=== PATIENT | male | born 1960 | race Caucasian/White ===

== ENCOUNTER 2018-08-26 07:13 | Emergency (ER) | payer OTHER ==
[~2018-08-26] VITALS: Ht 172.7 cm; Wt 65.9 kg
[~2018-08-26 07:13] MED LIST: HYDR-3965 PO; ONDA8TAB6 PO
[2018-08-26] MEDS ORDERED: LIDOcaine 1% w/epiNEPHrine 1:200,000 30ml vial IM ONE (07:30)
[2018-08-26] MEDS ORDERED: TETanus/Pertussis (Acell)/Diphther VAC/PF (Tdap-Adult) 0.5ml syringe IM ONE (07:30)
[2018-08-26] MEDS ORDERED: normal saline 1000ML IV soln IV ONE (07:35)
[2018-08-26 08:02] LABS: BASOPHILS % (AUTO) 0.4 % (0-1); EOSINOPHILS # (AUTO) 0.1 X10'3 (0-0.9); EOSINOPHILS % (AUTO) 3.2 % (0-6); HEMATOCRIT 33.6 % (42.0-52.0); HEMOGLOBIN 11.6 g/dl (14.0-17.9); LYMPHOCYTES # (AUTO) 0.9 X10'3 (1.1-4.8); LYMPHOCYTES % (AUTO) 22.2 % (21-51); MEAN CORPUSCULAR HGB CONC 34.4 g/dL (33.0-36.5); MEAN CORPUSCULAR VOLUME 101.7 FL (78-98); MEAN PLATELET VOLUME 8.9 FL (7.4-10.4); MONOCYTES # (AUTO) 0.3 X10'3 (0-0.9); MONOCYTES % (AUTO) 7.9 % (2-12); NEUTROPHILS # (AUTO) 2.7 X10'3 (1.8-7.7); NEUTROPHILS % (AUTO) 66.3 % (42-75); PLATELET COUNT 96 X10'3 (140-440); RED CELL DISTRIBUTION WIDTH 14.2 % (11.5-14.5); WHITE BLOOD COUNT 4.1 X10'3 (4.5-11.0)
[2018-08-26 08:12] LABS: ALANINE AMINOTRANSFERASE 63 U/L (12-78); ALBUMIN 3.7 G/DL (3.4-5.0); ALKALINE PHOSPHATASE 80 IU/L (46-116); ANION GAP 14 (8-16); ASPARTATE AMINO TRANSFERASE 75 U/L (10-37); BILIRUBIN,TOTAL 0.6 MG/DL (0.1-1.0); BLOOD UREA NITROGEN 10 MG/DL (7-18); BUN/CREATININE RATIO 6.5 (5.4-32.0); CALCIUM 8.5 MG/DL (8.5-10.1); CHLORIDE 95 MMOL/L (99-107); CREATININE 1.55 MG/DL (0.60-1.10); GLUCOSE 110 MG/DL (70-104); MAGNESIUM 1.2 MG/DL (1.5-2.4); PHOSPHORUS 2.5 MG/DL (2.3-4.5); POTASSIUM 3.2 MMOL/L (3.5-5.1); SODIUM 134 MMOL/L (135-145); TOTAL CARBON DIOXIDE 25.5 MMOL/L (24-32); TOTAL PROTEIN 7.3 G/DL (6.4-8.2); eGFR 47 ML/MIN
[2018-08-26 09:13] LABS: PARTIAL THROMBOPLASTIN TIME 26 SECONDS (22-32)
--- NOTE | 2018-08-26 09:27 | NUR ---
assumed care of pt from Ct RN, pt is resting quietly on gurney, eating ice chips, urbano well, no n/v, pt is GCS 15, alert and oriented, resp even and unlabored, skin p/w/d, dressing to left forearm is dry and intact, pt said he had kale placed
--- NOTE | 2018-08-26 09:29 | NUR ---
emptied urinal of 700ml of clear yellow urine
[2018-08-26] MEDS ORDERED: potassium Cl 20 mEq SR tablet PO ONE (10:05)
--- NOTE | 2018-08-26 10:40 | NUR ---
pt continues to rest quietly on gurunion, waiting for blood transfusion, consent has been signed
--- NOTE | 2018-08-26 11:44 | NUR ---
pt is resting quietly on gurney, resp even and unlabored,
[2018-08-26 11:45] VITALS: BP 139/90
[2018-08-26 12:05] VITALS: BP 141/87
--- NOTE | 2018-08-26 12:07 | NUR ---
pt is receiving 1st unit URBC, no s/s of reaction to blood, pt is resting quietly,
[2018-08-26 12:54] VITALS: BP 151/94
--- NOTE | 2018-08-26 12:58 | NUR ---
pt is resting quietly, PRBC infusing via pump, pt urbano well
[2018-08-26 14:00] VITALS: BP 155/100
--- NOTE | 2018-08-26 14:07 | NUR ---
PRBC FINISHED, PT CONTINUES TO REST QUIETLY ON GURNEY, PLANS TO TAKE TAXI HOME UPON DISCHARGE
== END 2018-08-26 14:30 | disposition home or self-care (01) ==
LOC: ER 07:14
DX: S51.812A Laceration without foreign body of left forearm, initial encounter (principal); D64.9 Anemia, unspecified; F32.9 Major depressive disorder, single episode, unspecified; Z98.890 Other specified postprocedural states; W26.0XXA Contact with knife, initial encounter; Y93.89 Activity, other specified; Y92.098 Other place in other non-institutional residence as the place of occurrence of the external cause; Y99.9 Unspecified external cause status
CPT/HCPCS: 12004; 36415; 36430; 80053; 83735; 84100; 85025; 85610; 85730; 86885; 86900; 86901; 86920; 90471; 90715; 99285; J7030; P9016

== ENCOUNTER 2018-09-24 12:33 | Emergency (ER) | payer OTHER ==
[~2018-09-24] VITALS: Ht 172.7 cm; Wt 68.0 kg
[~2018-09-24 12:33] MED LIST changes: -HYDR-3965 PO
[2018-09-24 13:19] LABS: BASOPHILS # (AUTO) 0.1 X10'3 (0-0.2); BASOPHILS % (AUTO) 0.5 % (0-1); EOSINOPHILS % (AUTO) 0.2 % (0-6); HEMATOCRIT 45.5 % (42.0-52.0); HEMOGLOBIN 15.9 g/dl (14.0-17.9); LYMPHOCYTES # (AUTO) 1.5 X10'3 (1.1-4.8); MEAN CORPUSCULAR HEMOGLOBIN 34.9 PG (27.0-31.0); MEAN CORPUSCULAR VOLUME 99.7 FL (78-98); MEAN PLATELET VOLUME 7.7 FL (7.4-10.4); MONOCYTES # (AUTO) 0.8 X10'3 (0-0.9); MONOCYTES % (AUTO) 7.5 % (2-12); NEUTROPHILS # (AUTO) 8.5 X10'3 (1.8-7.7); NEUTROPHILS % (AUTO) 77.8 % (42-75); PLATELET COUNT 165 X10'3 (140-440); RED BLOOD COUNT 4.56 X10'6 (4.70-6.10); RED CELL DISTRIBUTION WIDTH 14.3 % (11.5-14.5)
[2018-09-24 13:32] LABS: ALANINE AMINOTRANSFERASE 32 U/L (12-78); ALBUMIN 4.2 G/DL (3.4-5.0); ALBUMIN/GLOBULIN RATIO 0.9 (1.1-1.5); ALKALINE PHOSPHATASE 80 IU/L (46-116); ANION GAP 13 (8-16); ASPARTATE AMINO TRANSFERASE 32 U/L (10-37); BILIRUBIN,TOTAL 1.9 MG/DL (0.1-1.0); BLOOD UREA NITROGEN 23 MG/DL (7-18); BUN/CREATININE RATIO 9.7 (5.4-32.0); CALCIUM 10.2 MG/DL (8.5-10.1); CHLORIDE 89 MMOL/L (99-107); CREATININE 2.37 MG/DL (0.60-1.10); GLUCOSE 130 MG/DL (70-104); POTASSIUM 3.3 MMOL/L (3.5-5.1); SODIUM 136 MMOL/L (135-145); TOTAL CARBON DIOXIDE 34.2 MMOL/L (24-32); TOTAL PROTEIN 8.8 G/DL (6.4-8.2); eGFR 29 ML/MIN
--- NOTE | 2018-09-24 14:06 | NUR ---
PT UNABLE TO VOID FOR UA AT THIS TIME.
[2018-09-24 14:13] LABS: ETHANOL < 0.010 GM/DL (0.0-0.010); LIPASE 102 U/L (73-393)
[2018-09-24] MEDS ORDERED: normal saline 1000ML IV soln IVB ONE (14:50)
--- NOTE | 2018-09-24 15:08 | NUR ---
PT STILL UINABLE TO VOID FOR UA, STARTED 2L BOLUS OF NS. AWARE.
[2018-09-24] MEDS ORDERED: morphine 4 MG/ML inj SYRINge IV ONE (15:30)
[2018-09-24] MEDS ORDERED: ondansetron/PF 4mg/2ml inj IV ONE (15:30)
[2018-09-24] MEDS ORDERED: famotidine/PF 10 mg/ml inj IV ONE (15:45)
[2018-09-24] MEDS ORDERED: PANT-47 PO (15:51)
[2018-09-24] MEDS ORDERED: ONDA4TAB12 PO (15:51)
[2018-09-24 16:44] VITALS: BP 156/100
== END 2018-09-24 16:47 | disposition home or self-care (01) ==
LOC: ER 12:33
DX: K29.20 Alcoholic gastritis without bleeding (principal); N17.9 Acute kidney failure, unspecified; E86.0 Dehydration; F32.9 Major depressive disorder, single episode, unspecified; Z79.899 Other long term (current) drug therapy
CPT/HCPCS: 36415; 76700; 80053; 80320; 83690; 85025; 85610; 96361; 96374; 96375; 99284; J2270; J2405; J3490; J7030

== ENCOUNTER 2018-10-09 20:14 | Emergency (ER) | payer OTHER ==
[~2018-10-09] VITALS: Ht 172.7 cm; Wt 65.0 kg
[~2018-10-09 20:14] MED LIST changes: +ONDA4TAB12 PO; +PANT-47 PO
[2018-10-09 21:00] LABS: BASOPHILS # (AUTO) 0.1 X10'3 (0-0.2); BASOPHILS % (AUTO) 1.5 % (0-1); EOSINOPHILS # (AUTO) 0.1 X10'3 (0-0.9); EOSINOPHILS % (AUTO) 1.2 % (0-6); HEMATOCRIT 44.9 % (42.0-52.0); HEMOGLOBIN 15.3 g/dl (14.0-17.9); LYMPHOCYTES # (AUTO) 2.8 X10'3 (1.1-4.8); LYMPHOCYTES % (AUTO) 49.2 % (21-51); MEAN CORPUSCULAR HEMOGLOBIN 34.1 PG (27.0-31.0); MEAN CORPUSCULAR HGB CONC 34.1 g/dL (33.0-36.5); MEAN CORPUSCULAR VOLUME 100.1 FL (78-98); MEAN PLATELET VOLUME 7.3 FL (7.4-10.4); MONOCYTES # (AUTO) 0.5 X10'3 (0-0.9); MONOCYTES % (AUTO) 9.3 % (2-12); NEUTROPHILS # (AUTO) 2.2 X10'3 (1.8-7.7); NEUTROPHILS % (AUTO) 38.8 % (42-75); PLATELET COUNT 292 X10'3 (140-440); RED BLOOD COUNT 4.48 X10'6 (4.70-6.10); RED CELL DISTRIBUTION WIDTH 14.5 % (11.5-14.5); WHITE BLOOD COUNT 5.8 X10'3 (4.5-11.0)
[2018-10-09 21:05] LABS: ALANINE AMINOTRANSFERASE 79 U/L (12-78); ALBUMIN 4.1 G/DL (3.4-5.0); ALKALINE PHOSPHATASE 76 IU/L (46-116); ANION GAP 17 (8-16); ASPARTATE AMINO TRANSFERASE 134 U/L (10-37); BLOOD UREA NITROGEN 12 MG/DL (7-18); CALCIUM 9.3 MG/DL (8.5-10.1); CHLORIDE 98 MMOL/L (99-107); GLUCOSE 95 MG/DL (70-104); LIPASE 89 U/L (73-393); POTASSIUM 3.7 MMOL/L (3.5-5.1); SODIUM 139 MMOL/L (135-145); TOTAL CARBON DIOXIDE 24.1 MMOL/L (24-32); TOTAL PROTEIN 8.4 G/DL (6.4-8.2); eGFR 78 ML/MIN
[2018-10-09] MEDS ORDERED: normal saline 1000ML IV soln IVB ONE (21:10)
[2018-10-09] MEDS ORDERED: ondansetron/PF 4mg/2ml inj IV ONE (21:10)
[2018-10-09] MEDS ORDERED: pantoprazole 40 MG vial IV ONE (21:10)
--- NOTE | 2018-10-09 21:33 | NUR ---
Discussed pt's status including active etoh withdrawl s/s (n/v increased anxiety, coarse hand tremors) with VALERY Monge New orders received for ativan.
[2018-10-09] MEDS ORDERED: LORazepam 2 mg/ml vial IV ONE (21:35)
[2018-10-09] MEDS ORDERED: ONDA4TAB6 PO (23:14)
[2018-10-09] MEDS ORDERED: CHLO25CA10 PO (23:14)
[2018-10-09 23:28] VITALS: BP 140/97
== END 2018-10-09 23:33 | disposition home or self-care (01) ==
LOC: ER 20:15
DX: K29.00 Acute gastritis without bleeding (principal); F10.10 Alcohol abuse, uncomplicated; F32.9 Major depressive disorder, single episode, unspecified; F12.90 Cannabis use, unspecified, uncomplicated; Z98.890 Other specified postprocedural states; Z79.899 Other long term (current) drug therapy
CPT/HCPCS: 36415; 80053; 83690; 85025; 85610; 96361; 96374; 96375; 99283; C9113; J2060; J2405; J7030

== ENCOUNTER 2018-10-11 13:10 | Emergency (ER) | payer OTHER ==
[~2018-10-11] VITALS: Ht 172.7 cm; Wt 65.9 kg
[~2018-10-11 13:10] MED LIST changes: +CHLO25CA10 PO; +ONDA4TAB6 PO
[2018-10-11 13:48] LABS: BASOPHILS % (AUTO) 0.8 % (0-1); EOSINOPHILS # (AUTO) 0.1 X10'3 (0-0.9); EOSINOPHILS % (AUTO) 1.7 % (0-6); HEMATOCRIT 37.9 % (42.0-52.0); LYMPHOCYTES # (AUTO) 1.7 X10'3 (1.1-4.8); LYMPHOCYTES % (AUTO) 36.3 % (21-51); MEAN CORPUSCULAR HEMOGLOBIN 34.3 PG (27.0-31.0); MEAN CORPUSCULAR HGB CONC 34.4 g/dL (33.0-36.5); MEAN CORPUSCULAR VOLUME 99.9 FL (78-98); MEAN PLATELET VOLUME 7.1 FL (7.4-10.4); MONOCYTES # (AUTO) 0.5 X10'3 (0-0.9); MONOCYTES % (AUTO) 9.7 % (2-12); NEUTROPHILS # (AUTO) 2.4 X10'3 (1.8-7.7); NEUTROPHILS % (AUTO) 51.5 % (42-75); PLATELET COUNT 179 X10'3 (140-440); RED BLOOD COUNT 3.79 X10'6 (4.70-6.10); RED CELL DISTRIBUTION WIDTH 14.4 % (11.5-14.5); WHITE BLOOD COUNT 4.7 X10'3 (4.5-11.0)
[2018-10-11 14:04] LABS: ALANINE AMINOTRANSFERASE 84 U/L (12-78); ALBUMIN 3.5 G/DL (3.4-5.0); ALKALINE PHOSPHATASE 65 IU/L (46-116); ANION GAP 16 (8-16); ASPARTATE AMINO TRANSFERASE 113 U/L (10-37); BILIRUBIN,TOTAL 0.7 MG/DL (0.1-1.0); BLOOD UREA NITROGEN 9 MG/DL (7-18); BUN/CREATININE RATIO 7.6 (5.4-32.0); CALCIUM 8.3 MG/DL (8.5-10.1); CHLORIDE 105 MMOL/L (99-107); CREATININE 1.19 MG/DL (0.60-1.10); ETHANOL 0.296 GM/DL (0.0-0.010); GLUCOSE 88 MG/DL (70-104); POTASSIUM 3.2 MMOL/L (3.5-5.1); SODIUM 144 MMOL/L (135-145); TOTAL CARBON DIOXIDE 22.6 MMOL/L (24-32); TOTAL PROTEIN 6.9 G/DL (6.4-8.2); TROPONIN I < 0.04 NG/ML (0.0-0.05); eGFR 63 ML/MIN
[2018-10-11] MEDS ORDERED: ondansetron/PF 4mg/2ml inj IV ONE (14:40)
[2018-10-11 15:00] LABS: LIPASE 183 U/L (73-393)
[2018-10-11] MEDS ORDERED: potassium Cl 20 mEq SR tablet PO STA (15:02)
[2018-10-11] MEDS ORDERED: diphenhydrAMINE 50 mg/ml inj IV ONE (15:05)
[2018-10-11] MEDS ORDERED: normal saline 1000ML IV soln IVB ONE (15:05)
[2018-10-11] MEDS ORDERED: metoclopramide 5 mg/ml inj IV ONE (15:05)
[2018-10-11] MEDS ORDERED: PANT20TA3 PO (15:07)
[2018-10-11 16:16] VITALS: BP 124/74
== END 2018-10-11 16:17 | disposition home or self-care (01) ==
LOC: ER 13:10
DX: F10.129 Alcohol abuse with intoxication, unspecified (principal); R11.2 Nausea with vomiting, unspecified; R10.13 Epigastric pain; F12.90 Cannabis use, unspecified, uncomplicated; Z98.890 Other specified postprocedural states; Z79.899 Other long term (current) drug therapy; Y90.9 Presence of alcohol in blood, level not specified
CPT/HCPCS: 36415; 80053; 80320; 83690; 84484; 85025; 93005; 96374; 96375; 99284; J1200; J2405; J2765; J7030

== ENCOUNTER 2018-10-11 20:36 | Emergency (ER) | payer OTHER ==
[~2018-10-11] VITALS: Ht 172.7 cm; Wt 65.0 kg
[~2018-10-11 20:36] MED LIST changes: +PANT20TA3 PO
[2018-10-11] MEDS ORDERED: normal saline 1000ML IV soln IVB ONE (21:15)
[2018-10-11] MEDS ORDERED: ondansetron/PF 4mg/2ml inj IV ONE (21:15)
[2018-10-11 21:53] VITALS: BP 125/84
[2018-10-11 21:55] LABS: BASOPHILS % (AUTO) 0.8 % (0-1); EOSINOPHILS % (AUTO) 0.1 % (0-6); HEMATOCRIT 34.7 % (42.0-52.0); HEMOGLOBIN 11.8 g/dl (14.0-17.9); LYMPHOCYTES # (AUTO) 0.9 X10'3 (1.1-4.8); LYMPHOCYTES % (AUTO) 26.4 % (21-51); MEAN CORPUSCULAR HEMOGLOBIN 34.2 PG (27.0-31.0); MEAN CORPUSCULAR HGB CONC 33.9 g/dL (33.0-36.5); MEAN CORPUSCULAR VOLUME 100.9 FL (78-98); MEAN PLATELET VOLUME 7.2 FL (7.4-10.4); MONOCYTES # (AUTO) 0.2 X10'3 (0-0.9); MONOCYTES % (AUTO) 7.1 % (2-12); NEUTROPHILS # (AUTO) 2.2 X10'3 (1.8-7.7); NEUTROPHILS % (AUTO) 65.6 % (42-75); PLATELET COUNT 124 X10'3 (140-440); RED BLOOD COUNT 3.44 X10'6 (4.70-6.10); RED CELL DISTRIBUTION WIDTH 14.5 % (11.5-14.5); WHITE BLOOD COUNT 3.3 X10'3 (4.5-11.0)
[2018-10-11 22:11] LABS: ALANINE AMINOTRANSFERASE 75 U/L (12-78); ALBUMIN 3.5 G/DL (3.4-5.0); ALBUMIN/GLOBULIN RATIO 1.1 (1.1-1.5); ALKALINE PHOSPHATASE 62 IU/L (46-116); ANION GAP 15 (8-16); ASPARTATE AMINO TRANSFERASE 84 U/L (10-37); BILIRUBIN,TOTAL 0.6 MG/DL (0.1-1.0); BLOOD UREA NITROGEN 9 MG/DL (7-18); BUN/CREATININE RATIO 7.4 (5.4-32.0); CHLORIDE 104 MMOL/L (99-107); CREATININE 1.22 MG/DL (0.60-1.10); GLUCOSE 120 MG/DL (70-104); LIPASE 155 U/L (73-393); POTASSIUM 3.7 MMOL/L (3.5-5.1); SODIUM 143 MMOL/L (135-145); TOTAL CARBON DIOXIDE 23.7 MMOL/L (24-32); TOTAL PROTEIN 6.8 G/DL (6.4-8.2); TROPONIN I < 0.04 NG/ML (0.0-0.05); eGFR 62 ML/MIN
[2018-10-11 22:12] LABS: CALCIUM 8.3 MG/DL (8.5-10.1)
== END 2018-10-11 22:29 | disposition home or self-care (01) ==
LOC: ER 20:36
DX: K29.20 Alcoholic gastritis without bleeding (principal); F10.10 Alcohol abuse, uncomplicated; R11.2 Nausea with vomiting, unspecified; F32.9 Major depressive disorder, single episode, unspecified; F12.90 Cannabis use, unspecified, uncomplicated; Z98.890 Other specified postprocedural states; Z79.899 Other long term (current) drug therapy
CPT/HCPCS: 36415; 80053; 83690; 84484; 85025; 96361; 96374; 99283; J2405; J7030

== ENCOUNTER 2018-11-10 10:21 | Emergency (ER) | payer OTHER ==
[~2018-11-10] VITALS: Ht 172.7 cm; Wt 66.0 kg
[2018-11-10 11:03] LABS: BASOPHILS # (AUTO) 0.1 X10'3 (0-0.2); BASOPHILS % (AUTO) 0.8 % (0-1); EOSINOPHILS % (AUTO) 0 % (0-6); HEMATOCRIT 46.3 % (42.0-52.0); LYMPHOCYTES # (AUTO) 2.6 X10'3 (1.1-4.8); LYMPHOCYTES % (AUTO) 31.1 % (21-51); MEAN CORPUSCULAR HEMOGLOBIN 33.9 PG (27.0-31.0); MEAN CORPUSCULAR HGB CONC 34.5 g/dL (33.0-36.5); MEAN CORPUSCULAR VOLUME 98.1 FL (78-98); MEAN PLATELET VOLUME 7.4 FL (7.4-10.4); MONOCYTES # (AUTO) 0.9 X10'3 (0-0.9); MONOCYTES % (AUTO) 10.4 % (2-12); NEUTROPHILS # (AUTO) 4.7 X10'3 (1.8-7.7); NEUTROPHILS % (AUTO) 57.7 % (42-75); PLATELET COUNT 328 X10'3 (140-440); RED BLOOD COUNT 4.72 X10'6 (4.70-6.10); RED CELL DISTRIBUTION WIDTH 14.2 % (11.5-14.5); WHITE BLOOD COUNT 8.2 X10'3 (4.5-11.0)
[2018-11-10 11:18] LABS: ALANINE AMINOTRANSFERASE 44 U/L (12-78); ALBUMIN 4.3 G/DL (3.4-5.0); ALKALINE PHOSPHATASE 90 IU/L (46-116); ANION GAP 23 (8-16); ASPARTATE AMINO TRANSFERASE 50 U/L (10-37); BILIRUBIN,TOTAL 0.8 MG/DL (0.1-1.0); BLOOD UREA NITROGEN 25 MG/DL (7-18); BUN/CREATININE RATIO 20.8 (5.4-32.0); CHLORIDE 93 MMOL/L (99-107); GLUCOSE 121 MG/DL (70-104); LIPASE 76 U/L (73-393); POTASSIUM 3.9 MMOL/L (3.5-5.1); SODIUM 138 MMOL/L (135-145); TOTAL CARBON DIOXIDE 22.1 MMOL/L (24-32); TOTAL PROTEIN 8.6 G/DL (6.4-8.2); eGFR 63 ML/MIN
[2018-11-10] MEDS ORDERED: LORazepam 2 mg/ml vial IV ONE (12:40)
[2018-11-10] MEDS ORDERED: normal saline 1000ML IV soln IV ONE (12:40)
[2018-11-10] MEDS ORDERED: ondansetron/PF 4mg/2ml inj IV ONE (12:40)
[2018-11-10] MEDS ORDERED: morphine 4 MG/ML inj SYRINge IV PRN (12:45)
[2018-11-10] MEDS ORDERED: GABA-532 PO (14:55)
[2018-11-10 15:07] VITALS: BP 143/78
[2018-11-10 15:24] LABS: MAGNESIUM 1.9 MG/DL (1.5-2.4)
[2018-11-11] MEDS ORDERED: TRAM50TA2 PO (15:46)
== END 2018-11-10 15:09 | disposition home or self-care (01) ==
LOC: ER 10:22
DX: F10.929 Alcohol use, unspecified with intoxication, unspecified (principal); E86.0 Dehydration; R10.10 Upper abdominal pain, unspecified; F12.90 Cannabis use, unspecified, uncomplicated; Z98.890 Other specified postprocedural states; Z79.899 Other long term (current) drug therapy; Y90.9 Presence of alcohol in blood, level not specified
CPT/HCPCS: 36415; 80053; 83690; 83735; 83880; 85025; 85610; 93005; 96374; 96375; 99284; J2060; J2270; J2405; J7030

== ENCOUNTER 2018-11-11 10:22 | Emergency (ER) | payer OTHER ==
[~2018-11-11] VITALS: Ht 175.3 cm; Wt 77.0 kg
[~2018-11-11 10:22] MED LIST changes: +GABA-532 PO
--- NOTE | 2018-11-11 12:00 | NUR ---
pt c/o pain asked provider for pain meds
[2018-11-11] MEDS ORDERED: fentaNYL/PF 50MCG/1 ML 2ML syringe IV ONE ×2 (12:10→13:40)
[2018-11-11] MEDS ORDERED: normal saline 1000ML IV soln IVB ONE (12:25)
[2018-11-11] MEDS ORDERED: ondansetron/PF 4mg/2ml inj IV ONE ×2 (12:25→13:40)
[2018-11-11] MEDS ORDERED: iohexol 300mg/ml 100ml inj. ONE (12:25)
[2018-11-11 12:33] LABS: BASOPHILS % (AUTO) 0.5 % (0-1); EOSINOPHILS % (AUTO) 0.5 % (0-6); HEMATOCRIT 38.1 % (42.0-52.0); HEMOGLOBIN 12.8 g/dl (14.0-17.9); LYMPHOCYTES % (AUTO) 29.2 % (21-51); MEAN CORPUSCULAR HEMOGLOBIN 33.3 PG (27.0-31.0); MEAN CORPUSCULAR HGB CONC 33.7 g/dL (33.0-36.5); MEAN CORPUSCULAR VOLUME 98.9 FL (78-98); MEAN PLATELET VOLUME 7.2 FL (7.4-10.4); MONOCYTES # (AUTO) 0.5 X10'3 (0-0.9); MONOCYTES % (AUTO) 7.1 % (2-12); NEUTROPHILS # (AUTO) 4.2 X10'3 (1.8-7.7); NEUTROPHILS % (AUTO) 62.7 % (42-75); PLATELET COUNT 162 X10'3 (140-440); RED BLOOD COUNT 3.85 X10'6 (4.70-6.10); RED CELL DISTRIBUTION WIDTH 14.3 % (11.5-14.5); WHITE BLOOD COUNT 6.7 X10'3 (4.5-11.0)
[2018-11-11 12:37] LABS: PARTIAL THROMBOPLASTIN TIME 26 SECONDS (22-32)
--- NOTE | 2018-11-11 12:40 | NUR ---
helped pt up to try to use urinal, unable to urinate yet
[2018-11-11 12:41] LABS: ALANINE AMINOTRANSFERASE 40 U/L (12-78); ALBUMIN 3.5 G/DL (3.4-5.0); ALKALINE PHOSPHATASE 69 IU/L (46-116); ANION GAP 12 (8-16); ASPARTATE AMINO TRANSFERASE 47 U/L (10-37); BILIRUBIN,TOTAL 0.9 MG/DL (0.1-1.0); BLOOD UREA NITROGEN 13 MG/DL (7-18); BUN/CREATININE RATIO 14.1 (5.4-32.0); CALCIUM 8.5 MG/DL (8.5-10.1); CHLORIDE 102 MMOL/L (99-107); CREATININE 0.92 MG/DL (0.60-1.10); ETHANOL 0.248 GM/DL (0.0-0.010); GLUCOSE 92 MG/DL (70-104); LIPASE 83 U/L (73-393); POTASSIUM 3.6 MMOL/L (3.5-5.1); SODIUM 141 MMOL/L (135-145); TOTAL CARBON DIOXIDE 26.8 MMOL/L (24-32); TOTAL PROTEIN 6.9 G/DL (6.4-8.2); eGFR 85 ML/MIN
--- NOTE | 2018-11-11 13:10 | NUR ---
pt back to room, using urinal.
--- NOTE | 2018-11-11 13:40 | NUR ---
PT C/O PAIN 11/25 REQ PAIN MEDS AND ANTI NAUSEA FROM PROVIDER
[2018-11-11 13:47] LABS: CLARITY,URINE CLEAR (Clear); COLOR,URINE STRAW (Yellow); GLUCOSE, URINE NEGATIVE (Neg); KETONES,URINE NEGATIVE (Neg); LEUKOCYTE ESTERASE ,URINE NEGATIVE (Neg); NITRITES, URINE NEGATIVE (Neg); OCCULT BLOOD,URINE NEGATIVE (Neg); PH,URINE 6.5 (4.8-8.0); PROTEIN,URINE NEGATIVE (Neg); UA COLLECTION TYPE URINAL
[2018-11-11 14:13] LABS: URINE AMPHETAMINE SCREEN NEGATIVE (Neg); URINE BARBITUATE SCREEN NEGATIVE (Neg); URINE BENZODIAZEPINES SCREEN NEGATIVE (Neg); URINE CANNABINOID SCREEN POSITIVE (Neg); URINE COCAINE SCREEN NEGATIVE (Neg); URINE METHADONE SCREEN NEGATIVE (Neg); URINE OPIATE SCREEN POSITIVE (Neg); URINE PHENCYCLIDINE SCREEN NEGATIVE (Neg)
[2018-11-11 15:16] VITALS: BP 173/98
[2018-11-11] MEDS ORDERED: TRAM50TA2 PO (15:46)
== END 2018-11-11 15:19 | disposition home or self-care (01) ==
LOC: ER 10:22
DX: S22.32XA Fracture of one rib, left side, initial encounter for closed fracture (principal); F10.229 Alcohol dependence with intoxication, unspecified; F32.9 Major depressive disorder, single episode, unspecified; F12.90 Cannabis use, unspecified, uncomplicated; Z79.899 Other long term (current) drug therapy; W18.39XA Other fall on same level, initial encounter; Y93.89 Activity, other specified; Y92.89 Other specified places as the place of occurrence of the external cause; Y99.8 Other external cause status
CPT/HCPCS: 36415; 70450; 71260; 72125; 74177; 80053; 80305; 80320; 81003; 83690; 85025; 85610; 85730; 96374; 96375; 96376; 99284; J2405; J3010; J7030; Q9967

== ENCOUNTER 2018-12-16 00:44 | Emergency (ER) | payer OTHER ==
[~2018-12-16] VITALS: Ht 172.7 cm; Wt 64.0 kg
[2018-12-16] MEDS ORDERED: normal saline 1000ML IV soln IVB ONE (00:55)
[2018-12-16] MEDS ORDERED: ondansetron/PF 4mg/2ml inj IV ONE (00:55)
[2018-12-16] MEDS: morphine 4 MG/ML inj SYRINge IV PRN ×2 (01:00→01:49)
[2018-12-16 01:14] LABS: BASOPHILS % (AUTO) 0.9 % (0-1); EOSINOPHILS % (AUTO) 0.3 % (0-6); HEMATOCRIT 40.7 % (42.0-52.0); HEMOGLOBIN 14.4 g/dl (14.0-17.9); LYMPHOCYTES # (AUTO) 2.1 X10'3 (1.1-4.8); LYMPHOCYTES % (AUTO) 47.9 % (21-51); MEAN CORPUSCULAR HEMOGLOBIN 34.3 PG (27.0-31.0); MEAN CORPUSCULAR HGB CONC 35.3 g/dL (33.0-36.5); MEAN CORPUSCULAR VOLUME 97.2 FL (78-98); MEAN PLATELET VOLUME 8.1 FL (7.4-10.4); MONOCYTES # (AUTO) 0.8 X10'3 (0-0.9); MONOCYTES % (AUTO) 17.2 % (2-12); NEUTROPHILS # (AUTO) 1.5 X10'3 (1.8-7.7); NEUTROPHILS % (AUTO) 33.7 % (42-75); PLATELET COUNT 109 X10'3 (140-440); RED BLOOD COUNT 4.18 X10'6 (4.70-6.10); RED CELL DISTRIBUTION WIDTH 14.1 % (11.5-14.5); WHITE BLOOD COUNT 4.4 X10'3 (4.5-11.0)
[2018-12-16 01:34] LABS: ALANINE AMINOTRANSFERASE 95 U/L (12-78); ALKALINE PHOSPHATASE 103 IU/L (46-116); ANION GAP 13 (8-16); ASPARTATE AMINO TRANSFERASE 172 U/L (10-37); BILIRUBIN,TOTAL 1.6 MG/DL (0.1-1.0); BLOOD UREA NITROGEN 17 MG/DL (7-18); BUN/CREATININE RATIO 15.2 (5.4-32.0); CALCIUM 8.9 MG/DL (8.5-10.1); CHLORIDE 87 MMOL/L (99-107); CREATININE 1.12 MG/DL (0.60-1.10); GLUCOSE 107 MG/DL (70-104); LIPASE 131 U/L (73-393); SODIUM 133 MMOL/L (135-145); TOTAL CARBON DIOXIDE 32.9 MMOL/L (24-32); TOTAL PROTEIN 8.1 G/DL (6.4-8.2); TROPONIN I < 0.04 NG/ML (0.0-0.05); eGFR 68 ML/MIN
[2018-12-16 01:36] LABS: POTASSIUM 2.8 MMOL/L (3.5-5.1)
[2018-12-16] MEDS ORDERED: potassium Cl 20 mEq SR tablet PO STA (01:37)
[2018-12-16] MEDS ORDERED: POTA20TA19 PO (01:38)
[2018-12-16 02:27] VITALS: BP 125/73
== END 2018-12-16 02:29 | disposition home or self-care (01) ==
LOC: ER 00:44
DX: S20.212A Contusion of left front wall of thorax, initial encounter (principal); R11.2 Nausea with vomiting, unspecified; R10.10 Upper abdominal pain, unspecified; E87.6 Hypokalemia; F10.99 Alcohol use, unspecified with unspecified alcohol-induced disorder; I10 Essential (primary) hypertension; F32.9 Major depressive disorder, single episode, unspecified; F12.90 Cannabis use, unspecified, uncomplicated; Z98.890 Other specified postprocedural states; Z60.2 Problems related to living alone; Z79.899 Other long term (current) drug therapy; W18.39XA Other fall on same level, initial encounter; Y93.89 Activity, other specified; Y92.89 Other specified places as the place of occurrence of the external cause; Y99.8 Other external cause status; Y90.9 Presence of alcohol in blood, level not specified
CPT/HCPCS: 71045; 80053; 83690; 84484; 85025; 96361; 96374; 96375; 96376; 99284; J2270; J2405; J7030

== ENCOUNTER 2018-12-18 20:53 | Emergency (ER) | payer OTHER ==
[~2018-12-18] VITALS: Ht 172.7 cm; Wt 68.2 kg
[~2018-12-18 20:53] MED LIST changes: +POTA20TA19 PO
[2018-12-18] MEDS ORDERED: diphenhydrAMINE 25mg capsule PO ONE (22:55)
[2018-12-18] MEDS ORDERED: famotidine 20mg tablet PO ONE (22:55)
[2018-12-18] MEDS ORDERED: proCHLORperazine 10mg tablet PO ONE (22:55)
[2018-12-18 23:10] LABS: BASOPHILS % (AUTO) 0.8 % (0-1); EOSINOPHILS % (AUTO) 0.8 % (0-6); LYMPHOCYTES # (AUTO) 1.8 X10'3 (1.1-4.8); MEAN CORPUSCULAR HEMOGLOBIN 34.5 PG (27.0-31.0); MEAN CORPUSCULAR HGB CONC 35.2 g/dL (33.0-36.5); MEAN CORPUSCULAR VOLUME 97.9 FL (78-98); MONOCYTES # (AUTO) 0.5 X10'3 (0-0.9); MONOCYTES % (AUTO) 14.3 % (2-12); NEUTROPHILS % (AUTO) 29.1 % (42-75); PLATELET COUNT 98 X10'3 (140-440); RED BLOOD COUNT 3.78 X10'6 (4.70-6.10); RED CELL DISTRIBUTION WIDTH 14.5 % (11.5-14.5); WHITE BLOOD COUNT 3.4 X10'3 (4.5-11.0)
[2018-12-18 23:24] LABS: ALANINE AMINOTRANSFERASE 83 U/L (12-78); ALBUMIN 3.6 G/DL (3.4-5.0); ALKALINE PHOSPHATASE 95 IU/L (46-116); ANION GAP 6 (8-16); ASPARTATE AMINO TRANSFERASE 148 U/L (10-37); BLOOD UREA NITROGEN 13 MG/DL (7-18); BUN/CREATININE RATIO 12.1 (5.4-32.0); CALCIUM 8.5 MG/DL (8.5-10.1); CHLORIDE 93 MMOL/L (99-107); CREATININE 1.07 MG/DL (0.60-1.10); GLUCOSE 94 MG/DL (70-104); LIPASE 126 U/L (73-393); SODIUM 135 MMOL/L (135-145); TOTAL CARBON DIOXIDE 35.8 MMOL/L (24-32); TOTAL PROTEIN 7.1 G/DL (6.4-8.2); eGFR 71 ML/MIN
[2018-12-18 23:26] LABS: POTASSIUM 2.8 MMOL/L (3.5-5.1)
[2018-12-18] MEDS ORDERED: thiamine 100mg/ml 2ml inj. IV ONE (23:40)
[2018-12-18] MEDS ORDERED: thiamine 100mg tablet PO ONE (23:55)
[2018-12-19] MEDS ORDERED: potassium chloride 10mEq CAPSULE.SA PO STA (00:04)
[2018-12-19] MEDS ORDERED: potassium Cl 20 mEq SR tablet PO STA (00:08)
[2018-12-19 01:02] VITALS: BP 136/83
== END 2018-12-19 01:05 | disposition home or self-care (01) ==
LOC: ER 20:53
DX: R10.11 Right upper quadrant pain (principal); R10.12 Left upper quadrant pain; R11.2 Nausea with vomiting, unspecified; E87.6 Hypokalemia; F10.929 Alcohol use, unspecified with intoxication, unspecified; I10 Essential (primary) hypertension; F32.9 Major depressive disorder, single episode, unspecified; F12.90 Cannabis use, unspecified, uncomplicated; Z79.899 Other long term (current) drug therapy; Z98.890 Other specified postprocedural states; Z87.19 Personal history of other diseases of the digestive system; Z60.2 Problems related to living alone; Y90.9 Presence of alcohol in blood, level not specified
CPT/HCPCS: 80053; 83690; 85025; 99284; Q0163; Q0164

== ENCOUNTER 2019-01-10 20:04 | Emergency (ER) | payer OTHER ==
[~2019-01-10] VITALS: Ht 172.7 cm; Wt 68.2 kg
[2019-01-11] MEDS ORDERED: NAPR-56 PO (00:29)
[2019-01-11] MEDS ORDERED: HYDR-4383 PO (00:29)
[2019-01-11] MEDS ORDERED: naproxen 500mg tablet PO ONE (00:30)
[2019-01-11] MEDS ORDERED: HYDROcodone/acetaminophen 10/325mg tab PO ONE (00:30)
[2019-01-11 00:48] VITALS: BP 150/93
== END 2019-01-11 00:50 | disposition home or self-care (01) ==
LOC: ER 20:04
DX: M25.551 Pain in right hip (principal); M25.552 Pain in left hip; M19.90 Unspecified osteoarthritis, unspecified site; I10 Essential (primary) hypertension; F32.9 Major depressive disorder, single episode, unspecified; F12.90 Cannabis use, unspecified, uncomplicated; Z79.899 Other long term (current) drug therapy; Z87.19 Personal history of other diseases of the digestive system; Z98.890 Other specified postprocedural states; Z60.2 Problems related to living alone; W19.XXXA Unspecified fall, initial encounter; Y93.89 Activity, other specified; Y92.89 Other specified places as the place of occurrence of the external cause; Y99.8 Other external cause status
CPT/HCPCS: 72170; 72220; 99284

== ENCOUNTER 2019-01-15 13:25 | Emergency (ER) | payer OTHER ==
[~2019-01-15] VITALS: Ht 172.7 cm; Wt 68.2 kg
[~2019-01-15 13:25] MED LIST changes: +HYDR-4383 PO; +NAPR-56 PO
[2019-01-15] MEDS ORDERED: normal saline 1000ml 1,000 ML IV ONE (13:50)
[2019-01-15] MEDS ORDERED: ondansetron/PF 4mg/2ml inj IV ONE (13:55)
[2019-01-15 14:18] LABS: BASOPHILS % (AUTO) 0.6 % (0-1); EOSINOPHILS % (AUTO) 0.6 % (0-6); HEMATOCRIT 35.9 % (42.0-52.0); HEMOGLOBIN 12.5 g/dl (14.0-17.9); LYMPHOCYTES # (AUTO) 0.7 X10'3 (1.1-4.8); LYMPHOCYTES % (AUTO) 12.6 % (21-51); MEAN CORPUSCULAR HEMOGLOBIN 34.9 PG (27.0-31.0); MEAN CORPUSCULAR HGB CONC 34.9 g/dL (33.0-36.5); MONOCYTES # (AUTO) 0.3 X10'3 (0-0.9); MONOCYTES % (AUTO) 5.1 % (2-12); NEUTROPHILS # (AUTO) 4.6 X10'3 (1.8-7.7); NEUTROPHILS % (AUTO) 81.1 % (42-75); PLATELET COUNT 165 X10'3 (140-440); RED BLOOD COUNT 3.59 X10'6 (4.70-6.10); RED CELL DISTRIBUTION WIDTH 15.3 % (11.5-14.5); WHITE BLOOD COUNT 5.7 X10'3 (4.5-11.0)
--- NOTE | 2019-01-15 14:37 | NUR ---
PATIENT'S SPINE PALPATED ; NO STEP OFF NOTED; PATIENT HAS BRUISING TO LOWER THORACIC BACKAAA; RIGHT LATERAL WITH SWELLING; LOWER THORACIC SNALL BRUISE LEFT LATERAL BRUISING TO RIGHT UPPER BUTTOCK AND SACRUM
[2019-01-15 14:39] LABS: ALANINE AMINOTRANSFERASE 17 U/L (12-78); ALBUMIN 3.3 G/DL (3.4-5.0); ALBUMIN/GLOBULIN RATIO 0.9 (1.1-1.5); ALKALINE PHOSPHATASE 134 IU/L (46-116); ANION GAP 15 (8-16); ASPARTATE AMINO TRANSFERASE 30 U/L (10-37); BILIRUBIN,TOTAL 0.5 MG/DL (0.1-1.0); BLOOD UREA NITROGEN 11 MG/DL (7-18); CALCIUM 8.5 MG/DL (8.5-10.1); CHLORIDE 103 MMOL/L (99-107); CREATININE 0.92 MG/DL (0.60-1.10); ETHANOL 0.141 GM/DL (0.0-0.010); GLUCOSE 102 MG/DL (70-104); POTASSIUM 3.3 MMOL/L (3.5-5.1); SODIUM 141 MMOL/L (135-145); TOTAL CARBON DIOXIDE 23.1 MMOL/L (24-32); TOTAL PROTEIN 7.1 G/DL (6.4-8.2); eGFR 85 ML/MIN
[2019-01-15] MEDS ORDERED: LORazepam 2 mg/ml vial IV ONE (14:50)
[2019-01-15] MEDS ORDERED: ketorolac tromethamine 15mg/ml inj. IV ONE (14:50)
--- NOTE | 2019-01-15 14:55 | NUR ---
SPOKE TO NATALIA RAWLS REGARDING PAIN AND NAUSEA MEDICATIONS, NO ORDERS. BEDSIDE REPORT TO ISHAAN REDD. PATIENT TRANSFERRED TO ROOM 11
[2019-01-15 15:59] VITALS: BP 148/81
[2019-01-15] MEDS ORDERED: ONDA4TAB6 PO (16:06)
[2019-01-15] MEDS ORDERED: CLON-529 PO (16:06)
[2019-01-15 16:20] LABS: CLARITY,URINE CLEAR (Clear); COLOR,URINE STRAW (Yellow); GLUCOSE, URINE NEGATIVE (Neg); KETONES,URINE NEGATIVE (Neg); LEUKOCYTE ESTERASE ,URINE NEGATIVE (Neg); NITRITES, URINE NEGATIVE (Neg); OCCULT BLOOD,URINE NEGATIVE (Neg); PROTEIN,URINE 30 mg/dl (Neg); UROBILINOGEN,URINE 0.2 E.U/dL (0.2-1.0)
[2019-01-15 16:22] LABS: UA COLLECTION TYPE URINAL
[2019-01-15 16:25] LABS: BACTERIA,URINE NONE SEEN /HPF (Neg); MUCUS STRANDS NONE SEEN /LPF (Neg); RBC,URINE 0-2 /HPF (0-2); SQUAMOUS EPITHELIAL CELL,UR NONE SEEN /LPF (FEW); WBC,URINE NONE SEEN /HPF (0-4)
[2019-01-15 16:26] LABS: URINE AMPHETAMINE SCREEN NEGATIVE (Neg); URINE BARBITUATE SCREEN NEGATIVE (Neg); URINE BENZODIAZEPINES SCREEN POSITIVE (Neg); URINE CANNABINOID SCREEN POSITIVE (Neg); URINE COCAINE SCREEN NEGATIVE (Neg); URINE METHADONE SCREEN NEGATIVE (Neg); URINE OPIATE SCREEN POSITIVE (Neg); URINE PHENCYCLIDINE SCREEN NEGATIVE (Neg)
== END 2019-01-15 16:58 | disposition home or self-care (01) ==
LOC: ER 13:26
DX: F10.129 Alcohol abuse with intoxication, unspecified (principal); M54.5 Low back pain; R11.2 Nausea with vomiting, unspecified; R06.02 Shortness of breath; I10 Essential (primary) hypertension; F32.9 Major depressive disorder, single episode, unspecified; F12.90 Cannabis use, unspecified, uncomplicated; Z98.890 Other specified postprocedural states; Z60.2 Problems related to living alone; Z79.899 Other long term (current) drug therapy; Y90.0 Blood alcohol level of less than 20 mg/100 ml
CPT/HCPCS: 36415; 72220; 80053; 80305; 80320; 81001; 85025; 96361; 96374; 96375; 99283; J1885; J2060; J2405; J7030

== ENCOUNTER 2019-01-17 21:59 | Emergency (ER) | payer OTHER ==
[~2019-01-17] VITALS: Ht 172.7 cm; Wt 65.9 kg
[~2019-01-17 21:59] MED LIST changes: +CLON-529 PO; -POTA20TA19 PO
[2019-01-17] MEDS ORDERED: ondansetron/PF 4mg/2ml inj IV ONE (22:10)
[2019-01-17] MEDS ORDERED: normal saline 1000ML IV soln IVB ONE (22:10)
[2019-01-17] MEDS ORDERED: pantoprazole 40 MG vial IV ONE (22:10)
[2019-01-17 22:46] VITALS: BP 158/100
== END 2019-01-17 22:46 | disposition home or self-care (01) ==
LOC: ER 21:59
DX: R10.84 Generalized abdominal pain (principal); R11.0 Nausea; I10 Essential (primary) hypertension; F32.9 Major depressive disorder, single episode, unspecified; F10.99 Alcohol use, unspecified with unspecified alcohol-induced disorder; F12.90 Cannabis use, unspecified, uncomplicated; Z98.890 Other specified postprocedural states; Z60.2 Problems related to living alone; Z79.899 Other long term (current) drug therapy; Y90.9 Presence of alcohol in blood, level not specified
CPT/HCPCS: 96374; 96375; 99284; C9113; J2405; J7030; 96361

== ENCOUNTER 2019-01-20 16:08 | Emergency (ER) | payer OTHER ==
[~2019-01-20] VITALS: Ht 170.2 cm; Wt 68.2 kg
[2019-01-20 16:47] VITALS: BP 173/97
[2019-01-20] MEDS ORDERED: HYDROcodone/acetaminophen 5mg/325mg tablet PO ONE (17:45)
--- NOTE | 2019-01-20 18:17 | NUR ---
pt sitting up in bed asking to be dcd. infomed him as soon as his paper work is up he will be dcd
== END 2019-01-20 18:21 | disposition home or self-care (01) ==
LOC: ER 16:08
DX: G89.29 Other chronic pain (principal); M25.552 Pain in left hip; M25.551 Pain in right hip; I10 Essential (primary) hypertension; F32.9 Major depressive disorder, single episode, unspecified; F10.99 Alcohol use, unspecified with unspecified alcohol-induced disorder; F12.90 Cannabis use, unspecified, uncomplicated; Z60.2 Problems related to living alone; Z79.899 Other long term (current) drug therapy; Y90.9 Presence of alcohol in blood, level not specified
CPT/HCPCS: 99282

== ENCOUNTER 2019-02-25 19:05 | Emergency (ER) | payer OTHER ==
[~2019-02-25] VITALS: Ht 172.7 cm; Wt 68.2 kg
[~2019-02-25 19:05] MED LIST changes: -NAPR-56 PO
[2019-02-25] MEDS ORDERED: ondansetron 4mg rapidly disintigrating tab PO ONE (20:30)
[2019-02-25] MEDS ORDERED: LORazepam 1 MG tablet PO ONE (21:30)
--- NOTE | 2019-02-25 22:00 | NUR ---
Pt reports he still feels nauseous and is asking for additional nausea medication.
[2019-02-25 22:11] VITALS: BP 132/64
== END 2019-02-25 22:07 | disposition home or self-care (01) ==
LOC: ER 19:06
DX: F10.20 Alcohol dependence, uncomplicated (principal); R11.0 Nausea; I10 Essential (primary) hypertension; F32.9 Major depressive disorder, single episode, unspecified; F12.90 Cannabis use, unspecified, uncomplicated; Z98.890 Other specified postprocedural states; Z79.899 Other long term (current) drug therapy; Y90.9 Presence of alcohol in blood, level not specified
CPT/HCPCS: 99284

== ENCOUNTER 2019-03-01 04:42 | Emergency (ER) | payer OTHER ==
[~2019-03-01] VITALS: Ht 172.7 cm; Wt 68.0 kg
--- NOTE | 2019-03-01 04:50 | NUR ---
Patient to shower right after triage as he had large BM in his pants.
[2019-03-01] MEDS ORDERED: ondansetron 4mg rapidly disintigrating tab PO ONE (05:25)
--- NOTE | 2019-03-01 05:30 | NUR ---
PATIENT GIVEN WATER FOR PO CHALLENGE AND SOME CRACKERS WILL RE ASSESS NAUSEA
[2019-03-01] MEDS ORDERED: ONDA4TAB6 PO (05:38)
--- NOTE | 2019-03-01 05:51 | NUR ---
PATIENT ADDRESS FOR TRANSPORT [id number]
[2019-03-01 06:07] VITALS: BP 144/91
[2019-03-02] MEDS ORDERED: PANT40TA4 PO (10:16)
[2019-03-02] MEDS ORDERED: ONDA4TAB6 PO (10:18)
[2019-03-02] MEDS ORDERED: HYDR-3965 PO (10:19)
[2019-03-02] MEDS ORDERED: GABA-532 PO (10:23)
[2019-03-02] MEDS ORDERED: CHLO25CA10 PO (10:24)
[2019-03-02] MEDS ORDERED: CLON-529 PO (10:26)
[2019-03-02] MEDS ORDERED: NAPR-56 PO (10:28)
== END 2019-03-01 06:20 | disposition home or self-care (01) ==
LOC: ER 04:43
DX: F10.229 Alcohol dependence with intoxication, unspecified (principal); R11.0 Nausea; I10 Essential (primary) hypertension; Y90.9 Presence of alcohol in blood, level not specified; F12.90 Cannabis use, unspecified, uncomplicated; Z98.890 Other specified postprocedural states; Z89.512 Acquired absence of left leg below knee; Z79.899 Other long term (current) drug therapy
CPT/HCPCS: 99284

== ENCOUNTER 2019-03-01 15:48 | Inpatient (IN) | payer OTHER ==
[~2019-03-01] VITALS: Ht 172.7 cm; Wt 64.5 kg
[2019-03-01 16:17] LABS: BASOPHILS % (AUTO) 0.6 % (0-1); EOSINOPHILS % (AUTO) 0.4 % (0-6); HEMATOCRIT 39.9 % (42.0-52.0); LYMPHOCYTES # (AUTO) 1.9 X10'3 (1.1-4.8); LYMPHOCYTES % (AUTO) 37.4 % (21-51); MEAN CORPUSCULAR HEMOGLOBIN 35.3 PG (27.0-31.0); MEAN CORPUSCULAR HGB CONC 35.1 g/dL (33.0-36.5); MEAN CORPUSCULAR VOLUME 100.5 FL (78-98); MEAN PLATELET VOLUME 8.2 FL (7.4-10.4); MONOCYTES # (AUTO) 0.6 X10'3 (0-0.9); MONOCYTES % (AUTO) 11.9 % (2-12); NEUTROPHILS # (AUTO) 2.5 X10'3 (1.8-7.7); NEUTROPHILS % (AUTO) 49.7 % (42-75); PLATELET COUNT 109 X10'3 (140-440); RED BLOOD COUNT 3.97 X10'6 (4.70-6.10); RED CELL DISTRIBUTION WIDTH 13.9 % (11.5-14.5); WHITE BLOOD COUNT 5.1 X10'3 (4.5-11.0)
[2019-03-01 16:31] LABS: ALANINE AMINOTRANSFERASE 162 U/L (12-78); ALBUMIN 3.9 G/DL (3.4-5.0); ALBUMIN/GLOBULIN RATIO 1.1 (1.1-1.5); ALKALINE PHOSPHATASE 138 IU/L (46-116); AMYLASE 59 U/L (25-115); ANION GAP 14 (8-16); ASPARTATE AMINO TRANSFERASE 267 U/L (10-37); BILIRUBIN,TOTAL 2.2 MG/DL (0.1-1.0); BLOOD UREA NITROGEN 11 MG/DL (7-18); BUN/CREATININE RATIO 9.2 (5.4-32.0); CALCIUM 8.7 MG/DL (8.5-10.1); CHLORIDE 93 MMOL/L (99-107); CREATININE 1.19 MG/DL (0.60-1.10); GLUCOSE 111 MG/DL (70-104); LIPASE 870 U/L (73-393); SODIUM 138 MMOL/L (135-145); TOTAL CARBON DIOXIDE 30.9 MMOL/L (24-32); TOTAL PROTEIN 7.5 G/DL (6.4-8.2); eGFR 63 ML/MIN
[2019-03-01 16:39] LABS: POTASSIUM 2.8 MMOL/L (3.5-5.1)
[2019-03-01] MEDS ORDERED: potassium Cl 20 mEq SR tablet PO STA (16:40)
[2019-03-01] MEDS ORDERED: ringers solution, lactated 500ml IV solution IV ONE (19:00)
[2019-03-01] MEDS ORDERED: LORazepam 2 mg/ml vial IV ONE (19:00)
[2019-03-01] MEDS ORDERED: thiamine inj. 100 MG in normal saline 100ml IV soln 99 ML IV ONE (19:00)
[2019-03-01] MEDS ORDERED: ondansetron/PF 4mg/2ml inj IV ONE (19:10)
[2019-03-01 19:35] LABS: TRIGLYCERIDES 84 MG/DL (20-135)
[2019-03-01] MEDS: potassium Cl 10 mEq/100mL bag IV SCH ×2 (19:56→21:41)
[2019-03-01] MEDS ORDERED: ringers solution, lacted 1,000 ML IV ONE (20:25)
[2019-03-01 20:46] LABS: ETHANOL 0.148 GM/DL (0.0-0.010)
--- NOTE | 2019-03-01 20:55 | NUR ---
PATIENT UNSURE OF MEDICATIONS, HAS GABAPENTIN W/ HIM. STATES HE TAKES AMPLODIPINE AND QUENTIAPINE BUT UNSURE OF DOSE. MD AWARE.
[2019-03-01 21:00] LABS: GLUCOSE, URINE NEGATIVE (Neg); KETONES,URINE 15 mg/dl (Neg); LEUKOCYTE ESTERASE ,URINE NEGATIVE (Neg); NITRITES, URINE NEGATIVE (Neg); OCCULT BLOOD,URINE TRACE-INTACT (Neg); PH,URINE 6.5 (4.8-8.0); PROTEIN,URINE >=300 mg/dl (Neg); UROBILINOGEN,URINE >=8.0 E.U/dL (0.2-1.0)
[2019-03-01 21:18] LABS: URINE AMPHETAMINE SCREEN NEGATIVE (Neg); URINE BARBITUATE SCREEN NEGATIVE (Neg); URINE BENZODIAZEPINES SCREEN POSITIVE (Neg); URINE CANNABINOID SCREEN POSITIVE (Neg); URINE COCAINE SCREEN NEGATIVE (Neg); URINE METHADONE SCREEN NEGATIVE (Neg); URINE OPIATE SCREEN NEGATIVE (Neg); URINE PHENCYCLIDINE SCREEN NEGATIVE (Neg)
[2019-03-01 21:20] LABS: COLOR,URINE AMBER (Yellow); UA COLLECTION TYPE CLN CATCH MIDSTREAM
[2019-03-01 21:24] LABS: CLARITY,URINE SLIGHTLY CLOUDY (Clear)
[2019-03-01] MEDS ORDERED: LORazepam 2 mg/ml vial IV PRN (21:30)
[2019-03-01] MEDS ORDERED: HYDROcodone/acetaminophen 5mg/325mg tablet PO PRN (21:30)
[2019-03-01] MEDS ORDERED: dextrose 50%-water 50ml dispensing syringe IV PRN (21:30)
[2019-03-01] MEDS ORDERED: haloperidol lactate 5mg/ml inj IM PRN (21:30)
[2019-03-01] MEDS ORDERED: acetaminophen 325mg tablet PO PRN ×2 (21:30)
[2019-03-01] MEDS ORDERED: magnesium hydroxide 30ml (MOM) UD suspension PO PRN (21:30)
[2019-03-01] MEDS ORDERED: morphine 2 MG/ML inj. syringe IV PRN (21:30)
[2019-03-01] MEDS ORDERED: mag hydrox/Alum hydrox/simeth 30ml oral suspension PO PRN (21:30)
[2019-03-01] MEDS ORDERED: dicyclomine 10 MG capsule PO PRN (21:30)
[2019-03-01] MEDS ORDERED: thiamine 100mg/ml 2ml inj. IV ONE (21:30)
[2019-03-01] MEDS ORDERED: cloNIDine 0.1 mg tablet PO PRN (21:30)
[2019-03-01 21:33] LABS: MUCUS STRANDS MODERATE /LPF (Neg); SQUAMOUS EPITHELIAL CELL,UR FEW /LPF (FEW)
[2019-03-01 21:35] LABS: WBC,URINE NONE SEEN /HPF (0-4)
[2019-03-01 21:36] LABS: BACTERIA,URINE NONE SEEN /HPF (Neg)
[2019-03-01 21:46] LABS: RBC,URINE 0-2 /HPF (0-2)
--- NOTE | 2019-03-01 21:48 | NUR ---
SPOKE WITH DR AVILA REGARDING ADMIT ORDERS. PATIENT DEEMED TO BE APPROPRIATE FOR SURGICAL FLOOR, DOES NOT REQUIRE HIGHER LEVEL OF CARE ON PCU AT THIS TIME PER MD
[2019-03-01] MEDS: morphine 2 MG/ML inj. syringe IV PRN (23:48)
[2019-03-02] VITALS: BP 131/92
--- NOTE | 2019-03-02 00:30 | NUR ---
MD notified of lactic acid 2.3 after boluses and potassium level. Received order for protocol replacement of electrolytes and an order to redraw lactic with AM labs.
[2019-03-02] MEDS ORDERED: potassium CL 10mEq/100ml bag 100 ML IV PRN (01:25)
[2019-03-02] MEDS ORDERED: potassium Cl 20 mEq SR tablet PO PRN (01:25)
[2019-03-02] MEDS ORDERED: magnesium 2GM in 50ml NS 50 ML IV PRN (01:25)
[2019-03-02] MEDS: potassium Cl 20 mEq SR tablet PO PRN ×4 (02:41→22:19)
[2019-03-02] MEDS: HYDROcodone/acetaminophen 10/325mg tab PO PRN ×2 (05:23→20:30)
[2019-03-02] MEDS: ondansetron/PF 4mg/2ml inj IV PRN ×2 (05:27→17:24)
[2019-03-02 05:31] LABS: BASOPHILS % (AUTO) 0.9 % (0-1); EOSINOPHILS % (AUTO) 0.7 % (0-6); HEMATOCRIT 33.8 % (42.0-52.0); HEMOGLOBIN 11.9 g/dl (14.0-17.9); LYMPHOCYTES # (AUTO) 1.3 X10'3 (1.1-4.8); LYMPHOCYTES % (AUTO) 47.4 % (21-51); MEAN CORPUSCULAR HEMOGLOBIN 35.8 PG (27.0-31.0); MEAN CORPUSCULAR HGB CONC 35.1 g/dL (33.0-36.5); MEAN PLATELET VOLUME 9.3 FL (7.4-10.4); MONOCYTES # (AUTO) 0.3 X10'3 (0-0.9); MONOCYTES % (AUTO) 11.9 % (2-12); NEUTROPHILS # (AUTO) 1.1 X10'3 (1.8-7.7); NEUTROPHILS % (AUTO) 39.1 % (42-75); PLATELET COUNT 69 X10'3 (140-440); RED BLOOD COUNT 3.31 X10'6 (4.70-6.10); WHITE BLOOD COUNT 2.8 X10'3 (4.5-11.0)
[2019-03-02 05:57] LABS: ALANINE AMINOTRANSFERASE 125 U/L (12-78); ALBUMIN 3.3 G/DL (3.4-5.0); ALKALINE PHOSPHATASE 110 IU/L (46-116); AMYLASE 47 U/L (25-115); ANION GAP 6 (8-16); ASPARTATE AMINO TRANSFERASE 189 U/L (10-37); BILIRUBIN,TOTAL 2.8 MG/DL (0.1-1.0); BLOOD UREA NITROGEN 10 MG/DL (7-18); BUN/CREATININE RATIO 8.4 (5.4-32.0); CALCIUM 8.4 MG/DL (8.5-10.1); CHLORIDE 95 MMOL/L (99-107); CREATININE 1.19 MG/DL (0.60-1.10); GLUCOSE 138 MG/DL (70-104); POTASSIUM 3.3 MMOL/L (3.5-5.1); SODIUM 136 MMOL/L (135-145); TOTAL PROTEIN 6.5 G/DL (6.4-8.2); eGFR 63 ML/MIN
[2019-03-02 05:59] LABS: PHOSPHORUS 1.2 MG/DL (2.3-4.5)
[2019-03-02 06:00] LABS: MAGNESIUM 0.7 MG/DL (1.5-2.4)
[2019-03-02] MEDS: magnesium 4gm in 100ml NS 100 ML IV PRN (06:08)
--- NOTE | 2019-03-02 06:12 | NUR ---
ordered phos replacement and approved current regimen for Mag replacment for critical labs.
[2019-03-02 06:20] LABS: PLATELET ESTIMATE DECREASED; TOTAL CELLS COUNTED 100
--- NOTE | 2019-03-02 06:30 | NUR ---
IV Magnesium discarded and not administered r/t pt. ripped out IV. Will replace mag orally.
--- NOTE | 2019-03-02 06:37 | NUR ---
Problems reprioritized. Patient report given, questions answered & plan of care reviewed with TRAMAINE Galo.
[2019-03-02 07:07] VITALS: BP 161/89
[2019-03-02] MEDS: Neutra Phos packet PO SCH ×3 (09:34→22:20)
[2019-03-02] MEDS: LORazepam 2 mg/ml vial IV PRN ×2 (09:36→17:24)
--- NOTE | 2019-03-02 09:55 | NUR ---
Sclera off white/yellow and red. Addendum: 03/02/19 at 1009 by Clover Andres RN Amended: Links added.
[2019-03-02] MEDS ORDERED: PANT40TA4 PO (10:16)
[2019-03-02] MEDS ORDERED: ONDA4TAB6 PO (10:18)
[2019-03-02] MEDS ORDERED: HYDR-3965 PO (10:19)
[2019-03-02] MEDS ORDERED: GABA-532 PO (10:23)
[2019-03-02] MEDS ORDERED: CHLO25CA10 PO (10:24)
[2019-03-02] MEDS ORDERED: CLON-529 PO (10:26)
[2019-03-02] MEDS ORDERED: NAPR-56 PO (10:28)
--- NOTE | 2019-03-02 11:22 | NUR ---
MD Metcalf aware of critical values and the need for med. req. to be addressed.
[2019-03-02 12:19] VITALS: BP 161/103
[2019-03-02] MEDS: pantoprazole 40mg Tablet.DR PO SCH (12:37)
[2019-03-02] MEDS: Potassium Cl inj 20 MEQ in normal saline 1000ml 990 ML IV SCH (12:38)
[2019-03-02] MEDS: folic acid 1mg tablet PO SCH (13:03)
[2019-03-02] MEDS: multivitamins, therapeutics tablet PO SCH (13:04)
[2019-03-02] MEDS: thiamine 100mg tablet PO SCH ×2 (13:04→20:30)
[2019-03-02] MEDS: morphine 2 MG/ML inj. syringe IV PRN (13:05)
[2019-03-02] MEDS: magnesium Cl slow-release 64mg tablet PO PRN ×2 (13:13→22:19)
--- NOTE | 2019-03-02 16:15 | NUR ---
Malnutrition consult: Pt admit w/ pancreatitis secondary to alcoholism etoh 0.148, low K/Mg/Phos, and positive for benzodiazepines this admit. Pt PO 100% clear liquids so far this admit, no edema/wounds, no significant weakness, and no significant wt loss hx present. Pt does not meet minimum malnutrition criteria at this time. Pt seen by RD for written/verbal pancreatitis diet ed w/ RD contact information provided. LBM 03/01. Will monitor for diet advancement and PO diet tolerance this admit. Rec: 1. advance diet per MD to low-fat 2. monitor for ONS needs pending PO as diet advances 3. bowel care as needed 4. MVI/thiamin/folic per MD given etoh hx 5. wt per rx Addendum: 03/02/19 at [address] Amended: Links added.
[2019-03-02] MEDS ORDERED: iohexol 300mg/ml 100ml inj. ONE (17:36)
--- NOTE | 2019-03-02 19:03 | NUR ---
Seizure precautions in place. Patient awake and alert, just finished dinner. Gave report to Allison REDD.
[2019-03-02 19:30] VITALS: BP 128/83
[2019-03-02] MEDS ORDERED: thiamine 100mg tablet PO SCH ×2 (20:00)
[2019-03-03] VITALS: BP 139/89
[2019-03-03] MEDS: Potassium Cl inj 20 MEQ in normal saline 1000ml 990 ML IV SCH ×3 (00:21→20:49)
[2019-03-03] MEDS: LORazepam 2 mg/ml vial IV PRN (01:31)
[2019-03-03] MEDS: HYDROcodone/acetaminophen 10/325mg tab PO PRN ×3 (03:44→20:44)
[2019-03-03 05:44] LABS: BASOPHILS % (AUTO) 0.9 % (0-1); EOSINOPHILS # (AUTO) 0.2 X10'3 (0-0.9); EOSINOPHILS % (AUTO) 4.6 % (0-6); HEMATOCRIT 37.9 % (42.0-52.0); LYMPHOCYTES # (AUTO) 1.6 X10'3 (1.1-4.8); LYMPHOCYTES % (AUTO) 42.4 % (21-51); MEAN CORPUSCULAR HEMOGLOBIN 35.4 PG (27.0-31.0); MEAN CORPUSCULAR HGB CONC 34.4 g/dL (33.0-36.5); MEAN CORPUSCULAR VOLUME 102.9 FL (78-98); MONOCYTES # (AUTO) 0.4 X10'3 (0-0.9); MONOCYTES % (AUTO) 10.1 % (2-12); NEUTROPHILS # (AUTO) 1.5 X10'3 (1.8-7.7); PLATELET COUNT 73 X10'3 (140-440); RED BLOOD COUNT 3.69 X10'6 (4.70-6.10); RED CELL DISTRIBUTION WIDTH 13.8 % (11.5-14.5); WHITE BLOOD COUNT 3.7 X10'3 (4.5-11.0)
--- NOTE | 2019-03-03 05:45 | NUR ---
loud noise heard in room; pt found sitting at edge of left side of bed; pt disoriented & states he doesn't know why he got up; pt reports he hit his left shoulder & mid to lower back; denies hitting his head; no injury noted to left shoulder; slight redness/ scrape, mid to lower back...
[2019-03-03 05:50] VITALS: BP 158/102
--- NOTE | 2019-03-03 06:00 | NUR ---
Dr Ross notified of pt's fall, pt's confusion & vs's; no c/o's of pain where he fell; only c/o of abd pain at this time; no orders received
[2019-03-03 06:03] LABS: ALANINE AMINOTRANSFERASE 122 U/L (12-78); ALBUMIN 3.4 G/DL (3.4-5.0); ALBUMIN/GLOBULIN RATIO 0.9 (1.1-1.5); ALKALINE PHOSPHATASE 117 IU/L (46-116); AMYLASE 38 U/L (25-115); ANION GAP 7 (8-16); ASPARTATE AMINO TRANSFERASE 157 U/L (10-37); BILIRUBIN,TOTAL 2.7 MG/DL (0.1-1.0); BLOOD UREA NITROGEN 6 MG/DL (7-18); BUN/CREATININE RATIO 5.3 (5.4-32.0); CALCIUM 8.4 MG/DL (8.5-10.1); CHLORIDE 99 MMOL/L (99-107); CREATININE 1.13 MG/DL (0.60-1.10); GLUCOSE 92 MG/DL (70-104); MAGNESIUM 1.1 MG/DL (1.5-2.4); PHOSPHORUS 1.7 MG/DL (2.3-4.5); POTASSIUM 4.2 MMOL/L (3.5-5.1); SODIUM 137 MMOL/L (135-145); TOTAL CARBON DIOXIDE 30.8 MMOL/L (24-32); eGFR 67 ML/MIN
[2019-03-03 07:23] VITALS: BP 155/106
[2019-03-03] MEDS ORDERED: folic acid 1mg tablet PO SCH (08:00)
[2019-03-03] MEDS ORDERED: multivitamins, therapeutics tablet PO SCH (08:00)
[2019-03-03] MEDS: thiamine 100mg tablet PO SCH ×2 (08:36→20:43)
[2019-03-03] MEDS: Neutra Phos packet PO SCH ×3 (08:36→20:42)
[2019-03-03] MEDS: multivitamins, therapeutics tablet PO SCH (08:36)
[2019-03-03] MEDS: folic acid 1mg tablet PO SCH (08:36)
[2019-03-03] MEDS: pantoprazole 40mg Tablet.DR PO SCH (08:36)
[2019-03-03] MEDS: LORazepam 1 MG tablet PO PRN ×3 (10:21→20:43)
[2019-03-03 11:10] VITALS: BP 151/104
--- NOTE | 2019-03-03 12:11 | NUR ---
error in interventions task Addendum: 03/03/19 at 1211 by Xiomara Mosher RN Amended: Links added.
[2019-03-03] MEDS: magnesium Cl slow-release 64mg tablet PO PRN ×2 (13:48→21:20)
--- NOTE | 2019-03-03 18:30 | NUR ---
Patient in room [facility] 358. I have received report from JAXSON REDD and had the opportunity to ask questions and assume patient care.
[2019-03-03 20:00] VITALS: BP 144/94
[2019-03-04] VITALS: BP 159/95
[2019-03-04] MEDS: LORazepam 1 MG tablet PO PRN ×4 (01:55→12:07)
[2019-03-04] MEDS: Potassium Cl inj 20 MEQ in normal saline 1000ml 990 ML IV SCH (05:27)
[2019-03-04 06:18] LABS: BASOPHILS % (AUTO) 0.5 % (0-1); EOSINOPHILS # (AUTO) 0.2 X10'3 (0-0.9); EOSINOPHILS % (AUTO) 4.8 % (0-6); HEMATOCRIT 38.1 % (42.0-52.0); HEMOGLOBIN 13.3 g/dl (14.0-17.9); LYMPHOCYTES # (AUTO) 1.5 X10'3 (1.1-4.8); LYMPHOCYTES % (AUTO) 35.9 % (21-51); MEAN CORPUSCULAR HGB CONC 34.8 g/dL (33.0-36.5); MEAN CORPUSCULAR VOLUME 103.3 FL (78-98); MEAN PLATELET VOLUME 9.8 FL (7.4-10.4); MONOCYTES # (AUTO) 0.5 X10'3 (0-0.9); MONOCYTES % (AUTO) 11.3 % (2-12); NEUTROPHILS % (AUTO) 47.5 % (42-75); PLATELET COUNT 70 X10'3 (140-440); RED BLOOD COUNT 3.68 X10'6 (4.70-6.10); RED CELL DISTRIBUTION WIDTH 13.8 % (11.5-14.5); WHITE BLOOD COUNT 4.1 X10'3 (4.5-11.0)
--- NOTE | 2019-03-04 06:20 | NUR ---
Problems reprioritized. Patient report given, questions answered & plan of care reviewed with JAXSON REDD.
--- NOTE | 2019-03-04 06:23 | NUR ---
Patient in room [facility] 358. I have received report from Doug REDD and had the opportunity to ask questions and assume patient care.
[2019-03-04 06:38] VITALS: BP 137/101
[2019-03-04 06:39] LABS: ALANINE AMINOTRANSFERASE 105 U/L (12-78); ALBUMIN 3.4 G/DL (3.4-5.0); ALKALINE PHOSPHATASE 111 IU/L (46-116); AMYLASE 28 U/L (25-115); ANION GAP 11 (8-16); ASPARTATE AMINO TRANSFERASE 107 U/L (10-37); BILIRUBIN,TOTAL 1.5 MG/DL (0.1-1.0); BLOOD UREA NITROGEN 4 MG/DL (7-18); CALCIUM 8.7 MG/DL (8.5-10.1); CHLORIDE 100 MMOL/L (99-107); GLUCOSE 87 MG/DL (70-104); PHOSPHORUS 3.3 MG/DL (2.3-4.5); POTASSIUM 4.5 MMOL/L (3.5-5.1); SODIUM 135 MMOL/L (135-145); TOTAL CARBON DIOXIDE 23.8 MMOL/L (24-32); TOTAL PROTEIN 6.8 G/DL (6.4-8.2); eGFR 77 ML/MIN
[2019-03-04 06:47] LABS: MAGNESIUM 0.9 MG/DL (1.5-2.4)
[2019-03-04] MEDS: multivitamins, therapeutics tablet PO SCH (07:17)
[2019-03-04] MEDS: magnesium Cl slow-release 64mg tablet PO PRN (07:17)
[2019-03-04] MEDS: thiamine 100mg tablet PO SCH (07:17)
[2019-03-04] MEDS: HYDROcodone/acetaminophen 10/325mg tab PO PRN ×2 (07:17→12:07)
[2019-03-04] MEDS: Neutra Phos packet PO SCH ×2 (07:17→12:09)
[2019-03-04] MEDS: pantoprazole 40mg Tablet.DR PO SCH (07:17)
[2019-03-04] MEDS: folic acid 1mg tablet PO SCH (07:17)
--- NOTE | 2019-03-04 09:11 | NUR ---
PAGER ID: [phone] MESSAGE: [id number] Mis Weber. His Mg this morning was a critical of 0.9. Do you want a scheduled dose? I am replacing him per protocol. Xiomara [id number]
[2019-03-04] MEDS: magnesium 4gm in 100ml NS 100 ML IV PRN (09:39)
[2019-03-04] MEDS ORDERED: HYDR-3965 PO (10:56)
[2019-03-04] MEDS ORDERED: LORA-269 PO (10:56)
[2019-03-04] MEDS ORDERED: ONDA4TAB6 PO (10:56)
[2019-03-04 11:03] VITALS: BP 136/101
--- NOTE | 2019-03-04 11:04 | NUR ---
Patient requesting to go home, states he needs to go home to be [facility].
--- NOTE | 2019-03-04 11:20 | NUR ---
Patient discharged on nursing end. Mg IV is being replaced currently. Patient is agreeing to stay for the infusion at this time but is very anxious about wanting to go home. Encouraging patient to stay for replacement.
[2019-03-04] MEDS ORDERED: MAGN400C PO (11:21)
--- NOTE | 2019-03-04 17:21 | NUR ---
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 Addendum: 03/04/19 at 1723 by Xiomara Mosher RN Amended: Links added.
--- NOTE | 2019-03-04 17:23 | NUR ---
Patient discharged, taken to lobby by [employer]. [employer] picking up patient, patient paid for own taxi ride. All education completed. Patient next home doses for medications educated and written on discharge paper work. Patient MG replaced by IV and PO. MG scrip also provided. Patient provided clothing. Patient states [facility] to get [facility] and sober.
[2019-03-04] MEDS ORDERED: magnesium Cl slow-release 64mg tablet PO SCH (20:00)
== END 2019-03-04 17:53 | disposition home or self-care (01) | DRG 439 ==
LOC: ER 15:49 → ED HOLD 21:29 → SUR 3N 22:15
PROVIDERS: ADMIT Internal Medicine; ATTEND Internal Medicine
PROC: BW211ZZ Computerized Tomography (CT Scan) of Abdomen and Pelvis using Low Osmolar Contrast (ICD-10-PCS; principal; 2019-03-02)
DX: K85.20 Alcohol induced acute pancreatitis without necrosis or infection (principal); F10.239 Alcohol dependence with withdrawal, unspecified; D61.818 Other pancytopenia; R74.0 Nonspecific elevation of levels of transaminase and lactic acid dehydrogenase [LDH]; K86.0 Alcohol-induced chronic pancreatitis; E87.6 Hypokalemia; K70.10 Alcoholic hepatitis without ascites; I12.9 Hypertensive chronic kidney disease with stage 1 through stage 4 chronic kidney disease, or unspecified chronic kidney disease; N18.9 Chronic kidney disease, unspecified; Z60.2 Problems related to living alone; F12.90 Cannabis use, unspecified, uncomplicated; F17.210 Nicotine dependence, cigarettes, uncomplicated; E83.39 Other disorders of phosphorus metabolism; E83.42 Hypomagnesemia; F32.9 Major depressive disorder, single episode, unspecified; Z79.899 Other long term (current) drug therapy; Z71.41 Alcohol abuse counseling and surveillance of alcoholic; D75.89 Other specified diseases of blood and blood-forming organs
CPT/HCPCS: 36415; 74177; 76937; 80053; 80305; 80320; 81001; 82150; 82948; 83605; 83690; 83735; 84100; 84478; 85025; 87081; 97116; 97161; 97530; G0378; J2060; J2270; J2405; J3411; J3475; J3480; J7030; J7120; Q9967

== ENCOUNTER 2019-04-21 13:46 | Emergency (ER) | payer OTHER ==
[~2019-04-21] VITALS: Ht 172.7 cm; Wt 65.5 kg
[~2019-04-21 13:46] MED LIST changes: -CHLO25CA10 PO; +HYDR-3965 PO; -HYDR-4383 PO; +LORA-269 PO; +MAGN400C PO; -ONDA4TAB12 PO; -ONDA8TAB6 PO; -PANT-47 PO; -PANT20TA3 PO; +PANT40TA4 PO
[2019-04-21 14:22] LABS: BASOPHILS % (AUTO) 0.2 % (0-1); EOSINOPHILS % (AUTO) 0.1 % (0-6); HEMATOCRIT 39.1 % (42.0-52.0); HEMOGLOBIN 13.5 g/dl (14.0-17.9); LYMPHOCYTES # (AUTO) 0.9 X10'3 (1.1-4.8); LYMPHOCYTES % (AUTO) 14.6 % (21-51); MEAN CORPUSCULAR HEMOGLOBIN 34.4 PG (27.0-31.0); MEAN CORPUSCULAR HGB CONC 34.6 g/dL (33.0-36.5); MEAN CORPUSCULAR VOLUME 99.2 FL (78-98); MEAN PLATELET VOLUME 8.8 FL (7.4-10.4); MONOCYTES # (AUTO) 0.5 X10'3 (0-0.9); MONOCYTES % (AUTO) 8.6 % (2-12); NEUTROPHILS # (AUTO) 4.7 X10'3 (1.8-7.7); NEUTROPHILS % (AUTO) 76.5 % (42-75); PLATELET COUNT 118 X10'3 (140-440); RED BLOOD COUNT 3.94 X10'6 (4.70-6.10); RED CELL DISTRIBUTION WIDTH 13.4 % (11.5-14.5); WHITE BLOOD COUNT 6.1 X10'3 (4.5-11.0)
[2019-04-21 14:40] LABS: ALANINE AMINOTRANSFERASE 65 U/L (12-78); ALBUMIN 4.4 G/DL (3.4-5.0); ALKALINE PHOSPHATASE 94 IU/L (46-116); AMYLASE 54 U/L (25-115); ANION GAP 13 (8-16); ASPARTATE AMINO TRANSFERASE 69 U/L (10-37); BILIRUBIN,TOTAL 1.3 MG/DL (0.1-1.0); BLOOD UREA NITROGEN 15 MG/DL (7-18); CALCIUM 9.5 MG/DL (8.5-10.1); CHLORIDE 94 MMOL/L (99-107); CREATININE 1.07 MG/DL (0.60-1.10); GLUCOSE 105 MG/DL (70-104); LIPASE 58 U/L (73-393); POTASSIUM 3.2 MMOL/L (3.5-5.1); SODIUM 135 MMOL/L (135-145); TOTAL CARBON DIOXIDE 28.3 MMOL/L (24-32); TOTAL PROTEIN 8.7 G/DL (6.4-8.2); eGFR 71 ML/MIN
[2019-04-21] MEDS ORDERED: normal saline 1000ML IV soln IVB ONE (16:35)
[2019-04-21] MEDS ORDERED: famotidine/PF 10 mg/ml inj IV ONE (16:35)
[2019-04-21] MEDS ORDERED: pantoprazole 40 MG vial IV ONE (16:35)
[2019-04-21] MEDS ORDERED: ondansetron/PF 4mg/2ml inj IV ONE (16:35)
[2019-04-21] MEDS ORDERED: potassium Cl 20 mEq SR tablet PO ONE (17:20)
[2019-04-21 17:26] LABS: ETHANOL 0.031 GM/DL (0.0-0.010)
[2019-04-21] MEDS ORDERED: HYDROcodone/acetaminophen 5mg/325mg tablet PO ONE (18:05)
[2019-04-21] MEDS ORDERED: ONDA8TAB6 PO (18:38)
[2019-04-21 18:42] VITALS: BP 129/88
== END 2019-04-21 18:50 | disposition home or self-care (01) ==
LOC: ER 13:46
DX: F10.129 Alcohol abuse with intoxication, unspecified (principal); I10 Essential (primary) hypertension; R11.2 Nausea with vomiting, unspecified; F32.9 Major depressive disorder, single episode, unspecified; Z72.89 Other problems related to lifestyle; F12.90 Cannabis use, unspecified, uncomplicated; Z60.2 Problems related to living alone; Z79.899 Other long term (current) drug therapy
CPT/HCPCS: 36415; 80053; 80320; 82150; 83690; 85025; 96361; 96374; 96375; 99284; C9113; J2405; J3490; J7030

== ENCOUNTER 2019-06-02 23:04 | Emergency (ER) | payer OTHER ==
[~2019-06-02] VITALS: Ht 172.7 cm; Wt 68.2 kg
[~2019-06-02 23:04] MED LIST changes: +ONDA8TAB6 PO
[2019-06-02] MEDS ORDERED: famotidine/PF 10 mg/ml inj IV ONE (23:15)
[2019-06-02] MEDS ORDERED: pantoprazole 40 MG vial IV ONE (23:15)
[2019-06-02] MEDS ORDERED: thiamine 100mg/ml 2ml inj. IV ONE (23:15)
[2019-06-02] MEDS ORDERED: folic acid 1mg/0.2ml inj IV ONE (23:15)
[2019-06-02] MEDS ORDERED: normal saline 1000ML IV soln IVB ONE (23:15)
[2019-06-02] MEDS ORDERED: ondansetron/PF 4mg/2ml inj IV ONE (23:15)
[2019-06-02 23:42] LABS: BASOPHILS % (AUTO) 0.4 % (0-1); EOSINOPHILS % (AUTO) 0.1 % (0-6); HEMATOCRIT 39.9 % (42.0-52.0); HEMOGLOBIN 13.6 g/dl (14.0-17.9); LYMPHOCYTES # (AUTO) 1.8 X10'3 (1.1-4.8); LYMPHOCYTES % (AUTO) 22.9 % (21-51); MEAN CORPUSCULAR HEMOGLOBIN 35.5 PG (27.0-31.0); MEAN CORPUSCULAR HGB CONC 34.1 g/dL (33.0-36.5); MEAN CORPUSCULAR VOLUME 104.2 FL (78-98); MEAN PLATELET VOLUME 7.3 FL (7.4-10.4); MONOCYTES # (AUTO) 0.6 X10'3 (0-0.9); NEUTROPHILS # (AUTO) 5.4 X10'3 (1.8-7.7); NEUTROPHILS % (AUTO) 68.6 % (42-75); PLATELET COUNT 217 X10'3 (140-440); RED BLOOD COUNT 3.83 X10'6 (4.70-6.10); RED CELL DISTRIBUTION WIDTH 14.2 % (11.5-14.5); WHITE BLOOD COUNT 7.8 X10'3 (4.5-11.0)
--- NOTE | 2019-06-02 23:45 | NUR ---
PT STATES HE'S UNABLE TO PROVIDE URINE SAMPLE, HE STATES HE WILL TRY "IN A LITTLE BIT, I DONT FEEL LIKE I CAN BE AT THIS MOMENT, I HAVE BEEN VOMITING TODAY"
[2019-06-02 23:58] LABS: ALANINE AMINOTRANSFERASE 36 U/L (12-78); ALKALINE PHOSPHATASE 74 IU/L (46-116); ANION GAP 23 (8-16); ASPARTATE AMINO TRANSFERASE 60 U/L (10-37); BILIRUBIN,TOTAL 0.4 MG/DL (0.1-1.0); BLOOD UREA NITROGEN 33 MG/DL (7-18); BUN/CREATININE RATIO 27.5 (5.4-32.0); CALCIUM 9.1 MG/DL (8.5-10.1); CHLORIDE 99 MMOL/L (99-107); GLUCOSE 115 MG/DL (70-104); POTASSIUM 3.8 MMOL/L (3.5-5.1); SODIUM 140 MMOL/L (135-145); TOTAL CARBON DIOXIDE 17.6 MMOL/L (24-32); TOTAL PROTEIN 8.1 G/DL (6.4-8.2); eGFR 63 ML/MIN
[2019-06-03 00:01] LABS: ETHANOL 0.306 GM/DL (0.0-0.010); LIPASE 59 U/L (73-393); TROPONIN I < 0.04 NG/ML (0.0-0.05)
[2019-06-03] MEDS ORDERED: proCHLORperazine 10 MG/2 ml inj IV ONE (00:15)
[2019-06-03 00:43] LABS: CLARITY,URINE CLEAR (Clear); COLOR,URINE YELLOW (Yellow); GLUCOSE, URINE NEGATIVE (Neg); KETONES,URINE 40 mg/dl (Neg); LEUKOCYTE ESTERASE ,URINE NEGATIVE (Neg); NITRITES, URINE NEGATIVE (Neg); OCCULT BLOOD,URINE SMALL (Neg); PROTEIN,URINE 100 mg/dl (Neg); UROBILINOGEN,URINE 0.2 E.U/dL (0.2-1.0)
[2019-06-03 00:48] LABS: UA COLLECTION TYPE URINAL
[2019-06-03 00:50] LABS: BACTERIA,URINE NONE SEEN /HPF (Neg); RBC,URINE NONE SEEN /HPF (0-2); SQUAMOUS EPITHELIAL CELL,UR NONE SEEN /LPF (FEW); WBC,URINE NONE SEEN /HPF (0-4)
[2019-06-03 02:01] VITALS: BP 155/85
== END 2019-06-03 02:02 | disposition home or self-care (01) ==
LOC: ER 23:05
DX: K29.20 Alcoholic gastritis without bleeding (principal); F10.10 Alcohol abuse, uncomplicated; R11.10 Vomiting, unspecified; I10 Essential (primary) hypertension; F32.9 Major depressive disorder, single episode, unspecified; F12.90 Cannabis use, unspecified, uncomplicated; Z98.890 Other specified postprocedural states; Z60.2 Problems related to living alone; Z79.899 Other long term (current) drug therapy; Y90.0 Blood alcohol level of less than 20 mg/100 ml
CPT/HCPCS: 36415; 80053; 80320; 81001; 83690; 84484; 85025; 93005; 96361; 96374; 96375; 99284; C9113; J0780; J2405; J3411; J3490; J7030

== ENCOUNTER 2019-06-28 01:22 | Emergency (ER) | payer OTHER ==
[~2019-06-28] VITALS: Ht 172.7 cm; Wt 68.1 kg
[~2019-06-28 01:22] MED LIST changes: -CLON-529 PO; -HYDR-3965 PO; -LORA-269 PO; -MAGN400C PO; +NOR5T PO; -ONDA4TAB6 PO; -ONDA8TAB6 PO; +PANT-47 PO; -PANT40TA4 PO; +QUET100T33 PO
[2019-06-28] MEDS ORDERED: LORazepam 2 mg/ml vial IV ONE (01:35)
[2019-06-28] MEDS ORDERED: ondansetron/PF 4mg/2ml inj IV ONE (01:35)
[2019-06-28] MEDS ORDERED: normal saline 1000ML IV soln IVB ONE (01:35)
[2019-06-28] MEDS ORDERED: thiamine 100mg/ml 2ml inj. IV ONE (01:35)
[2019-06-28 01:48] LABS: EOSINOPHILS % (AUTO) 0.1 % (0-6); HEMATOCRIT 41.1 % (42.0-52.0); LYMPHOCYTES # (AUTO) 1.8 X10'3 (1.1-4.8); MEAN CORPUSCULAR HEMOGLOBIN 34.9 PG (27.0-31.0); MEAN CORPUSCULAR HGB CONC 34.1 g/dL (33.0-36.5); MEAN CORPUSCULAR VOLUME 102.5 FL (78-98); MEAN PLATELET VOLUME 7.9 FL (7.4-10.4); MONOCYTES # (AUTO) 0.6 X10'3 (0-0.9); MONOCYTES % (AUTO) 11.6 % (2-12); NEUTROPHILS # (AUTO) 2.4 X10'3 (1.8-7.7); NEUTROPHILS % (AUTO) 49.3 % (42-75); PLATELET COUNT 147 X10'3 (140-440); RED BLOOD COUNT 4.01 X10'6 (4.70-6.10); RED CELL DISTRIBUTION WIDTH 13.9 % (11.5-14.5); WHITE BLOOD COUNT 4.9 X10'3 (4.5-11.0)
[2019-06-28 02:00] LABS: PARTIAL THROMBOPLASTIN TIME 26 SECONDS (22-32)
[2019-06-28 02:01] LABS: ALANINE AMINOTRANSFERASE 66 U/L (12-78); ALBUMIN 4.1 G/DL (3.4-5.0); ALKALINE PHOSPHATASE 95 IU/L (46-116); ANION GAP 18 (8-16); ASPARTATE AMINO TRANSFERASE 143 U/L (10-37); BILIRUBIN,TOTAL 1.7 MG/DL (0.1-1.0); BLOOD UREA NITROGEN 18 MG/DL (7-18); BUN/CREATININE RATIO 15.4 (5.4-32.0); CALCIUM 8.7 MG/DL (8.5-10.1); CHLORIDE 89 MMOL/L (99-107); CREATININE 1.17 MG/DL (0.60-1.10); GLUCOSE 136 MG/DL (70-104); POTASSIUM 3.4 MMOL/L (3.5-5.1); SODIUM 135 MMOL/L (135-145); TOTAL PROTEIN 8.2 G/DL (6.4-8.2); eGFR 64 ML/MIN
[2019-06-28 02:02] LABS: ETHANOL 0.348 GM/DL (0.0-0.010); LIPASE 89 U/L (73-393)
[2019-06-28 02:33] VITALS: BP 147/86
--- NOTE | 2019-06-28 02:35 | NUR ---
dr cardenas discontinued the UA
--- NOTE | 2019-06-28 03:05 | NUR ---
Patient was seen ambulating with out difficulty at [facility]. He took a cab home via his own means.
== END 2019-06-28 03:04 | disposition home or self-care (01) ==
LOC: ER 01:23
DX: K29.20 Alcoholic gastritis without bleeding (principal); F10.920 Alcohol use, unspecified with intoxication, uncomplicated; R10.13 Epigastric pain; R11.2 Nausea with vomiting, unspecified; I10 Essential (primary) hypertension; F32.9 Major depressive disorder, single episode, unspecified; F12.90 Cannabis use, unspecified, uncomplicated; Z98.890 Other specified postprocedural states; Z72.89 Other problems related to lifestyle; Z60.2 Problems related to living alone; Z79.899 Other long term (current) drug therapy; Y90.9 Presence of alcohol in blood, level not specified
CPT/HCPCS: 36415; 80053; 80320; 83690; 85025; 85610; 85730; 96374; 96375; 99284; J2060; J2405; J3411; J7030; 96361

== ENCOUNTER 2019-06-29 23:33 | Emergency (ER) | payer OTHER ==
[~2019-06-29] VITALS: Ht 172.7 cm; Wt 65.7 kg
[2019-06-30] MEDS ORDERED: ondansetron 4mg rapidly disintigrating tab PO ONE (00:05)
[2019-06-30] MEDS ORDERED: HYDROcodone/acetaminophen 10/325mg tab PO ONE (00:10)
[2019-06-30] MEDS ORDERED: HYDR-4353 PO (00:38)
[2019-06-30 00:59] VITALS: BP 127/86
[2019-07-01] MEDS ORDERED: PANT-47 PO (15:40)
[2019-07-01] MEDS ORDERED: GABA-530 PO (15:40)
[2019-07-01] MEDS ORDERED: AMLO5TAB PO (15:40)
== END 2019-06-30 01:04 | disposition home or self-care (01) ==
LOC: ER 23:33
DX: S22.42XA Multiple fractures of ribs, left side, initial encounter for closed fracture (principal); I10 Essential (primary) hypertension; F12.90 Cannabis use, unspecified, uncomplicated; F32.9 Major depressive disorder, single episode, unspecified; Z72.89 Other problems related to lifestyle; Z60.2 Problems related to living alone; Z79.899 Other long term (current) drug therapy; W19.XXXA Unspecified fall, initial encounter; Y93.89 Activity, other specified; Y92.89 Other specified places as the place of occurrence of the external cause; Y99.8 Other external cause status
CPT/HCPCS: 71101; 99284

== ENCOUNTER 2019-06-30 20:58 | Emergency (ER) | payer OTHER ==
[~2019-06-30] VITALS: Ht 172.7 cm; Wt 70.5 kg
[~2019-06-30 20:58] MED LIST changes: +HYDR-4353 PO
[2019-06-30] MEDS ORDERED: normal saline 1000ml 1,000 ML IV ONE ×2 (21:20)
[2019-06-30] MEDS ORDERED: ondansetron/PF 4mg/2ml inj IV ONE (21:40)
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
[2019-06-30] MEDS ORDERED: diphenhydrAMINE 50 mg/ml inj IV ONE (22:20)
[2019-06-30] MEDS ORDERED: proCHLORperazine 10 MG/2 ml inj IV ONE (22:20)
--- NOTE | 2019-06-30 22:20 | NUR ---
NATALIA Garcia updated that Pt's nausea was gone for 30 min after zofran but it has returned. He will order adtl meds now .
[2019-06-30 23:23] VITALS: BP 130/76
[2019-07-01] MEDS ORDERED: GABA-530 PO (15:40)
[2019-07-01] MEDS ORDERED: PANT-47 PO (15:40)
[2019-07-01] MEDS ORDERED: AMLO5TAB PO (15:40)
== END 2019-06-30 23:20 | disposition home or self-care (01) ==
LOC: ER 20:59
DX: F10.229 Alcohol dependence with intoxication, unspecified (principal); I10 Essential (primary) hypertension; F32.9 Major depressive disorder, single episode, unspecified; F12.90 Cannabis use, unspecified, uncomplicated; Z98.890 Other specified postprocedural states; Z60.2 Problems related to living alone; Z79.899 Other long term (current) drug therapy; Y90.0 Blood alcohol level of less than 20 mg/100 ml
CPT/HCPCS: 96374; 96375; 99284; J0780; J1200; J2405; J7030

== ENCOUNTER 2019-07-01 13:35 | Inpatient (IN) | payer OTHER ==
[~2019-07-01] VITALS: Ht 172.7 cm; Wt 68.2 kg
[2019-07-01] MEDS ORDERED: thiamine 100mg/ml 2ml inj. IV ONE (13:45)
[2019-07-01] MEDS ORDERED: chlordiazePOXIDE 25mg capsule PO ONE (13:45)
[2019-07-01] MEDS ORDERED: folic acid 1mg/0.2ml inj IV ONE (13:45)
[2019-07-01 14:00] LABS: HEMOGLOBIN 12.3 g/dl (14.0-17.9); LYMPHOCYTES # (AUTO) 0.7 X10'3 (1.1-4.8); MEAN CORPUSCULAR HEMOGLOBIN 35.3 PG (27.0-31.0); MEAN PLATELET VOLUME 8.6 FL (7.4-10.4); NEUTROPHILS # (AUTO) 2.3 X10'3 (1.8-7.7); NEUTROPHILS % (AUTO) 67.1 % (42-75)
[2019-07-01 14:12] LABS: ALANINE AMINOTRANSFERASE 59 U/L (12-78); ALBUMIN 3.8 G/DL (3.4-5.0); ALBUMIN/GLOBULIN RATIO 1.1 (1.1-1.5); ALKALINE PHOSPHATASE 99 IU/L (46-116); ANION GAP 7 (8-16); ASPARTATE AMINO TRANSFERASE 154 U/L (10-37); BILIRUBIN,TOTAL 2.1 MG/DL (0.1-1.0); BLOOD UREA NITROGEN 8 MG/DL (7-18); BUN/CREATININE RATIO 8.2 (5.4-32.0); CALCIUM 8.9 MG/DL (8.5-10.1); CHLORIDE 96 MMOL/L (99-107); CREATININE 0.98 MG/DL (0.60-1.10); GLUCOSE 148 MG/DL (70-104); SODIUM 139 MMOL/L (135-145); TOTAL CARBON DIOXIDE 36.5 MMOL/L (24-32); TOTAL PROTEIN 7.2 G/DL (6.4-8.2); eGFR 79 ML/MIN
[2019-07-01 14:15] LABS: MAGNESIUM 0.8 MG/DL (1.5-2.4); POTASSIUM 2.8 MMOL/L (3.5-5.1)
[2019-07-01 14:16] LABS: BASOPHILS % (AUTO) 0.7 % (0-1); EOSINOPHILS % (AUTO) 0.7 % (0-6); HEMATOCRIT 35.9 % (42.0-52.0); LYMPHOCYTES % (AUTO) 21.4 % (21-51); MEAN CORPUSCULAR HGB CONC 34.3 g/dL (33.0-36.5); MEAN CORPUSCULAR VOLUME 102.9 FL (78-98); MONOCYTES # (AUTO) 0.3 X10'3 (0-0.9); MONOCYTES % (AUTO) 10.1 % (2-12); RED BLOOD COUNT 3.49 X10'6 (4.70-6.10); RED CELL DISTRIBUTION WIDTH 13.6 % (11.5-14.5); WHITE BLOOD COUNT 3.5 X10'3 (4.5-11.0)
[2019-07-01 14:17] LABS: PLATELET COUNT 52 X10'3 (140-440)
[2019-07-01] MEDS ORDERED: magnesium 4gm in 100ml NS 100 ML IV ONE (14:20)
[2019-07-01] MEDS ORDERED: PANT-47 PO (15:40)
[2019-07-01] MEDS ORDERED: GABA-530 PO (15:40)
[2019-07-01] MEDS ORDERED: AMLO5TAB PO (15:40)
[2019-07-01] MEDS ORDERED: acetaminophen 325mg tablet PO PRN ×2 (15:55)
[2019-07-01] MEDS ORDERED: magnesium Cl slow-release 64mg tablet PO PRN (15:55)
[2019-07-01] MEDS ORDERED: morphine 2 MG/ML inj. syringe IV PRN (15:55)
[2019-07-01] MEDS ORDERED: magnesium 2GM in 50ml NS 50 ML IV PRN (15:55)
[2019-07-01] MEDS ORDERED: magnesium 4gm in 100ml NS 100 ML IV PRN (15:55)
[2019-07-01] MEDS ORDERED: ondansetron/PF 4mg/2ml inj IV PRN (15:55)
[2019-07-01] MEDS ORDERED: potassium CL 10mEq/100ml bag 100 ML IV PRN ×2 (15:55)
[2019-07-01] MEDS ORDERED: mag hydrox/Alum hydrox/simeth 30ml oral suspension PO PRN (15:55)
[2019-07-01 16:41] LABS: CLARITY,URINE CLEAR (Clear); COLOR,URINE YELLOW (Yellow); GLUCOSE, URINE NEGATIVE (Neg); KETONES,URINE NEGATIVE (Neg); LEUKOCYTE ESTERASE ,URINE NEGATIVE (Neg); NITRITES, URINE NEGATIVE (Neg); OCCULT BLOOD,URINE TRACE-INTACT (Neg); PROTEIN,URINE 30 mg/dl (Neg); UA COLLECTION TYPE URINAL
[2019-07-01 16:47] LABS: BACTERIA,URINE NONE SEEN /HPF (Neg); COARSE GRANULAR CAST 0-3 /LPF (NEGATIVE); MUCUS STRANDS NONE SEEN /LPF (Neg); SQUAMOUS EPITHELIAL CELL,UR NONE SEEN /LPF (FEW); WBC,URINE NONE SEEN /HPF (0-4)
--- NOTE | 2019-07-01 17:00 | NUR ---
Patient arrived from ED, ambulated by scooting self from one bed to the next with minimum assistance by nurses. Oriented to room, call light within reach. MRSA swab collected by nurse. I took patient's home medication to pharmacy, the pharmacy slip is in the chart. Will give report to NOC nurse, informing that I didn't have time to do the 2 RN skin check, or DART.
--- NOTE | 2019-07-01 17:37 | NUR ---
Patient in room ED 9. I have received report from TRAMAINE Fortune and had the opportunity to ask questions.
[2019-07-01 18:00] VITALS: BP 194/98
--- NOTE | 2019-07-01 18:31 | NUR ---
Patient in room PCU 3016. I have received report from Nathalie REDD and had the opportunity to ask questions and assume patient care.
--- NOTE | 2019-07-01 18:33 | NUR ---
Problems reprioritized. Patient report given, questions answered & plan of care reviewed with TRAMAINE Sales. All patient needs met at this time.
--- NOTE | 2019-07-01 18:43 | NUR ---
Patient in room PCU 3016. I have received report from Nathalie REDD and had the opportunity to ask questions and assume patient care.
[2019-07-01] MEDS: potassium Cl 20 mEq SR tablet PO PRN (18:59)
[2019-07-01] MEDS: normal saline 1000ml 1,000 ML IV SCH (19:09)
--- NOTE | 2019-07-01 19:34 | NUR ---
Page Sent PAGER ID: [phone] MESSAGE: [id number] Petr Weber 58 y/o male here for ETOH abuse, dizziness following a fall, hypokalemia, and hypomagnesemia. Manual BP of 194/98.-Henrry [id number]
[2019-07-01] MEDS: docusate sod 100mg capsule PO SCH (20:00)
[2019-07-01] MEDS: heparin, porcine 5000 units/ml vial SQ SCH (20:16)
[2019-07-01] MEDS: K and/or MAG REPLACEMENT MC SCH (20:17)
[2019-07-01] MEDS: LORazepam 2 mg/ml vial IV PRN (20:17)
[2019-07-01] MEDS ORDERED: temazepam 15mg capsule PO PRN (21:00)
[2019-07-01 22:03] VITALS: BP 150/100
[2019-07-02] MEDS: LORazepam 2 mg/ml vial IV PRN (01:04)
[2019-07-02] MEDS: normal saline 1000ml 1,000 ML IV SCH ×2 (01:54→11:54)
[2019-07-02 02:00] VITALS: BP 172/104
--- NOTE | 2019-07-02 02:15 | NUR ---
Page Sent PAGER ID: [phone] MESSAGE: [id number] Petr Weber 58 y/o male here for ETOH abuse, dizziness following a fall, hypokalemia, and hypomagnesemia. BP of 172/104 received 2mg Ativan 1 hour ago, hydralazine?.-Henrry 3022
--- NOTE | 2019-07-02 02:17 | NUR ---
Spoke with Dr. Street regarding pt BP of 172/104, received order for Hydralazine 10mg IV Q6H PRN SBP > 160.
[2019-07-02] MEDS ORDERED: hydrALAZINE 20mg/ml inj. IV PRN (02:20)
[2019-07-02 04:00] VITALS: BP 148/88
[2019-07-02] MEDS: potassium Cl 20 mEq SR tablet PO PRN ×3 (04:02→12:17)
[2019-07-02 06:00] VITALS: BP 157/104
[2019-07-02 06:29] LABS: BASOPHILS % (AUTO) 0.4 % (0-1); EOSINOPHILS # (AUTO) 0.1 X10'3 (0-0.9); EOSINOPHILS % (AUTO) 1.9 % (0-6); HEMATOCRIT 38.7 % (42.0-52.0); HEMOGLOBIN 13.1 g/dl (14.0-17.9); LYMPHOCYTES % (AUTO) 24.9 % (21-51); MEAN CORPUSCULAR HEMOGLOBIN 35.3 PG (27.0-31.0); MEAN CORPUSCULAR HGB CONC 33.9 g/dL (33.0-36.5); MEAN CORPUSCULAR VOLUME 104.3 FL (78-98); MEAN PLATELET VOLUME 9.6 FL (7.4-10.4); MONOCYTES # (AUTO) 0.4 X10'3 (0-0.9); MONOCYTES % (AUTO) 10.6 % (2-12); NEUTROPHILS # (AUTO) 2.5 X10'3 (1.8-7.7); NEUTROPHILS % (AUTO) 62.2 % (42-75); PLATELET COUNT 62 X10'3 (140-440); RED CELL DISTRIBUTION WIDTH 13.5 % (11.5-14.5)
--- NOTE | 2019-07-02 06:29 | NUR ---
Problems reprioritized. Patient report given, questions answered & plan of care reviewed with Flakito REDD.
--- NOTE | 2019-07-02 06:34 | NUR ---
Patient in room PCU 3016. I have received report from Henrry and had the opportunity to ask questions and assume patient care.
[2019-07-02 06:45] LABS: ALANINE AMINOTRANSFERASE 52 U/L (12-78); ALBUMIN 3.9 G/DL (3.4-5.0); ALKALINE PHOSPHATASE 96 IU/L (46-116); ANION GAP 9 (8-16); ASPARTATE AMINO TRANSFERASE 88 U/L (10-37); BLOOD UREA NITROGEN 7 MG/DL (7-18); BUN/CREATININE RATIO 7.4 (5.4-32.0); CALCIUM 8.8 MG/DL (8.5-10.1); CHLORIDE 93 MMOL/L (99-107); CREATININE 0.94 MG/DL (0.60-1.10); GLUCOSE 74 MG/DL (70-104); MAGNESIUM 1.8 MG/DL (1.5-2.4); POTASSIUM 3.2 MMOL/L (3.5-5.1); SODIUM 135 MMOL/L (135-145); TOTAL CARBON DIOXIDE 32.6 MMOL/L (24-32); TOTAL PROTEIN 7.9 G/DL (6.4-8.2); eGFR 83 ML/MIN
[2019-07-02] MEDS: K and/or MAG REPLACEMENT MC SCH (06:52)
[2019-07-02] MEDS ORDERED: pantoprazole 40mg Tablet.DR PO SCH ×2 (07:30→08:00)
[2019-07-02] MEDS ORDERED: thiamine inj. 100 MG in normal saline 100ml IV soln 100 ML IV SCH (08:00)
[2019-07-02] MEDS ORDERED: MVI, adult No.4 with vit. K 10 ML in dextrose 5% water 500ml 500 ML IV SCH ×2 (08:00)
[2019-07-02] MEDS ORDERED: magnesium 2GM in 50ml NS 50 ML IV SCH (08:00)
[2019-07-02] MEDS: heparin, porcine 5000 units/ml vial SQ SCH (08:00)
[2019-07-02] MEDS ORDERED: amLODIPine 5mg tablet PO SCH (08:00)
[2019-07-02] MEDS ORDERED: atenolol 50mg tablet PO SCH (08:00)
[2019-07-02 08:07] VITALS: BP_SYST 157
[2019-07-02] MEDS: docusate sod 100mg capsule PO SCH (08:08)
[2019-07-02] MEDS: HYDROcodone/acetaminophen 5mg/325mg tablet PO PRN ×2 (08:08→11:31)
[2019-07-02] MEDS ORDERED: FOLI0.4T2 PO (12:38)
[2019-07-02] MEDS ORDERED: THIA100T70 PO (12:38)
[2019-07-02] MEDS ORDERED: MULT-1085 PO (12:38)
--- NOTE | 2019-07-02 15:50 | NUR ---
Safe DC. Patient will call cab on personal phone. All items with patient. Pain medication with patient.
[2019-07-03] MEDS ORDERED: LORazepam 2 mg/ml vial IV PRN (15:55)
[2019-07-03] MEDS ORDERED: LORazepam 1 MG tablet PO PRN (15:55)
[2019-07-05] MEDS ORDERED: LORazepam 1 MG tablet PO PRN (15:55)
[2019-07-05] MEDS ORDERED: LORazepam 2 mg/ml vial IV PRN (15:55)
== END 2019-07-02 15:52 | disposition home or self-care (01) | DRG 641 ==
LOC: ER 13:35 → ED HOLD 15:54 → PCU 3S 18:00
PROVIDERS: ADMIT Internal Medicine; ATTEND Internal Medicine
DX: E87.6 Hypokalemia (principal); F10.239 Alcohol dependence with withdrawal, unspecified; D69.59 Other secondary thrombocytopenia; E83.42 Hypomagnesemia; K29.50 Unspecified chronic gastritis without bleeding; I10 Essential (primary) hypertension; Z60.2 Problems related to living alone; K74.60 Unspecified cirrhosis of liver; F12.90 Cannabis use, unspecified, uncomplicated; F32.9 Major depressive disorder, single episode, unspecified; R26.0 Ataxic gait; Z89.512 Acquired absence of left leg below knee; R42 Dizziness and giddiness
CPT/HCPCS: 36415; 70450; 80053; 81001; 83735; 85025; 87081; 93005; 96365; 96375; 97161; 97530; 99285; G0378; J0360; J1644; J2060; J3411; J3475; J3490; J7030; J7060

== ENCOUNTER 2019-07-13 20:05 | Emergency (ER) | payer OTHER ==
[~2019-07-13] VITALS: Ht 172.7 cm; Wt 68.2 kg
[~2019-07-13 20:05] MED LIST changes: +AMLO5TAB PO; +FOLI0.4T2 PO; +GABA-530 PO; -GABA-532 PO; -HYDR-4353 PO; +MULT-1085 PO; -NOR5T PO; -QUET100T33 PO; +THIA100T70 PO
[2019-07-13 21:42] VITALS: BP 180/106
== END 2019-07-13 21:44 | disposition home or self-care (01) ==
LOC: ER 20:05
DX: R07.81 Pleurodynia (principal); I10 Essential (primary) hypertension; F32.9 Major depressive disorder, single episode, unspecified; F12.90 Cannabis use, unspecified, uncomplicated; F10.20 Alcohol dependence, uncomplicated; Z60.2 Problems related to living alone; Z00.00 Encounter for general adult medical examination without abnormal findings; Z79.899 Other long term (current) drug therapy; Z98.890 Other specified postprocedural states; Y90.0 Blood alcohol level of less than 20 mg/100 ml
CPT/HCPCS: 99282

== ENCOUNTER 2019-11-22 11:38 | Emergency (ER) | payer OTHER ==
[~2019-11-22] VITALS: Ht 172.7 cm; Wt 68.0 kg
[~2019-11-22 11:38] MED LIST changes: -AMLO5TAB PO; +DILT240C90 PO; -FOLI0.4T2 PO; +FOLI0.8C PO; -GABA-530 PO; +GABA600T13 PO; -PANT-47 PO; +PRED20TA PO; +QUET100T33 PO; -THIA100T70 PO; +THIA50TA10 PO
[2019-11-22] MEDS ORDERED: normal saline 1000ML IV soln IVB ONE (12:05)
[2019-11-22] MEDS ORDERED: ondansetron/PF 4mg/2ml inj IV ONE (12:05)
[2019-11-22] MEDS ORDERED: famotidine/PF 10 mg/ml inj IV ONE (12:05)
[2019-11-22] MEDS ORDERED: morphine 4 MG/ML inj SYRINge IV PRN (12:05)
[2019-11-22 12:10] LABS: BASOPHILS % (AUTO) 0.3 % (0-1); EOSINOPHILS % (AUTO) 0.1 % (0-6); HEMATOCRIT 35.9 % (42.0-52.0); HEMOGLOBIN 12.3 g/dl (14.0-17.9); LYMPHOCYTES # (AUTO) 0.9 X10'3 (1.1-4.8); LYMPHOCYTES % (AUTO) 13.8 % (21-51); MEAN CORPUSCULAR HEMOGLOBIN 34.5 PG (27.0-31.0); MEAN CORPUSCULAR HGB CONC 34.3 g/dL (33.0-36.5); MEAN CORPUSCULAR VOLUME 100.4 FL (78-98); MEAN PLATELET VOLUME 8.4 FL (7.4-10.4); MONOCYTES # (AUTO) 0.8 X10'3 (0-0.9); MONOCYTES % (AUTO) 11.8 % (2-12); NEUTROPHILS # (AUTO) 4.8 X10'3 (1.8-7.7); PLATELET COUNT 175 X10'3 (140-440); RED BLOOD COUNT 3.58 X10'6 (4.70-6.10); RED CELL DISTRIBUTION WIDTH 14.3 % (11.5-14.5); WHITE BLOOD COUNT 6.5 X10'3 (4.5-11.0)
[2019-11-22 12:17] LABS: ALANINE AMINOTRANSFERASE 40 U/L (12-78); ALBUMIN 3.6 G/DL (3.4-5.0); ALKALINE PHOSPHATASE 56 IU/L (46-116); ANION GAP 3 (8-16); ASPARTATE AMINO TRANSFERASE 40 U/L (10-37); BILIRUBIN,TOTAL 0.5 MG/DL (0.1-1.0); BLOOD UREA NITROGEN 18 MG/DL (7-18); BUN/CREATININE RATIO 15.9 (5.4-32.0); CALCIUM 10.1 MG/DL (8.5-10.1); CHLORIDE 99 MMOL/L (99-107); CREATININE 1.13 MG/DL (0.60-1.10); GLUCOSE 121 MG/DL (70-104); POTASSIUM 3.8 MMOL/L (3.5-5.1); SODIUM 135 MMOL/L (135-145); TOTAL CARBON DIOXIDE 33.1 MMOL/L (24-32); TOTAL PROTEIN 7.1 G/DL (6.4-8.2); eGFR 67 ML/MIN
[2019-11-22 12:18] LABS: AMYLASE 177 U/L (25-115)
[2019-11-22 12:31] LABS: LIPASE 2235 U/L (73-393)
[2019-11-22] MEDS ORDERED: metoclopramide 5 mg/ml inj IV ONE (12:35)
[2019-11-22] MEDS ORDERED: ketorolac trometh. 30mg/ml inj. IV ONE (12:35)
[2019-11-22] MEDS ORDERED: HYDR-4383 PO (12:39)
[2019-11-22] MEDS ORDERED: ONDA4TAB6 PO (12:39)
[2019-11-22 14:14] LABS: CLARITY,URINE CLEAR (Clear); COLOR,URINE STRAW (Yellow); GLUCOSE, URINE NEGATIVE (Neg); KETONES,URINE NEGATIVE (Neg); LEUKOCYTE ESTERASE ,URINE NEGATIVE (Neg); NITRITES, URINE NEGATIVE (Neg); OCCULT BLOOD,URINE NEGATIVE (Neg); PROTEIN,URINE NEGATIVE (Neg); UROBILINOGEN,URINE 0.2 E.U/dL (0.2-1.0)
[2019-11-22 14:15] LABS: UA COLLECTION TYPE URINAL
[2019-11-22 15:06] VITALS: BP 159/93
== END 2019-11-22 15:08 | disposition home or self-care (01) ==
LOC: ER 11:39
DX: K85.90 Acute pancreatitis without necrosis or infection, unspecified (principal); R11.0 Nausea; R10.12 Left upper quadrant pain; R10.13 Epigastric pain; I10 Essential (primary) hypertension; F32.9 Major depressive disorder, single episode, unspecified; F12.90 Cannabis use, unspecified, uncomplicated; Z98.890 Other specified postprocedural states; Z72.89 Other problems related to lifestyle; Z60.2 Problems related to living alone; Z79.899 Other long term (current) drug therapy
CPT/HCPCS: 36415; 80053; 81003; 82150; 83690; 85025; 93005; 96361; 96374; 96375; 99284; J1885; J2270; J2405; J2765; J3490; J7030

== ENCOUNTER 2019-12-19 19:18 | Emergency (ER) | payer OTHER ==
[~2019-12-19] VITALS: Ht 172.7 cm; Wt 68.2 kg
[~2019-12-19 19:18] MED LIST changes: +HYDR-4383 PO; +ONDA4TAB6 PO
[2019-12-19 19:26] VITALS: BP 114/93
[2019-12-19] MEDS ORDERED: ketorolac tromethamine 15mg/ml inj. IM ONE (20:20)
[2019-12-19] MEDS ORDERED: diazepam 5mg tablet PO ONE (20:20)
[2019-12-19] MEDS ORDERED: METH-360 PO (20:46)
[2019-12-19] MEDS ORDERED: NAPR-56 PO (20:46)
== END 2019-12-19 21:11 | disposition home or self-care (01) ==
LOC: ER 19:19
DX: M54.5 Low back pain (principal); R10.84 Generalized abdominal pain; R10.12 Left upper quadrant pain; I10 Essential (primary) hypertension; F12.90 Cannabis use, unspecified, uncomplicated; Z98.890 Other specified postprocedural states; Z79.899 Other long term (current) drug therapy; W18.30XA Fall on same level, unspecified, initial encounter; Y93.89 Activity, other specified; Y92.89 Other specified places as the place of occurrence of the external cause; Y99.9 Unspecified external cause status
CPT/HCPCS: 96372; 99284; J1885

== ENCOUNTER 2020-01-20 21:36 | Emergency (ER) | payer OTHER ==
[~2020-01-20] VITALS: Ht 172.7 cm; Wt 68.2 kg
[~2020-01-20 21:36] MED LIST changes: +METH-360 PO
[2020-01-20 22:33] LABS: BASOPHILS # (AUTO) 0.1 X10'3 (0-0.2); BASOPHILS % (AUTO) 1.2 % (0-1); EOSINOPHILS % (AUTO) 0.8 % (0-6); HEMATOCRIT 40.9 % (42.0-52.0); HEMOGLOBIN 14.2 g/dl (14.0-17.9); LYMPHOCYTES # (AUTO) 2.1 X10'3 (1.1-4.8); LYMPHOCYTES % (AUTO) 39.7 % (21-51); MEAN CORPUSCULAR HEMOGLOBIN 34.7 PG (27.0-31.0); MEAN CORPUSCULAR HGB CONC 34.8 g/dL (33.0-36.5); MEAN CORPUSCULAR VOLUME 99.8 FL (78-98); MONOCYTES # (AUTO) 0.5 X10'3 (0-0.9); MONOCYTES % (AUTO) 8.7 % (2-12); NEUTROPHILS # (AUTO) 2.7 X10'3 (1.8-7.7); NEUTROPHILS % (AUTO) 49.6 % (42-75); PLATELET COUNT 305 X10'3 (140-440); RED CELL DISTRIBUTION WIDTH 13.6 % (11.5-14.5); WHITE BLOOD COUNT 5.4 X10'3 (4.5-11.0)
[2020-01-20 22:35] LABS: ALANINE AMINOTRANSFERASE 30 U/L (12-78); ALBUMIN 3.6 G/DL (3.4-5.0); ALBUMIN/GLOBULIN RATIO 0.9 (1.1-1.5); ALKALINE PHOSPHATASE 72 IU/L (46-116); ANION GAP 15 (8-16); ASPARTATE AMINO TRANSFERASE 46 U/L (10-37); BILIRUBIN,TOTAL 0.4 MG/DL (0.1-1.0); BLOOD UREA NITROGEN 16 MG/DL (7-18); BUN/CREATININE RATIO 15.5 (5.4-32.0); CALCIUM 8.5 MG/DL (8.5-10.1); CHLORIDE 99 MMOL/L (99-107); CREATININE 1.03 MG/DL (0.60-1.10); GLUCOSE 104 MG/DL (70-104); POTASSIUM 3.5 MMOL/L (3.5-5.1); SODIUM 140 MMOL/L (135-145); TOTAL CARBON DIOXIDE 26.3 MMOL/L (24-32); TOTAL PROTEIN 7.6 G/DL (6.4-8.2); eGFR 74 ML/MIN
[2020-01-20 22:42] LABS: ETHANOL 0.298 GM/DL (0.0-0.010)
[2020-01-20] MEDS ORDERED: sucralfate 1gm/10ml UD suspension PO STA (22:44)
[2020-01-20] MEDS ORDERED: mag hydrox/Alum hydrox/simeth 30ml oral suspension PO ONE (22:45)
[2020-01-20] MEDS ORDERED: LIDOcaine Viscous 15ml cup MM ONE (22:45)
[2020-01-20] MEDS ORDERED: proCHLORperazine 10 MG/2 ml inj IV ONE (22:50)
[2020-01-20] MEDS ORDERED: ketorolac trometh. 30mg/ml inj. IV ONE (22:50)
[2020-01-20] MEDS ORDERED: SUCR1ORA12 PO (23:38)
[2020-01-20 23:53] LABS: LIPASE 62 U/L (73-393)
[2020-01-21 00:21] VITALS: BP 138/83
== END 2020-01-21 00:25 | disposition home or self-care (01) ==
LOC: ER 21:36
DX: K29.20 Alcoholic gastritis without bleeding (principal); I10 Essential (primary) hypertension; Z98.890 Other specified postprocedural states; F12.90 Cannabis use, unspecified, uncomplicated; Z60.2 Problems related to living alone; Z72.89 Other problems related to lifestyle; Z79.899 Other long term (current) drug therapy
CPT/HCPCS: 36415; 71045; 80053; 80320; 83690; 83880; 84484; 85025; 93005; 96374; 96375; 99285; J0780; J1885

== ENCOUNTER 2020-01-25 15:38 | Emergency (ER) | payer OTHER ==
[~2020-01-25] VITALS: Ht 172.7 cm; Wt 68.2 kg
[~2020-01-25 15:38] MED LIST changes: +SUCR1ORA12 PO
[2020-01-25 16:14] LABS: BASOPHILS % (AUTO) 0.1 % (0-1); EOSINOPHILS % (AUTO) 0 % (0-6); HEMATOCRIT 41.5 % (42.0-52.0); HEMOGLOBIN 14.3 g/dl (14.0-17.9); LYMPHOCYTES # (AUTO) 0.9 X10'3 (1.1-4.8); LYMPHOCYTES % (AUTO) 8.1 % (21-51); MEAN CORPUSCULAR HEMOGLOBIN 34.4 PG (27.0-31.0); MEAN CORPUSCULAR HGB CONC 34.5 g/dL (33.0-36.5); MEAN CORPUSCULAR VOLUME 99.6 FL (78-98); MEAN PLATELET VOLUME 7.5 FL (7.4-10.4); MONOCYTES # (AUTO) 0.5 X10'3 (0-0.9); MONOCYTES % (AUTO) 4.5 % (2-12); NEUTROPHILS # (AUTO) 9.4 X10'3 (1.8-7.7); NEUTROPHILS % (AUTO) 87.3 % (42-75); PLATELET COUNT 199 X10'3 (140-440); RED BLOOD COUNT 4.16 X10'6 (4.70-6.10); RED CELL DISTRIBUTION WIDTH 13.9 % (11.5-14.5); WHITE BLOOD COUNT 10.7 X10'3 (4.5-11.0)
[2020-01-25 16:35] LABS: ALANINE AMINOTRANSFERASE 22 U/L (12-78); ALBUMIN 3.8 G/DL (3.4-5.0); ALKALINE PHOSPHATASE 78 IU/L (46-116); ANION GAP 18 (8-16); ASPARTATE AMINO TRANSFERASE 31 U/L (10-37); BILIRUBIN,TOTAL 0.5 MG/DL (0.1-1.0); BLOOD UREA NITROGEN 15 MG/DL (7-18); BUN/CREATININE RATIO 12.2 (5.4-32.0); CALCIUM 8.9 MG/DL (8.5-10.1); CHLORIDE 92 MMOL/L (99-107); CREATININE 1.23 MG/DL (0.60-1.10); GLUCOSE 229 MG/DL (70-104); LIPASE < 50 U/L (73-393); SODIUM 140 MMOL/L (135-145); TOTAL CARBON DIOXIDE 30.2 MMOL/L (24-32); TOTAL PROTEIN 7.7 G/DL (6.4-8.2); eGFR 61 ML/MIN
[2020-01-25] MEDS ORDERED: normal saline 1000ML IV soln IVB ONE (16:35)
[2020-01-25] MEDS ORDERED: ketorolac tromethamine 15mg/ml inj. IV ONE (16:35)
[2020-01-25] MEDS ORDERED: thiamine 100mg/ml 2ml inj. IV ONE (16:35)
[2020-01-25] MEDS ORDERED: folic acid 1mg tablet PO ONE (16:35)
[2020-01-25] MEDS ORDERED: dicyclomine 10 MG capsule PO ONE (16:35)
[2020-01-25 16:37] LABS: POTASSIUM 2.9 MMOL/L (3.5-5.1)
[2020-01-25 16:56] LABS: ETHANOL 0.271 GM/DL (0.0-0.010)
[2020-01-25] MEDS ORDERED: potassium Cl 10 mEq/100mL bag IV ONE (17:05)
[2020-01-25] MEDS ORDERED: potassium chloride 10mEq ER tablet PO STA (17:05)
[2020-01-25] MEDS ORDERED: LORazepam 2 mg/ml vial IV ONE (17:45)
[2020-01-25] MEDS ORDERED: proCHLORperazine 10 MG/2 ml inj IV ONE (17:50)
[2020-01-25 19:58] VITALS: BP 151/67
== END 2020-01-25 20:00 | disposition home or self-care (01) ==
LOC: ER 15:39
DX: F10.129 Alcohol abuse with intoxication, unspecified (principal); R10.13 Epigastric pain; R10.84 Generalized abdominal pain; I10 Essential (primary) hypertension; F12.90 Cannabis use, unspecified, uncomplicated; Z72.89 Other problems related to lifestyle; Z98.890 Other specified postprocedural states; Z79.899 Other long term (current) drug therapy; Y90.0 Blood alcohol level of less than 20 mg/100 ml
CPT/HCPCS: 36415; 80053; 80320; 83690; 85025; 96361; 96374; 96375; 99284; J0780; J1885; J2060; J3411; J3480; J7030

== ENCOUNTER 2020-03-28 00:07 | Emergency (ER) | payer OTHER ==
[~2020-03-28] VITALS: Ht 162.6 cm; Wt 68.2 kg
[~2020-03-28 00:07] MED LIST changes: -DILT240C90 PO; +FOLI0.4T2 PO; -FOLI0.8C PO; -GABA600T13 PO; -HYDR-4383 PO; -METH-360 PO; -MULT-1085 PO; -ONDA4TAB6 PO; -PRED20TA PO; -QUET100T33 PO; -SUCR1ORA12 PO; +THIA100T70 PO; -THIA50TA10 PO
[2020-03-28] MEDS ORDERED: orphenadrine citrate 60mg/2ml inj. IM ONE (00:30)
[2020-03-28] MEDS ORDERED: LIDOcaine 5% patch TP ONE (00:30)
[2020-03-28] MEDS ORDERED: HYDROcodone/acetaminophen 10/325mg tab PO ONE (00:30)
[2020-03-28] MEDS ORDERED: acetaminophen 325mg tablet PO ONE (00:30)
[2020-03-28 01:01] VITALS: BP 155/88
== END 2020-03-28 00:50 | disposition home or self-care (01) ==
LOC: ER 00:08
DX: G89.29 Other chronic pain (principal); M54.5 Low back pain; I10 Essential (primary) hypertension; F32.9 Major depressive disorder, single episode, unspecified; F12.90 Cannabis use, unspecified, uncomplicated; Z98.890 Other specified postprocedural states; Z72.89 Other problems related to lifestyle; Z60.2 Problems related to living alone; Z79.899 Other long term (current) drug therapy
CPT/HCPCS: 96372; 99284; J2360

== ENCOUNTER 2020-03-28 09:23 | Emergency (ER) | payer OTHER ==
[~2020-03-28] VITALS: Ht 162.6 cm; Wt 68.1 kg
[2020-03-28 09:44] VITALS: BP 159/104
--- NOTE | 2020-03-28 14:00 | NUR ---
Called patient back to a room for the third time, Patient not in lobby. Called patient at listed number at which patient states that he could not wait. I educated him that if he really needs to be seen that he is more than welcome to return. patient verbalized understanding. Addendum: 03/28/20 at [address] Amauri vidal. Addendum: 03/28/20 at 1407 by HKISER NATALIA Garcia aware as well.
== END 2020-03-28 14:03 | disposition left against medical advice (07) ==
LOC: ER 09:24
DX: M54.5 Low back pain (principal); G89.29 Other chronic pain; I10 Essential (primary) hypertension; F32.9 Major depressive disorder, single episode, unspecified; F12.90 Cannabis use, unspecified, uncomplicated; Z72.89 Other problems related to lifestyle; Z98.890 Other specified postprocedural states; Z60.2 Problems related to living alone; Z79.899 Other long term (current) drug therapy
CPT/HCPCS: 99283

== ENCOUNTER 2020-04-07 03:43 | Emergency (ER) | payer OTHER ==
[~2020-04-07] VITALS: Ht 170.2 cm; Wt 68.2 kg
[~2020-04-07 03:43] MED LIST changes: -FOLI0.4T2 PO
[2020-04-07] MEDS ORDERED: ketorolac tromethamine 15mg/ml inj. IM ONE (04:10)
[2020-04-07] MEDS ORDERED: LIDOcaine 5% patch TP SCH (04:10)
[2020-04-07] MEDS ORDERED: acetaminophen 325mg tablet PO ONE (04:10)
[2020-04-07] MEDS ORDERED: ondansetron 4mg rapidly disintigrating tab PO ONE (04:50)
[2020-04-07 04:54] VITALS: BP 156/101
== END 2020-04-07 05:40 | disposition home or self-care (01) ==
LOC: ER 03:44
DX: M54.5 Low back pain (principal); R51.9 Headache, unspecified; M54.2 Cervicalgia; R42 Dizziness and giddiness; R11.0 Nausea; I10 Essential (primary) hypertension; G89.29 Other chronic pain; F12.90 Cannabis use, unspecified, uncomplicated; Z89.612 Acquired absence of left leg above knee; Z72.89 Other problems related to lifestyle; Z79.899 Other long term (current) drug therapy; W22.01XA Walked into wall, initial encounter; Y93.89 Activity, other specified; Y92.89 Other specified places as the place of occurrence of the external cause; Y99.8 Other external cause status
CPT/HCPCS: 70450; 82948; 96372; 99284; J1885

== ENCOUNTER 2020-04-08 10:57 | Emergency (ER) | payer OTHER ==
[~2020-04-08] VITALS: Ht 172.7 cm; Wt 70.5 kg
[2020-04-08] MEDS ORDERED: ondansetron/PF 4mg/2ml inj IV ONE ×2 (11:10→16:30)
[2020-04-08] MEDS ORDERED: ketorolac tromethamine 15mg/ml inj. IV ONE (11:10)
[2020-04-08] MEDS ORDERED: acetaminophen 325mg tablet PO ONE (11:15)
[2020-04-08 11:28] LABS: BASOPHILS % (AUTO) 0.9 % (0-1); EOSINOPHILS # (AUTO) 0.1 X10'3 (0-0.9); EOSINOPHILS % (AUTO) 1.3 % (0-6); HEMATOCRIT 33.8 % (42.0-52.0); HEMOGLOBIN 11.9 g/dl (14.0-17.9); LYMPHOCYTES % (AUTO) 44.3 % (21-51); MEAN CORPUSCULAR HGB CONC 35.2 g/dL (33.0-36.5); MEAN CORPUSCULAR VOLUME 99.4 FL (78-98); MEAN PLATELET VOLUME 7.6 FL (7.4-10.4); MONOCYTES # (AUTO) 0.7 X10'3 (0-0.9); MONOCYTES % (AUTO) 15.2 % (2-12); NEUTROPHILS # (AUTO) 1.7 X10'3 (1.8-7.7); NEUTROPHILS % (AUTO) 38.3 % (42-75); PLATELET COUNT 217 X10'3 (140-440); RED CELL DISTRIBUTION WIDTH 13.7 % (11.5-14.5); WHITE BLOOD COUNT 4.5 X10'3 (4.5-11.0)
[2020-04-08] MEDS ORDERED: normal saline 1000ML IV soln IVB ONE (11:45)
[2020-04-08 11:47] LABS: ALANINE AMINOTRANSFERASE 79 U/L (12-78); ALBUMIN 3.7 G/DL (3.4-5.0); ALBUMIN/GLOBULIN RATIO 1.1 (1.1-1.5); ALKALINE PHOSPHATASE 74 IU/L (46-116); ANION GAP 10 (8-16); ASPARTATE AMINO TRANSFERASE 112 U/L (10-37); BILIRUBIN,TOTAL 1.3 MG/DL (0.1-1.0); BLOOD UREA NITROGEN 12 MG/DL (7-18); BUN/CREATININE RATIO 10.9 (5.4-32.0); CALCIUM 9.1 MG/DL (8.5-10.1); CHLORIDE 87 MMOL/L (99-107); GLUCOSE 128 MG/DL (70-104); LIPASE 65 U/L (73-393); SODIUM 130 MMOL/L (135-145); TOTAL CARBON DIOXIDE 32.9 MMOL/L (24-32); eGFR 69 ML/MIN
[2020-04-08 11:49] LABS: POTASSIUM 2.7 MMOL/L (3.5-5.1)
--- NOTE | 2020-04-08 11:50 | NUR ---
Discussed pt's continued N/V w/ PA Fraire; new order for Compazine received.
[2020-04-08] MEDS ORDERED: proCHLORperazine 10 MG/2 ml inj IV ONE (11:55)
[2020-04-08] MEDS ORDERED: potassium Cl 10 mEq/100mL bag IV ONE (12:05)
--- NOTE | 2020-04-08 12:25 | NUR ---
Pt reports he consumes ~ 1/5th of Vodka daily. Last intake earlier this am. NATALIA Fraire notified.
[2020-04-08] MEDS ORDERED: potassium Cl 20 mEq SR tablet PO STA (14:45)
--- NOTE | 2020-04-08 15:35 | NUR ---
25% OF TURKEY SANDWICH, 25% JELLO AND 120 ML WATER PROVIDED TO DETERMINE IF PT CAN TOLERATE. WILL ADMINISTER KDUR TABS WHEN NO GI UPSET. PT HAS NOT EATEN SINCE YESTERDAY WHEN N/V WERE EXPERIENCED.
--- NOTE | 2020-04-08 16:04 | NUR ---
Updated NATALIA Fraire on PO challenge. It appeared pt was going to pass until first 25% of ordered KDur dose administered. Pt immediately threw up all he had eaten previously. New order for Zofran and Ativan received. Will continue working toward successful PO challenge results including administration of remaining KDur (75% ordered dose).
[2020-04-08] MEDS ORDERED: LORazepam 2 mg/ml vial IV ONE (16:30)
[2020-04-08] MEDS ORDERED: LORazepam 1 MG tablet PO ONE (16:55)
[2020-04-08] MEDS ORDERED: ondansetron 4mg rapidly disintigrating tab PO ONE (16:55)
[2020-04-08 16:58] VITALS: BP 138/89
--- NOTE | 2020-04-08 17:33 | NUR ---
Pt passed PO challenge after Zofan ODT admin
== END 2020-04-08 17:37 | disposition home or self-care (01) ==
LOC: ER 10:58
DX: R07.89 Other chest pain (principal); E87.6 Hypokalemia; R06.02 Shortness of breath; I10 Essential (primary) hypertension; G89.29 Other chronic pain; F12.90 Cannabis use, unspecified, uncomplicated; Z79.899 Other long term (current) drug therapy; Z72.89 Other problems related to lifestyle; Z89.512 Acquired absence of left leg below knee
CPT/HCPCS: 36415; 71045; 76700; 80053; 83690; 83880; 84484; 85025; 85610; 93005; 96365; 96366; 96375; 99285; J0780; J1885; J2405; J3480; J7030

== ENCOUNTER 2020-04-17 16:24 | Emergency (ER) | payer OTHER ==
[~2020-04-17] VITALS: Ht 172.7 cm; Wt 62.7 kg
[2020-04-17 17:15] VITALS: BP 166/94
--- NOTE | 2020-04-17 18:37 | NUR ---
Patient in CT
--- NOTE | 2020-04-17 20:20 | NUR ---
NATALIA MORGAN TALKING WITH PT ABOUT FINDINGS OF CT AND DISCHARGE. PT THEN LEFT HIS ROOM FOR AND THEN RETURNED APROX 10 MIN LATER AND THEN LEFT AGAIN BEFRE GETTING PAPERWORK. NATALIA MORGAN AWARE.
[2020-05-10] MEDS ORDERED: FAMO20TA8 PO (20:21)
[2020-05-10] MEDS ORDERED: AMLO10TA PO (20:21)
[2020-05-10] MEDS ORDERED: DICL100G30 TOP (20:21)
[2020-05-10] MEDS ORDERED: SERT25TA PO (20:21)
[2020-05-10] MEDS ORDERED: FOLI0.4T6 PO (20:21)
[2020-05-10] MEDS ORDERED: QUET-1 PO (20:21)
[2020-05-10] MEDS ORDERED: ASPI-1265 PO (20:21)
[2020-05-10] MEDS ORDERED: MULT-227 PO (20:21)
[2020-05-10] MEDS ORDERED: CARV3.12 PO (20:21)
[2020-05-10] MEDS ORDERED: GABA-530 PO (20:21)
[2020-05-10] MEDS ORDERED: CALC0.2536 PO (20:21)
[2020-05-12] MEDS ORDERED: ATOR20TA PO (10:52)
== END 2020-04-17 20:30 | disposition home or self-care (01) ==
LOC: ER 16:25
DX: M25.552 Pain in left hip (principal); I10 Essential (primary) hypertension; G89.29 Other chronic pain; F32.9 Major depressive disorder, single episode, unspecified; F12.90 Cannabis use, unspecified, uncomplicated; Z72.89 Other problems related to lifestyle; Z98.890 Other specified postprocedural states; Z60.2 Problems related to living alone; Z79.82 Long term (current) use of aspirin; Z79.899 Other long term (current) drug therapy; W18.39XA Other fall on same level, initial encounter; Y93.89 Activity, other specified; Y92.89 Other specified places as the place of occurrence of the external cause; Y99.8 Other external cause status
CPT/HCPCS: 70450; 99284

== ENCOUNTER 2020-07-23 13:40 | Emergency (ER) | payer OTHER ==
[~2020-07-23] VITALS: Ht 170.2 cm; Wt 62.0 kg
[~2020-07-23 13:40] MED LIST changes: +AMLO10TA PO; +ASPI-1265 PO; +ATOR20TA PO; +CALC0.2536 PO; +CARV3.12 PO; +DICL100G30 TOP; +FAMO20TA8 PO; +FOLI0.4T6 PO; +GABA-530 PO; +MULT-227 PO; +QUET-1 PO; +SERT25TA PO; -THIA100T70 PO
--- NOTE | 2020-07-23 15:15 | NUR ---
Called [facility] and spoke with Stefanie inquiring if pt had a bed being held for pt. Stefanie was able to make contact with head Psychiatrist Dr. Patrice Damon and reports pt was declined bed request that was inquired from [facility] today as pt is not appropriate for the unit as pt needs a medical/psych bed. Provider NATALIA Urias updated pt does not have a bed at [facility] and they are not anticipating a tranfer from us.
[2020-07-23 15:24] LABS: BASOPHILS # (AUTO) 0.1 X10'3 (0-0.2); BASOPHILS % (AUTO) 0.9 % (0-1); EOSINOPHILS # (AUTO) 0.6 X10'3 (0-0.9); HEMATOCRIT 30.1 % (42.0-52.0); HEMOGLOBIN 9.9 g/dl (14.0-17.9); LYMPHOCYTES # (AUTO) 1.4 X10'3 (1.1-4.8); MEAN CORPUSCULAR HEMOGLOBIN 30.6 PG (27.0-31.0); MEAN CORPUSCULAR HGB CONC 32.9 g/dL (33.0-36.5); MEAN CORPUSCULAR VOLUME 92.9 FL (78-98); MEAN PLATELET VOLUME 7.6 FL (7.4-10.4); MONOCYTES # (AUTO) 0.7 X10'3 (0-0.9); MONOCYTES % (AUTO) 11.8 % (2-12); NEUTROPHILS # (AUTO) 3.3 X10'3 (1.8-7.7); NEUTROPHILS % (AUTO) 54.3 % (42-75); PLATELET COUNT 160 X10'3 (140-440); RED BLOOD COUNT 3.24 X10'6 (4.70-6.10); RED CELL DISTRIBUTION WIDTH 19.6 % (11.5-14.5); WHITE BLOOD COUNT 6.1 X10'3 (4.5-11.0)
[2020-07-23 15:37] LABS: CLARITY,URINE CLEAR (Clear); COLOR,URINE YELLOW (Yellow); GLUCOSE, URINE NEGATIVE (Neg); KETONES,URINE NEGATIVE (Neg); LEUKOCYTE ESTERASE ,URINE NEGATIVE (Neg); NITRITES, URINE NEGATIVE (Neg); OCCULT BLOOD,URINE NEGATIVE (Neg); PROTEIN,URINE NEGATIVE (Neg); URINE AMPHETAMINE SCREEN NEGATIVE (Neg); URINE BARBITUATE SCREEN NEGATIVE (Neg); URINE BENZODIAZEPINES SCREEN POSITIVE (Neg); URINE CANNABINOID SCREEN NEGATIVE (Neg); URINE COCAINE SCREEN NEGATIVE (Neg); URINE METHADONE SCREEN NEGATIVE (Neg); URINE OPIATE SCREEN POSITIVE (Neg); URINE PHENCYCLIDINE SCREEN NEGATIVE (Neg); UROBILINOGEN,URINE 0.2 E.U/dL (0.2-1.0)
[2020-07-23 15:40] LABS: ALANINE AMINOTRANSFERASE 19 U/L (12-78); ALBUMIN 3.1 G/DL (3.4-5.0); ALBUMIN/GLOBULIN RATIO 0.6 (1.1-1.5); ALKALINE PHOSPHATASE 94 IU/L (46-116); ANION GAP 7 (8-16); ASPARTATE AMINO TRANSFERASE 17 U/L (10-37); BILIRUBIN,TOTAL 0.3 MG/DL (0.1-1.0); BLOOD UREA NITROGEN 14 MG/DL (7-18); BUN/CREATININE RATIO 10.9 (5.4-32.0); CALCIUM 9.3 MG/DL (8.5-10.1); CHLORIDE 101 MMOL/L (99-107); CREATININE 1.29 MG/DL (0.60-1.10); GLUCOSE 103 MG/DL (70-104); POTASSIUM 3.9 MMOL/L (3.5-5.1); SODIUM 136 MMOL/L (135-145); TOTAL CARBON DIOXIDE 27.9 MMOL/L (24-32); TOTAL PROTEIN 7.9 G/DL (6.4-8.2); eGFR 57 ML/MIN
[2020-07-23 15:41] LABS: UA COLLECTION TYPE CLN CATCH MIDSTREAM
[2020-07-23] MEDS ORDERED: LORazepam 1 MG tablet PO ONE (15:50)
[2020-07-23 15:51] LABS: ETHANOL < 0.010 GM/DL (0.0-0.010)
--- NOTE | 2020-07-23 16:01 | NUR ---
PACKET FAXED TO [facility]
[2020-07-23] MEDS ORDERED: MAGN400C PO (17:38)
[2020-07-23] MEDS ORDERED: PANT-47 PO (17:38)
[2020-07-23] MEDS ORDERED: MULT-1085 PO (17:38)
[2020-07-23] MEDS ORDERED: MELA3TAB41 PO (17:38)
[2020-07-23] MEDS ORDERED: ATOR20TA66 PO (17:38)
[2020-07-23] MEDS ORDERED: THIA100T70 PO (17:38)
[2020-07-23] MEDS ORDERED: DIPH-423 PO (17:38)
[2020-07-23] MEDS ORDERED: CEFD300C21 PO (17:38)
[2020-07-23] MEDS ORDERED: SULF1TAB49 PO (17:38)
[2020-07-23] MEDS ORDERED: CHLO5CAP3 PO (17:38)
[2020-07-23] MEDS ORDERED: BUSP5TAB3 PO (17:38)
[2020-07-23] MEDS ORDERED: CLOT15CR73 TP (17:38)
[2020-07-23] MEDS ORDERED: PYRI25TA4 PO (17:38)
[2020-07-23] MEDS ORDERED: LACT1CAP26 PO (17:38)
[2020-07-23] MEDS ORDERED: FOLI0.4T14 PO (17:38)
[2020-07-23] MEDS ORDERED: magnesium oxide 400mg tablet PO PRN (18:00)
[2020-07-23] MEDS ORDERED: chlordiazePOXIDE 5mg capsule PO PRN (18:00)
[2020-07-23] MEDS ORDERED: diphenhydrAMINE 25mg capsule PO PRN (18:10)
[2020-07-23 18:27] LABS: ANISOCYTOSIS 2+; PLATELET ESTIMATE NORMAL
[2020-07-23] MEDS ORDERED: Melatonin 3mg tablet PO SCH (21:00)
[2020-07-23] MEDS: pantoprazole 40mg Tablet.DR PO SCH (21:28)
[2020-07-23] MEDS: sulfamethoxazole/trimethoprim DS (800/160mg) tablet PO SCH (21:28)
[2020-07-23] MEDS: cefpodoxime proxetil 100mg tablet PO SCH (21:29)
[2020-07-23] MEDS: clotrimazole/betamethasone diproprion. cream 15gm TP SCH (21:29)
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
[2020-07-24] MEDS ORDERED: HYDROcodone/acetaminophen 5mg/325mg tablet PO PRN (00:35)
--- NOTE | 2020-07-24 03:43 | NUR ---
pt is awake ambulated to the bathroom and returned to bed.
--- NOTE | 2020-07-24 05:13 | NUR ---
pt asleep resting comfortably. No s/s distress.
[2020-07-24 05:38] VITALS: BP 161/79
--- NOTE | 2020-07-24 06:42 | NUR ---
Patient sleeping supine and lightly snoring. No distress observed. Continue to monitor.
--- NOTE | 2020-07-24 07:30 | NUR ---
Patient ambulatory, steady gait with walker to BR. No distress observed. Continue to monitor.
[2020-07-24] MEDS ORDERED: atorvastatin 20mg tablet PO SCH (08:00)
[2020-07-24] MEDS ORDERED: PYRIDOXINE HCL PO SCH (08:00)
[2020-07-24] MEDS ORDERED: folic acid 1mg tablet PO SCH (08:00)
[2020-07-24] MEDS ORDERED: busPIRone 5mg tablet PO SCH (08:00)
[2020-07-24] MEDS ORDERED: multivitamins, therapeutics tablet PO SCH (08:00)
[2020-07-24] MEDS ORDERED: thiamine 100mg tablet PO SCH (08:00)
[2020-07-24] MEDS: cefpodoxime proxetil 100mg tablet PO SCH (08:24)
[2020-07-24] MEDS: pantoprazole 40mg Tablet.DR PO SCH (08:25)
[2020-07-24] MEDS: clotrimazole/betamethasone diproprion. cream 15gm TP SCH (08:26)
[2020-07-24] MEDS: sulfamethoxazole/trimethoprim DS (800/160mg) tablet PO SCH (08:26)
--- NOTE | 2020-07-24 08:45 | NUR ---
Shahram MARTÍNEZ, evaluating patient. No distress observed. Continue to monitor.
--- NOTE | 2020-07-24 09:18 | NUR ---
Per Shahram MARTÍNEZ, patient does not meet criteria for a hold. RN gave patient his phone so [facility]. Patient ate breakfast and stated he was feeling better. Patient denies ever feeling suicidal. Continue to monitor.
--- NOTE | 2020-07-24 09:35 | NUR ---
[place] called and spoke to RN. Keshav, from [place] states patient should be on a 5150 hold due to patient has poor hygiene. RN explained to Keshav, with permission from patient, that [facility] did not feel he met criteria for a hold. RN gave Keshav Omalley's direct line and he spoke to Shahram. Shahram advised Keshav that patient does not meet criteria for a hold and it is not in the patient's best interest to tell him that he can go to [facility] or [facility] because Keshav is not in charge of placement. Keshav is having patient go to the [place] and he will possibly place patient on a 5150. Patient to leave in taxi to the [place]. Patient calm and in no distress.
--- NOTE | 2020-07-24 10:02 | NUR ---
Patient dressed and has all his belongings. RN picked up patient's medication and gave to patient. Tech called for a taxi for [facility] to go [facility] the [facility]. Patient calm and in no distress. Continue to monitor.
== END 2020-07-24 10:15 | disposition home or self-care (01) ==
LOC: ER 13:41
DX: F10.20 Alcohol dependence, uncomplicated (principal); F43.10 Post-traumatic stress disorder, unspecified; F12.90 Cannabis use, unspecified, uncomplicated; I10 Essential (primary) hypertension; G89.29 Other chronic pain; Z86.14 Personal history of Methicillin resistant Staphylococcus aureus infection; F41.9 Anxiety disorder, unspecified; K74.60 Unspecified cirrhosis of liver; Z79.899 Other long term (current) drug therapy; Z87.891 Personal history of nicotine dependence; Y90.5 Blood alcohol level of 100-119 mg/100 ml
CPT/HCPCS: 36415; 80053; 80305; 80320; 81003; 84443; 85008; 85025; 99284; Q0163

== ENCOUNTER 2021-04-03 10:55 | Emergency (ER) | payer OTHER ==
[~2021-04-03] VITALS: Ht 172.7 cm; Wt 68.2 kg
[~2021-04-03 10:55] MED LIST changes: -AMLO10TA PO; -ASPI-1265 PO; -ATOR20TA PO; +ATOR20TA66 PO; +BUSP5TAB3 PO; -CALC0.2536 PO; -CARV3.12 PO; +CEFD300C21 PO; +CHLO5CAP3 PO; +CLOT15CR73 TP; -DICL100G30 TOP; +DIPH-423 PO; -FAMO20TA8 PO; +FOLI0.4T14 PO; -FOLI0.4T6 PO; -GABA-530 PO; +LACT1CAP26 PO; +MAGN400C PO; +MELA3TAB41 PO; +MULT-1085 PO; -MULT-227 PO; +PANT-47 PO; +PYRI25TA4 PO; -QUET-1 PO; -SERT25TA PO; +SULF1TAB49 PO; +THIA100T70 PO
[2021-04-03] MEDS ORDERED: normal saline 1000ML IV soln IVB ONE ×2 (11:15→15:20)
[2021-04-03] MEDS ORDERED: ondansetron/PF 4mg/2ml inj IV ONE (11:15)
[2021-04-03] MEDS ORDERED: LORazepam 2 mg/ml vial IV ONE (11:15)
[2021-04-03] MEDS ORDERED: loperamide 2mg capsule PO ONE (11:35)
[2021-04-03] MEDS ORDERED: chlordiazePOXIDE 25mg capsule PO ONE (11:35)
[2021-04-03 11:53] LABS: BASOPHILS % (AUTO) 0.4 % (0-1); EOSINOPHILS # (AUTO) 0.1 X10'3 (0-0.9); EOSINOPHILS % (AUTO) 0.8 % (0-6); HEMATOCRIT 46.8 % (42.0-52.0); HEMOGLOBIN 16.2 g/dl (14.0-17.9); LYMPHOCYTES # (AUTO) 1.5 X10'3 (1.1-4.8); MEAN CORPUSCULAR HEMOGLOBIN 33.2 PG (27.0-31.0); MEAN CORPUSCULAR HGB CONC 34.6 g/dL (33.0-36.5); MEAN CORPUSCULAR VOLUME 95.9 FL (78-98); MEAN PLATELET VOLUME 7.8 FL (7.4-10.4); MONOCYTES # (AUTO) 0.8 X10'3 (0-0.9); NEUTROPHILS % (AUTO) 70.8 % (42-75); PLATELET COUNT 374 X10'3 (140-440); RED BLOOD COUNT 4.88 X10'6 (4.70-6.10); RED CELL DISTRIBUTION WIDTH 15.3 % (11.5-14.5); WHITE BLOOD COUNT 8.4 X10'3 (4.5-11.0)
[2021-04-03 12:08] LABS: ALANINE AMINOTRANSFERASE 28 U/L (12-78); ALBUMIN 3.9 G/DL (3.4-5.0); ALBUMIN/GLOBULIN RATIO 0.9 (1.1-1.5); ANION GAP 16 (8-16); ASPARTATE AMINO TRANSFERASE 25 U/L (10-37); BILIRUBIN,TOTAL 0.6 MG/DL (0.1-1.0); BLOOD UREA NITROGEN 31 MG/DL (7-18); BUN/CREATININE RATIO 10.6 (5.4-32.0); CALCIUM 9.7 MG/DL (8.5-10.1); CHLORIDE 97 MMOL/L (99-107); CREATININE 2.92 MG/DL (0.60-1.10); GLUCOSE 174 MG/DL (70-104); LIPASE 111 U/L (73-393); MAGNESIUM 1.6 MG/DL (1.5-2.4); POTASSIUM 4.4 MMOL/L (3.5-5.1); SODIUM 133 MMOL/L (135-145); TOTAL CARBON DIOXIDE 20.2 MMOL/L (24-32); TOTAL PROTEIN 8.3 G/DL (6.4-8.2); eGFR 22 ML/MIN
[2021-04-03 12:17] LABS: ETHANOL < 0.010 GM/DL (0.0-0.010)
[2021-04-03] MEDS ORDERED: normal saline 1000ml 1,000 ML IV ONE (12:40)
[2021-04-03] MEDS ORDERED: metoclopramide 5 mg/ml inj IV ONE (12:40)
[2021-04-03] MEDS ORDERED: ONDA8TAB13 PO (14:02)
[2021-04-03] MEDS ORDERED: LOPE2CAP PO (14:02)
[2021-04-03] MEDS ORDERED: CHLO25CA10 PO (14:02)
[2021-04-03 14:26] LABS: ANION GAP 8 (8-16); BLOOD UREA NITROGEN 32 MG/DL (7-18); BUN/CREATININE RATIO 12.7 (5.4-32.0); CALCIUM 8.1 MG/DL (8.5-10.1); CHLORIDE 103 MMOL/L (99-107); CREATININE 2.51 MG/DL (0.60-1.10); GLUCOSE 80 MG/DL (70-104); POTASSIUM 4.6 MMOL/L (3.5-5.1); SODIUM 135 MMOL/L (135-145); TOTAL CARBON DIOXIDE 23.6 MMOL/L (24-32); eGFR 27 ML/MIN
[2021-04-03 17:13] VITALS: BP 145/96
== END 2021-04-03 17:21 | disposition home or self-care (01) ==
LOC: ER 10:56
DX: K52.9 Noninfective gastroenteritis and colitis, unspecified (principal); Z20.822 Contact with and (suspected) exposure to COVID-19; F10.239 Alcohol dependence with withdrawal, unspecified; R11.2 Nausea with vomiting, unspecified; I10 Essential (primary) hypertension; G89.29 Other chronic pain; F32.A Depression, unspecified; F12.90 Cannabis use, unspecified, uncomplicated; Z98.890 Other specified postprocedural states; Z72.89 Other problems related to lifestyle; Z60.2 Problems related to living alone; Z79.899 Other long term (current) drug therapy; Z79.2 Long term (current) use of antibiotics; Y90.9 Presence of alcohol in blood, level not specified
CPT/HCPCS: 36415; 80048; 80053; 80320; 83690; 83735; 85025; 87635; 93005; 96361; 96374; 96375; 99285; C9803; J2060; J2405; J2765; J7030

== ENCOUNTER 2021-04-20 14:48 | Emergency (ER) | payer OTHER ==
[~2021-04-20] VITALS: Ht 172.7 cm; Wt 68.0 kg
[~2021-04-20 14:48] MED LIST changes: +CHLO25CA10 PO; +LOPE2CAP PO; +ONDA8TAB13 PO
[2021-04-20 15:17] VITALS: BP 140/98
[2021-04-20] MEDS ORDERED: ondansetron 4mg rapidly disintigrating tab PO ONE (16:25)
[2021-04-20] MEDS ORDERED: ONDA4TAB12 PO (17:03)
[2021-04-20 17:36] LABS: BASOPHILS % (AUTO) 0.4 % (0-1); EOSINOPHILS # (AUTO) 0.1 X10'3 (0-0.9); EOSINOPHILS % (AUTO) 0.8 % (0-6); HEMATOCRIT 46.3 % (42.0-52.0); HEMOGLOBIN 16.2 g/dl (14.0-17.9); LYMPHOCYTES # (AUTO) 2.2 X10'3 (1.1-4.8); LYMPHOCYTES % (AUTO) 21.6 % (21-51); MEAN CORPUSCULAR HEMOGLOBIN 32.9 PG (27.0-31.0); MEAN CORPUSCULAR VOLUME 94.1 FL (78-98); MEAN PLATELET VOLUME 7.8 FL (7.4-10.4); MONOCYTES # (AUTO) 0.9 X10'3 (0-0.9); MONOCYTES % (AUTO) 9.3 % (2-12); NEUTROPHILS # (AUTO) 6.8 X10'3 (1.8-7.7); NEUTROPHILS % (AUTO) 67.9 % (42-75); PLATELET COUNT 264 X10'3 (140-440); RED BLOOD COUNT 4.92 X10'6 (4.70-6.10); RED CELL DISTRIBUTION WIDTH 14.4 % (11.5-14.5)
[2021-04-20 17:48] LABS: ALANINE AMINOTRANSFERASE 21 U/L (12-78); ALBUMIN 3.6 G/DL (3.4-5.0); ALBUMIN/GLOBULIN RATIO 0.7 (1.1-1.5); ALKALINE PHOSPHATASE 128 IU/L (46-116); ANION GAP 11 (8-16); ASPARTATE AMINO TRANSFERASE 29 U/L (10-37); BILIRUBIN,TOTAL 0.9 MG/DL (0.1-1.0); BLOOD UREA NITROGEN 20 MG/DL (7-18); BUN/CREATININE RATIO 9.9 (5.4-32.0); CALCIUM 9.4 MG/DL (8.5-10.1); CHLORIDE 90 MMOL/L (99-107); CREATININE 2.02 MG/DL (0.60-1.10); GLUCOSE 122 MG/DL (70-104); LIPASE 73 U/L (73-393); POTASSIUM 3.2 MMOL/L (3.5-5.1); SODIUM 133 MMOL/L (135-145); TOTAL CARBON DIOXIDE 31.7 MMOL/L (24-32); TOTAL PROTEIN 8.8 G/DL (6.4-8.2); eGFR 34 ML/MIN
== END 2021-04-20 18:18 | disposition home or self-care (01) ==
LOC: ER 14:49
DX: R11.2 Nausea with vomiting, unspecified (principal); R10.13 Epigastric pain; I10 Essential (primary) hypertension; G89.29 Other chronic pain; F12.90 Cannabis use, unspecified, uncomplicated; Z72.89 Other problems related to lifestyle; Z79.899 Other long term (current) drug therapy
CPT/HCPCS: 36415; 80053; 83690; 85025; 99283

== ENCOUNTER 2021-06-23 20:06 | Emergency (ER) | payer OTHER ==
[~2021-06-23] VITALS: Ht 172.7 cm; Wt 68.2 kg
[~2021-06-23 20:06] MED LIST changes: +ONDA4TAB12 PO
[2021-06-23 20:40] LABS: BASOPHILS # (AUTO) 0.1 X10'3 (0-0.2); EOSINOPHILS # (AUTO) 0.1 X10'3 (0-0.9); EOSINOPHILS % (AUTO) 1.5 % (0-6); HEMATOCRIT 41.3 % (42.0-52.0); LYMPHOCYTES # (AUTO) 2.6 X10'3 (1.1-4.8); LYMPHOCYTES % (AUTO) 43.1 % (21-51); MEAN CORPUSCULAR HEMOGLOBIN 32.6 PG (27.0-31.0); MEAN CORPUSCULAR VOLUME 95.9 FL (78-98); MEAN PLATELET VOLUME 7.2 FL (7.4-10.4); MONOCYTES # (AUTO) 0.4 X10'3 (0-0.9); MONOCYTES % (AUTO) 6.5 % (2-12); NEUTROPHILS # (AUTO) 2.9 X10'3 (1.8-7.7); NEUTROPHILS % (AUTO) 47.9 % (42-75); PLATELET COUNT 244 X10'3 (140-440); RED CELL DISTRIBUTION WIDTH 15.6 % (11.5-14.5); WHITE BLOOD COUNT 6.1 X10'3 (4.5-11.0)
[2021-06-23 20:54] LABS: ALANINE AMINOTRANSFERASE 207 U/L (12-78); ALBUMIN 3.6 G/DL (3.4-5.0); ALBUMIN/GLOBULIN RATIO 0.8 (1.1-1.5); ALKALINE PHOSPHATASE 101 IU/L (46-116); ANION GAP 18 (8-16); ASPARTATE AMINO TRANSFERASE 307 U/L (10-37); BILIRUBIN,TOTAL 0.9 MG/DL (0.1-1.0); BLOOD UREA NITROGEN 22 MG/DL (7-18); BUN/CREATININE RATIO 16.4 (5.4-32.0); CALCIUM 8.6 MG/DL (8.5-10.1); CHLORIDE 96 MMOL/L (99-107); CREATININE 1.34 MG/DL (0.60-1.10); GLUCOSE 101 MG/DL (70-104); POTASSIUM 4.1 MMOL/L (3.5-5.1); SODIUM 139 MMOL/L (135-145); TOTAL PROTEIN 7.9 G/DL (6.4-8.2); eGFR 55 ML/MIN
[2021-06-23] MEDS ORDERED: ondansetron 4mg rapidly disintigrating tab PO ONE (21:20)
[2021-06-23] MEDS ORDERED: normal saline 1000ML IV soln IVB ONE ×2 (22:35→23:30)
[2021-06-23] MEDS ORDERED: ondansetron/PF 4mg/2ml inj IV ONE (23:30)
[2021-06-23 23:52] LABS: APTT 25 SECONDS (22-32)
[2021-06-24] MEDS ORDERED: ondansetron/PF 4mg/2ml inj IV ONE (01:00)
[2021-06-24] MEDS ORDERED: metoclopramide 5 mg/ml inj IV ONE (02:35)
[2021-06-24 03:27] LABS: LIPASE 76 U/L (73-393)
[2021-06-24 04:04] LABS: CLARITY,URINE CLEAR (Clear); COLOR,URINE YELLOW (Yellow); GLUCOSE, URINE NEGATIVE (Neg); KETONES,URINE TRACE mg/dl (Neg); LEUKOCYTE ESTERASE ,URINE NEGATIVE (Neg); NITRITES, URINE NEGATIVE (Neg); OCCULT BLOOD,URINE MODERATE (Neg); PROTEIN,URINE >=300 mg/dl (Neg)
[2021-06-24 04:26] LABS: UA COLLECTION TYPE URINAL
[2021-06-24 04:29] LABS: BACTERIA,URINE FEW /HPF (Neg); MUCUS STRANDS FEW /LPF (Neg); RBC,URINE 0-2 /HPF (0-2); SQUAMOUS EPITHELIAL CELL,UR FEW /LPF (FEW); WBC,URINE 0-4 /HPF (0-4)
--- NOTE | 2021-06-24 05:20 | NUR ---
GAVE PT BREAD AND JUICE. PT SPIT OUT BREAD SAYING IT WAS TOO DRY AND HE COULD NOT SWALLOW IT. INGESTED ALL OF THE JUICE PROVIDED.
[2021-06-24] MEDS ORDERED: METO-292 PO (05:50)
--- NOTE | 2021-06-24 05:51 | NUR ---
PT SEEN BY PRIMARY NURSE AND ONE OTHER WITNESS MAKING HIMSELF THROW UP BY PUTTING HIS FINGER DOWN HIS THROAT. TO BE D/C HOME WITH ANTIEMETIC MEDICATION
[2021-06-24] MEDS ORDERED: metoclopramide 10mg tablet PO ONE (06:00)
[2021-06-24 06:22] VITALS: BP 129/64
== END 2021-06-24 06:25 | disposition home or self-care (01) ==
LOC: ER 20:07
DX: R11.2 Nausea with vomiting, unspecified (principal); R22.9 Localized swelling, mass and lump, unspecified; M87.9 Osteonecrosis, unspecified; R07.89 Other chest pain; I10 Essential (primary) hypertension; G89.29 Other chronic pain; F32.A Depression, unspecified; F12.90 Cannabis use, unspecified, uncomplicated; Z98.890 Other specified postprocedural states; Z72.89 Other problems related to lifestyle; Z60.2 Problems related to living alone; Z79.2 Long term (current) use of antibiotics; Z79.899 Other long term (current) drug therapy
CPT/HCPCS: 36415; 71045; 74176; 76700; 80053; 81001; 83690; 83880; 84484; 85025; 85610; 85730; 93005; 96361; 96374; 96375; 96376; 99285; J2405; J2765; J7030

== ENCOUNTER 2021-06-25 19:10 | Emergency (ER) | payer OTHER ==
[~2021-06-25] VITALS: Ht 172.7 cm; Wt 68.2 kg
[~2021-06-25 19:10] MED LIST changes: +METO-292 PO
[2021-06-25 19:52] LABS: BASOPHILS % (AUTO) 0.3 % (0-1); EOSINOPHILS # (AUTO) 0.1 X10'3 (0-0.9); EOSINOPHILS % (AUTO) 0.9 % (0-6); HEMATOCRIT 40.5 % (42.0-52.0); HEMOGLOBIN 13.5 g/dl (14.0-17.9); LYMPHOCYTES # (AUTO) 3.2 X10'3 (1.1-4.8); LYMPHOCYTES % (AUTO) 37.3 % (21-51); MEAN CORPUSCULAR HGB CONC 33.4 g/dL (33.0-36.5); MEAN CORPUSCULAR VOLUME 95.9 FL (78-98); MONOCYTES # (AUTO) 0.5 X10'3 (0-0.9); MONOCYTES % (AUTO) 5.9 % (2-12); NEUTROPHILS # (AUTO) 4.8 X10'3 (1.8-7.7); NEUTROPHILS % (AUTO) 55.6 % (42-75); PLATELET COUNT 207 X10'3 (140-440); RED BLOOD COUNT 4.22 X10'6 (4.70-6.10); RED CELL DISTRIBUTION WIDTH 15.6 % (11.5-14.5); WHITE BLOOD COUNT 8.6 X10'3 (4.5-11.0)
[2021-06-25 20:02] LABS: ALANINE AMINOTRANSFERASE 112 U/L (12-78); ALBUMIN 3.5 G/DL (3.4-5.0); ALBUMIN/GLOBULIN RATIO 0.9 (1.1-1.5); ALKALINE PHOSPHATASE 93 IU/L (46-116); ANION GAP 11 (8-16); ASPARTATE AMINO TRANSFERASE 105 U/L (10-37); BILIRUBIN,TOTAL 0.7 MG/DL (0.1-1.0); BLOOD UREA NITROGEN 14 MG/DL (7-18); BUN/CREATININE RATIO 13.3 (5.4-32.0); CALCIUM 8.5 MG/DL (8.5-10.1); CHLORIDE 102 MMOL/L (99-107); CREATININE 1.05 MG/DL (0.60-1.10); GLUCOSE 119 MG/DL (70-104); POTASSIUM 3.7 MMOL/L (3.5-5.1); SODIUM 141 MMOL/L (135-145); TOTAL CARBON DIOXIDE 28.2 MMOL/L (24-32); TOTAL PROTEIN 7.3 G/DL (6.4-8.2); eGFR 73 ML/MIN
[2021-06-25] MEDS ORDERED: ondansetron 4mg rapidly disintigrating tab PO ONE (20:10)
[2021-06-26] MEDS ORDERED: LORazepam 2 mg/ml vial IV ONE (00:35)
[2021-06-26] MEDS ORDERED: normal saline 1000ML IV soln IVB ONE (00:35)
[2021-06-26] MEDS ORDERED: PROM12.512 PO (00:36)
[2021-06-26 00:54] LABS: LIPASE 75 U/L (73-393)
[2021-06-26 01:37] VITALS: BP 156/94
== END 2021-06-26 01:39 | disposition home or self-care (01) ==
LOC: ER 19:10
DX: K29.20 Alcoholic gastritis without bleeding (principal); R07.89 Other chest pain; R11.0 Nausea; I10 Essential (primary) hypertension; F32.A Depression, unspecified; F12.90 Cannabis use, unspecified, uncomplicated; Z98.890 Other specified postprocedural states; Z72.89 Other problems related to lifestyle; Z60.2 Problems related to living alone; Z79.2 Long term (current) use of antibiotics; Z79.899 Other long term (current) drug therapy
CPT/HCPCS: 36415; 71045; 80053; 83690; 84484; 85025; 93005; 96374; 99285; J2060; J7030

== ENCOUNTER 2021-07-28 14:48 | Emergency (ER) | payer OTHER ==
[~2021-07-28] VITALS: Ht 172.7 cm; Wt 67.9 kg
[~2021-07-28 14:48] MED LIST changes: +PROM12.512 PO
[2021-07-28] MEDS ORDERED: ondansetron/PF 4mg/2ml inj IV ONE (16:10)
[2021-07-28] MEDS ORDERED: mag hydrox/Alum hydrox/simeth 30ml oral suspension PO ONE (16:10)
[2021-07-28] MEDS ORDERED: LIDOcaine Viscous 15ml cup MM ONE (16:10)
[2021-07-28] MEDS ORDERED: famotidine/PF 10 mg/ml inj IV ONE (16:10)
[2021-07-28] MEDS ORDERED: normal saline 1000ML IV soln IVB ONE ×2 (16:10→21:20)
--- NOTE | 2021-07-28 16:17 | NUR ---
PATIENT OBSERVED STICKING FINGERS DOWN HIS THROAT.
--- NOTE | 2021-07-28 16:18 | NUR ---
ATTEMPT EKG, PATIENT CURRENTLY VOMITTING. WILL ATTEMPT AGAIN AFTER MEDS ARE GIVEN.
--- NOTE | 2021-07-28 16:50 | NUR ---
po med x2 given ivp x2 given by rich yousif. pt instructed not to stick fingers down throat to induce vomiting, pt noncompliant with request. informed
[2021-07-28 17:22] LABS: ALANINE AMINOTRANSFERASE 9 U/L (12-78); ALBUMIN 3.1 G/DL (3.4-5.0); ALBUMIN/GLOBULIN RATIO 0.7 (1.1-1.5); ALKALINE PHOSPHATASE 96 IU/L (46-116); ANION GAP 10 (8-16); ASPARTATE AMINO TRANSFERASE 21 U/L (10-37); BILIRUBIN,TOTAL 0.2 MG/DL (0.1-1.0); BLOOD UREA NITROGEN 13 MG/DL (7-18); BUN/CREATININE RATIO 12.6 (5.4-32.0); CALCIUM 8.9 MG/DL (8.5-10.1); CHLORIDE 106 MMOL/L (99-107); CREATININE 1.03 MG/DL (0.60-1.10); GLUCOSE 126 MG/DL (70-104); POTASSIUM 3.1 MMOL/L (3.5-5.1); SODIUM 143 MMOL/L (135-145); TOTAL CARBON DIOXIDE 26.7 MMOL/L (24-32); TOTAL PROTEIN 7.3 G/DL (6.4-8.2); eGFR 74 ML/MIN
[2021-07-28 17:29] LABS: BASOPHILS # (AUTO) 0.1 X10'3 (0-0.2); BASOPHILS % (AUTO) 0.5 % (0-1); EOSINOPHILS % (AUTO) 0.3 % (0-6); HEMATOCRIT 36.1 % (42.0-52.0); HEMOGLOBIN 12.2 g/dl (14.0-17.9); LYMPHOCYTES # (AUTO) 1.1 X10'3 (1.1-4.8); LYMPHOCYTES % (AUTO) 10.7 % (21-51); MEAN CORPUSCULAR HEMOGLOBIN 32.4 PG (27.0-31.0); MEAN CORPUSCULAR HGB CONC 33.8 g/dL (33.0-36.5); MEAN CORPUSCULAR VOLUME 95.7 FL (78-98); MEAN PLATELET VOLUME 7.7 FL (7.4-10.4); MONOCYTES # (AUTO) 0.5 X10'3 (0-0.9); MONOCYTES % (AUTO) 4.3 % (2-12); NEUTROPHILS # (AUTO) 8.9 X10'3 (1.8-7.7); NEUTROPHILS % (AUTO) 84.2 % (42-75); PLATELET COUNT 231 X10'3 (140-440); RED BLOOD COUNT 3.77 X10'6 (4.70-6.10); RED CELL DISTRIBUTION WIDTH 15.5 % (11.5-14.5); WHITE BLOOD COUNT 10.6 X10'3 (4.5-11.0)
[2021-07-28] MEDS ORDERED: potassium Cl 10 mEq/100mL bag IV ONE (17:45)
[2021-07-28] MEDS: POTASSIUM BICARB 20meq eff tab 20 MEQ TABLET.EFF PO SCH ×2 (18:53→19:03)
[2021-07-28] MEDS ORDERED: HYDROcodone/acetaminophen 5mg/325mg tablet PO ONE ×2 (18:55→21:10)
--- NOTE | 2021-07-28 19:01 | NUR ---
po med given
[2021-07-28 20:00] LABS: C-REACTIVE PROTEIN 0.19 MG/DL (0.0-0.5)
[2021-07-28] MEDS ORDERED: proMETHazine 25mg tablet PO ONE (21:10)
--- NOTE | 2021-07-28 21:33 | NUR ---
1000 ml nacl 2nd bolas started
--- NOTE | 2021-07-28 23:38 | NUR ---
iv dc'd pt being discharged. dressing applied
[2021-07-29] MEDS ORDERED: PROM25TA14 PO (00:19)
[2021-07-29] MEDS ORDERED: HYDR-3965 PO (00:19)
[2021-07-29 00:26] VITALS: BP 176/101
== END 2021-07-29 00:29 | disposition home or self-care (01) ==
LOC: ER 14:49
DX: K86.0 Alcohol-induced chronic pancreatitis (principal); I96 Gangrene, not elsewhere classified; E87.6 Hypokalemia; R11.2 Nausea with vomiting, unspecified; R10.13 Epigastric pain; I10 Essential (primary) hypertension; G89.29 Other chronic pain; F12.90 Cannabis use, unspecified, uncomplicated; Z79.899 Other long term (current) drug therapy
CPT/HCPCS: 36415; 71046; 74176; 80053; 83690; 83880; 84484; 85025; 85651; 86140; 93005; 96361; 96374; 96375; 99285; J2405; J3490; J7030; Q0169

== ENCOUNTER 2021-10-10 05:41 | Emergency (ER) | payer OTHER ==
[~2021-10-10] VITALS: Ht 172.7 cm; Wt 54.9 kg
[~2021-10-10 05:41] MED LIST changes: +PROM25TA14 PO
[2021-10-10 05:48] VITALS: BP 146/83
== END 2021-10-10 10:21 | disposition left against medical advice (07) ==
LOC: ER 05:41
DX: R10.9 Unspecified abdominal pain (principal); Z53.21 Procedure and treatment not carried out due to patient leaving prior to being seen by health care provider
CPT/HCPCS: 71045

== ENCOUNTER 2021-11-25 16:07 | Emergency (ER) | payer OTHER ==
[~2021-11-25] VITALS: Ht 172.7 cm; Wt 68.0 kg
[2021-11-25 16:25] VITALS: BP 138/84
[2021-11-25] MEDS ORDERED: ondansetron 4mg rapidly disintigrating tab PO ONE (16:55)
[2021-11-25 17:17] LABS: BASOPHILS % (AUTO) 0.4 % (0-1); EOSINOPHILS # (AUTO) 0.1 X10'3 (0-0.9); EOSINOPHILS % (AUTO) 1.2 % (0-6); HEMATOCRIT 35.7 % (42.0-52.0); HEMOGLOBIN 11.8 g/dl (14.0-17.9); LYMPHOCYTES # (AUTO) 1.7 X10'3 (1.1-4.8); LYMPHOCYTES % (AUTO) 19.5 % (21-51); MEAN CORPUSCULAR HEMOGLOBIN 31.4 PG (27.0-31.0); MEAN CORPUSCULAR HGB CONC 33.1 g/dL (33.0-36.5); MEAN CORPUSCULAR VOLUME 94.6 FL (78-98); MEAN PLATELET VOLUME 7.3 FL (7.4-10.4); MONOCYTES # (AUTO) 0.6 X10'3 (0-0.9); MONOCYTES % (AUTO) 6.9 % (2-12); NEUTROPHILS # (AUTO) 6.2 X10'3 (1.8-7.7); PLATELET COUNT 253 X10'3 (140-440); RED BLOOD COUNT 3.78 X10'6 (4.70-6.10); RED CELL DISTRIBUTION WIDTH 17.2 % (11.5-14.5); WHITE BLOOD COUNT 8.6 X10'3 (4.5-11.0)
[2021-11-25 17:30] LABS: ALANINE AMINOTRANSFERASE 16 U/L (12-78); ALBUMIN 3.4 G/DL (3.4-5.0); ALBUMIN/GLOBULIN RATIO 0.8 (1.1-1.5); ALKALINE PHOSPHATASE 89 IU/L (46-116); ASPARTATE AMINO TRANSFERASE 26 U/L (10-37); BILIRUBIN,TOTAL 0.4 MG/DL (0.1-1.0); BLOOD UREA NITROGEN 31 MG/DL (7-18); CALCIUM 8.9 MG/DL (8.5-10.1); CHLORIDE 97 MMOL/L (99-107); CREATININE 1.41 MG/DL (0.60-1.10); GLUCOSE 101 MG/DL (70-104); TOTAL PROTEIN 7.8 G/DL (6.4-8.2); eGFR 51 ML/MIN
[2021-11-25 17:34] LABS: ANION GAP 11 (8-16); SODIUM 132 MMOL/L (135-145)
[2021-11-25] MEDS ORDERED: ONDA4TAB12 PO (17:45)
== END 2021-11-25 18:26 | disposition home or self-care (01) ==
LOC: ER 16:07
DX: E86.0 Dehydration (principal); I10 Essential (primary) hypertension; G89.29 Other chronic pain; F32.A Depression, unspecified; F12.90 Cannabis use, unspecified, uncomplicated; Z98.890 Other specified postprocedural states; Z72.89 Other problems related to lifestyle; Z79.2 Long term (current) use of antibiotics; Z79.899 Other long term (current) drug therapy
CPT/HCPCS: 36415; 80053; 85025; 99283

== ENCOUNTER 2022-01-22 23:19 | Emergency (ER) | payer OTHER ==
[~2022-01-22] VITALS: Ht 172.7 cm; Wt 68.0 kg
[2022-01-22 23:40] VITALS: BP 176/93
== END 2022-01-23 01:26 | disposition left against medical advice (07) ==
LOC: ER 23:20
DX: R10.9 Unspecified abdominal pain (principal); Z53.21 Procedure and treatment not carried out due to patient leaving prior to being seen by health care provider

== ENCOUNTER 2022-12-08 10:53 | Emergency (ER) | payer OTHER ==
[~2022-12-08] VITALS: Ht 172.7 cm; Wt 59.8 kg
[2022-12-08 10:55] VITALS: BP 155/63
[2022-12-08] MEDS ORDERED: HYDROcodone/acetaminophen 5mg/325mg tablet PO ONE (12:15)
[2022-12-08 13:02] LABS: BILIRUBIN,URINE NEGATIVE (Neg); CLARITY,URINE CLEAR (Clear); COLOR,URINE YELLOW (Yellow); GLUCOSE, URINE NEGATIVE (Neg); KETONES,URINE NEGATIVE (Neg); LEUKOCYTE ESTERASE ,URINE NEGATIVE (Neg); NITRITES, URINE NEGATIVE (Neg); OCCULT BLOOD,URINE NEGATIVE (Neg); PROTEIN,URINE NEGATIVE (Neg); UROBILINOGEN,URINE 0.2 E.U/dL (0.2-1.0)
[2022-12-08 13:09] LABS: UA COLLECTION TYPE CLN CATCH MIDSTREAM
[2022-12-08] MEDS ORDERED: HYDR-3965 PO (13:56)
[2022-12-08 14:11] VITALS: PULSE 98; RESP 14; TEMP 97.7; O2SAT 96
== END 2022-12-08 14:14 | disposition home or self-care (01) ==
LOC: ER 10:54
DX: R07.81 Pleurodynia (principal); I10 Essential (primary) hypertension; F32.A Depression, unspecified; G89.29 Other chronic pain; M54.9 Dorsalgia, unspecified; F12.10 Cannabis abuse, uncomplicated; Z79.899 Other long term (current) drug therapy; Z79.1 Long term (current) use of non-steroidal anti-inflammatories (NSAID); Z79.2 Long term (current) use of antibiotics
CPT/HCPCS: 71046; 81003; 99284

== ENCOUNTER 2023-03-06 21:50 | Emergency (ER) | payer OTHER ==
[~2023-03-06] VITALS: Ht 172.7 cm; Wt 61.4 kg
[2023-03-06 22:09] VITALS: BP 148/89; PULSE 82; RESP 16; TEMP 98.9; O2SAT 98
[2023-03-06] MEDS ORDERED: thiamine 100mg/ml 2ml inj. IV ONE (22:30)
[2023-03-06] MEDS ORDERED: normal saline 1000ML IV soln IVB ONE (22:30)
[2023-03-07 00:01] LABS: BASOPHILS % (AUTO) 0.6 % (0-1); EOSINOPHILS # (AUTO) 0.1 X10'3 (0-0.9); EOSINOPHILS % (AUTO) 2.3 % (0-6); HEMOGLOBIN 12.5 g/dl (14.0-17.9); LYMPHOCYTES # (AUTO) 1.8 X10'3 (1.1-4.8); LYMPHOCYTES % (AUTO) 28.2 % (21-51); MEAN CORPUSCULAR HEMOGLOBIN 32.3 PG (27.0-31.0); MEAN CORPUSCULAR HGB CONC 33.8 g/dL (33.0-36.5); MEAN CORPUSCULAR VOLUME 95.6 FL (78-98); MEAN PLATELET VOLUME 7.4 FL (7.4-10.4); MONOCYTES # (AUTO) 0.6 X10'3 (0-0.9); MONOCYTES % (AUTO) 9.1 % (2-12); NEUTROPHILS # (AUTO) 3.8 X10'3 (1.8-7.7); NEUTROPHILS % (AUTO) 59.8 % (42-75); PLATELET COUNT 287 X10'3 (140-440); RED BLOOD COUNT 3.87 X10'6 (4.70-6.10); RED CELL DISTRIBUTION WIDTH 15.2 % (11.5-14.5); WHITE BLOOD COUNT 6.3 X10'3 (4.5-11.0)
[2023-03-07 00:24] LABS: ALANINE AMINOTRANSFERASE 16 U/L (12-78); ALBUMIN 3.2 G/DL (3.4-5.0); ALBUMIN/GLOBULIN RATIO 0.7 (1.1-1.5); ALKALINE PHOSPHATASE 111 IU/L (46-116); ANION GAP 8 (8-16); ASPARTATE AMINO TRANSFERASE 19 U/L (10-37); BILIRUBIN,TOTAL 0.2 MG/DL (0.1-1.0); BLOOD UREA NITROGEN 31 MG/DL (7-18); BUN/CREATININE RATIO 26.3 (10.0-20.0); CALCIUM 8.3 MG/DL (8.5-10.1); CHLORIDE 104 MMOL/L (99-107); CREATININE 1.18 MG/DL (0.60-1.10); ETHANOL 231 MG/DL (<10); GLUCOSE 112 MG/DL (70-104); LIPASE 84 U/L (16-77); POTASSIUM 4.3 MMOL/L (3.5-5.1); SODIUM 140 MMOL/L (135-145); TOTAL CARBON DIOXIDE 27.7 MMOL/L (24-32); TOTAL PROTEIN 7.7 G/DL (6.4-8.2); eCRCL 58 ML/MIN; eGFR 63 ML/MIN
== END 2023-03-07 02:50 | disposition left against medical advice (07) ==
LOC: ER 21:51
DX: R10.13 Epigastric pain (principal); R11.10 Vomiting, unspecified; F10.129 Alcohol abuse with intoxication, unspecified; Y90.9 Presence of alcohol in blood, level not specified
CPT/HCPCS: 36415; 80053; 80320; 83690; 85025; 99283

== ENCOUNTER 2023-03-20 12:32 | Emergency (ER) | payer OTHER ==
[~2023-03-20] VITALS: Ht 172.7 cm; Wt 63.6 kg
[2023-03-20 13:03] VITALS: TEMP 98.6
[2023-03-20 13:53] LABS: BASOPHILS % (AUTO) 0.5 % (0-1); EOSINOPHILS % (AUTO) 0.5 % (0-6); HEMOGLOBIN 12.8 g/dl (14.0-17.9); LYMPHOCYTES % (AUTO) 21.9 % (21-51); MEAN CORPUSCULAR HEMOGLOBIN 32.3 PG (27.0-31.0); MEAN CORPUSCULAR HGB CONC 33.6 g/dL (33.0-36.5); MEAN PLATELET VOLUME 7.8 FL (7.4-10.4); MONOCYTES # (AUTO) 0.4 X10'3 (0-0.9); MONOCYTES % (AUTO) 8.9 % (2-12); NEUTROPHILS # (AUTO) 3.1 X10'3 (1.8-7.7); NEUTROPHILS % (AUTO) 68.2 % (42-75); PLATELET COUNT 103 X10'3 (140-440); RED BLOOD COUNT 3.95 X10'6 (4.70-6.10); RED CELL DISTRIBUTION WIDTH 15.5 % (11.5-14.5); WHITE BLOOD COUNT 4.5 X10'3 (4.5-11.0)
[2023-03-20 14:01] LABS: ALBUMIN 3.2 G/DL (3.4-5.0); ANION GAP 19 (8-16); BLOOD UREA NITROGEN 18 MG/DL (7-18); BUN/CREATININE RATIO 20.5 (10.0-20.0); CALCIUM 8.4 MG/DL (8.5-10.1); CHLORIDE 95 MMOL/L (99-107); CREATININE 0.88 MG/DL (0.60-1.10); GLUCOSE 92 MG/DL (70-104); LIPASE 76 U/L (16-77); POTASSIUM 3.5 MMOL/L (3.5-5.1); SODIUM 137 MMOL/L (135-145); eCRCL 80 ML/MIN; eGFR 88 ML/MIN
[2023-03-20] MEDS ORDERED: ondansetron/PF 4mg/2ml inj IV ONE (14:25)
[2023-03-20] MEDS ORDERED: morphine 4 MG/ML inj SYRINge IV ONE (14:25)
[2023-03-20] MEDS ORDERED: iohexol 300mg/ml 100ml inj. ONE (14:51)
[2023-03-20] MEDS ORDERED: normal saline 1000ML IV soln IVB ONE (15:10)
[2023-03-20 15:20] LABS: BILIRUBIN,URINE SMALL (Neg); CLARITY,URINE CLEAR (Clear); GLUCOSE, URINE NEGATIVE (Neg); KETONES,URINE TRACE mg/dl (Neg); LEUKOCYTE ESTERASE ,URINE NEGATIVE (Neg); NITRITES, URINE NEGATIVE (Neg); OCCULT BLOOD,URINE SMALL (Neg); PROTEIN,URINE >=300 mg/dl (Neg)
[2023-03-20 15:22] LABS: COLOR,URINE DARK YELLOW (Yellow); UA COLLECTION TYPE CLN CATCH MIDSTREAM
[2023-03-20 15:36] LABS: RBC,URINE 0-2 /HPF (0-2); WBC,URINE NONE SEEN /HPF (0-4)
[2023-03-20] MEDS ORDERED: morphine 4 MG/ML inj SYRINge IV STA (15:49)
[2023-03-20 15:58] LABS: BACTERIA,URINE NONE SEEN /HPF (Neg); MUCUS STRANDS FEW /LPF (Neg); SQUAMOUS EPITHELIAL CELL,UR FEW /LPF (FEW)
[2023-03-20 15:59] LABS: FINE GRANULAR CAST 0-3 /LPF (NEGATIVE); HYALINE CASTS 0-3 /LPF (NEGATIVE)
[2023-03-20 17:21] VITALS: BP 158/88; PULSE 87; RESP 13; O2SAT 96
[2023-03-20 17:49] LABS: BILIRUBIN,DIRECT 0.3 MG/DL (0-0.3)
[2023-03-20 19:56] LABS: ALANINE AMINOTRANSFERASE 14 U/L (12-78); ASPARTATE AMINO TRANSFERASE 30 U/L (10-37)
[2023-03-20] MEDS ORDERED: HYDR-3965 PO ×2 (20:08→20:17)
[2023-03-21] MEDS ORDERED: ONDA-103 PO (10:50)
[2023-03-21] MEDS ORDERED: HYDR-3965 PO (11:13)
== END 2023-03-20 20:20 | disposition home or self-care (01) ==
LOC: ER 12:32
DX: R10.12 Left upper quadrant pain (principal); I10 Essential (primary) hypertension; G89.29 Other chronic pain; M54.9 Dorsalgia, unspecified; F12.10 Cannabis abuse, uncomplicated; Z79.899 Other long term (current) drug therapy; Z87.19 Personal history of other diseases of the digestive system
CPT/HCPCS: 36415; 70450; 72125; 74177; 80048; 81001; 82248; 83690; 84450; 84460; 85025; 96361; 96374; 96375; 96376; 99285; J2270; J2405; J3490; J7030; Q9967

== ENCOUNTER 2023-03-21 10:03 | Emergency (ER) | payer OTHER ==
[~2023-03-21] VITALS: Ht 172.7 cm; Wt 59.2 kg
[~2023-03-21 10:03] MED LIST changes: +HYDR-3965 PO
[2023-03-21 10:12] VITALS: BP 167/84; PULSE 95; TEMP 98.5; O2SAT 96
[2023-03-21] MEDS ORDERED: HYDROcodone/acetaminophen 10/325mg tab PO ONE (10:35)
[2023-03-21 10:38] VITALS: RESP 17
[2023-03-21] MEDS ORDERED: ONDA-103 PO (10:50)
[2023-03-21] MEDS ORDERED: HYDR-3965 PO (11:13)
== END 2023-03-21 11:07 | disposition home or self-care (01) ==
LOC: ER 10:04
DX: R10.84 Generalized abdominal pain (principal); I10 Essential (primary) hypertension; M54.9 Dorsalgia, unspecified; F32.A Depression, unspecified; F12.10 Cannabis abuse, uncomplicated; Z79.899 Other long term (current) drug therapy; Z79.1 Long term (current) use of non-steroidal anti-inflammatories (NSAID); Z79.2 Long term (current) use of antibiotics
CPT/HCPCS: 99283

== ENCOUNTER 2023-04-06 21:58 | Emergency (ER) | payer OTHER ==
[~2023-04-06] VITALS: Ht 172.7 cm; Wt 55.4 kg
[~2023-04-06 21:58] MED LIST changes: +ONDA-103 PO
[2023-04-06 22:59] LABS: HEMOGLOBIN 13.7 g/dl (14.0-17.9); PLATELET COUNT 80 X10'3 (140-440)
[2023-04-06 23:02] LABS: BASOPHILS % (AUTO) 0.3 % (0-1); EOSINOPHILS % (AUTO) 0 % (0-6); HEMATOCRIT 40.4 % (42.0-52.0); LYMPHOCYTES # (AUTO) 0.5 X10'3 (1.1-4.8); LYMPHOCYTES % (AUTO) 16.1 % (21-51); MEAN CORPUSCULAR HEMOGLOBIN 32.3 PG (27.0-31.0); MEAN CORPUSCULAR HGB CONC 33.9 g/dL (33.0-36.5); MEAN CORPUSCULAR VOLUME 95.4 FL (78-98); MEAN PLATELET VOLUME 8.5 FL (7.4-10.4); MONOCYTES # (AUTO) 0.2 X10'3 (0-0.9); MONOCYTES % (AUTO) 7.4 % (2-12); NEUTROPHILS # (AUTO) 2.4 X10'3 (1.8-7.7); NEUTROPHILS % (AUTO) 76.2 % (42-75); RED BLOOD COUNT 4.24 X10'6 (4.70-6.10); RED CELL DISTRIBUTION WIDTH 16.6 % (11.5-14.5); WHITE BLOOD COUNT 3.2 X10'3 (4.5-11.0)
[2023-04-06 23:09] LABS: ALANINE AMINOTRANSFERASE 49 U/L (12-78); ALBUMIN 3.2 G/DL (3.4-5.0); ALBUMIN/GLOBULIN RATIO 0.7 (1.1-1.5); ALKALINE PHOSPHATASE 131 IU/L (46-116); ANION GAP 7 (8-16); ASPARTATE AMINO TRANSFERASE 101 U/L (10-37); BLOOD UREA NITROGEN 10 MG/DL (7-18); BUN/CREATININE RATIO 9.9 (10.0-20.0); CALCIUM 7.5 MG/DL (8.5-10.1); CHLORIDE 90 MMOL/L (99-107); CREATININE 1.01 MG/DL (0.60-1.10); ETHANOL < 10 MG/DL (<10); GLUCOSE 162 MG/DL (70-104); LIPASE 34 U/L (16-77); SODIUM 136 MMOL/L (135-145); TOTAL CARBON DIOXIDE 39.4 MMOL/L (24-32); TOTAL PROTEIN 7.7 G/DL (6.4-8.2); eCRCL 61 ML/MIN; eGFR 75 ML/MIN
[2023-04-06] MEDS: HYDROcodone/acetaminophen 5mg/325mg tablet PO ONE (23:25)
[2023-04-06] MEDS: normal saline 1000ml 1,000 ML IV ONE (23:30)
[2023-04-06 23:31] LABS: POTASSIUM 2.9 MMOL/L (3.5-5.1)
[2023-04-06] MEDS: diphenhydrAMINE 50 mg/ml inj IV ONE (23:31)
[2023-04-06] MEDS: metoclopramide 5 mg/ml inj IV ONE (23:32)
[2023-04-07 00:16] LABS: APTT 27 SECONDS (22-32); PROTHROMBIN TIME 10.8 SECONDS (9.0-12.0)
[2023-04-07] MEDS: potassium bicarbonate/cit acid 25mEq tablet.effervescent PO SCH (00:40)
[2023-04-07] MEDS ORDERED: DICY20TA17 PO (00:59)
[2023-04-07] MEDS ORDERED: ONDA4TAB12 PO (00:59)
[2023-04-07 01:11] VITALS: BP 165/99; PULSE 82; RESP 18; TEMP 97.9; O2SAT 96
== END 2023-04-07 01:20 | disposition home or self-care (01) ==
LOC: ER 21:59
DX: K29.00 Acute gastritis without bleeding (principal); I10 Essential (primary) hypertension; F32.A Depression, unspecified; F12.10 Cannabis abuse, uncomplicated; G89.29 Other chronic pain; Z79.899 Other long term (current) drug therapy; Z79.1 Long term (current) use of non-steroidal anti-inflammatories (NSAID); Z79.2 Long term (current) use of antibiotics
CPT/HCPCS: 36415; 74176; 80053; 80320; 83690; 85025; 85610; 85730; 96361; 96374; 96375; 99285; J1200; J2765; J7030

== ENCOUNTER 2023-06-24 17:12 | Emergency (ER) | payer OTHER ==
[~2023-06-24] VITALS: Ht 172.7 cm; Wt 56.0 kg
[~2023-06-24 17:12] MED LIST changes: +ACAM333T8 PO; +AMLO5TAB PO; +AMYL1CAP52 PO; -ATOR20TA66 PO; -BUSP5TAB3 PO; -CEFD300C21 PO; -CHLO25CA10 PO; -CHLO5CAP3 PO; -CLOT15CR73 TP; -DIPH-423 PO; -FOLI0.4T14 PO; -HYDR-3965 PO; -LACT1CAP26 PO; -LOPE2CAP PO; -MAGN400C PO; -MELA3TAB41 PO; +METH-798 PO; -METO-292 PO; -MULT-1085 PO; -ONDA-103 PO; -ONDA8TAB13 PO; -PANT-47 PO; -PROM12.512 PO; -PROM25TA14 PO; -PYRI25TA4 PO; +QUET-1 PO; +SERT-434 PO; -SULF1TAB49 PO; -THIA100T70 PO
[2023-06-24 17:19] VITALS: BP 180/100; TEMP 97.8
[2023-06-24 18:59] LABS: BASOPHILS % (AUTO) 0.3 % (0-1); EOSINOPHILS % (AUTO) 0.5 % (0-6); HEMATOCRIT 40.1 % (42.0-52.0); HEMOGLOBIN 13.6 g/dl (14.0-17.9); LYMPHOCYTES # (AUTO) 1.5 X10'3 (1.1-4.8); LYMPHOCYTES % (AUTO) 20.2 % (21-51); MEAN CORPUSCULAR HEMOGLOBIN 34.2 PG (27.0-31.0); MEAN CORPUSCULAR HGB CONC 33.8 g/dL (33.0-36.5); MEAN CORPUSCULAR VOLUME 101.3 FL (78-98); MEAN PLATELET VOLUME 7.9 FL (7.4-10.4); MONOCYTES # (AUTO) 0.6 X10'3 (0-0.9); MONOCYTES % (AUTO) 8.5 % (2-12); NEUTROPHILS # (AUTO) 5.1 X10'3 (1.8-7.7); NEUTROPHILS % (AUTO) 70.5 % (42-75); PLATELET COUNT 244 X10'3 (140-440); RED BLOOD COUNT 3.96 X10'6 (4.70-6.10); RED CELL DISTRIBUTION WIDTH 13.2 % (11.5-14.5); WHITE BLOOD COUNT 7.2 X10'3 (4.5-11.0)
[2023-06-24 19:05] LABS: ALBUMIN 3.6 G/DL (3.4-5.0); ANION GAP 9 (8-16); BLOOD UREA NITROGEN 20 MG/DL (7-18); BUN/CREATININE RATIO 18.3 (10.0-20.0); CALCIUM 9.1 MG/DL (8.5-10.1); CHLORIDE 101 MMOL/L (99-107); CREATININE 1.09 MG/DL (0.60-1.10); GLUCOSE 94 MG/DL (70-104); LIPASE 55 U/L (16-77); POTASSIUM 4.2 MMOL/L (3.5-5.1); SODIUM 137 MMOL/L (135-145); TOTAL CARBON DIOXIDE 27.1 MMOL/L (24-32); eCRCL 57 ML/MIN; eGFR 69 ML/MIN
[2023-06-24] MEDS ORDERED: HYDR-3965 PO (22:29)
[2023-06-24] MEDS: morphine 4 MG/ML inj SYRINge IM ONE (22:49)
[2023-06-24 22:50] VITALS: PULSE 80; RESP 16; O2SAT 98
[2023-06-24] MEDS: HYDROcodone/acetaminophen 5mg/325mg tablet PO ONE (22:50)
== END 2023-06-24 22:52 | disposition home or self-care (01) ==
LOC: ER 17:13
DX: K86.1 Other chronic pancreatitis (principal); R10.9 Unspecified abdominal pain
CPT/HCPCS: 36415; 80048; 83690; 85025; 96372; 99283; J2270

== ENCOUNTER 2023-08-04 16:08 | Emergency (ER) | payer OTHER ==
[~2023-08-04] VITALS: Ht 172.7 cm; Wt 68.2 kg
[2023-08-04 17:15] LABS: BASOPHILS % (AUTO) 0.1 % (0-1); EOSINOPHILS % (AUTO) 0 % (0-6); HEMATOCRIT 39.6 % (42.0-52.0); HEMOGLOBIN 13.6 g/dl (14.0-17.9); LYMPHOCYTES # (AUTO) 0.7 X10'3 (1.1-4.8); LYMPHOCYTES % (AUTO) 7.4 % (21-51); MEAN CORPUSCULAR HGB CONC 34.3 g/dL (33.0-36.5); MEAN CORPUSCULAR VOLUME 96.3 FL (78-98); MEAN PLATELET VOLUME 7.9 FL (7.4-10.4); MONOCYTES # (AUTO) 0.6 X10'3 (0-0.9); MONOCYTES % (AUTO) 7.1 % (2-12); NEUTROPHILS # (AUTO) 7.6 X10'3 (1.8-7.7); NEUTROPHILS % (AUTO) 85.4 % (42-75); PLATELET COUNT 147 X10'3 (140-440); RED BLOOD COUNT 4.12 X10'6 (4.70-6.10); RED CELL DISTRIBUTION WIDTH 14.1 % (11.5-14.5); WHITE BLOOD COUNT 8.9 X10'3 (4.5-11.0)
[2023-08-04] MEDS ORDERED: FAMO-129 PO (17:27)
[2023-08-04 17:33] LABS: ALBUMIN 3.4 G/DL (3.4-5.0); ALBUMIN/GLOBULIN RATIO 0.9 (1.1-1.5); ALKALINE PHOSPHATASE 89 IU/L (46-116); ANION GAP 10 (8-16); ASPARTATE AMINO TRANSFERASE 43 U/L (10-37); BILIRUBIN,TOTAL 1.4 MG/DL (0.1-1.0); BLOOD UREA NITROGEN 22 MG/DL (7-18); BUN/CREATININE RATIO 15.8 (10.0-20.0); CALCIUM 7.8 MG/DL (8.5-10.1); CHLORIDE 91 MMOL/L (99-107); CREATININE 1.39 MG/DL (0.60-1.10); ETHANOL < 10 MG/DL (<10); GLUCOSE 162 MG/DL (70-104); LIPASE 18 U/L (16-77); POTASSIUM 3.1 MMOL/L (3.5-5.1); SODIUM 135 MMOL/L (135-145); TOTAL CARBON DIOXIDE 33.9 MMOL/L (24-32); TOTAL PROTEIN 7.1 G/DL (6.4-8.2); eCRCL 55 ML/MIN; eGFR 52 ML/MIN
[2023-08-04 17:36] LABS: ALANINE AMINOTRANSFERASE < 6 U/L (12-78)
[2023-08-04] MEDS: normal saline 1000ml 1,000 ML IVB ONE (17:41)
[2023-08-04] MEDS: pantoprazole 40 MG vial IV ONE (17:41)
[2023-08-04 18:56] VITALS: BP 144/91; PULSE 104; RESP 20; TEMP 98; O2SAT 96
== END 2023-08-04 18:59 | disposition home or self-care (01) ==
LOC: ER 16:08
DX: K29.00 Acute gastritis without bleeding (principal); I10 Essential (primary) hypertension; G89.29 Other chronic pain; M54.9 Dorsalgia, unspecified; F32.A Depression, unspecified; F12.90 Cannabis use, unspecified, uncomplicated; F10.90 Alcohol use, unspecified, uncomplicated; F17.290 Nicotine dependence, other tobacco product, uncomplicated; Z79.899 Other long term (current) drug therapy; Z98.890 Other specified postprocedural states; Z60.2 Problems related to living alone
CPT/HCPCS: 36415; 74176; 80053; 80320; 83690; 85025; 96374; 99285; C9113; J7030

== ENCOUNTER 2023-09-27 15:51 | Emergency (ER) | payer OTHER ==
[~2023-09-27] VITALS: Ht 172.7 cm; Wt 54.6 kg
[~2023-09-27 15:51] MED LIST changes: +FAMO-129 PO; +ONDA-243 PO; -ONDA4TAB12 PO
[2023-09-27 17:24] LABS: BASOPHILS % (AUTO) 0.2 % (0-1); EOSINOPHILS # (AUTO) 0.1 X10'3 (0-0.9); EOSINOPHILS % (AUTO) 0.7 % (0-6); HEMATOCRIT 40.2 % (42.0-52.0); HEMOGLOBIN 13.1 g/dl (14.0-17.9); LYMPHOCYTES # (AUTO) 1.3 X10'3 (1.1-4.8); MEAN CORPUSCULAR HEMOGLOBIN 32.6 PG (27.0-31.0); MEAN CORPUSCULAR HGB CONC 32.6 g/dL (33.0-36.5); MEAN CORPUSCULAR VOLUME 100.1 FL (78-98); MEAN PLATELET VOLUME 8.5 FL (7.4-10.4); MONOCYTES # (AUTO) 0.6 X10'3 (0-0.9); MONOCYTES % (AUTO) 7.4 % (2-12); NEUTROPHILS # (AUTO) 5.9 X10'3 (1.8-7.7); NEUTROPHILS % (AUTO) 75.7 % (42-75); PLATELET COUNT 137 X10'3 (140-440); RED BLOOD COUNT 4.02 X10'6 (4.70-6.10); RED CELL DISTRIBUTION WIDTH 14.5 % (11.5-14.5); WHITE BLOOD COUNT 7.8 X10'3 (4.5-11.0)
[2023-09-27 17:40] LABS: ALANINE AMINOTRANSFERASE 20 U/L (12-78); ALBUMIN 3.8 G/DL (3.4-5.0); ALBUMIN/GLOBULIN RATIO 0.9 (1.1-1.5); ALKALINE PHOSPHATASE 86 IU/L (46-116); AMYLASE 86 U/L (25-115); ANION GAP 11 (8-16); ASPARTATE AMINO TRANSFERASE 18 U/L (10-37); BILIRUBIN,TOTAL 0.5 MG/DL (0.1-1.0); BLOOD UREA NITROGEN 26 MG/DL (7-18); BUN/CREATININE RATIO 27.4 (10.0-20.0); CALCIUM 9.2 MG/DL (8.5-10.1); CHLORIDE 103 MMOL/L (99-107); CREATININE 0.95 MG/DL (0.60-1.10); GLUCOSE 112 MG/DL (70-104); LIPASE 80 U/L (16-77); POTASSIUM 4.1 MMOL/L (3.5-5.1); SODIUM 134 MMOL/L (135-145); TOTAL CARBON DIOXIDE 20.1 MMOL/L (24-32); TOTAL PROTEIN 7.9 G/DL (6.4-8.2); eCRCL 64 ML/MIN; eGFR 81 ML/MIN
[2023-09-27] MEDS ORDERED: amLODIPine 5mg tablet PO ONE (19:10)
[2023-09-27] MEDS: normal saline 1000ML IV soln IVB ONE ×2 (19:11→19:29)
[2023-09-27] MEDS: diphenhydrAMINE 50 mg/ml inj IV ONE (19:26)
[2023-09-27] MEDS: morphine 4 MG/ML inj SYRINge IV ONE (19:27)
[2023-09-27] MEDS: metoclopramide 5 mg/ml inj IV ONE (19:27)
[2023-09-27] MEDS: amLODIPine 5mg tablet PO ONE (21:05)
[2023-09-27] MEDS: acetaminophen 1,000mg/100ml IV 100 ML IV STA (21:27)
[2023-09-27 22:04] VITALS: BP 144/68; PULSE 64; RESP 18; TEMP 98.4; O2SAT 98
== END 2023-09-27 22:06 | disposition home or self-care (01) ==
LOC: ER 15:51
DX: R10.13 Epigastric pain (principal); R11.2 Nausea with vomiting, unspecified; I10 Essential (primary) hypertension; G89.29 Other chronic pain; M54.9 Dorsalgia, unspecified; F12.90 Cannabis use, unspecified, uncomplicated; Z79.899 Other long term (current) drug therapy
CPT/HCPCS: 36415; 80053; 82150; 83690; 85025; 96361; 96374; 96375; 99285; J0131; J1200; J2270; J2765; J7030

== ENCOUNTER 2024-03-01 13:18 | Inpatient (IN) | payer OTHER ==
[~2024-03-01] VITALS: Ht 172.7 cm; Wt 55.6 kg
[2024-03-01 14:58] LABS: BASOPHILS % (AUTO) 0.1 % (0-1); EOSINOPHILS % (AUTO) 0 % (0-6); HEMATOCRIT 37.4 % (42.0-52.0); HEMOGLOBIN 12.8 g/dl (14.0-17.9); LYMPHOCYTES # (AUTO) 0.7 X10'3 (1.1-4.8); LYMPHOCYTES % (AUTO) 7.4 % (21-51); MEAN CORPUSCULAR HEMOGLOBIN 33.6 PG (27.0-31.0); MEAN CORPUSCULAR HGB CONC 34.2 g/dL (33.0-36.5); MEAN CORPUSCULAR VOLUME 98.3 FL (78-98); MEAN PLATELET VOLUME 7.6 FL (7.4-10.4); MONOCYTES # (AUTO) 0.4 X10'3 (0-0.9); MONOCYTES % (AUTO) 4.1 % (2-12); NEUTROPHILS # (AUTO) 8.8 X10'3 (1.8-7.7); NEUTROPHILS % (AUTO) 88.4 % (42-75); PLATELET COUNT 174 X10'3 (140-440); RED BLOOD COUNT 3.81 X10'6 (4.70-6.10); RED CELL DISTRIBUTION WIDTH 14.3 % (11.5-14.5); WHITE BLOOD COUNT 9.9 X10'3 (4.5-11.0)
[2024-03-01 15:13] LABS: ALANINE AMINOTRANSFERASE 24 U/L (12-78); ALBUMIN/GLOBULIN RATIO 1.1 (1.1-1.5); ALKALINE PHOSPHATASE 108 IU/L (46-116); ANION GAP 18 (8-16); ASPARTATE AMINO TRANSFERASE 31 U/L (10-37); BILIRUBIN,TOTAL 0.8 MG/DL (0.1-1.0); BLOOD UREA NITROGEN 35 MG/DL (7-18); BUN/CREATININE RATIO 27.1 (10.0-20.0); CALCIUM 8.9 MG/DL (8.5-10.1); CHLORIDE 100 MMOL/L (99-107); CREATININE 1.29 MG/DL (0.60-1.10); GLUCOSE 121 MG/DL (70-104); LIPASE 19 U/L (16-77); POTASSIUM 3.9 MMOL/L (3.5-5.1); SODIUM 144 MMOL/L (135-145); TOTAL CARBON DIOXIDE 26.4 MMOL/L (24-32); TOTAL PROTEIN 7.6 G/DL (6.4-8.2); eCRCL 47 ML/MIN; eGFR 57 ML/MIN
[2024-03-01] MEDS: LORazepam 2 mg/ml vial IV ONE ×2 (16:09→19:21)
[2024-03-01] MEDS: thiamine 100mg/ml 2ml inj. IV ONE (16:09)
[2024-03-01] MEDS: normal saline 1000ml 1,000 ML IV ONE ×2 (16:09→23:52)
[2024-03-01] MEDS: ondansetron/PF 4mg/2ml inj IV ONE ×2 (16:09→22:40)
[2024-03-01] MEDS ORDERED: CHLO25CA10 PO (18:57)
[2024-03-01] MEDS ORDERED: ONDA-245 PO (18:57)
[2024-03-01] MEDS: acetaminophen 325mg tablet PO ONE (19:12)
[2024-03-01] MEDS: ketorolac trometh 15mg/ml vial 15 MG/ML ML IV ONE (19:21)
[2024-03-01] MEDS: proCHLORperazine 10 MG/2 ml inj IV ONE (19:43)
[2024-03-02] VITALS (7 sets, daily range): BP systolic 128–153; BP diastolic 59–79; PULSE 69–89; RESP 16–20; TEMP 97.5–99.5; O2SAT 95–98
[2024-03-02] MEDS ORDERED: dextrose 50%-water 50ml dispensing syringe IV PRN (00:55)
[2024-03-02] MEDS ORDERED: magnesium sulf-water 4G/100mL 100 ML IV PRN (00:55)
[2024-03-02] MEDS ORDERED: potassium Cl 20 mEq SR tablet PO PRN ×2 (00:55)
[2024-03-02] MEDS ORDERED: acetaminophen 325mg tablet PO PRN ×2 (00:55)
[2024-03-02] MEDS ORDERED: LORazepam 2 mg/ml vial IV PRN (00:55)
[2024-03-02] MEDS ORDERED: magnesium hydroxide 30ml (MOM) UD suspension PO PRN (00:55)
[2024-03-02] MEDS ORDERED: haloperidol lactate 5mg/ml inj IM PRN (00:55)
[2024-03-02 01:19] LABS: BILIRUBIN,URINE NEGATIVE (Neg); CLARITY,URINE CLEAR (Clear); COLOR,URINE YELLOW (Yellow); GLUCOSE, URINE NEGATIVE (Neg); KETONES,URINE 40 mg/dl (Neg); LEUKOCYTE ESTERASE ,URINE NEGATIVE (Neg); NITRITES, URINE NEGATIVE (Neg); OCCULT BLOOD,URINE TRACE-INTACT (Neg); PROTEIN,URINE 100 mg/dl (Neg); UROBILINOGEN,URINE 0.2 E.U/dL (0.2-1.0)
[2024-03-02 01:31] LABS: UA COLLECTION TYPE VOIDED
[2024-03-02 01:32] LABS: BACTERIA,URINE FEW /HPF (Neg); RBC,URINE 0-2 /HPF (0-2); SQUAMOUS EPITHELIAL CELL,UR FEW /LPF (FEW); WBC,URINE 0-4 /HPF (0-4)
[2024-03-02] MEDS ORDERED: HYDR-3965 PO (01:51)
[2024-03-02 01:55] LABS: TOTAL PROTEIN,URINE RANDOM 75.5 MG/DL
[2024-03-02] MEDS: multivitamins, therapeutics tablet PO SCH (02:02)
[2024-03-02] MEDS: pantoprazole 40 MG vial IV SCH (02:02)
[2024-03-02] MEDS: normal saline 1000ml 1,000 ML IV SCH (02:36)
[2024-03-02 03:27] LABS: MAGNESIUM 1.2 MG/DL (1.5-2.4); POTASSIUM 3.9 MMOL/L (3.5-5.1)
[2024-03-02] MEDS: K and/or MAG REPLACEMENT MC SCH (08:07)
[2024-03-02] MEDS: thiamine 100mg/ml 2ml inj. IV SCH (08:09)
[2024-03-02] MEDS: magnesium Cl slow-release 64mg tablet PO PRN (08:09)
[2024-03-02] MEDS: docusate sod 100mg capsule PO SCH (08:09)
[2024-03-02] MEDS: folic acid 1mg/0.2ml inj IV SCH (09:24)
[2024-03-02] MEDS ORDERED: quetiapine 100mg tablet PO PRN (15:10)
[2024-03-02] MEDS ORDERED: HYDROcodone/acetaminophen 5mg/325mg tablet PO PRN (15:10)
[2024-03-02] MEDS: HYDROcodone/acetaminophen 5mg/325mg tablet PO PRN (15:27)
[2024-03-02] MEDS: ondansetron/PF 4mg/2ml inj IV PRN (15:31)
[2024-03-02 15:34] LABS: BASOPHILS % (AUTO) 0.1 % (0-1); EOSINOPHILS % (AUTO) 0.7 % (0-6); HEMATOCRIT 31.1 % (42.0-52.0); HEMOGLOBIN 10.7 g/dl (14.0-17.9); LYMPHOCYTES # (AUTO) 1.1 X10'3 (1.1-4.8); LYMPHOCYTES % (AUTO) 31.2 % (21-51); MEAN CORPUSCULAR HEMOGLOBIN 33.8 PG (27.0-31.0); MEAN CORPUSCULAR HGB CONC 34.5 g/dL (33.0-36.5); MEAN CORPUSCULAR VOLUME 97.9 FL (78-98); MEAN PLATELET VOLUME 7.1 FL (7.4-10.4); MONOCYTES # (AUTO) 0.3 X10'3 (0-0.9); NEUTROPHILS # (AUTO) 2.2 X10'3 (1.8-7.7); PLATELET COUNT 86 X10'3 (140-440); RED BLOOD COUNT 3.18 X10'6 (4.70-6.10); RED CELL DISTRIBUTION WIDTH 14.1 % (11.5-14.5); WHITE BLOOD COUNT 3.7 X10'3 (4.5-11.0)
[2024-03-02] MEDS: ringers solution, lacted 1,000 ML IV ONE (15:34)
[2024-03-02 15:48] LABS: ANION GAP 7 (8-16); BLOOD UREA NITROGEN 19 MG/DL (7-18); BUN/CREATININE RATIO 19.2 (10.0-20.0); CALCIUM 8.4 MG/DL (8.5-10.1); CHLORIDE 99 MMOL/L (99-107); CREATININE 0.99 MG/DL (0.60-1.10); GLUCOSE 198 MG/DL (70-104); PHOSPHORUS 1.7 MG/DL (2.3-4.5); POTASSIUM 3.9 MMOL/L (3.5-5.1); SODIUM 135 MMOL/L (135-145); TOTAL CARBON DIOXIDE 29.2 MMOL/L (24-32); eCRCL 62 ML/MIN; eGFR 77 ML/MIN
[2024-03-02] MEDS: morphine 2 MG/ML inj. syringe IV PRN (16:11)
[2024-03-02] MEDS: LORazepam 2 mg/ml vial IV PRN (17:30)
[2024-03-02] MEDS: lactose-reduced food (Ensure Enlive) - 237ml bottle PO SCH (18:09)
[2024-03-02] MEDS: LIPASE/PROTEASE/AMYLASE 4,200 unit CAPSULE.DR PO SCH (21:29)
[2024-03-02] MEDS: magnesium sulf-water 2g/50mL 50 ML IV PRN (21:49)
[2024-03-03 04:43] LABS: BASOPHILS % (AUTO) 0.2 % (0-1); EOSINOPHILS % (AUTO) 0.7 % (0-6); HEMATOCRIT 33.4 % (42.0-52.0); HEMOGLOBIN 11.5 g/dl (14.0-17.9); LYMPHOCYTES # (AUTO) 1.3 X10'3 (1.1-4.8); LYMPHOCYTES % (AUTO) 27.4 % (21-51); MEAN CORPUSCULAR HEMOGLOBIN 33.9 PG (27.0-31.0); MEAN CORPUSCULAR HGB CONC 34.5 g/dL (33.0-36.5); MEAN CORPUSCULAR VOLUME 98.2 FL (78-98); MEAN PLATELET VOLUME 7.4 FL (7.4-10.4); MONOCYTES # (AUTO) 0.3 X10'3 (0-0.9); MONOCYTES % (AUTO) 7.4 % (2-12); NEUTROPHILS % (AUTO) 64.3 % (42-75); PLATELET COUNT 80 X10'3 (140-440); RED CELL DISTRIBUTION WIDTH 13.9 % (11.5-14.5); WHITE BLOOD COUNT 4.7 X10'3 (4.5-11.0)
[2024-03-03 05:03] LABS: ALANINE AMINOTRANSFERASE 26 U/L (12-78); ALBUMIN 2.7 G/DL (3.4-5.0); ALBUMIN/GLOBULIN RATIO 0.8 (1.1-1.5); ALKALINE PHOSPHATASE 86 IU/L (46-116); ANION GAP 9 (8-16); ASPARTATE AMINO TRANSFERASE 37 U/L (10-37); BILIRUBIN,TOTAL 0.9 MG/DL (0.1-1.0); BLOOD UREA NITROGEN 10 MG/DL (7-18); BUN/CREATININE RATIO 14.5 (10.0-20.0); CALCIUM 8.2 MG/DL (8.5-10.1); CHLORIDE 99 MMOL/L (99-107); CREATININE 0.69 MG/DL (0.60-1.10); GLUCOSE 120 MG/DL (70-104); POTASSIUM 3.4 MMOL/L (3.5-5.1); SODIUM 138 MMOL/L (135-145); TOTAL CARBON DIOXIDE 29.6 MMOL/L (24-32); TOTAL PROTEIN 6.1 G/DL (6.4-8.2); eCRCL 88 ML/MIN; eGFR > 90 ML/MIN
[2024-03-03 06:00] VITALS: BP 142/81; PULSE 90; RESP 14; TEMP 98.3; O2SAT 99
[2024-03-03] MEDS: HYDROmorphone inj. 0.5 MG/0.5 ML DISP.SYRIN IV PRN (07:32)
[2024-03-03] MEDS: amLODIPine 5mg tablet PO SCH (08:21)
[2024-03-03] MEDS: sertraline 50mg tablet PO SCH (08:22)
[2024-03-03 10:00] VITALS: BP 150/85; PULSE 82; RESP 17; TEMP 97.5; O2SAT 99
[2024-03-03] MEDS ORDERED: morphine 4 MG/ML inj SYRINge IV PRN (12:00)
[2024-03-03] MEDS: morphine 2 MG/ML inj. syringe IV PRN (12:16)
[2024-03-03] MEDS: potassium Cl 40MEQ/1/2NS 520ml 520 ML IV PRN (12:44)
[2024-03-03] MEDS ORDERED: sodium phosphate inj. 15 MMOL in dextrose 5%-water 250 ML IV PRN (16:15)
[2024-03-03] MEDS ORDERED: Neutra Phos packet PO PRN (16:15)
[2024-03-03] MEDS ORDERED: sodium phosphate inj. 30 MMOL in dextrose 5%-water 250 ML IV PRN (16:15)
[2024-03-03] MEDS ORDERED: ondansetron/PF 4mg/2ml inj IM ONE (16:15)
[2024-03-03] MEDS: ondansetron/PF 4mg/2ml inj IV ONE (16:41)
[2024-03-03 19:15] VITALS: BP 141/78; PULSE 84; RESP 16; TEMP 98.8; O2SAT 97
[2024-03-03 22:00] VITALS: BP 167/85; PULSE 76; RESP 19; TEMP 97; O2SAT 96
[2024-03-04 02:00] VITALS: BP 162/83; PULSE 83; RESP 20; TEMP 97.8; O2SAT 99
[2024-03-04 06:30] VITALS: BP 142/79; PULSE 87; RESP 17; TEMP 98.2; O2SAT 97
[2024-03-04 06:30] LABS: BASOPHILS % (AUTO) 0.2 % (0-1); EOSINOPHILS # (AUTO) 0.1 X10'3 (0-0.9); EOSINOPHILS % (AUTO) 2.2 % (0-6); HEMATOCRIT 33.1 % (42.0-52.0); HEMOGLOBIN 11.5 g/dl (14.0-17.9); LYMPHOCYTES # (AUTO) 1.3 X10'3 (1.1-4.8); MEAN CORPUSCULAR HGB CONC 34.7 g/dL (33.0-36.5); MEAN PLATELET VOLUME 8.1 FL (7.4-10.4); MONOCYTES # (AUTO) 0.5 X10'3 (0-0.9); MONOCYTES % (AUTO) 12.1 % (2-12); NEUTROPHILS # (AUTO) 2.5 X10'3 (1.8-7.7); NEUTROPHILS % (AUTO) 56.5 % (42-75); PLATELET COUNT 80 X10'3 (140-440); RED BLOOD COUNT 3.37 X10'6 (4.70-6.10); RED CELL DISTRIBUTION WIDTH 13.9 % (11.5-14.5); WHITE BLOOD COUNT 4.5 X10'3 (4.5-11.0)
[2024-03-04 06:51] LABS: ALANINE AMINOTRANSFERASE 23 U/L (12-78); ALBUMIN/GLOBULIN RATIO 0.9 (1.1-1.5); ALKALINE PHOSPHATASE 83 IU/L (46-116); ANION GAP 4 (8-16); ASPARTATE AMINO TRANSFERASE 20 U/L (10-37); BILIRUBIN,TOTAL 0.8 MG/DL (0.1-1.0); BLOOD UREA NITROGEN 9 MG/DL (7-18); BUN/CREATININE RATIO 8.7 (10.0-20.0); CALCIUM 8.6 MG/DL (8.5-10.1); CHLORIDE 100 MMOL/L (99-107); CREATININE 1.04 MG/DL (0.60-1.10); GLUCOSE 120 MG/DL (70-104); MAGNESIUM 1.7 MG/DL (1.5-2.4); POTASSIUM 4.1 MMOL/L (3.5-5.1); SODIUM 137 MMOL/L (135-145); TOTAL PROTEIN 6.3 G/DL (6.4-8.2); eCRCL 59 ML/MIN; eGFR 73 ML/MIN
[2024-03-04 11:00] VITALS: BP 129/87; PULSE 79; RESP 20; TEMP 97.5; O2SAT 96
[2024-03-04] MEDS: pantoprazole 40mg Tablet.DR PO SCH (12:00)
[2024-03-04 15:00] VITALS: BP 148/83; PULSE 76; RESP 16; TEMP 98.3; O2SAT 99
[2024-03-04 18:00] VITALS: BP 177/91; PULSE 75; RESP 18; TEMP 97.8; O2SAT 99
[2024-03-04] MEDS: GADOTERATE MEGLUMINE 7.5 MMOL/15 ML VIAL IV ONE (21:06)
[2024-03-04 22:00] VITALS: BP 145/79; PULSE 84; RESP 16; TEMP 98.8; O2SAT 97
[2024-03-05 02:00] VITALS: BP 135/77; PULSE 68; RESP 16; TEMP 97.7; O2SAT 100
[2024-03-05 06:11] LABS: BASOPHILS % (AUTO) 0.1 % (0-1); EOSINOPHILS # (AUTO) 0.1 X10'3 (0-0.9); EOSINOPHILS % (AUTO) 2.6 % (0-6); HEMATOCRIT 32.4 % (42.0-52.0); HEMOGLOBIN 11.2 g/dl (14.0-17.9); LYMPHOCYTES # (AUTO) 1.3 X10'3 (1.1-4.8); LYMPHOCYTES % (AUTO) 27.6 % (21-51); MEAN CORPUSCULAR HEMOGLOBIN 33.8 PG (27.0-31.0); MEAN CORPUSCULAR HGB CONC 34.4 g/dL (33.0-36.5); MEAN CORPUSCULAR VOLUME 98.3 FL (78-98); MEAN PLATELET VOLUME 7.8 FL (7.4-10.4); MONOCYTES # (AUTO) 0.6 X10'3 (0-0.9); MONOCYTES % (AUTO) 11.6 % (2-12); NEUTROPHILS # (AUTO) 2.8 X10'3 (1.8-7.7); NEUTROPHILS % (AUTO) 58.1 % (42-75); PLATELET COUNT 80 X10'3 (140-440); WHITE BLOOD COUNT 4.8 X10'3 (4.5-11.0)
[2024-03-05 06:30] VITALS: BP 132/83; PULSE 70; RESP 15; TEMP 98.3; O2SAT 100
[2024-03-05 06:30] LABS: ALANINE AMINOTRANSFERASE 17 U/L (12-78); ALBUMIN 2.6 G/DL (3.4-5.0); ALBUMIN/GLOBULIN RATIO 0.8 (1.1-1.5); ALKALINE PHOSPHATASE 68 IU/L (46-116); ANION GAP 4 (8-16); ASPARTATE AMINO TRANSFERASE 10 U/L (10-37); BILIRUBIN,TOTAL 0.6 MG/DL (0.1-1.0); BLOOD UREA NITROGEN 12 MG/DL (7-18); BUN/CREATININE RATIO 16.4 (10.0-20.0); CHLORIDE 105 MMOL/L (99-107); CREATININE 0.73 MG/DL (0.60-1.10); GLUCOSE 111 MG/DL (70-104); MAGNESIUM 1.3 MG/DL (1.5-2.4); POTASSIUM 3.4 MMOL/L (3.5-5.1); SODIUM 140 MMOL/L (135-145); TOTAL CARBON DIOXIDE 31.1 MMOL/L (24-32); TOTAL PROTEIN 5.7 G/DL (6.4-8.2); eCRCL 84 ML/MIN; eGFR > 90 ML/MIN
[2024-03-05] MEDS ORDERED: potassium Cl 40MEQ/1/2NS 520ml 520 ML IV PRN (09:40)
[2024-03-05] MEDS: mag hydrox/Alum hydrox/simeth 30ml oral suspension PO PRN (10:14)
[2024-03-05 11:00] VITALS: BP 144/78; PULSE 77; RESP 12; TEMP 97.6; O2SAT 95
[2024-03-05] MEDS: magnesium Cl slow-release 64mg tablet PO PRN (12:37)
[2024-03-05] MEDS: potassium Cl 20 mEq SR tablet PO PRN (12:38)
[2024-03-05 15:00] VITALS: BP 172/84; PULSE 72; RESP 12; TEMP 97.8; O2SAT 97
[2024-03-05 18:00] VITALS: BP 157/90; PULSE 81; RESP 12; TEMP 97.7; O2SAT 97
[2024-03-05 22:00] VITALS: BP 109/87; PULSE 73; RESP 16; TEMP 97.5; O2SAT 97
[2024-03-06 02:00] VITALS: BP 119/79; PULSE 78; RESP 15; TEMP 98; O2SAT 97
[2024-03-06 06:19] LABS: BASOPHILS % (AUTO) 0.3 % (0-1); EOSINOPHILS # (AUTO) 0.1 X10'3 (0-0.9); EOSINOPHILS % (AUTO) 2.7 % (0-6); HEMATOCRIT 31.7 % (42.0-52.0); LYMPHOCYTES # (AUTO) 1.2 X10'3 (1.1-4.8); MEAN CORPUSCULAR HEMOGLOBIN 34.3 PG (27.0-31.0); MEAN CORPUSCULAR HGB CONC 34.6 g/dL (33.0-36.5); MEAN PLATELET VOLUME 8.6 FL (7.4-10.4); MONOCYTES # (AUTO) 0.5 X10'3 (0-0.9); NEUTROPHILS # (AUTO) 1.7 X10'3 (1.8-7.7); PLATELET COUNT 75 X10'3 (140-440); RED BLOOD COUNT 3.21 X10'6 (4.70-6.10); RED CELL DISTRIBUTION WIDTH 14.2 % (11.5-14.5); WHITE BLOOD COUNT 3.5 X10'3 (4.5-11.0)
[2024-03-06 06:27] LABS: ALANINE AMINOTRANSFERASE 19 U/L (12-78); ALBUMIN/GLOBULIN RATIO 0.9 (1.1-1.5); ALKALINE PHOSPHATASE 72 IU/L (46-116); ANION GAP 4 (8-16); ASPARTATE AMINO TRANSFERASE 13 U/L (10-37); BILIRUBIN,TOTAL 0.6 MG/DL (0.1-1.0); BLOOD UREA NITROGEN 11 MG/DL (7-18); BUN/CREATININE RATIO 13.6 (10.0-20.0); CALCIUM 8.8 MG/DL (8.5-10.1); CHLORIDE 105 MMOL/L (99-107); CREATININE 0.81 MG/DL (0.60-1.10); GLUCOSE 105 MG/DL (70-104); MAGNESIUM 1.5 MG/DL (1.5-2.4); POTASSIUM 4.3 MMOL/L (3.5-5.1); SODIUM 140 MMOL/L (135-145); TOTAL CARBON DIOXIDE 30.7 MMOL/L (24-32); TOTAL PROTEIN 6.3 G/DL (6.4-8.2); eCRCL 75 ML/MIN; eGFR > 90 ML/MIN
[2024-03-06 07:00] VITALS: BP 130/85; PULSE 81; RESP 16; TEMP 97.4; O2SAT 96
[2024-03-06 08:00] VITALS: RESP 16; O2SAT 96
[2024-03-06 08:10] VITALS: BP_SYST 156; PULSE 73
[2024-03-06] MEDS: folic acid 1mg tablet PO SCH (08:10)
[2024-03-06] MEDS: thiamine 100mg tablet PO SCH (08:10)
[2024-03-06 09:20] VITALS: RESP 15
[2024-03-06] MEDS ORDERED: FOLI0.4T6 PO (09:50)
[2024-03-06] MEDS ORDERED: MULT400T7 PO (09:50)
== END 2024-03-06 13:06 | disposition home or self-care (01) | DRG 640 ==
LOC: ER 13:18 → ED HOLD 03-02 00:51 → UNDOADMIN 03-02 00:51 → ED HOLD 03-02 02:54 → SUR 3N 03-02 03:25 → ED HOLD 03-02 03:25 → SUR 3N 03-03 19:30 → PCU 3S 03-03 19:30
PROVIDERS: ADMIT Internal Medicine Pulmonary Disease; ATTEND Family Medicine
DX: E86.0 Dehydration (principal); N17.0 Acute kidney failure with tubular necrosis; F10.239 Alcohol dependence with withdrawal, unspecified; K86.1 Other chronic pancreatitis; E87.29 Other acidosis; I10 Essential (primary) hypertension; G89.29 Other chronic pain; F10.229 Alcohol dependence with intoxication, unspecified; F32.A Depression, unspecified
CPT/HCPCS: 36415; 70450; 74176; 74183; 76700; 80048; 80053; 80320; 81001; 82570; 82948; 83690; 83735; 83930; 83935; 84100; 84132; 84156; 84300; 85025; 87081; 87207; 97161; 97530; 99285; G0378; J0780; J1171; J1885; J2060; J2270; J2405; J2470; J3411; J3480; J3490; J7030; J7120

== ENCOUNTER 2024-07-05 16:46 | Emergency (ER) | payer OTHER ==
[~2024-07-05] VITALS: Ht 172.7 cm; Wt 60.0 kg
[~2024-07-05 16:46] MED LIST changes: -ACAM333T8 PO; -FAMO-129 PO; +HYDR-3965 PO; -METH-798 PO; +MULT400T7 PO; -ONDA-243 PO
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
[2024-07-05] MEDS ORDERED: ONDA-245 SL (17:19)
[2024-07-05] MEDS: normal saline 1000ML IV soln IVB ONE (17:20)
[2024-07-05] MEDS: ondansetron/PF 4mg/2ml inj IV ONE ×2 (17:21→21:46)
[2024-07-05] MEDS ORDERED: iohexol 300mg/ml 100ml inj. ONE (17:25)
[2024-07-05 17:44] LABS: BASOPHILS % (AUTO) 0.8 % (0-1); EOSINOPHILS % (AUTO) 0.1 % (0-6); HEMATOCRIT 32.1 % (42.0-52.0); HEMOGLOBIN 10.9 g/dl (14.0-17.9); LYMPHOCYTES # (AUTO) 1.5 X10'3 (1.1-4.8); MEAN CORPUSCULAR HEMOGLOBIN 33.7 PG (27.0-31.0); MEAN CORPUSCULAR HGB CONC 34.1 g/dL (33.0-36.5); MEAN CORPUSCULAR VOLUME 98.9 FL (78-98); MEAN PLATELET VOLUME 7.3 FL (7.4-10.4); MONOCYTES # (AUTO) 0.4 X10'3 (0-0.9); NEUTROPHILS # (AUTO) 2.9 X10'3 (1.8-7.7); NEUTROPHILS % (AUTO) 60.1 % (42-75); PLATELET COUNT 218 X10'3 (140-440); RED BLOOD COUNT 3.25 X10'6 (4.70-6.10); RED CELL DISTRIBUTION WIDTH 15.1 % (11.5-14.5); WHITE BLOOD COUNT 4.8 X10'3 (4.5-11.0)
--- NOTE | 2024-07-05 17:54 | RADIOLOGY REPORT ---
CHEST RADIOGRAPH Indication: Generalized weakness Technique: Single frontal view of the chest was obtained Comparison: CHEST,SINGLE VIEW on DOS: 10/10/21, CHEST,SINGLE VIEW on DOS: 06/25/21, CHEST,SINGLE VIEW o n DOS: 06/23/21 FINDINGS: Lines and Tubes: None Lungs: No focal consolidation. Elevation of the right hemidiaphragm with right lateral lung zone scar ring. Pleura: No effusion. No pneumothorax. Cardiomediastinal contours: Unremarkable Bones: No acute osseous abnormality. IMPRESSION: No acute cardiopulmonary disease. Elevated right Hemidiaphragm with right lateral lower lung zone scarring.
[2024-07-05 17:57] LABS: APTT 27 SECONDS (22-32); PROTHROMBIN TIME 10.2 SECONDS (9.0-12.0)
[2024-07-05 18:00] LABS: ALANINE AMINOTRANSFERASE 30 U/L (12-78); ALBUMIN 2.9 G/DL (3.4-5.0); ALBUMIN/GLOBULIN RATIO 0.9 (1.1-1.5); ALKALINE PHOSPHATASE 95 IU/L (46-116); ANION GAP 16 (8-16); ASPARTATE AMINO TRANSFERASE 38 U/L (10-37); BILIRUBIN,TOTAL 0.4 MG/DL (0.1-1.0); BLOOD UREA NITROGEN 20 MG/DL (7-18); BUN/CREATININE RATIO 15.5 (10.0-20.0); CALCIUM 7.4 MG/DL (8.5-10.1); CHLORIDE 98 MMOL/L (99-107); CREATININE 1.29 MG/DL (0.60-1.10); GLUCOSE 303 MG/DL (70-104); LIPASE 32 U/L (16-77); MAGNESIUM 1.4 MG/DL (1.5-2.4); POTASSIUM 3.5 MMOL/L (3.5-5.1); SODIUM 134 MMOL/L (135-145); TOTAL CARBON DIOXIDE 20.1 MMOL/L (24-32); TOTAL PROTEIN 6.2 G/DL (6.4-8.2); eCRCL 51 ML/MIN; eGFR 57 ML/MIN
--- NOTE | 2024-07-05 18:14 | RADIOLOGY REPORT ---
EXAM: CT CT HEAD HISTORY: The confused and disequilibrium COMPARISON: CT CT HEAD on DOS: 03/01/24, CT CT HEAD on DOS: 03/20/23 TECHNIQUE: Axial images were obtained and reformatted in coronal and sagittal planes. All CT scans at this medical facility are performed using dose modulation techniques as appropriate to a performed e xam including the following: Automated exposure control was utilized; adjustment of the MA and/or KV according to patient size; and use of iterative reconstruction technique. CT Dose: CTDI volume is 62 mGy. Dose-length product is 1197 mGy*cm FINDINGS: Supratentorial Region: No evidence for large acute territorial ischemia. No intracranial hemorrhage is noted. Posterior Fossa: No acute abnormality. Brainstem: Unremarkable. Sellar/Suprasellar Region: Unremarkable. Ventricles, Cisterns, Sulci: Age-appropriate. Orbits: Unremarkable. Paranasal Sinuses: Unremarkable. Mastoid Air Cells: Unremarkable. Vasculature: Unremarkable. Bones/Soft Tissues: No acute abnormality. Other: None. IMPRESSION: 1. No acute intracranial process.
--- NOTE | 2024-07-05 18:15 | RADIOLOGY REPORT ---
Exam: CT CT ABDOMEN PELVIS W/ IV CONTRAST History: Diffuse abdominal pain, nausea Comparison Study: CT CT ABDOMEN PELVIS on DOS: 03/02/24, CT CT ABDOMEN PELVIS on DOS: 08/04/23, CT CT A BDOMEN PELVIS on DOS: 05/20/23 TECHNIQUE: Multidetector CT of the abdomen and pelvis with IV contrast. Axial, coronal and sagittal m ultiplanar reformats were obtained from the axial data set by the technologist. Radiation Dose Information: CT Dose: CTDI volume is 7.63 mGy. Dose-length product is 196.92 mGy*cm FINDINGS: Bibasilar atelectasis/ scarring. Partially visualized heart is unremarkable. Subcentimeter hypodense hepatic lesion that is too small to characterize. Ill-defined area of lateral right hepatic lobe enhancement measuring up to 1.5 x 0.8 cm. Hepatic steatosis. Cholelithiasis witho ut evidence of acute cholecystitis. Spleen and adrenal glands unremarkable. There is truncated appear ance of the pancreas of the distal body and tail are absent. There is calcification of the remainder of the pancreas most consistent with chronic pancreatitis. There is dilatation of the pancreatic duct up to 0.9 cm. Ill-defined hypodensity of the pancreatic head with associated adjacent fat stranding. There appears to be wall thickening enhancement of the distal common bile duct without significant d istention. Kidneys, and ureters are unremarkable. Urinary bladder is unremarkable. Prostate measures 2.6 x 5 by 3.7 cm. Stomach is unremarkable. Mild wall Thickening of proximal small bowel loops. The remainder of the sm all bowel loops are fluid-filled and nondistended. Appendix is unremarkable. /bowel is unremarkable. No evidence of intraperitoneal free air or free fluid. No evidence of aortic aneurysm or dissection. Mild atherosclerotic calcification of the aorta. No significant lymphadenopathy. The soft tissues unremarkable. Severe degenerative changes of the right hip with deformity of the rig ht femoral head. Chronic compression fracture of the superior endplate of L2, T11 and T10. IMPRESSION: Mild wall thickening of proximal small bowel loops with the remainder of the small bowel loops fluid- filled and nondistended. Correlate for gastroenteritis. Redemonstration of ill-defined hypodensity of the pancreatic head with associated adjacent fat strand ing. Pancreatic head lesion/ pancreatitis is within the differential. Unchanged mild dilatation of the pancreatic duct with truncated appearance of the pancreas and findin gs consistent with chronic pancreatitis. Cholelithiasis without evidence of acute cholecystitis. Subcentimeter hypodense hepatic lesion that is too small to characterize with nonspecific 0.8 x 1.5 c m ill-defined area of enhancement over the peripheral right hepatic lobe.
[2024-07-05 18:40] LABS: ETHANOL 236 MG/DL (<10)
--- NOTE | 2024-07-05 18:53 | Physician Documentation ---
History of Present Illness ~ Chief Complaint: Hyperglycemia Stated Complaint: GENERAL MALAISE Time Seen by MD: 18:05 Primary Medical Doctor: [facility] HPI Patient presents to the emergency room for investigation into your event that happened three days ago where he was sitting having lunch with his friend and while sitting up he nodded off for a split 2nd. He attributes this to being intoxicated at the time however since that time he states he just does not feel right. Having problems sleeping. Denies any chest pain cough cold congestion or fevers. He states he is feeling better since being in the emergency room. No one-sided weakness. Reports that has last drink of alcohol was yesterday. Medication Reconciliation Allergies: Coded Allergies: No Known Allergies (Unverified , 07/05/24) Scheduled Amlodipine Besylate (Amlodipine Besylate), 1 TABLET PO DAILY, (Reported) Lipase/Protease/Amylase (Creon Dr 6,000 Units Capsule), 1 CAP PO TID, (Reported) Multivitamin with Folic Acid (One Daily Essential Tablet), 1 TAB PO DAILY Sertraline HCl (Sertraline HCl), 2 TAB PO DAILY, (Reported) Scheduled PRN Ondansetron 8mg ODT (Ondansetron Odt), 1 TAB SL Q8H PRN for nausea/vomiting, (Reported) Quetiapine Fumarate* (Seroquel*), 1 TAB PO HS PRN for agitation, (Reported) Discontinued Medications Hydrocodone Bit/Acetaminophen 5/325 MG ([place] 5/325 MG), 1-2 TAB PO Q4HPRN PRN for pain, (Reported) Discontinued Reason: patient no longer taking Past Medical History Past Medical History: Hypertension, Gastritis, Pancreatitis, Chronic Back Pain, *PSYCH*, Depression Past Surgical History: orthopedic surgeries Alcohol Use: Alcoholic Drug Use: marijuana Lives with: Alone Lives In: Home Review of Systems ROS All review of systems negative except as per HPI Physical Exam Vital Signs: Temperature: 98.2, Source: Oral, Heart Rate: 96, Respiratory Rate: 14, BP: 130/76, Pulse Oximetry: 98, Weight: 60.000 Oxygen Flow Rate: 0 Physical Exam General: Patient is awake, alert, oriented x4 in no acute distress Head: Normocephalic and atraumatic. Eyes: Conjunctival normal. EOMI. PERRL. ENT: Mucous membranes moist. Neck: Supple, trachea is midline. Chest: Clear to auscultation bilaterally without rales, rhonchi, or wheezes. Th ere is no accessory muscle use or retractions. Cardiac: RRR without murmurs, gallops, or rubs. Abd: Soft, nondistended, nontender, with normoactive bowel sounds. No guarding, rebound, or rigidity. Extremities: Prosthesis noted to left lower extremity Progress Results/Orders Results/Orders Completed Orders - OSMAR CLARK MD Drug Screen, Urine (07/05/24 18:21) Potassium Cl Sr Tablet (K-Dur Tablet) (07/05/24 18:45) Insulin Regular, Human (Humulin R 10 Uni (07/05/24 18:45) Medications Received in ER Medications (Trade) Dose Ordered Sig/Dominic Route PRN Reason Start Time Stop Time Status Last Admin Dose Admin (sodium chloride 1000ml IV soln) 1,000 ml ONCE ONCE IVB 07/05/24 17:00 07/05/24 17:01 DC 07/05/24 17:20 1,000 ML (Zofran 4mg/2ml vial) 8 mg ONCE ONCE IV 07/05/24 17:00 07/05/24 17:01 DC 07/05/24 17:21 8 MG (K-DUR tablet) 20 meq ONCE STAT PO 07/05/24 18:45 07/05/24 18:47 DC 07/05/24 19:16 20 MEQ (HumuLIN R 10 units per 0.1 ML syringe) 5 units ONCE ONCE IV 07/05/24 18:45 07/05/24 18:47 DC 07/05/24 19:19 5 UNITS Vital Signs 07/05/24 07/05/24 07/05/24 07/05/24 16:51 17:00 17:17 18:00 Temp 98.4 98.2 Pulse 117 106 98 96 Resp 18 12 14 14 B/P (MAP) 131/90 134/73 (93) 117/64 (81) 130/76 (94) Pulse Ox 94 97 98 98 O2 Flow Rate 0 0 0 07/05/24 07/05/24 19:14 19:20 Temp 98.4 Pulse 90 Resp 16 14 B/P (MAP) 135/84 (101) Pulse Ox 98 O2 Flow Rate 0 Laboratory Tests Test 07/05/24 17:09 07/05/24 18:02 07/05/24 18:30 White Blood Count 4.8 Red Blood Count 3.25 L Hemoglobin 10.9 L Hematocrit 32.1 L Mean Corpuscular Volume 98.9 H Mean Corpuscular Hemoglobin 33.7 H Mean Corpuscular Hemoglobin Concent 34.1 Red Cell Distribution Width 15.1 H Platelet Count 218 Mean Platelet Volume 7.3 L Neutrophils (%) (Auto) 60.1 Lymphocytes (%) (Auto) 31.0 Monocytes (%) (Auto) 8.0 Eosinophils (%) (Auto) 0.1 Basophils (%) (Auto) 0.8 Neutrophils # (Auto) 2.9 Lymphocytes # (Auto) 1.5 Monocytes # (Auto) 0.4 Eosinophils # (Auto) 0.0 Basophils # (Auto) 0.0 CBC Comment Prothrombin Time 10.2 INR International Normalized Ratio 1.0 Activated Partial Thromboplast Time 27 Coagulation Comments Sodium Level 134 L Potassium Level 3.5 Chloride Level 98 L Carbon Dioxide Level 20.1 L Anion Gap 16 Blood Urea Nitrogen 20 H Creatinine 1.29 H Estimated GFR/1.73 m2 57 BUN/Creatinine Ratio 15.5 Glucose Level 303 H Calcium Level 7.4 L Magnesium Level 1.4 L Total Bilirubin 0.4 Aspartate Amino Transf (AST/SGOT) 38 H Alanine Aminotransferase (ALT/SGPT) 30 Alkaline Phosphatase 95 Troponin I High Sensitivity 11 Total Protein 6.2 L Albumin 2.9 L Globulin 3.3 Albumin/Globulin Ratio 0.9 L Lipase 32 Chemistry Comments Ethyl Alcohol Level 236 H Glucometer 281 H Urine Specimen Description Urinal Urine Color Yellow Urine Clarity Clear Urine pH 6.0 Urine Specific [place] 1.010 Urine Protein Trace Urine Glucose (UA) 500 H Urine Ketones Trace H Urine Occult Blood Negative Urine Nitrite Negative Urine Bilirubin Negative Urine Urobilinogen 0.2 Urine Leukocyte Esterase Negative Urine RBC 0-2 Urine WBC None seen Urine Squamous Epithelial Cells Few Urine Bacteria None seen Urine Mucus None seen Urine Culture Indicated Not ind Volume Urine Centrifuged 10 ml Urine Comment Urine Opiates Screen Negative Urine Methadone Screen Negative Urine Fentanyl Screen Negative Urine Barbiturates Screen Negative Urine Phencyclidine Screen Negative Urine Amphetamines Screen Negative Urine Benzodiazepines Screen Negative Urine Cocaine Screen Negative Urine Cannabinoids Screen Positive Drug Screen Comment Medical Decision Making Findings Patient presented to the emergency room for evaluation of bring fog as per HPI. Differentials include but are not limited to intoxication, stroke, anxiety, electrolyte disturbances, urinary tract infection therefore emergent labs and imaging indicated. Imaging is reassuring as are labs. Noted alcohol intoxication and hyperglycemia. No DKA. Patient has received insulin and IV fluids in his passed the road test. He states he has been feeling better since being in the emergency room. Given no one-sided symptoms I do not feel he requires admission for stroke workup. ER precautions discussed as well as the need to follow up with his doctor. Departure Disposition: HOME / SELF CARE / HOMELESS Impression: Primary Impression: Disequilibrium Additional Impressions: Uncontrolled diabetes mellitus Alcoholic intoxication Condition: Stable Discharge Instructions: General Discharge Instructions Additional Instructions: There was an abnormality seen on your pancreas. This is of undetermined significance but you need to follow up with your doctor for further investigation as this could potentially represent cancer. Referrals: NO PRIMARY CARE PROVIDER (PCP) Education Educated: Patient Educated regarding: need for follow up Signature Scribe Signature: No scribe Attestation: The note accurately reflects work and decisions made by me.Osmar Clark MD 07/05/24 19:37 OSMAR CLARK MD July 05, 2024 18:53
[2024-07-05 18:54] LABS: BILIRUBIN,URINE NEGATIVE (Neg); CLARITY,URINE CLEAR (Clear); COLOR,URINE YELLOW (Yellow); GLUCOSE, URINE 500 mg/dl (Neg); KETONES,URINE TRACE mg/dl (Neg); LEUKOCYTE ESTERASE ,URINE NEGATIVE (Neg); NITRITES, URINE NEGATIVE (Neg); OCCULT BLOOD,URINE NEGATIVE (Neg); PROTEIN,URINE TRACE mg/dl (Neg); UROBILINOGEN,URINE 0.2 E.U/dL (0.2-1.0)
[2024-07-05 19:00] LABS: UA COLLECTION TYPE URINAL
[2024-07-05 19:01] LABS: URINE AMPHETAMINE SCREEN NEGATIVE (Neg); URINE BARBITUATE SCREEN NEGATIVE (Neg); URINE BENZODIAZEPINES SCREEN NEGATIVE (Neg); URINE CANNABINOID SCREEN POSITIVE (Neg); URINE COCAINE SCREEN NEGATIVE (Neg); URINE METHADONE SCREEN NEGATIVE (Neg); URINE OPIATE SCREEN NEGATIVE (Neg); URINE PHENCYCLIDINE SCREEN NEGATIVE (Neg)
[2024-07-05 19:03] LABS: BACTERIA,URINE NONE SEEN /HPF (Neg); MUCUS STRANDS NONE SEEN /LPF (Neg); RBC,URINE 0-2 /HPF (0-2); SQUAMOUS EPITHELIAL CELL,UR FEW /LPF (FEW); WBC,URINE NONE SEEN /HPF (0-4)
[2024-07-05] MEDS: potassium Cl 20 mEq SR tablet PO STA (19:16)
[2024-07-05] MEDS: insulin regular, human 10 units/0.1 ml syringe IV ONE (19:19)
[2024-07-05 19:20] VITALS: TEMP 98.4
[2024-07-05 21:34] VITALS: BP 140/77; PULSE 90; RESP 16; O2SAT 98
== END 2024-07-05 21:52 | disposition home or self-care (01) ==
LOC: ER 16:47
DX: E87.8 Other disorders of electrolyte and fluid balance, not elsewhere classified (principal); E11.65 Type 2 diabetes mellitus with hyperglycemia; F10.129 Alcohol abuse with intoxication, unspecified; I10 Essential (primary) hypertension; F32.A Depression, unspecified; Y90.9 Presence of alcohol in blood, level not specified
CPT/HCPCS: 36415; 70450; 71045; 74177; 80053; 80305; 80320; 81001; 82948; 83690; 83735; 84484; 85025; 85610; 85730; 96361; 96374; 96375; 99285; J1815; J2405; J7030; Q9967

== ENCOUNTER 2024-07-11 17:26 | Inpatient (IN) | payer OTHER ==
[~2024-07-11] VITALS: Ht 172.7 cm; Wt 61.4 kg
[~2024-07-11 17:26] MED LIST changes: -HYDR-3965 PO; +ONDA-245 SL
--- NOTE | 2024-07-11 17:33 | ELECTROCARDIOGRAPH REPORT ---
[facility] Test Date: 2024-07-11 Test Time: 17:30:53 Pat Name: DENISE OLVERA Department: EMERGENCY ROOM [id number] Room: Gender: M Assistant General Manager: PM : 1960 Requested By: MONISHA VILLALOBOS Order Number: [id number] Reading MD: Measurements Intervals [place] Rate: 87 P: 60 NC: 159 QRS: 64 QRSD: 96 T: 50 QT: 388 QTc: 467 Interpretive Statements Sinus rhythm Please click the below link to view image of tracing.
--- NOTE | 2024-07-11 17:54 | RADIOLOGY REPORT ---
CHEST RADIOGRAPH Indication: CP Technique: Single frontal view of the chest was obtained Comparison: DI CHEST,SINGLE VIEW on DOS: 07/05/24, CHEST,SINGLE VIEW on DOS: 10/10/21, CHEST,SINGLE VIE W on DOS: 06/25/21, CHEST,SINGLE VIEW on DOS: 06/23/21 FINDINGS: Lines and Tubes: None Lungs: No focal consolidation. Pleura: No effusion. There is blunting of the right costophrenic sulcus suggesting pleural reaction o r small pleural effusion. No pneumothorax. Cardiomediastinal contours: Unremarkable Bones: No acute osseous abnormality. IMPRESSION: 1. No acute cardiopulmonary disease. 2. Blunting of the right costophrenic sulcus suggesting pleural reaction or small pleural effusion
--- NOTE | 2024-07-11 18:04 | Physician Documentation ---
History of Present Illness ~ General Chief Complaint: Multiple Medical Complaints Stated Complaint: CP Time Seen by MD: 18:02 Primary Medical Doctor: [facility] History of Present Illness Initial Comments 63-year-old male, history of alcohol abuse, , who presents with epigastric pain. He tells me that he is having a hard day because it is day. He tells me that he was drinking more alcohol than normal yesterday. He woke up this morning with severe pain in his epigastric region. The pain is primarily in the upper abdomen and radiates to the back. He tells me it feels like when he had pancreatitis in the past. He has been nauseous and vomiting. He denies any fevers or chills. No productive cough or significant shortness of breath. No lower abdominal pain. No diarrhea. He denies suicidal ideation or thoughts of self-harm today. He tells me I just need some pain medicine to get through the day, and then tomorrow I can get back on track. Later, he does admit that he has been vomiting coffee-ground dark emesis. No blood in his stool. Medication Reconciliation Allergies: Coded Allergies: No Known Allergies (Unverified , 07/05/24) Scheduled Amlodipine Besylate (Amlodipine Besylate), 1 TABLET PO DAILY, (Reported) Lipase/Protease/Amylase (Creon Dr 6,000 Units Capsule), 1 CAP PO TID, (Reported) Multivitamin with Folic Acid (One Daily Essential Tablet), 1 TAB PO DAILY Sertraline HCl (Sertraline HCl), 2 TAB PO DAILY, (Reported) Scheduled PRN Ondansetron 8mg ODT (Ondansetron Odt), 1 TAB SL Q8H PRN for nausea/vomiting, (Reported) Quetiapine Fumarate* (Seroquel*), 1 TAB PO HS PRN for agitation, (Reported) Discontinued Medications Hydrocodone Bit/Acetaminophen 5/325 MG ([place] 5/325 MG), 1-2 TAB PO Q4HPRN PRN for pain, (Reported) Discontinued Reason: patient no longer taking Past Medical History Past Medical History: Hypertension, Gastritis, Pancreatitis, Chronic Back Pain, *PSYCH*, Depression Past Surgical History: orthopedic surgeries Alcohol Use: Alcoholic Drug Use: marijuana Lives with: Alone Lives In: Home Review of Systems Constitutional: Denies: fever Gastrointestinal: Reports: abdominal pain, nausea, vomiting; Denies: diarrhea Physical Exam Physical Exam Vital Signs: Temperature: 98.2, Source: Oral, Heart Rate: 76, Respiratory Rate: 17, BP: 142/92, Pulse Oximetry: 99, Weight: 61.360 Physical Exam General: This is a chronically ill-appearing middle-aged man, appears uncomfortable HEENT: Atraumatic, oropharynx appears dry Heart: Regular rate and rhythm, normal-appearing peripheral perfusion Lungs: Diminished breath sounds, normal work of breathing, normal oxygen saturation on room air. He does have a oxygen nasal cannula around his neck, but it is not on Abdomen: Soft, no significant distention. He does have tenderness to palpation in the epigastric region only, no lower abdominal tenderness, no rebound or guarding Neuro: Alert and oriented, no focal deficits Psychiatric: Flattened affect, appears uncomfortable, but is cooperative. He denies thoughts of self-harm or suicidal ideation Progress Results/Orders Results/Orders Orders - LUCRECIA HESS MD Potassium Cl 10meq/100ml Bag (Potassium (07/11/24 19:20) Page Hospitalist (07/11/24 19:21) Potassium Cl 40meq/1/2ns 520ml ([place] (07/11/24 21:25) Type And Screen (07/11/24 19:21) Morphine 4mg/Ml Inj. (Morphine Inj.) (07/11/24 19:25) Completed Orders - LUCRECIA HESS MD Morphine 4mg/Ml Inj. (Morphine Inj.) (07/11/24 18:20) Ondansetron Inj. (Zofran 4mg/2ml Vial) (07/11/24 18:20) Normal Saline 500ml Iv Soln (Sodium Chlo (07/11/24 18:20) Pantoprazole 40mg Iv (Protonix 40mg Iv) (07/11/24 18:25) Medications Received in ER Medications (Trade) Dose Ordered Sig/Dominic Route PRN Reason Start Time Stop Time Status Last Admin Dose Admin (morphine inj.) 4 mg ONCE ONCE IV 07/11/24 18:20 07/11/24 18:22 DC 07/11/24 18:46 4 MG (Zofran 4mg/2ml vial) 4 mg ONCE ONCE IV 07/11/24 18:20 07/11/24 18:22 DC 07/11/24 18:47 4 MG Sodium Chloride 500 ml @ 1,000 mls/hr ONCE ONCE IV 07/11/24 18:20 07/11/24 18:49 DC 07/11/24 18:54 1,000 MLS/HR (Protonix 40mg IV) 40 mg ONCE ONCE IV 07/11/24 18:25 07/11/24 18:26 DC 07/11/24 18:50 40 MG Potassium Chloride 100 ml @ 100 mls/hr Q1H IV 07/11/24 19:20 07/11/24 21:19 07/11/24 19:27 100 MLS/HR Vital Signs 07/11/24 07/11/24 17:36 18:46 Temp 98.2 Pulse 76 Resp 17 13 B/P (MAP) 142/92 Pulse Ox 99 Laboratory Tests Test 07/11/24 17:35 White Blood Count 1.8 L Red Blood Count 2.18 L Hemoglobin 7.3 L Hematocrit 21.9 *L Mean Corpuscular Volume 100.2 H Mean Corpuscular Hemoglobin 33.6 H Mean Corpuscular Hemoglobin Concent 33.5 Red Cell Distribution Width 15.1 H Platelet Count 80 L Mean Platelet Volume 7.3 L Neutrophils (%) (Auto) 58.8 Lymphocytes (%) (Auto) 31.0 Monocytes (%) (Auto) 8.0 Eosinophils (%) (Auto) 1.3 Basophils (%) (Auto) 0.9 Neutrophils # (Auto) 1.0 L Lymphocytes # (Auto) 0.5 L Monocytes # (Auto) 0.1 Eosinophils # (Auto) 0.0 Basophils # (Auto) 0.0 CBC Comment Differential Total Cells Counted 100 Neutrophils % (Manual) 64.0 Lymphocytes % (Manual) 30.0 Monocytes % (Manual) 6.0 Platelet Estimate Decreased Red Blood Cell Morphology Perf Basophilic Stippling Macrocytosis 1+ Sodium Level 147 H Potassium Level 2.0 *L Chloride Level 118 H Carbon Dioxide Level 19.7 L Anion Gap 9 Blood Urea Nitrogen 12 Creatinine 0.60 Estimated GFR/1.73 m2 > 90 BUN/Creatinine Ratio 20.0 Glucose Level 112 H Calcium Level < 5.0 *L Phosphorus Level 1.6 L Magnesium Level 0.7 *L Total Bilirubin 0.2 Aspartate Amino Transf (AST/SGOT) 77 H Alanine Aminotransferase (ALT/SGPT) 32 Alkaline Phosphatase 52 Troponin I High Sensitivity 10 Pro-B-Type Natriuretic Peptide 101 Total Protein 3.8 L Albumin 1.7 L Globulin 2.1 L Albumin/Globulin Ratio 0.8 L Lipase 10 L Chemistry Comments Ethyl Alcohol Level 236 H EKG/XRAY/CT/US/VASC/MRI EKG : Additional Comment I personally interpreted the EKG and this shows: Sinus rhythm, rate 87, QTC 467, no STEMI, no acute ischemic changes Chest X-Ray : Additional Comments I personally reviewed the x-ray, and it shows: No focal consolidation, no pulmonary edema, normal mediastinum Consults/PCP Consults/PCP : Additional Comment Consult: I spoke to the internal medicine service, for admission in the hospital Medical Decision Making Differential Diagnosis Differential includes pancreatitis, gastritis, peptic ulcer disease, hepatitis, dehydration, electrolyte derangement, viral syndrome, depression, alcohol intoxication Assessment 63-year-old male, history of alcohol abuse, presenting with epigastric pain. His workup appears consistent with an upper GI bleed, likely alcoholic gastritis or peptic ulcer disease. His labs also show significant electrolyte abnormalities, likely secondary to heavy alcohol use. He was given Protonix, IV fluids, pain medication, nausea medicine, and electrolyte repletion. EKG without dangerous changes. He will be admitted to the medicine service for further treatment including impending alcohol withdrawal. Departure Impression: Primary Impression: Hypokalemia Additional Impressions: Alcoholic intoxication Upper GI bleed Acute blood loss anemia Referrals: NO PRIMARY CARE PROVIDER (PCP) Critical Care Note Critical Care Note Critical Care Note The very real possibility of a deterioration of this patient's condition required the highest level of my preparedness for sudden, emergent intervention. I provided critical care services, which included medication orders, frequent reevaluations of the patient's condition and response to treatment, ordering and reviewing test results, and discussing the case with various consultants. Excludes time spent performing separately billable procedures. The critical care time associated with the care of the patient was 35 minutes in the management of severe electrolyte derangement including hypokalemia 2.0 Signature Scribe Signature: [email or web address] Attestation: LUCRECIA Webb MD July 11, 2024 18:04
[2024-07-11 18:12] LABS: BASOPHILS % (AUTO) 0.9 % (0-1); EOSINOPHILS % (AUTO) 1.3 % (0-6); HEMOGLOBIN 7.3 g/dl (14.0-17.9); LYMPHOCYTES # (AUTO) 0.5 X10'3 (1.1-4.8); MEAN CORPUSCULAR HEMOGLOBIN 33.6 PG (27.0-31.0); MEAN CORPUSCULAR HGB CONC 33.5 g/dL (33.0-36.5); MEAN CORPUSCULAR VOLUME 100.2 FL (78-98); MEAN PLATELET VOLUME 7.3 FL (7.4-10.4); MONOCYTES # (AUTO) 0.1 X10'3 (0-0.9); NEUTROPHILS % (AUTO) 58.8 % (42-75); PLATELET COUNT 80 X10'3 (140-440); RED BLOOD COUNT 2.18 X10'6 (4.70-6.10); RED CELL DISTRIBUTION WIDTH 15.1 % (11.5-14.5); WHITE BLOOD COUNT 1.8 X10'3 (4.5-11.0)
[2024-07-11 18:17] LABS: HEMATOCRIT 21.9 % (42.0-52.0)
[2024-07-11 18:20] LABS: ALANINE AMINOTRANSFERASE 32 U/L (12-78); ALBUMIN 1.7 G/DL (3.4-5.0); ALBUMIN/GLOBULIN RATIO 0.8 (1.1-1.5); ALKALINE PHOSPHATASE 52 IU/L (46-116); ANION GAP 9 (8-16); ASPARTATE AMINO TRANSFERASE 77 U/L (10-37); BILIRUBIN,TOTAL 0.2 MG/DL (0.1-1.0); BLOOD UREA NITROGEN 12 MG/DL (7-18); CHLORIDE 118 MMOL/L (99-107); GLUCOSE 112 MG/DL (70-104); LIPASE 10 U/L (16-77); PRO BRAIN NATRIURETIC PEPTIDE 101 PG/ML (0-125); SODIUM 147 MMOL/L (135-145); TOTAL CARBON DIOXIDE 19.7 MMOL/L (24-32); TOTAL PROTEIN 3.8 G/DL (6.4-8.2); eCRCL 112 ML/MIN; eGFR > 90 ML/MIN
[2024-07-11 18:35] LABS: CALCIUM < 5.0 MG/DL (8.5-10.1)
[2024-07-11 18:44] LABS: PLATELET ESTIMATE DECREASED; TOTAL CELLS COUNTED 100
[2024-07-11] MEDS: morphine 4 MG/ML inj SYRINge IV ONE (18:46)
[2024-07-11] MEDS: ondansetron/PF 4mg/2ml inj IV ONE ×2 (18:47→20:31)
[2024-07-11] MEDS: pantoprazole 40 MG vial IV ONE (18:50)
[2024-07-11] MEDS: normal saline 500ml IV soln 500 ML IV ONE (18:54)
[2024-07-11] MEDS ORDERED: potassium Cl 20mEq/100mL bag 100 ML IV SCH (19:10)
[2024-07-11] MEDS: potassium CL 10mEq/100ml bag 100 ML IV SCH (19:20)
[2024-07-11 19:29] LABS: ETHANOL 236 MG/DL (<10); PHOSPHORUS 1.6 MG/DL (2.3-4.5)
[2024-07-11 19:32] LABS: MAGNESIUM 0.7 MG/DL (1.5-2.4)
[2024-07-11] MEDS: magnesium sulf-water 2g/50mL 50 ML IV ONE (20:17)
[2024-07-11] MEDS: potassium Cl 40MEQ/1/2NS 520ml 520 ML IV ONE (20:23)
[2024-07-11] MEDS ORDERED: magnesium hydroxide 30ml (MOM) UD suspension PO PRN (20:25)
[2024-07-11] MEDS ORDERED: magnesium Cl slow-release 64mg tablet PO PRN (20:25)
[2024-07-11] MEDS ORDERED: potassium Cl 40MEQ/1/2NS 520ml 520 ML IV PRN ×2 (20:25→20:30)
[2024-07-11] MEDS ORDERED: magnesium sulf-water 4G/100mL 100 ML IV PRN ×2 (20:25→20:30)
[2024-07-11] MEDS ORDERED: magnesium sulf-water 2g/50mL 50 ML IV PRN ×2 (20:25→20:30)
[2024-07-11] MEDS ORDERED: potassium Cl 20 mEq SR tablet PO PRN ×4 (20:25→20:30)
[2024-07-11] MEDS ORDERED: mag hydrox/Alum hydrox/simeth 30ml oral suspension PO PRN (20:25)
[2024-07-11] MEDS ORDERED: acetaminophen 325mg tablet PO PRN (20:25)
[2024-07-11] MEDS ORDERED: LORazepam 2 mg/ml vial IV PRN (20:30)
[2024-07-11] MEDS ORDERED: haloperidol lactate 5mg/ml inj IM PRN (20:30)
[2024-07-11 20:38] LABS: ALANINE AMINOTRANSFERASE 54 U/L (12-78); ALBUMIN/GLOBULIN RATIO 0.9 (1.1-1.5); ALKALINE PHOSPHATASE 82 IU/L (46-116); ANION GAP 10 (8-16); ASPARTATE AMINO TRANSFERASE 121 U/L (10-37); BILIRUBIN,TOTAL 0.3 MG/DL (0.1-1.0); BLOOD UREA NITROGEN 20 MG/DL (7-18); BUN/CREATININE RATIO 17.2 (10.0-20.0); CALCIUM 7.3 MG/DL (8.5-10.1); CHLORIDE 104 MMOL/L (99-107); CREATININE 1.16 MG/DL (0.60-1.10); GLUCOSE 146 MG/DL (70-104); POTASSIUM 3.6 MMOL/L (3.5-5.1); SODIUM 140 MMOL/L (135-145); TOTAL CARBON DIOXIDE 26.4 MMOL/L (24-32); TOTAL PROTEIN 6.3 G/DL (6.4-8.2); eCRCL 58 ML/MIN; eGFR 64 ML/MIN
--- NOTE | 2024-07-11 21:04 | HISTORY AND PHYSICAL-Residence ---
History & Physical Providers to CC Resident Creating Document: ABHAY HERNANDEZ RES ~ History of Present Illness Primary Medical Doctor: [facility] Reason for Admit\Complaint: Upper GI bleed History of Present Illness This is a 63-year-old male with history of alcohol abuse, chronic pancreatitis, hypertension, left BKA came to the ER with a chief complaint of epigastric pain. The pain started earlier in the morning today, nonradiating, burning type, graded 8/10. He had two episodes of vomiting one in the morning and one in the evening, coffee ground color. Denied any black-colored stools or blood in the stools. He takes NSAIDs on a daily basis for right hip pain. Denies taking any anticoagulants. He has a history of chronic alcohol abuse, drinks about half a 5th of vodka daily. Last drink was today morning. His last colonoscopy was 5-8 years ago, apparently no significant findings were noted. His last EGD was six years ago. Allergies: Coded Allergies: No Known Allergies (Unverified , 07/05/24) Home Medications Home Medications Active One Daily Essential Tablet (Multivitamin with Folic Acid) 400 Mcg Tablet 1 Tab PO DAILY 30 Days Reported Ondansetron Odt (Ondansetron HCl) 8 Mg Tab.rapdis 1 Tab SL Q8H PRN Sertraline HCl 100 Mg Tablet 2 Tab PO DAILY Seroquel* (Quetiapine Fumarate) 100 Mg Tablet 1 Tab PO HS PRN Creon Dr 6,000 Units Capsule (Lipase/Protease/Amylase) 1 Each Capsule.dr 1 Cap PO TID Amlodipine Besylate 5 Mg Tablet 1 Tablet PO DAILY Past Medical History Past Medical History Hypertension Chronic pancreatitis Pancreatic mass Alcohol abuse 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 Past Social History Social History Comment Smokes about 3-4 cigarettes a day, has been smoking for the last five years Alcohol use, drinks about half a 5th of vodka daily. Has been drinking for more than 30-40 years Smokes marijuana on a daily basis Denies any other drug use Lives in a boarding house Has a prosthesis for left BKA. Smoking: Other Alcohol Use: Alcoholic Drug Use: Marijuana Lives with: Alone Lives In: Home ROS Constitutional: Denies: no symptoms reported, see HPI, chills, diaphoresis, fever, malaise, weakness, other Eyes: Denies: no symptoms reported, see HPI, pain, discharge, blurred vision, double vision, itching, photophobia, redness, tearing, other ENT: Denies: no symptoms reported, see HPI, ear pain, ear bleeding, ear discharge, hearing loss, ear ringing, nose pain, nose bleeding, nose congestion, nose discharge, throat pain, throat swelling, voice change, mouth pain, mouth bleeding, mouth swelling, other Respiratory: Denies: no symptoms reported, see HPI, cough, orthopnea, shortness of breath, SOB with exertion, SOB at rest, stridor, wheezing, hemoptysis, pain with breathing, other Cardiovascular: Denies: no symptoms reported, see HPI, chest pain, left arm pain, diaphoresis, lightheadedness, syncope, edema, palpitations, irregular heart rate, other Gastrointestinal: Reports: abdominal pain, nausea, vomiting, hematemesis; Denies: diarrhea Genitourinary: Denies: no symptoms reported, see HPI, burning, discharge, dysuria, frequency, flank pain, hematuria, incontinence, pain, decreased urine output, urgency, other Neurological: Denies: no symptoms reported, see HPI, speech problem, headache, dizziness, fainting, tingling, left sided numbness, right sided numbness, left sided weakness, right sided weakness, problems walking, unable to move lower ext, unable to move upper ext, petit mal seizures, tonic-clonic seizures, cognitive dysfunction, other Musculoskeletal: Denies: no symptoms reported, see HPI, pain, swelling, back pain, gout, joint pain, joint swelling, muscle pain, muscle swelling, muscle stiffness, neck pain, other Integumentary: Denies: no symptoms reported, see HPI, rash, itching, lesions, lumps, bruise(s), wound(s), laceration(s), dryness, change in color, other Exam Vitals: Vital Signs Date Time Temp Pulse Resp B/P (MAP) Pulse Ox O2 Delivery O2 Flow Rate FiO2 07/11/24 18:46 13 07/11/24 17:36 98.2 76 142/92 99 General: General: Alert, awake, oriented, not in acute distress HEENT: Conjunctiva pallor, Sclera clear, dry mucous membranes. Neck: Supple without masses and tenderness. Resp: Unlabored. Lungs clear to auscultation bilaterally. Heart: Regular Rate and rhythm, normal S1 and S2 without murmur, rub or gallop. Abdomen: Soft, tenderness noted in the epigastric region, no guarding, no rigidity no organomegaly, normal bowel sounds Extremities: No cyanosis,clubbing or edema, prosthesis on the left leg Skin: Warm and Dry. Neurology: No focal neurological deficits Diagnostic Data Last Recorded Lab Results: 07/11/24 1735 07/11/242015 Advance Care Planning Advanced Care plannin - 30 Minutes (I spent 17 minutes in discussing various resuscitative measures, the patient chose to be full code.) Additional Plan Assessment This is a 63-year-old male with history of chronic pancreatitis, pancreatic mass, alcohol abuse, hypertension came to the ER with a chief complaint of epigastric pain. His hemoglobin dropped to 7.3 from 10.9 on 06/2024. Patient is being admitted for upper GI bleed. Plan Upper GI bleed secondary to alcohol-induced gastritis Hemoglobin is 7.3 1 unit of blood transfusion ordered. H&H q.6 ordered Received 1 L of NS in the ER, started on NS@ 100 mL/hour Received 40 mg of IV pantoprazole in the ER, started on Protonix drip NPO Consult GI in the morning for an EGD Hypomagnesemia Hypokalemia Hypocalcemia Hypophosphatemia Hypomagnesemia secondary to alcohol abuse Hypokalemia and hypocalcemia likely secondary to hypomagnesemia Magnesium at the time of admission 0.7 Calcium less than 5.0, improved to 7.3(corrected Ca -8.1) Potassium 2.0, improved to 3.6 with potassium replacement Phosphorus 1.6 Patient is placed on potassium and magnesium replacement protocol Hypernatremia, hyperchloremia Non-anion gap metabolic acidosis Sodium 147, chloride 118, improved with repeat labs Bicarb 19.7, improved repeat labs Metabolic acidosis improved with IV fluids. Pancytopenia likely secondary to alcohol induced bone marrow suppression Macrocytic anemia WBCs 1.8, hematocrit is 21.9, platelet count is 80 MCV is 100.2 Started on thiamine, folic acid, multivitamin supplementation Alcohol abuse Alcohol level 236 AST/ALT-77/32 Started the patient on alcohol withdrawal protocol Started thiamine, folic acid, multivitamin. U tox ordered Social service consult requested Pancreatic mass History of chronic pancreatitis Lipase level in the normal range Abdominal CT done on 06/2024 showed hypodensity of pancreatic head and subcentimeter hypodense hepatic lesion Abdominal MRI done on 03/12 showed ill-defined mass in the head of pancreas concerning for pancreatic malignancy. Hepatic cysts and hemangioma. Patient did not have a follow up with an oncologist. History of hypertension Continue patient's home medication amlodipine once the med rec is done. Code status: Full DVT prophylaxis: SCDs GI prophylaxis: Protonix Diet: NPO Lines/tubes: Peripheral IV line Prognosis: Guarded Abhay Hernandez M.D PGY1 Patient seen and evaluated using HIPPA compliant AV device Agree with plan as discussed with resident Earl Lehman MD Date of Service: July 11, 2024 Billing Provider: EARL LEHMAN MD, PRAVAHIKA, [facility] July 11, 2024 21:04 EARL LEHMAN MD July 12, 2024 00:09
[2024-07-11 21:12] LABS: HEMOGLOBIN A1C 5.4 % (4.5-6.2)
[2024-07-11] MEDS: pantoprazole 40MG/NS 100ML BAG 100 ML IV SCH (21:47)
[2024-07-11] MEDS: normal saline 1000ml 1,000 ML IV SCH (22:38)
[2024-07-11] MEDS: thiamine 100mg/ml 2ml inj. IV SCH (22:39)
[2024-07-11] MEDS: morphine 4 MG/ML inj SYRINge IV PRN (22:56)
[2024-07-11 23:00] VITALS: BP 135/71; PULSE 66; RESP 18; TEMP 98.6; O2SAT 99
[2024-07-11 23:25] LABS: MAGNESIUM 1.6 MG/DL (1.5-2.4)
[2024-07-12] VITALS (9 sets, daily range): BP systolic 123–152; BP diastolic 72–92; PULSE 72–82; RESP 12–18; TEMP 97.5–98.9; O2SAT 94–100
[2024-07-12] MEDS: ondansetron/PF 4mg/2ml inj IV PRN (00:56)
[2024-07-12 01:39] LABS: BILIRUBIN,URINE NEGATIVE (Neg); CLARITY,URINE CLEAR (Clear); COLOR,URINE YELLOW (Yellow); GLUCOSE, URINE NEGATIVE (Neg); KETONES,URINE NEGATIVE (Neg); LEUKOCYTE ESTERASE ,URINE NEGATIVE (Neg); NITRITES, URINE NEGATIVE (Neg); OCCULT BLOOD,URINE NEGATIVE (Neg); PROTEIN,URINE NEGATIVE (Neg); UROBILINOGEN,URINE 0.2 E.U/dL (0.2-1.0)
[2024-07-12 01:52] LABS: UA COLLECTION TYPE CLN CATCH MIDSTREAM
[2024-07-12 01:56] LABS: URINE AMPHETAMINE SCREEN NEGATIVE (Neg); URINE BARBITUATE SCREEN NEGATIVE (Neg); URINE BENZODIAZEPINES SCREEN NEGATIVE (Neg); URINE CANNABINOID SCREEN POSITIVE (Neg); URINE COCAINE SCREEN NEGATIVE (Neg); URINE METHADONE SCREEN NEGATIVE (Neg); URINE OPIATE SCREEN POSITIVE (Neg); URINE PHENCYCLIDINE SCREEN NEGATIVE (Neg)
[2024-07-12 06:42] LABS: BASOPHILS % (AUTO) 0.5 % (0-1); EOSINOPHILS # (AUTO) 0.1 X10'3 (0-0.9); EOSINOPHILS % (AUTO) 1.5 % (0-6); HEMATOCRIT 30.9 % (42.0-52.0); HEMOGLOBIN 10.5 g/dl (14.0-17.9); LYMPHOCYTES # (AUTO) 1.1 X10'3 (1.1-4.8); LYMPHOCYTES % (AUTO) 31.5 % (21-51); MEAN CORPUSCULAR HGB CONC 33.9 g/dL (33.0-36.5); MEAN CORPUSCULAR VOLUME 100.2 FL (78-98); MEAN PLATELET VOLUME 7.8 FL (7.4-10.4); MONOCYTES # (AUTO) 0.3 X10'3 (0-0.9); MONOCYTES % (AUTO) 9.6 % (2-12); NEUTROPHILS % (AUTO) 56.9 % (42-75); PLATELET COUNT 99 X10'3 (140-440); RED BLOOD COUNT 3.08 X10'6 (4.70-6.10); RED CELL DISTRIBUTION WIDTH 15.4 % (11.5-14.5); WHITE BLOOD COUNT 3.5 X10'3 (4.5-11.0)
[2024-07-12 06:54] LABS: INR 1.2 INR; PROTHROMBIN TIME 11.7 SECONDS (9.0-12.0)
[2024-07-12 06:58] LABS: ALANINE AMINOTRANSFERASE 48 U/L (12-78); ALBUMIN 2.8 G/DL (3.4-5.0); ALBUMIN/GLOBULIN RATIO 0.9 (1.1-1.5); ALKALINE PHOSPHATASE 75 IU/L (46-116); ANION GAP 10 (8-16); ASPARTATE AMINO TRANSFERASE 91 U/L (10-37); BILIRUBIN,TOTAL 0.2 MG/DL (0.1-1.0); BLOOD UREA NITROGEN 16 MG/DL (7-18); BUN/CREATININE RATIO 16.3 (10.0-20.0); CALCIUM 7.1 MG/DL (8.5-10.1); CHLORIDE 105 MMOL/L (99-107); CHOL/HDL RATIO 1.6 (0.00-4.99); CHOLESTEROL 90 MG/DL (0-200); CREATININE 0.98 MG/DL (0.60-1.10); GLUCOSE 93 MG/DL (70-104); HDL CHOLESTEROL 56 MG/DL (35-60); LDL CHOLESTEROL 11 MG/DL (50-100); MAGNESIUM 1.3 MG/DL (1.5-2.4); POTASSIUM 4.3 MMOL/L (3.5-5.1); SODIUM 139 MMOL/L (135-145); TOTAL CARBON DIOXIDE 23.7 MMOL/L (24-32); TOTAL PROTEIN 5.9 G/DL (6.4-8.2); TRIGLYCERIDES 276 MG/DL (20-135); eCRCL 69 ML/MIN; eGFR 78 ML/MIN
[2024-07-12] MEDS: CefTRIAXone/D5W-Rocephin 1gm 50 ML IV SCH (07:24)
[2024-07-12] MEDS: multivitamins, therapeutics tablet PO SCH (07:24)
[2024-07-12] MEDS: folic acid 1mg/0.2ml inj IV SCH (07:24)
[2024-07-12] MEDS: K and/or MAG REPLACEMENT MC SCH (08:00)
[2024-07-12] MEDS ORDERED: K and/or MAG REPLACEMENT MC SCH (08:00)
[2024-07-12] MEDS: LORazepam 2 mg/ml vial IV PRN (08:53)
--- NOTE | 2024-07-12 12:38 | PROGRESS NOTE- Residence ---
Progress Note - Resident Providers to CC Resident Creating Document: DAKOTA FINLEY RES ~ Antibiotic Timeout Antibiotic Ordered?: Yes Subjective Patient examined at bedside. Patient was actively withdrawing in the morning with tremors, diaphoresis and anxious. Patient had another episode of vomiting today, acidic in nature. Counseled today regarding the need to quit alcohol and offered help but the patient will like to seek help from [facility]. Furthermore, also discussed regarding the pancreatic mass, patient is aware and reports losing weight but thinks that the mass is stable irrespective of any imaging studies. Agrees to follow up outpatient when released. Objective Vital Signs Date Time Temp Pulse Resp B/P (MAP) Pulse Ox O2 Delivery O2 Flow Rate FiO2 07/12/24 11:00 97.5 75 14 134/87 (103) 94 07/12/24 08:00 Room Air Result Diagram: 07/12/24 0602 07/12/24 0602 General: Awake and Alert, anxious appearing. Diaphoretic HEENT: Conjunctiva pink, Sclera clear, Mucus Membranes moist. Resp: Unlabored. Lungs clear to auscultation bilaterally. Heart: Regular Rate and rhythm, normal S1 and S2 without murmur, rub or gallop. Abdomen: Soft, epigastric tenderness. 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 Essential tremors+, no other motor or sensory deficits. No cranial nerve deficits Extremities: Left BKA with prosthetic foot Skin: Warm and Dry. No rashes, no puncture arriaga Coagulation Studies Laboratory Tests Test 07/12/24 06:02 Prothrombin Time 11.7 SECONDS (9.0-12.0) INR International Normalized Ratio 1.2 INR Coagulation Comments Assessment Assessment 63-year-old male, history of alcohol abuse, presenting with epigastric pain and coffee-ground emesis. He is being evaluated managed for significant electrolyte abnormality secondary to alcohol abuse and upper GI bleed. Plan Plan 1. Upper GI bleed: Differentials: NSAIDs/alcohol-induced gastritis Hemoglobin at admission 7.3, increased to 10.5 after only 1 unit transfusion. H and H remained stable Follow H&H q.6 Continue Protonix drip Discussed case with Dr. Brunson. Plan for EGD in a.m.; NPO after midnight 2. Alcohol abuse disorder: Pancytopenia Electrolyte abnormalities- hypomagnesemia, hypokalemia Hypocalcemia and hypophosphatemia resolved Patient on alcohol withdrawal protocol. Thiamine and folic acid replacement to be continued Maintain potassium greater than four and magnesium greater than 2.0. 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 Chronic pancreatitis: Possible acute on chronic pancreatitis Lipase less than 10 Epigastric pain+, nausea, vomiting and loss of appetite Continue IV fluid resuscitation and pain management Advance diet as tolerated after EGD On home medications of Creon 6000 units t.i.d., we will restart the medications 4. Pancreatic head mass Recommend following up with oncologist outpatient 5. Hypernatremia, hyperchloremia: POA; resolved Non-anion gap metabolic acidosis 6. History of hypertension: Restarted home medications of amlodipine 7. Anxiety/depression- continue home medications of sertraline and Seroquel Lines: PIV Code status: Full code Diet: Regular diet, NPO after midnight GI prophylaxis: Protonix DVT prophylaxis: None Dakota Finley PGY2, Internal medicine resident Date of Service: July 12, 2024 Billing Provider: AGUSTIN MOORE MD, DEEPANJALI, RES July 12, 2024 12:38
[2024-07-12 13:23] LABS: BASOPHILS % (AUTO) 0.3 % (0-1); EOSINOPHILS # (AUTO) 0.1 X10'3 (0-0.9); EOSINOPHILS % (AUTO) 1.5 % (0-6); HEMATOCRIT 31.4 % (42.0-52.0); HEMOGLOBIN 10.6 g/dl (14.0-17.9); LYMPHOCYTES # (AUTO) 0.9 X10'3 (1.1-4.8); LYMPHOCYTES % (AUTO) 24.3 % (21-51); MEAN CORPUSCULAR HEMOGLOBIN 33.8 PG (27.0-31.0); MEAN CORPUSCULAR HGB CONC 33.8 g/dL (33.0-36.5); MEAN CORPUSCULAR VOLUME 99.9 FL (78-98); MEAN PLATELET VOLUME 7.6 FL (7.4-10.4); MONOCYTES # (AUTO) 0.3 X10'3 (0-0.9); MONOCYTES % (AUTO) 8.2 % (2-12); NEUTROPHILS # (AUTO) 2.3 X10'3 (1.8-7.7); NEUTROPHILS % (AUTO) 65.7 % (42-75); PLATELET COUNT 83 X10'3 (140-440); RED BLOOD COUNT 3.14 X10'6 (4.70-6.10); RED CELL DISTRIBUTION WIDTH 15.4 % (11.5-14.5); WHITE BLOOD COUNT 3.5 X10'3 (4.5-11.0)
[2024-07-12] MEDS ORDERED: quetiapine 100mg tablet PO PRN (14:25)
[2024-07-12 19:25] LABS: BASOPHILS % (AUTO) 0.4 % (0-1); HEMATOCRIT 31.8 % (42.0-52.0); HEMOGLOBIN 10.8 g/dl (14.0-17.9); LYMPHOCYTES # (AUTO) 0.7 X10'3 (1.1-4.8); LYMPHOCYTES % (AUTO) 22.9 % (21-51); MEAN CORPUSCULAR HGB CONC 34.1 g/dL (33.0-36.5); MEAN CORPUSCULAR VOLUME 99.7 FL (78-98); MONOCYTES # (AUTO) 0.3 X10'3 (0-0.9); MONOCYTES % (AUTO) 9.2 % (2-12); NEUTROPHILS % (AUTO) 66.5 % (42-75); PLATELET COUNT 75 X10'3 (140-440); RED BLOOD COUNT 3.18 X10'6 (4.70-6.10); RED CELL DISTRIBUTION WIDTH 15.5 % (11.5-14.5)
[2024-07-12] MEDS: LIPASE/PROTEASE/AMYLASE 4,200 unit CAPSULE.DR PO SCH (20:18)
[2024-07-12] MEDS: magnesium Cl slow-release 64mg tablet PO PRN (21:07)
[2024-07-12] MEDS: Melatonin 3mg tablet PO ONE (22:07)
[2024-07-13] VITALS (10 sets, daily range): BP systolic 112–154; BP diastolic 63–94; PULSE 76–96; RESP 15–20; TEMP 96–97.8; O2SAT 96–100
--- NOTE | 2024-07-13 01:14 | CONSULTATION ---
DATE OF CONSULTATION: 07/12/2024 DICTATING PHYSICIAN: Michelle Armas MD REASON FOR CONSULTATION: Upper GI bleed. HISTORY OF PRESENT ILLNESS: The patient is a 63-year-old with history of alcohol use disorder, history of chronic pancreatitis, hypertension, came in because of chief complaint of epigastric pain. Apparently, the pain was 8/10 in severity, had 2 episodes of coffee-ground emesis as well. The pain was non-characteristic. He does have a history of NSAID use in smaller quantities. He came in with hemoglobin of around 7, was given a unit of packed red blood cells and the hemoglobin went up to about 8. He has not had any further GI bleeding. He has remained stable. PAST MEDICAL HISTORY: Positive for hypertension, chronic pancreatitis, alcohol use disorder. PAST SURGICAL HISTORY: Left BKA. FAMILY HISTORY: Noncontributory. PERSONAL HISTORY: Noncontributory. REVIEW OF SYSTEMS: A 12-point review of systems same as history of present illness. PHYSICAL EXAMINATION: GENERAL: He is awake, alert, appears to be in no apparent distress. VITAL SIGNS: Normal. NECK: Supple. No thyromegaly, no JVD, no significant lymphadenopathy. HEENT: Oral cavity within normal limits. HEART: Both the heart sounds heard normal. No rubs or murmurs. LUNGS: Clear to auscultation and percussion. ABDOMEN: Soft, nontender. No masses, no organomegaly. Bowel sounds are present. EXTREMITIES: Reveal no clubbing, cyanosis, or edema. NEUROLOGIC: Cranial nerves bilaterally within normal limits. HEMATOLOGIC: Reveals no anemia, petechiae, or purpura. IMPRESSION: A 63-year-old gentleman with history of alcohol use disorder, with a high alcohol level in his blood, comes because of abdominal pain and coffee-ground emesis and melena. Most likely, this is an upper GI source of bleeding. Etiologies include gastritis, peptic ulcer disease. I doubt it is variceal bleeding. The patient remains hemodynamically stable and has shown increase in the hemoglobin and hematocrit in a desired level with one unit of packed red blood cells. The patient has multiple other medical problems, which are not active at this time. I doubt he has any arthritis at this time. I would recommend an imaging study electively to evaluate the pancreatic lesion that has been reported in his chart. RECOMMENDATIONS: Continue current treatment including proton pump inhibitor therapy. We will keep him n.p.o. after midnight and plan on an endoscopy tomorrow. The risks and benefits explained, understands and wishes to proceed. Michelle Armas MD TID: [id number] RECEIPT: [id number] THANH/CURTIS/CATARINA
[2024-07-13] MEDS: morphine 2 MG/ML inj. syringe IV PRN (03:52)
[2024-07-13 06:34] LABS: BASOPHILS % (AUTO) 0.2 % (0-1); EOSINOPHILS % (AUTO) 1.5 % (0-6); HEMATOCRIT 33.5 % (42.0-52.0); HEMOGLOBIN 11.5 g/dl (14.0-17.9); LYMPHOCYTES # (AUTO) 0.8 X10'3 (1.1-4.8); LYMPHOCYTES % (AUTO) 27.7 % (21-51); MEAN CORPUSCULAR HEMOGLOBIN 33.9 PG (27.0-31.0); MEAN CORPUSCULAR HGB CONC 34.3 g/dL (33.0-36.5); MEAN CORPUSCULAR VOLUME 98.7 FL (78-98); MEAN PLATELET VOLUME 7.9 FL (7.4-10.4); MONOCYTES # (AUTO) 0.3 X10'3 (0-0.9); MONOCYTES % (AUTO) 10.9 % (2-12); NEUTROPHILS # (AUTO) 1.8 X10'3 (1.8-7.7); NEUTROPHILS % (AUTO) 59.7 % (42-75); PLATELET COUNT 78 X10'3 (140-440); RED CELL DISTRIBUTION WIDTH 15.4 % (11.5-14.5); WHITE BLOOD COUNT 2.9 X10'3 (4.5-11.0)
[2024-07-13 06:41] LABS: PROTHROMBIN TIME 10.4 SECONDS (9.0-12.0)
[2024-07-13 06:53] LABS: ALANINE AMINOTRANSFERASE 45 U/L (12-78); ALBUMIN 3.2 G/DL (3.4-5.0); ALBUMIN/GLOBULIN RATIO 0.9 (1.1-1.5); ALKALINE PHOSPHATASE 103 IU/L (46-116); ANION GAP 9 (8-16); ASPARTATE AMINO TRANSFERASE 74 U/L (10-37); BILIRUBIN,TOTAL 1.1 MG/DL (0.1-1.0); BLOOD UREA NITROGEN 8 MG/DL (7-18); BUN/CREATININE RATIO 8.8 (10.0-20.0); CALCIUM 7.9 MG/DL (8.5-10.1); CHLORIDE 100 MMOL/L (99-107); CREATININE 0.91 MG/DL (0.60-1.10); GLUCOSE 102 MG/DL (70-104); MAGNESIUM 1.4 MG/DL (1.5-2.4); PHOSPHORUS 2.2 MG/DL (2.3-4.5); POTASSIUM 3.5 MMOL/L (3.5-5.1); SODIUM 136 MMOL/L (135-145); TOTAL CARBON DIOXIDE 27.1 MMOL/L (24-32); TOTAL PROTEIN 6.7 G/DL (6.4-8.2); eCRCL 74 ML/MIN; eGFR 85 ML/MIN
[2024-07-13] MEDS: sertraline 50mg tablet PO SCH (08:00)
[2024-07-13] MEDS: amLODIPine 5mg tablet PO SCH (08:08)
[2024-07-13 08:49] LABS: RETICULOCYTE % (AUTO) 1.3 % (0.5-1.5)
[2024-07-13 08:51] LABS: ABSOLUTE RETICS # 45100 /CUMM (23000-93000)
[2024-07-13] MEDS ORDERED: fentaNYL/PF 50MCG/1 ML 2ML syringe ONE (12:34)
[2024-07-13] MEDS ORDERED: midazolam 1 mg/ML 2ml injection ONE (12:34)
[2024-07-13] MEDS ORDERED: propofol inj 20 ML IV ONE (12:35)
[2024-07-13] MEDS ORDERED: normal saline 1000ML IV soln ONE (12:38)
[2024-07-13] MEDS ORDERED: THIA50TA10 PO (17:12)
[2024-07-13] MEDS ORDERED: FOLI0.4T14 PO (17:12)
[2024-07-13] MEDS ORDERED: PANT40TA54 PO (17:12)
[2024-07-13] MEDS ORDERED: ONDA-245 SL (17:12)
--- NOTE | 2024-07-13 17:57 | DISCHARGE SUMMARY-Residence ---
Discharge Summary Providers to CC Resident Creating Document: LASHONDAMARY GODFREY ~ Discharge Summary Admission Diagnosis: UPPER GI BLEED Hospital Course DATE OF ADMISSION: 07/11/2024 DATE OF DISCHARGE: 07/13/2024 Discharge Diagnosis\Comment: Upper GI bleed status post EGD which revealed duodenitis Alcohol abuse disorder- pancytopenia, hypomagnesemia and hypokalemia secondary to above Acute on chronic pancreatitis Pancreatic head mass; known Hypernatremia, hyperchloremia- resolved History of hypertension Anxiety/depression Operations\Procedures: EGD Consultants: GI- Dr. Navarro Complications: None Condition on DC: Stable for transfer New Medications: Folic Acid (FOLIC ACID tablet) 0.4 Mg Tablet 1 TAB PO DAILY for 30 Days, #30 TAB 0 Refills Thiamine HCl (Vitamin B-1) 50 Mg Tablet 2 TAB PO DAILY for 30 Days, #60 TAB 0 Refills Pantoprazole Sodium (Pantoprazole Sodium) 40 Mg Tablet.dr 40 MG PO DAILY, #30 TAB.SR Continued Medications: Amlodipine Besylate (Amlodipine Besylate) 5 Mg Tablet 1 TABLET PO DAILY, 5 Refills Lipase/Protease/Amylase (Creon Dr 6,000 Units Capsule) 1 Each Capsule.dr 1 CAP PO TID for digestion, 0 Refills Multivitamin with Folic Acid (One Daily Essential Tablet) 400 Mcg Tablet 1 TAB PO DAILY for 30 Days, #30 TAB 0 Refills Ondansetron 8mg ODT (Ondansetron Odt) 8 Mg Tab.rapdis 1 TAB SL Q8H PRN for nausea/vomiting, #60 TAB (This prescription has been renewed) Quetiapine Fumarate* (Seroquel*) 100 Mg Tablet 1 TAB PO HS PRN for agitation Sertraline HCl (Sertraline HCl) 100 Mg Tablet 2 TAB PO DAILY, 0 Refills Discharge Summary: This is a 63-year-old male patient who came into the hospital with complaints of severe epigastric pain and one episode of coffee-ground emesis after drinking about a 5th of vodka. He was admitted for further evaluation of acute GI bleed, he had several other episodes of vomiting which were acidic in nature. He was started on Protonix drip and Gastroenterology was consulted. H&H was monitored and remained stable. But in view of ongoing GI bleeding initially, empirical management of 1 unit transfusion was given in the ER as his admission hemoglobin was 7.3. Gastroenterology, Dr. Boy berry and performed an EGD which revealed presence of duodenitis and no other significant findings. Diet was advanced as tolerated after the procedure, he had some nausea which was controlled with Zofran. Due to his alcohol abuse disorder patient was placed on alcohol withdrawal protocol which controlled his withdrawal episodes. He also present with electrolyte abnormalities including hypokalemia and hypomagnesemia which were corrected as per protocol. IV fluids were continued. Home medications of Creon was restarted. He was able to ambulate well around the floor without any difficulties. Counseling was given to the patient with the help of the substance use navigator as well, patient wanted to seek help with [facility]. We also reviewed visited the presence of the pancreatic mass, he agreed to follow up with his primary care provider to receive a referral to an oncologist. As he remained stable postprocedure as well, he was discharged back home. Advised at discharge: Kindly take all your medications as prescribed. Take the Protonix every day. Along with the coffee brown emesis which turned out to be duodenitis, you also have a component of acute pancreatitis on top of your chronic pancreatitis as discussed. You will need to completely abstain from alcohol intake. [facility] and follow their recommendations. Does also report in the to follow up with the or be a primary care practitioner so that they can refer you to an oncologist. You have to get the pancreatic mass evaluated. If you have recurrence of symptoms including nausea or vomiting, intolerance to any diet, bloody vomiting or recurrence of coffee brown vomiting, kindly retu rned back to the ER. Physical exam at discharge: General: Awake and Alert, anxious appearing. Diaphoretic HEENT: Conjunctiva pink, Sclera clear, Mucus Membranes moist. Resp: Unlabored. Lungs clear to auscultation bilaterally. Heart: Regular Rate and rhythm, normal S1 and S2 without murmur, rub or gallop. Abdomen: Soft, epigastric tenderness. 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 Essential tremors+, no other motor or sensory deficits. No cranial nerve deficits Extremities: Left BKA with prosthetic foot Skin: Warm and Dry. No rashes, no puncture arriaga Labs at discharge: WBC 2.9, RBC 3.4, hemoglobin 11.5, platelets 78 Sodium 136, potassium 3.5, chloride 100, bicarb 27.1, creatinine 0.9, blood glucose 102 Medications at discharge: Folic acid, Protonix, thiamine 100 mg daily, amlodipine 5 mg, Creon 6000 units t.i.d., multivitamin, Zofran 8 mg, Seroquel, sertraline *Problems/Diagnosis: (1) Acute on chronic pancreatitis Status: Acute (2) Hypomagnesemia Status: Acute Total Time Spent on D/C: Up to 30 Minutes Date of Service: July 13, 2024 Billing Provider: BERNARDO SCANLON MD Common Visit Codes: 79252-WAH/OBS DISCH DAY >30min EPIFANIO GALLEGO, MARY July 13, 2024 17:57 BERNARDO SCANLON MD July 13, 2024 19:10
[2024-07-13] MEDS ORDERED: pantoprazole 40mg Tablet.DR PO SCH (20:00)
[2024-07-15] MEDS ORDERED: folic acid 1mg tablet PO SCH (08:00)
[2024-07-15] MEDS ORDERED: thiamine 100mg tablet PO SCH (08:00)
== END 2024-07-13 20:31 | disposition home or self-care (01) | DRG 377 ==
LOC: ER 17:27 → ED HOLD 19:57 → EDBEDREQ 21:35 → PCU 3S 23:24
PROVIDERS: ADMIT Internal Medicine; ATTEND Internal Medicine
PROC: 0DB78ZX Excision of Stomach, Pylorus, Via Natural or Artificial Opening Endoscopic, Diagnostic (ICD-10-PCS; principal; 2024-07-13 12:33)
DX: K29.21 Alcoholic gastritis with bleeding (principal); K85.90 Acute pancreatitis without necrosis or infection, unspecified; D61.818 Other pancytopenia; E87.0 Hyperosmolality and hypernatremia; D62 Acute posthemorrhagic anemia; E87.1 Hypo-osmolality and hyponatremia; E87.20 Acidosis, unspecified; K86.1 Other chronic pancreatitis; K29.80 Duodenitis without bleeding; K86.89 Other specified diseases of pancreas; K31.89 Other diseases of stomach and duodenum; K76.89 Other specified diseases of liver; F41.9 Anxiety disorder, unspecified; I10 Essential (primary) hypertension; F32.A Depression, unspecified; F10.129 Alcohol abuse with intoxication, unspecified; E87.6 Hypokalemia; E87.8 Other disorders of electrolyte and fluid balance, not elsewhere classified; E83.39 Other disorders of phosphorus metabolism; E83.42 Hypomagnesemia; E83.51 Hypocalcemia; Z89.512 Acquired absence of left leg below knee
CPT/HCPCS: 36415; 43239; 71045; 80053; 80061; 80305; 80320; 81003; 83036; 83690; 83735; 83880; 84100; 84484; 85007; 85025; 85045; 85610; 86885; 86900; 86901; 86920; 87081; 93005; 96365; 96375; 97161; 97530; 99291; A4620; A6212; A6258; G0378; J0696; J2060; J2250; J2270; J2405; J2470; J2704; J3010; J3411; J3480; J3490; J7030; J7040; J7121

== ENCOUNTER 2024-08-02 09:44 | Emergency (ER) | payer OTHER ==
[~2024-08-02] VITALS: Ht 172.7 cm; Wt 57.2 kg
[~2024-08-02 09:44] MED LIST changes: +FOLI0.4T14 PO; +PANT40TA54 PO; +THIA50TA10 PO
[2024-08-02 10:34] LABS: BASOPHILS % (AUTO) 0.5 % (0-1); EOSINOPHILS # (AUTO) 0.2 X10'3 (0-0.9); EOSINOPHILS % (AUTO) 2.3 % (0-6); HEMATOCRIT 39.9 % (42.0-52.0); HEMOGLOBIN 13.4 g/dl (14.0-17.9); LYMPHOCYTES # (AUTO) 1.3 X10'3 (1.1-4.8); LYMPHOCYTES % (AUTO) 16.2 % (21-51); MEAN CORPUSCULAR HEMOGLOBIN 33.4 PG (27.0-31.0); MEAN CORPUSCULAR HGB CONC 33.5 g/dL (33.0-36.5); MEAN CORPUSCULAR VOLUME 99.5 FL (78-98); MEAN PLATELET VOLUME 7.7 FL (7.4-10.4); MONOCYTES # (AUTO) 0.5 X10'3 (0-0.9); MONOCYTES % (AUTO) 6.9 % (2-12); NEUTROPHILS # (AUTO) 5.8 X10'3 (1.8-7.7); NEUTROPHILS % (AUTO) 74.1 % (42-75); PLATELET COUNT 273 X10'3 (140-440); RED CELL DISTRIBUTION WIDTH 14.2 % (11.5-14.5); WHITE BLOOD COUNT 7.9 X10'3 (4.5-11.0)
[2024-08-02 10:45] LABS: ALANINE AMINOTRANSFERASE 16 U/L (12-78); ALBUMIN 3.9 G/DL (3.4-5.0); ALBUMIN/GLOBULIN RATIO 0.9 (1.1-1.5); ALKALINE PHOSPHATASE 95 IU/L (46-116); AMYLASE 169 U/L (25-115); ANION GAP 12 (8-16); ASPARTATE AMINO TRANSFERASE 22 U/L (10-37); BILIRUBIN,TOTAL 0.4 MG/DL (0.1-1.0); BLOOD UREA NITROGEN 26 MG/DL (7-18); BUN/CREATININE RATIO 21.8 (10.0-20.0); CALCIUM 9.6 MG/DL (8.5-10.1); CHLORIDE 100 MMOL/L (99-107); CREATININE 1.19 MG/DL (0.60-1.10); GLUCOSE 129 MG/DL (70-104); LIPASE 37 U/L (16-77); POTASSIUM 4.3 MMOL/L (3.5-5.1); SODIUM 139 MMOL/L (135-145); TOTAL CARBON DIOXIDE 26.7 MMOL/L (24-32); TOTAL PROTEIN 8.1 G/DL (6.4-8.2); eCRCL 53 ML/MIN; eGFR 62 ML/MIN
[2024-08-02] MEDS: HYDROcodone/acetaminophen 5mg/325mg tablet PO ONE (10:56)
[2024-08-02] MEDS: normal saline 1000ml 1,000 ML IV ONE (10:56)
[2024-08-02] MEDS: morphine 4 MG/ML inj SYRINge IV ONE (11:47)
--- NOTE | 2024-08-02 12:19 | Physician Documentation ---
History of Present Illness Chief Complaint: Abdominal Pain Stated Complaint: PANCREATITIS Time Seen by MD: 10:20 Primary Medical Doctor: [facility] Mode of Arrival: POV, Ambulatory HPI 63 year old male with epigastric pain radiating to back. "I think it's my pancreatitis again." Has history of pancreatitis. +nausea, denies excessive vomiting, diarrhea, fevers, cough, shortness of breath, chest pain. Medication Reconciliation Allergies: Coded Allergies: No Known Allergies (Unverified , 08/02/24) Scheduled Amlodipine Besylate (Amlodipine Besylate), 1 TABLET PO DAILY, (Reported) Folic Acid (FOLIC ACID tablet), 1 TAB PO DAILY Lipase/Protease/Amylase (Creon Dr 6,000 Units Capsule), 1 CAP PO TID, (Reported) Multivitamin with Folic Acid (One Daily Essential Tablet), 1 TAB PO DAILY Pantoprazole Sodium (Pantoprazole Sodium), 40 MG PO DAILY Sertraline HCl (Sertraline HCl), 2 TAB PO DAILY, (Reported) Thiamine HCl (Vitamin B-1), 2 TAB PO DAILY Scheduled PRN Ondansetron 8mg ODT (Ondansetron Odt), 1 TAB SL Q8H PRN for nausea/vomiting Quetiapine Fumarate* (Seroquel*), 1 TAB PO HS PRN for agitation, (Reported) Past Medical History Past Medical History: Hypertension, Gastritis, Pancreatitis, Chronic Back Pain, *PSYCH*, Depression Past Surgical History: orthopedic surgeries Alcohol Use: Alcoholic Drug Use: marijuana Lives with: Alone Lives In: Home Review of Systems All Other Systems at this time: Reviewed and Negative Physical Exam Vital Signs: RN Vital Signs have been reviewed: Yes, Temperature: 97.6, Source: Temporal, Heart Rate: 66, Respiratory Rate: 18, BP: 166/81, Pulse Oximetry: 98, Weight: 57.200 Oxygen Flow Rate: 0 Physical Exam HEENT: PERRL, moist oral mucosa, EOMI Pulmonary: No respiratory distress Cardiac: RRR, no murmur, rub or gallop GI: nondistended, soft, nontender, no guarding, no rebound MSK: no deformity Skin: w/d/i, no rash Neuro: alert, nonfocal Psych: normal affect Progress Results/Orders Results/Orders Completed Orders - KAREN STREET MD Hydrocodone/Apap 5/325mg Tab (Catherine 5/32 (08/02/24 10:55) Normal Saline 1000ml (Sodium Chloride 10 (08/02/24 10:55) Morphine 4mg/Ml Inj. (Morphine Inj.) (08/02/24 11:45) Medications Received in ER Medications (Trade) Dose Ordered Sig/Dominic Route PRN Reason Start Time Stop Time Status Last Admin Dose Admin (Catherine 5/325mg tablet) 1 tab ONCE ONCE PO 08/02/24 10:55 08/02/24 10:56 DC 08/02/24 10:56 1 TAB Sodium Chloride 1,000 ml @ 1,000 mls/hr ONCE ONCE IV 08/02/24 10:55 08/02/24 11:54 DC 08/02/24 10:56 1,000 MLS/HR (morphine inj.) 4 mg ONCE ONCE IV 08/02/24 11:45 08/02/24 11:46 DC 08/02/24 11:47 4 MG Vital Signs 08/02/24 08/02/24 08/02/24 08/02/24 09:49 10:28 10:56 11:47 Temp 97.6 Pulse 73 66 Resp 18 16 18 18 B/P (MAP) 178/87 166/81 (109) Pulse Ox 99 98 O2 Flow Rate 0 Laboratory Tests Test 08/02/24 10:05 08/02/24 11:14 White Blood Count 7.9 Red Blood Count 4.00 L Hemoglobin 13.4 L Hematocrit 39.9 L Mean Corpuscular Volume 99.5 H Mean Corpuscular Hemoglobin 33.4 H Mean Corpuscular Hemoglobin Concent 33.5 Red Cell Distribution Width 14.2 Platelet Count 273 Mean Platelet Volume 7.7 Neutrophils (%) (Auto) 74.1 Lymphocytes (%) (Auto) 16.2 L Monocytes (%) (Auto) 6.9 Eosinophils (%) (Auto) 2.3 Basophils (%) (Auto) 0.5 Neutrophils # (Auto) 5.8 Lymphocytes # (Auto) 1.3 Monocytes # (Auto) 0.5 Eosinophils # (Auto) 0.2 Basophils # (Auto) 0.0 CBC Comment Sodium Level 139 Potassium Level 4.3 Chloride Level 100 Carbon Dioxide Level 26.7 Anion Gap 12 Blood Urea Nitrogen 26 H Creatinine 1.19 H Estimated GFR/1.73 m2 62 BUN/Creatinine Ratio 21.8 H Glucose Level 129 H Calcium Level 9.6 Total Bilirubin 0.4 Aspartate Amino Transf (AST/SGOT) 22 Alanine Aminotransferase (ALT/SGPT) 16 Alkaline Phosphatase 95 Total Protein 8.1 Albumin 3.9 Globulin 4.2 Albumin/Globulin Ratio 0.9 L Amylase Level 169 H Lipase 37 Chemistry Comments Urine Comment Medical Decision Making Findings 63 year old male with history of pancreatitis and benign exam, vitals benign. Labs demonstrated mildly elevated amylase, supporting a diagnosis of mild pancreatitis, with no leukocytosis and no concern for necrotizing pancreatitis or other life threatening intraabdominal process. IVF and medications provided. Return precautions. Differential Dx:Considerations: Include: Appendicitis, Bowel obstruction, Cholelithasis, Constipation, Gastritis/PUD, Gastroenteritis, Hepatitis, Ischemic bowel, Pancreatitis, Urinary obstruction, Urinary tract infection, Urolithiasis Departure Disposition: HOME / SELF CARE / HOMELESS Impression: Primary Impression: Pancreatitis Condition: Stable Discharge Instructions: Abdominal Pain (Nonspecific) Referrals: NO PRIMARY CARE PROVIDER (PCP) Education Educated: Patient Educated regarding: diagnosis, treatment, prognosis, need for follow up Signature Scribe Signature: . Attestation: . KAREN STREET MD Aug 02, 2024 12:19
[2024-08-02 12:20] LABS: BILIRUBIN,URINE NEGATIVE (Neg); CLARITY,URINE CLEAR (Clear); COLOR,URINE YELLOW (Yellow); GLUCOSE, URINE NEGATIVE (Neg); KETONES,URINE 15 mg/dl (Neg); LEUKOCYTE ESTERASE ,URINE NEGATIVE (Neg); NITRITES, URINE NEGATIVE (Neg); OCCULT BLOOD,URINE NEGATIVE (Neg); PROTEIN,URINE 100 mg/dl (Neg); UROBILINOGEN,URINE 0.2 E.U/dL (0.2-1.0)
[2024-08-02 12:21] LABS: UA COLLECTION TYPE NON-SPECIFIED
[2024-08-02 12:49] LABS: BACTERIA,URINE FEW /HPF (Neg); WBC,URINE 0-4 /HPF (0-4)
[2024-08-02 12:50] LABS: SQUAMOUS EPITHELIAL CELL,UR FEW /LPF (FEW)
[2024-08-02 13:06] VITALS: BP 135/79; PULSE 82; RESP 16; TEMP 98.9; O2SAT 98
== END 2024-08-02 13:07 | disposition home or self-care (01) ==
LOC: ER 09:45
DX: K85.90 Acute pancreatitis without necrosis or infection, unspecified (principal); I10 Essential (primary) hypertension; F32.A Depression, unspecified; F12.90 Cannabis use, unspecified, uncomplicated; F10.90 Alcohol use, unspecified, uncomplicated; Y90.9 Presence of alcohol in blood, level not specified
CPT/HCPCS: 36415; 80053; 81001; 82150; 83690; 85025; 96361; 96374; 99283; J2270; J7030

== ENCOUNTER 2024-08-06 20:41 | Emergency (ER) | payer OTHER ==
[~2024-08-06] VITALS: Ht 172.7 cm; Wt 58.2 kg
[2024-08-06 20:43] VITALS: BP 152/80; PULSE 78; RESP 18; O2SAT 100
[2024-08-06 21:29] LABS: BASOPHILS % (AUTO) 0.2 % (0-1); EOSINOPHILS # (AUTO) 0.3 X10'3 (0-0.9); EOSINOPHILS % (AUTO) 2.6 % (0-6); HEMATOCRIT 35.3 % (42.0-52.0); HEMOGLOBIN 12.1 g/dl (14.0-17.9); LYMPHOCYTES # (AUTO) 1.6 X10'3 (1.1-4.8); LYMPHOCYTES % (AUTO) 16.6 % (21-51); MEAN CORPUSCULAR HEMOGLOBIN 34.1 PG (27.0-31.0); MEAN CORPUSCULAR HGB CONC 34.3 g/dL (33.0-36.5); MEAN CORPUSCULAR VOLUME 99.2 FL (78-98); MEAN PLATELET VOLUME 8.1 FL (7.4-10.4); MONOCYTES # (AUTO) 0.9 X10'3 (0-0.9); MONOCYTES % (AUTO) 8.9 % (2-12); NEUTROPHILS % (AUTO) 71.7 % (42-75); PLATELET COUNT 205 X10'3 (140-440); RED BLOOD COUNT 3.56 X10'6 (4.70-6.10); RED CELL DISTRIBUTION WIDTH 14.3 % (11.5-14.5); WHITE BLOOD COUNT 9.8 X10'3 (4.5-11.0)
[2024-08-06 21:39] LABS: ALANINE AMINOTRANSFERASE 17 U/L (12-78); ALBUMIN 3.9 G/DL (3.4-5.0); ALKALINE PHOSPHATASE 93 IU/L (46-116); ANION GAP 8 (8-16); ASPARTATE AMINO TRANSFERASE 16 U/L (10-37); BILIRUBIN,TOTAL 0.2 MG/DL (0.1-1.0); BLOOD UREA NITROGEN 29 MG/DL (7-18); CHLORIDE 102 MMOL/L (99-107); CREATININE 1.32 MG/DL (0.60-1.10); GLUCOSE 119 MG/DL (70-104); LIPASE 68 U/L (16-77); SODIUM 136 MMOL/L (135-145); TOTAL PROTEIN 7.8 G/DL (6.4-8.2); eCRCL 48 ML/MIN; eGFR 55 ML/MIN
[2024-08-06 21:43] LABS: CALCIUM 8.9 MG/DL (8.5-10.1)
[2024-08-06] MEDS: pantoprazole 40mg Tablet.DR PO STA (23:30)
[2024-08-06] MEDS: LIDOcaine 2% Viscous 15ml cup MM STA (23:30)
[2024-08-06] MEDS: mag hydrox/Alum hydrox/simeth 30ml oral suspension PO STA (23:30)
--- NOTE | 2024-08-07 00:37 | Physician Documentation ---
History of Present Illness Chief Complaint: Abdominal Pain Stated Complaint: ABDOMINAL PAIN Time Seen by MD: 23:14 Primary Medical Doctor: [facility] HPI Patient is seen today with complaints of epigastric abdominal pain states he thinks he is having of recurrent bout of pancreatitis. Patient states he takes a steady daily doses of ibuprofen and Tylenol. Patient denies any chest pain or shortness of breath or diarrhea. He does admit to some nausea and vomiting. Patient has no other concern or complaint at this time. He denies any fevers or chills. He states his nausea started today as well as his epigastric abdominal pain. Patient denies any melena. Medication Reconciliation Allergies: Coded Allergies: No Known Allergies (Unverified , 08/06/24) Scheduled Amlodipine Besylate (Amlodipine Besylate), 1 TABLET PO DAILY, (Reported) Folic Acid (FOLIC ACID tablet), 1 TAB PO DAILY Lipase/Protease/Amylase (Creon Dr 6,000 Units Capsule), 1 CAP PO TID, (Reported) Multivitamin with Folic Acid (One Daily Essential Tablet), 1 TAB PO DAILY Pantoprazole Sodium (Pantoprazole Sodium), 40 MG PO DAILY Sertraline HCl (Sertraline HCl), 2 TAB PO DAILY, (Reported) Thiamine HCl (Vitamin B-1), 2 TAB PO DAILY Scheduled PRN Ondansetron 8mg ODT (Ondansetron Odt), 1 TAB SL Q8H PRN for nausea/vomiting Quetiapine Fumarate* (Seroquel*), 1 TAB PO HS PRN for agitation, (Reported) Past Medical History Past Medical History: Hypertension, Gastritis, Pancreatitis, Chronic Back Pain, *PSYCH*, Depression Past Surgical History: orthopedic surgeries Alcohol Use: Alcoholic Drug Use: marijuana Lives with: Alone Lives In: Home Review of Systems Constitutional: Denies: chills, fever, weakness Eyes: Denies: pain, blurred vision ENT: Denies: ear pain, nose pain, throat pain, mouth pain Respiratory: Denies: cough, shortness of breath Cardiovascular: Denies: chest pain, palpitations Gastrointestinal: Denies: abdominal pain, nausea, vomiting Genitourinary: Denies: burning, dysuria Male Genitalia: Denies: penile discharge, testicular pain Neurological: Denies: headache, dizziness Musculoskeletal: Denies: pain, swelling Integumentary: Denies: rash, lesions Allergic/Immunologic: Denies: hives, itching Hematologic/Lymphatic: Denies: no symptoms reported Psychiatric: Denies: depression, anxiety Physical Exam Vital Signs: Temperature: 98.7, Source: Oral, Heart Rate: 78, Respiratory Rate: 18, BP: 152/80, Pulse Oximetry: 100, Weight: 58.180 Progress Results/Orders Results/Orders Completed Orders - MYRA GONZALEZ PAC Mag & Alum Hydrox/Simeth Susp (Maalox Or (08/06/24 22:35) Lidocaine 2% Viscous (Xylocaine 2% Visco (08/06/24 22:35) Pantoprazole Tablet (Protonix) (08/06/24 22:35) Medications Received in ER Medications (Trade) Dose Ordered Sig/Dominic Route PRN Reason Start Time Stop Time Status Last Admin Dose Admin (Maalox oral suspension) 30 ml ONCE STAT PO 08/06/24 22:35 08/06/24 22:39 DC 08/06/24 23:30 30 ML (Xylocaine 2% Viscous 15mL cup) 15 ml ONCE STAT MM 08/06/24 22:35 08/06/24 22:39 DC 08/06/24 23:30 15 ML (Protonix) 40 mg ONCE STAT PO 08/06/24 22:35 08/06/24 22:39 DC 08/06/24 23:30 40 MG Vital Signs 08/06/24 20:43 Temp 98.7 Pulse 78 Resp 18 B/P (MAP) 152/80 Pulse Ox 100 Laboratory Tests Test 08/06/24 21:02 White Blood Count 9.8 Red Blood Count 3.56 L Hemoglobin 12.1 L Hematocrit 35.3 L Mean Corpuscular Volume 99.2 H Mean Corpuscular Hemoglobin 34.1 H Mean Corpuscular Hemoglobin Concent 34.3 Red Cell Distribution Width 14.3 Platelet Count 205 Mean Platelet Volume 8.1 Neutrophils (%) (Auto) 71.7 Lymphocytes (%) (Auto) 16.6 L Monocytes (%) (Auto) 8.9 Eosinophils (%) (Auto) 2.6 Basophils (%) (Auto) 0.2 Neutrophils # (Auto) 7.0 Lymphocytes # (Auto) 1.6 Monocytes # (Auto) 0.9 Eosinophils # (Auto) 0.3 Basophils # (Auto) 0.0 CBC Comment Sodium Level 136 Potassium Level 5.0 Chloride Level 102 Carbon Dioxide Level 26.0 Anion Gap 8 Blood Urea Nitrogen 29 H Creatinine 1.32 H Estimated GFR/1.73 m2 55 BUN/Creatinine Ratio 22.0 H Glucose Level 119 H Calcium Level 8.9 Total Bilirubin 0.2 Aspartate Amino Transf (AST/SGOT) 16 Alanine Aminotransferase (ALT/SGPT) 17 Alkaline Phosphatase 93 Total Protein 7.8 Albumin 3.9 Globulin 3.9 Albumin/Globulin Ratio 1.0 L Lipase 68 Chemistry Comments Medical Decision Making Findings Patient is seen today with complaints of epigastric abdominal pain states he thinks he is having of recurrent bout of pancreatitis. Patient states he takes a steady daily doses of ibuprofen and Tylenol. Patient denies any chest pain or shortness of breath or diarrhea. He does admit to some nausea and vomiting. Patient has no other concern or complaint at this time. He denies any fevers or chills. He states his nausea started today as well as his epigastric abdominal pain. Patient denies any melena. Patient was given GI cocktail including pantoprazole 40 mg, Maalox, viscous l idocaine by mouth. Patient tolerated very well and reported almost immediate in very good relief of pain and discomfort of the epigastric region. Patient was strongly advised to discontinue use of any and all NSAIDs for a significant period of time and to follow up with his primary care for further eval and treatment. Patient will return to ED with any worsening, concerning or changing symptoms and will monitor closely for any dark tarry stool. Departure Disposition: 01 HOME / SELF CARE / HOMELESS Impression: Primary Impression: Acute gastritis Qualified Codes: K29.00 - Acute gastritis without bleeding Condition: Stable Discharge Instructions: Gastritis, Adult Additional Instructions: Patient was given GI cocktail including pantoprazole 40 mg, Maalox, viscous lidocaine by mouth. Patient tolerated very well and reported almost immediate in very good relief of pain and discomfort of the epigastric region. Patient was strongly advised to discontinue use of any and all NSAIDs for a significant period of time and to follow up with his primary care for further eval and treatment. Patient will return to ED with any worsening, concerning or changing symptoms and will monitor closely for any dark tarry stool. Referrals: NO PRIMARY CARE PROVIDER (PCP) Prescriptions Sucralfate (Sucralfate) 1 Gram Tablet 1 TAB PO Q8H for 30 Days, #90 TAB 0 Refills Prov: GONZALEZ,MYRA R PAC 08/07/24 Pantoprazole Sodium (Pantoprazole Sodium) 40 Mg Tablet.dr 1 TAB PO DAILY for 30 Days, #30 TAB 0 Refills Prov: MYRA GONZALEZ 08/07/24 Signature Scribe Signature: No scribe Attestation: No scribe MYRA GONZALEZ Aug 07, 2024 00:37
[2024-08-07] MEDS ORDERED: SUCR1TAB PO (00:47)
[2024-08-07] MEDS ORDERED: PANT40TA54 PO (00:47)
[2024-08-07 00:51] VITALS: TEMP 98.7
== END 2024-08-07 00:55 | disposition home or self-care (01) ==
LOC: ER 20:42
DX: K29.00 Acute gastritis without bleeding (principal); I10 Essential (primary) hypertension; F32.A Depression, unspecified; F10.90 Alcohol use, unspecified, uncomplicated; F12.90 Cannabis use, unspecified, uncomplicated; Z87.19 Personal history of other diseases of the digestive system; Y90.9 Presence of alcohol in blood, level not specified
CPT/HCPCS: 36415; 80053; 83690; 85025; 99284

== ENCOUNTER 2024-08-26 12:47 | Inpatient (IN) | payer OTHER ==
[~2024-08-26] VITALS: Ht 172.7 cm; Wt 55.0 kg
[~2024-08-26 12:47] MED LIST changes: +SUCR1TAB PO
[2024-08-26 13:28] LABS: MEAN PLATELET VOLUME 7.3 FL (7.4-10.4); RED CELL DISTRIBUTION WIDTH 13.4 % (11.5-14.5)
[2024-08-26 13:43] LABS: CREATININE 1.23 MG/DL (0.60-1.10); TOTAL CARBON DIOXIDE 29.7 MMOL/L (24-32); eCRCL 35 ML/MIN; eGFR 60 ML/MIN
--- NOTE | 2024-08-26 16:52 | Physician Documentation ---
History of Present Illness Chief Complaint: Abdominal Pain Stated Complaint: PANCREATITIS Time Seen by MD: 16:33 OK to notify your PCP?: Yes Primary Medical Doctor: [facility] Source: patient Mode of Arrival: POV Exam Limitations: no limitations HPI 63-year-old male with chief complaint nausea and vomiting which has been ongoing now for two days. He states he has been dry heaving and has not been able to stop. He attributes his symptoms to drinking too much alcohol. He states I just have not been able to get myself to stop. he reports pain in his epigastric area which worsens when he vomits. No blood in vomit. No chest pain, shortness of breath, fever or chills. Medication Reconciliation Allergies: Coded Allergies: No Known Allergies (Unverified , 08/26/24) Scheduled Amlodipine Besylate (Amlodipine Besylate), 1 TABLET PO DAILY, (Reported) Folic Acid (FOLIC ACID tablet), 1 TAB PO DAILY Lipase/Protease/Amylase (Creon Dr 6,000 Units Capsule), 1 CAP PO TID, (Reported) Multivitamin with Folic Acid (One Daily Essential Tablet), 1 TAB PO DAILY Pantoprazole Sodium (Pantoprazole Sodium), 40 MG PO DAILY Pantoprazole Sodium (Pantoprazole Sodium), 1 TAB PO DAILY Sertraline HCl (Sertraline HCl), 2 TAB PO DAILY, (Reported) Sucralfate (Sucralfate), 1 TAB PO Q8H Thiamine HCl (Vitamin B-1), 2 TAB PO DAILY Scheduled PRN Ondansetron 8mg ODT (Ondansetron Odt), 1 TAB SL Q8H PRN for nausea/vomiting Quetiapine Fumarate* (Seroquel*), 1 TAB PO HS PRN for agitation, (Reported) Past Medical History Past Medical History: Hypertension, Gastritis, Pancreatitis, Chronic Back Pain, *PSYCH*, Depression Past Surgical History: orthopedic surgeries Alcohol Use: Alcoholic Drug Use: marijuana Lives with: Alone Lives In: Home Review of Systems All Other Systems at this time: Reviewed and Negative Physical Exam Vital Signs: Temperature: 98.1, Heart Rate: 95, Respiratory Rate: 16, BP: 163/100, Pulse Oximetry: 96, Weight: 39.790 Physical Exam General Appearance: Alert, thin male in mild distress holding emesis bag appears nauseated but no active vomiting. HEENT: NCAT, PERRL, EOMI. Dry mucous membranes Neck: Supple, trachea midline. Cardiovascular: RRR. No m/r/g. Lungs: CTAB. Breathing unlabored Abdomen: Soft, nondistended, tenderness in epigastric area no guarding or rebound Extremities: Normal inspection. No edema. Skin: Warm/dry, normal color. No jaundice. Neurological: Alert and oriented x4. Psychiatric: Affect congruent with mood. Progress Results/Orders Results/Orders Orders - TANNER MELENDEZ Ultrasound Of Abdomen (08/26/24 16:39) Normal Saline Bolus (08/26/24 16:45) Potassium Cl 40meq/520ml Ivx1 (08/26/24 16:45) Observation Status Start (08/26/24 16:44) Ondansetron Inj. (Zofran 4mg/2ml Vial) (08/26/24 16:45) Page Hospitalist (08/26/24 16:44) Electrocardiogram (08/26/24 16:44) Vital Signs 08/26/24 12:48 Temp 98.1 Pulse 95 Resp 16 B/P (MAP) 163/100 Pulse Ox 96 Laboratory Tests Test 08/26/24 13:16 White Blood Count 10.6 Red Blood Count 4.39 L Hemoglobin 14.2 Hematocrit 42.4 Mean Corpuscular Volume 96.5 Mean Corpuscular Hemoglobin 32.4 H Mean Corpuscular Hemoglobin Concent 33.6 Red Cell Distribution Width 13.4 Platelet Count 224 Mean Platelet Volume 7.3 L Neutrophils (%) (Auto) 78.6 H Lymphocytes (%) (Auto) 16.2 L Monocytes (%) (Auto) 4.7 Eosinophils (%) (Auto) 0.2 Basophils (%) (Auto) 0.3 Neutrophils # (Auto) 8.3 H Lymphocytes # (Auto) 1.7 Monocytes # (Auto) 0.5 Eosinophils # (Auto) 0.0 Basophils # (Auto) 0.0 CBC Comment Sodium Level 134 L Potassium Level 2.7 *L Chloride Level 87 L Carbon Dioxide Level 29.7 Anion Gap 17 H Blood Urea Nitrogen 22 H Creatinine 1.23 H Estimated GFR/1.73 m2 60 BUN/Creatinine Ratio 17.9 Glucose Level 139 H Calcium Level 8.4 L Total Bilirubin 0.9 Aspartate Amino Transf (AST/SGOT) 37 Alanine Aminotransferase (ALT/SGPT) 25 Alkaline Phosphatase 123 H Total Protein 7.6 Albumin 3.7 Globulin 3.9 Albumin/Globulin Ratio 0.9 L Lipase 12 L Chemistry Comments Medical Decision Making Differential Dx:Considerations: Include: AAA, Angina/NV, Aortic dissection, Appendicitis, Bowel obstruction, Cholangitis, Cholelithasis, Constipation, Diverticular disease, Esophageal rupture, Esophagitis, Gastritis/PUD, Gastroenteritis, GI hemorrhage, Hernia, Hepatitis, Inflammatory BD, Ischemic bowel, Pancreatitis, Porphyria, Testicular torsion, Trauma, intraabdominal, Urinary obstruction, Urinary tract infection, Urolithiasis, Other Additional Comments Patient does have cholelithiasis however so he does not have any pain in his right upper quadrant in his symptoms were preceded by a drinking excessive alcohol over the past two days. His symptoms are consistent with acute on chronic pancreatitis he had a CT scan done last month which showed findings consistent with chronic pancreatitis. He does not have any findings on labs concerning for gallstone pancreatitis as bilirubin and liver enzymes are normal. His alk phos is slightly high but rest of labs are normal. Departure Time of Disposition: 16:49 Admitted to Inpatient Unit: to hospitalist Impression: Primary Impression: Abdominal pain Qualified Codes: R10.13 - Epigastric pain Additional Impressions: Hypokalemia Nausea and vomiting Qualified Codes: R11.2 - Nausea with vomiting, unspecified Alcohol abuse Chronic alcoholic pancreatitis Condition: Fair Referrals: NO PRIMARY CARE PROVIDER (PCP) Signature Scribe Signature: x Attestation: TANNER Borden Aug 26, 2024 16:52
[2024-08-26] MEDS: ondansetron/PF 4mg/2ml inj IV ONE (17:06)
[2024-08-26] MEDS: normal saline 1000ML IV soln IVB ONE (17:06)
--- NOTE | 2024-08-26 17:24 | ELECTROCARDIOGRAPH REPORT ---
[facility] [place]24-08-26 Test Time: 17:23:10 Pat Name: DENISE OLVERA Department: [facility]- Patient ID: [id number] Room: Gender: M [employer]: : 1960 Requested By: TANNER MELENDEZ Order Number: [id number] Reading MD: Measurements Intervals [place] Rate: 83 P: 71 [place]: 160 QRS: 65 QRSD: 95 T: 45 QT: 394 QTc: 463 Interpretive Statements Sinus rhythm Abnormal R-wave progression, early transition Baseline wander in lead(s) V2 Please click the below link to view image of tracing.
--- NOTE | 2024-08-26 18:24 | HISTORY AND PHYSICAL-Residence ---
History & Physical Providers to CC Resident Creating Document: CRISPIN HERNANDEZLEIALENI, MARY ~ History of Present Illness Primary Medical Doctor: [facility] Reason for Admit\Complaint: Gastritis History of Present Illness This is a 63-year-old male with history of alcohol abuse, chronic pancreatitis, hypertension, left BKA came to the ER with a chief complaint of epigastric pain. The pain started last night, burning type, radiating to back, graded 9/10. He also reported nausea and vomitings, had about multiple episodes throughout the night. Denied any blood in the vomitings. Denied any black-colored stools or blood in the stools. He has a history of chronic alcohol abuse, drinks about half a 5th of vodka daily. Last drink was last night. He has withdrawal symptoms but denied any history of withdrawal seizures. His last colonoscopy was 5-8 years ago. He was previously admitted in June with similar complaints, had an EGD at that time which showed duodenitis. Allergies: Coded Allergies: No Known Allergies (Unverified , 08/26/24) Home Medications Home Medications Active Sucralfate 1 Gram Tablet 1 Tab PO Q8H 30 Days Pantoprazole Sodium 40 Mg Tablet.dr 1 Tab PO DAILY 30 Days FOLIC ACID tablet (Folic Acid) 0.4 Mg Tablet 1 Tab PO DAILY 30 Days Vitamin B-1 (Thiamine HCl) 50 Mg Tablet 2 Tab PO DAILY 30 Days Pantoprazole Sodium 40 Mg Tablet. 40 Mg PO DAILY Ondansetron Odt (Ondansetron HCl) 8 Mg Tab.rapdis 1 Tab SL Q8H PRN One Daily Essential Tablet (Multivitamin with Folic Acid) 400 Mcg Tablet 1 Tab PO DAILY 30 Days Reported Sertraline HCl 100 Mg Tablet 2 Tab PO DAILY Seroquel* (Quetiapine Fumarate) 100 Mg Tablet 1 Tab PO HS PRN Creon 6,000 Units Capsule (Lipase/Protease/Amylase) 1 Each Capsule. 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 Past Social History Social History Comment Smokes about 3-4 cigarettes a day, has been smoking for the last five years Alcohol use, drinks about half a 5th of vodka daily. Has been drinking for more than 30-40 years Smokes marijuana on a daily basis Denies any other drug use Lives in a boarding house Has a prosthesis for left BKA. Smoking: Other Alcohol Use: Alcoholic Drug Use: Marijuana Lives with: Alone Lives In: Home ROS All Other Systems: Reviewed and Negative Constitutional: Denies: no symptoms reported, see HPI, chills, diaphoresis, fever, malaise, weakness, other Eyes: Denies: no symptoms reported, see HPI, pain, discharge, blurred vision, double vision, itching, photophobia, redness, tearing, other ENT: Denies: no symptoms reported, see HPI, ear pain, ear bleeding, ear discharge, hearing loss, ear ringing, nose pain, nose bleeding, nose congestion, nose discharge, throat pain, throat swelling, voice change, mouth pain, mouth bleeding, mouth swelling, other Respiratory: Denies: no symptoms reported, see HPI, cough, orthopnea, shortness of breath, SOB with exertion, SOB at rest, stridor, wheezing, hemoptysis, pain with breathing, other Cardiovascular: Denies: no symptoms reported, see HPI, chest pain, left arm pain, diaphoresis, lightheadedness, syncope, edema, palpitations, irregular heart rate, other Gastrointestinal: Reports: see HPI Genitourinary: Denies: no symptoms reported, see HPI, burning, discharge, dysuria, frequency, flank pain, hematuria, incontinence, pain, decreased urine output, urgency, other Exam Vitals: Vital Signs Date Time Temp Pulse Resp B/P (MAP) Pulse Ox O2 Delivery O2 Flow Rate FiO2 08/26/24 16:56 08/26/24 12:48 98.1 95 16 96 General: General: Alert, awake, oriented, not in acute distress HEENT: Conjunctiva pallor, Sclera clear, dry mucous membranes. Neck: Supple without masses and tenderness. Resp: Unlabored. Lungs clear to auscultation bilaterally. Heart: Regular Rate and rhythm, normal S1 and S2 without murmur, rub or gallop. Abdomen: Soft, tenderness noted in the epigastric region, no guarding, no rigidity no organomegaly, normal bowel sounds Extremities: No cyanosis,clubbing or edema, prosthesis on the left leg Skin: Warm and Dry. Neurology: No focal neurological deficits Diagnostic Data Last Recorded Lab Results: 08/26/24 1316 08/26/24 1316 Advance Care Planning Advanced Care plannin - 30 Minutes (I spent 17 minutes in discussing various resuscitative measures, the patient chose to be full code.) Additional Plan Assessment This is a 63-year-old male with history of alcohol abuse, chronic pancreatitis, hypertension, left BKA came to the ER with a chief complaint of epigastric pain. He has been admitted for alcohol-induced gastritis. Plan Abdominal pain Alcohol-induced gastritis History of chronic pancreatitis Pancreatic mass Lipase level normal Abdominal CT in 06/2024 showed findings suggestive of chronic pancreatitis. Abdominal MRI done on 03/12 showed ill-defined mass in the head of pancreas concerning for pancreatic malignancy. Repeat MRI ordered to follow up on the mass. Patient also has history of cholelithiasis, Ware sign negative, mildly elevated alkaline phosphatase, normal bilirubin level. Pain management-morphine p.r.n. Fluids-received 1 L bolus, LR@ 100 mL/hour Nausea-ondansetron p.r.n. Protonix 40 mg b.i.d. Clear liquid diet, advance as tolerated. Alcohol withdrawal protocol CIWA score-nine Ativan, haloperidol p.r.n. Thiamine, folic acid, multivitamin. Substance use navigator consulted creative services producer consulted MARKO likely secondary to renal tubular stasis Hypokalemia Creatinine 1.23, BUN 22 Potassium 2.7 On potassium replacement protocol On LR @ 100 mL/hour We will follow up with repeat BMP Code status: Full code DVT prophylaxis: Heparin Diet: Clear liquid diet Lines/tubes: Peripheral IV line GI prophylaxis: Protonix 40 mg b.i.d. Destiny Hernandez M.D PGY2 Date of Service: Aug 26, 2024 Billing Provider: KVNG AVILA MD Common Visit Codes: 13287-JEJENIC INP/OBS CARE (HIGH) Secondary Visit Codes: 95589-[id number] CARE PLAN 30 MINUTES DESTINY HERNANDEZ, RES Aug 26, 2024 18:24 KVNG AVILA MD Aug 27, 2024 18:45
[2024-08-26] MEDS ORDERED: magnesium hydroxide 30ml (MOM) UD suspension PO PRN (18:25)
[2024-08-26] MEDS ORDERED: magnesium sulf-water 4G/100mL 100 ML IV PRN (18:25)
[2024-08-26] MEDS ORDERED: haloperidol lactate 5mg/ml inj IM PRN (18:25)
[2024-08-26] MEDS ORDERED: potassium Cl 20 mEq SR tablet PO PRN (18:25)
[2024-08-26] MEDS ORDERED: mag hydrox/Alum hydrox/simeth 30ml oral suspension PO PRN (18:25)
[2024-08-26] MEDS ORDERED: magnesium sulf-water 2g/50mL 50 ML IV PRN (18:25)
[2024-08-26] MEDS: ondansetron/PF 4mg/2ml inj IV PRN (18:48)
[2024-08-26 19:12] LABS: PRO BRAIN NATRIURETIC PEPTIDE 74 PG/ML (0-125)
[2024-08-26] MEDS: ringers solution, lacted 1,000 ML IV SCH (19:15)
[2024-08-26] MEDS: potassium Cl 40MEQ/1/2NS 520ml 520 ML IV ONE (19:15)
[2024-08-26] MEDS: K and/or MAG REPLACEMENT MC SCH (20:00)
[2024-08-26] MEDS: docusate sod 100mg capsule PO SCH (21:02)
[2024-08-26] MEDS: heparin, porcine 5000 units/ml vial SQ SCH (21:02)
[2024-08-26] MEDS: thiamine 100mg/ml 2ml inj. IV SCH (21:05)
[2024-08-26 22:35] VITALS: BP 166/93; PULSE 67; RESP 16; TEMP 98.3; O2SAT 93
[2024-08-26] MEDS: potassium Cl 40MEQ/1/2NS 520ml 520 ML IV PRN (23:47)
[2024-08-27] MEDS: potassium Cl 40MEQ/1/2NS 520ml 520 ML IV ONE (00:03)
[2024-08-27 01:20] VITALS: RESP 16; O2SAT 93
[2024-08-27 02:34] LABS: LEUKOCYTE ESTERASE ,URINE NEGATIVE (Neg); NITRITES, URINE NEGATIVE (Neg); OCCULT BLOOD,URINE NEGATIVE (Neg)
[2024-08-27 02:38] LABS: UA COLLECTION TYPE CLN CATCH MIDSTREAM
[2024-08-27 02:40] LABS: SQUAMOUS EPITHELIAL CELL,UR FEW /LPF (FEW)
[2024-08-27 05:00] VITALS: BP 160/94; PULSE 76; RESP 16; TEMP 97.8; O2SAT 96
[2024-08-27 05:44] LABS: MEAN PLATELET VOLUME 7.9 FL (7.4-10.4); RED CELL DISTRIBUTION WIDTH 13.0 % (11.5-14.5)
[2024-08-27 05:50] LABS: CREATININE 1.12 MG/DL (0.60-1.10); TOTAL CARBON DIOXIDE 32.9 MMOL/L (24-32); eCRCL 39 ML/MIN; eGFR 67 ML/MIN
[2024-08-27] MEDS ORDERED: THIAMINE HCL PO SCH (08:00)
[2024-08-27] MEDS ORDERED: AMYLASE PO SCH (08:00)
[2024-08-27] MEDS ORDERED: PROTEASE PO SCH (08:00)
[2024-08-27] MEDS ORDERED: LIPASE PO SCH (08:00)
[2024-08-27] MEDS: multivitamins, therapeutics tablet PO SCH (08:09)
[2024-08-27] MEDS: HYDROcodone/acetaminophen 10/325mg tab PO PRN (08:17)
[2024-08-27] MEDS: LIPASE/PROTEASE/AMYLASE 4,200 unit CAPSULE.DR PO SCH (08:17)
[2024-08-27] MEDS: magnesium Cl slow-release 64mg tablet PO PRN (08:21)
[2024-08-27 10:00] VITALS: BP 160/104; PULSE 84; RESP 12; TEMP 97; O2SAT 94
[2024-08-27] MEDS: folic acid 1mg/0.2ml inj IV SCH (10:03)
--- NOTE | 2024-08-27 12:18 | PROGRESS NOTE- Residence ---
Progress Note - Resident Providers to CC Resident Creating Document: DEDRA HOOD RES ~ Antibiotic Timeout Antibiotic Ordered?: No Subjective Patient was seen and examined at bedside. He has a history of alcohol abuse, chronic pancreatitis, on supplemental enzymes presented to ED with abdominal pain; epigastric region. He was started on Protonix 40 mg IV twice daily, the pain has since subsided. Able to tolerate oral intake. His MRI on April 12 of this year showed ill-defined pancreatic mass, patient reports he followed with [facility] in [place], undergone biopsy, revealed no cancer. He is also on alcohol withdrawal protocol, with no withdrawal symptoms during exam. We will advance the diet. Lives at the boarding house. Scheduled for hip surgery in September. Objective Vital Signs Date Time Temp Pulse Resp B/P (MAP) Pulse Ox O2 Delivery O2 Flow Rate FiO2 08/27/24 10:00 97.0 84 12 160/104 (122) 94 Room Air 08/27/24 08:00 0.0 General: Alert, awake, oriented, not in acute distress HEENT: Conjunctiva pallor, Sclera clear, dry mucous membranes. Neck: Supple without masses and tenderness. Resp: Unlabored. Lungs clear to auscultation bilaterally. Heart: Regular Rate and rhythm, normal S1 and S2 without murmur, rub or gallop. Abdomen: Soft, tenderness noted in the epigastric region, no guarding, no rigidity no organomegaly, normal bowel sounds Extremities: No cyanosis,clubbing or edema, prosthesis on the left leg Skin: Warm and Dry. Neurology: No focal neurological deficits Result Diagram: 08/27/24 0400 08/27/24 0400 Advance Care Planning Advanced Care plannin - 30 Minutes Assessment Assessment This is a 63-year-old male with history of alcohol abuse, chronic pancreatitis, hypertension, left BKA came to the ER with a chief complaint of epigastric pain. He has been admitted for alcohol-induced gastritis. Plan Plan Abdominal pain Alcohol-induced gastritis History of chronic pancreatitis Pancreatic mass Lipase level normal Abdominal CT in 06/2024 showed findings suggestive of chronic pancreatitis. Abdominal MRI done on 03/12 showed ill-defined mass in the head of pancreas concerning for pancreatic malignancy. Repeat MRI ordered to follow up on the mass. Still pending Patient also has history of cholelithiasis, Ware sign negative, mildly elevated alkaline phosphatase, normal bilirubin level. Pain management-morphine p.r.n. Continue IV hydration; LR@ 100 mL/hour Continue Zofran as needed Continue Protonix 40 mg b.i.d. Clear liquid diet, advance as tolerated. Alcohol withdrawal protocol CIWA score-nine Ativan, haloperidol p.r.n. Thiamine, folic acid, multivitamin. Substance use navigator consulted director emergency services consulted MARKO likely secondary to renal tubular stasis Hypokalemia - resolved Creatinine trended down; 1.12 Potassium 2.7 On potassium replacement protocol Continue LR @ 100 mL/hour Code status: Full code DVT prophylaxis: Heparin Diet: Clear liquid diet Lines/tubes: Peripheral IV line GI prophylaxis: Protonix 40 mg b.i.d. Dedra Hood Internal Medicine Resident Date of Service: Aug 27, 2024 Billing Provider: KVNG AVILA MD Common Visit Codes: [id number] INP/OBS CARE(HIGH) DEDRA HOOD, RES Aug 27, 2024 12:18 KVNG AVILA MD Aug 27, 2024 18:46
[2024-08-27] MEDS: metoclopramide 5 mg/ml inj IV PRN (12:28)
[2024-08-27 18:00] VITALS: BP 127/75; PULSE 73; RESP 12; TEMP 97; O2SAT 96
[2024-08-27 18:52] VITALS: RESP 16; O2SAT 95
[2024-08-27] MEDS: HYDROcodone/acetaminophen 5mg/325mg tablet PO PRN (19:50)
--- NOTE | 2024-08-27 20:33 | RADIOLOGY REPORT ---
EXAM: MR MRI ABDOMEN HISTORY: Follow up on the pancreatic mass COMPARISON: MR MRI ABDOMEN on DOS: 03/04/24 TECHNIQUE: Multiplanar, multisequence imaging of the abdomen was performed with and without contrast. FINDINGS: [LOWER CHEST]: No pleural effusion. [LIVER]: Unchanged right hepatic cysts and hemangioma. No suspicious abnormal enhancing lesion. [place] sient hepatic intensity difference on arterial phase likely related to flash filling hemangioma in th e periphery of hepatic segment 8 causing geographic wedge-shaped intensity /enhancement likely relate d to arterial portal shunting. [SPLEEN]: Unremarkable. [PANCREAS]: Upon comparison with the prior examination, no significant change in pancreatic head unci justino process mass, measuring 3.4 x 2.2 cm. Subsequent distal pancreatic ductal dilation, unchanged f rom prior examination. Focal area of pancreatic ductal narrowing of the level of the proximal pancrea tic body (13- 248). [GALLBLADDER AND DUCTS]: Gallbladder is normal in appearance. The cystic duct, right and left hepatic ducts, common hepatic duct, and common bile ducts are unremarkable. [ADRENAL GLANDS]: Unremarkable. [KIDNEYS]: Normal enhancement without suspicious lesions or hydronephrosis. Benign-appearing cysts. [VISUALIZED BOWEL]: Grossly unremarkable. [VASCULATURE]: Unremarkable. [LYMPHADENOPATHY]: Multiple unchanged subcentimeter tabatha hepatis and retroperitoneal lymph nodes. [ASCITES]: Absent. [MUSCULOSKELETAL]: Bone marrow signal is normal. [OTHER]: None IMPRESSION: 1. No significant interval change when compared to prior examination with redemonstration of pancreat ic head/ uncinate process mass causing distal pancreatic ductal dilation. 2. No dilation of the common bile duct. 3. Unchanged presumed flash filling hemangioma of the periphery of the right hepatic lobe with subseq uent arterial portal shunting causing transient hepatic intensity differences
[2024-08-27 21:53] VITALS: BP 122/79; PULSE 77; RESP 18; TEMP 97.6; O2SAT 96
[2024-08-28 05:54] LABS: MEAN PLATELET VOLUME 8.2 FL (7.4-10.4); RED CELL DISTRIBUTION WIDTH 13.0 % (11.5-14.5)
[2024-08-28 06:00] VITALS: BP 127/76; PULSE 68; RESP 18; TEMP 98; O2SAT 98
[2024-08-28 06:06] LABS: CREATININE 1.09 MG/DL (0.60-1.10); TOTAL CARBON DIOXIDE 33.2 MMOL/L (24-32); eCRCL 55 ML/MIN; eGFR 69 ML/MIN
[2024-08-28 08:00] VITALS: RESP 16; O2SAT 98
[2024-08-28 11:00] VITALS: BP 132/79; PULSE 72; RESP 16; TEMP 98; O2SAT 98
--- NOTE | 2024-08-28 13:50 | PROGRESS NOTE- Residence ---
Progress Note - Resident Providers to CC Resident Creating Document: ABHAY BRUNSON, MARY ~ Antibiotic Timeout Antibiotic Ordered?: No Subjective Patient was seen and examined at bedside. He reports feeling much better compared to yesterday. Pain is on a level of 3/10. Nausea improved. Is able to tolerate regular diet Objective Vital Signs Date Time Temp Pulse Resp B/P (MAP) Pulse Ox O2 Delivery O2 Flow Rate FiO2 08/28/24 12:41 16 08/28/24 09:42 66 08/28/24 08:00 98 Room Air 08/28/24 06:00 98.0 127/76 (93) 08/27/24 18:52 0.0 Result Diagram: 08/28/2444808/28/24448 General: Alert, awake, oriented, not in acute distress HEENT: Conjunctiva pallor, Sclera clear, dry mucous membranes. Neck: Supple without masses and tenderness. Resp: Unlabored. Lungs clear to auscultation bilaterally. Heart: Regular Rate and rhythm, normal S1 and S2 without murmur, rub or gallop. Abdomen: Soft, tenderness noted in the epigastric region, no guarding, no rigidity no organomegaly, normal bowel sounds Extremities: No cyanosis,clubbing or edema, prosthesis on the left leg Skin: Warm and Dry. Neurology: No focal neurological deficits Assessment Assessment This is a 63-year-old male with history of alcohol abuse, chronic pancreatitis, hypertension, left BKA came to the ER with a chief complaint of epigastric pain. He has been admitted for alcohol-induced gastritis. Plan Plan Abdominal pain Alcohol-induced gastritis History of chronic pancreatitis Pancreatic mass Lipase level normal Abdominal CT in 06/2024 showed findings suggestive of chronic pancreatitis. Abdominal MRI done on 03/12 showed ill-defined mass in the head of pancreas concerning for pancreatic malignancy. Repeat MRI ordered to follow up on the mass. Still pending Patient also has history of cholelithiasis, Ware sign negative, mildly elevated alkaline phosphatase, normal bilirubin level. Pain management-morphine p.r.n. Continue IV hydration; LR@ 100 mL/hour Continue Zofran as needed Continue Protonix 40 mg b.i.d. Clear liquid diet, advance as tolerated. 08/28/2024 Pain and nausea improved Able tolerate regular diet We will be discharged tomorrow. Alcohol withdrawal protocol CIWA score-nine Ativan, haloperidol p.r.n. Thiamine, folic acid, multivitamin. Substance use navigator consulted donor services manager consulted MARKO likely secondary to renal tubular stasis Hypokalemia secondary to vomiting-resolved Creatinine trended down; 1.09 Potassium 4.1 On potassium replacement protocol Continue LR @ 100 mL/hour Code status: Full code DVT prophylaxis: Heparin Diet: Regular diet Lines/tubes: Peripheral IV line GI prophylaxis: Protonix 40 mg b.i.dNieves brunson M.D PGY2 Date of Service: Aug 28, 2024 Billing Provider: KVNG AVILA MD Common Visit Codes: [id number] INP/OBS CARE(HIGH) ABHAY BRUNSON, RES Aug 28, 2024 13:50 KVNG AVILA MD Aug 28, 2024 20:35
[2024-08-28 18:00] VITALS: BP 132/79; PULSE 72; RESP 16; TEMP 98; O2SAT 98
[2024-08-28 20:50] VITALS: RESP 16; O2SAT 97
[2024-08-28 22:33] VITALS: BP 139/86; PULSE 81; RESP 16; TEMP 97.6; O2SAT 97
[2024-08-29 06:12] LABS: MEAN PLATELET VOLUME 8.7 FL (7.4-10.4); RED CELL DISTRIBUTION WIDTH 12.9 % (11.5-14.5)
[2024-08-29 06:34] LABS: CREATININE 1.02 MG/DL (0.60-1.10); TOTAL CARBON DIOXIDE 29.5 MMOL/L (24-32); eCRCL 59 ML/MIN; eGFR 74 ML/MIN
[2024-08-29 08:32] VITALS: BP_SYST 139; PULSE 79
[2024-08-29] MEDS: potassium Cl 20 mEq SR tablet PO PRN (08:32)
[2024-08-29 08:39] LABS: INR 1.0 INR
[2024-08-29] MEDS ORDERED: HYDR-3965 PO (08:54)
[2024-08-29] MEDS ORDERED: LORA-269 PO (08:54)
--- NOTE | 2024-08-29 16:15 | DISCHARGE SUMMARY-Residence ---
Discharge Summary Providers to CC Resident Creating Document: ABHAY FISHER RES ~ Discharge Summary Admission Diagnosis: alcohol induced gastritis. Hospital Course DATE OF ADMISSION: 08/26/2024 DATE OF DISCHARGE: 08/29/2024 Labs at the time of discharge WBC 3.3 Hemoglobin 11.2 Platelets 81 Sodium 138 Potassium 3.4 Creatinine 1.02 Abdominal MRI 1. No significant interval change when compared to prior examination with redemonstration of pancreatic head/ uncinate process mass causing distal pancreatic ductal dilation. 2. No dilation of the common bile duct. 3. Unchanged presumed flash filling hemangioma of the periphery of the right hepatic lobe with subsequent arterial portal shunting causing transient hepatic intensity differences Discharge Diagnosis\Comment: Abdominal pain secondary to alcohol-induced gastritis History of chronic pancreatitis The IgA thick bolus Alcohol withdrawal MARKO secondary to renal tubular stasis Hypokalemia secondary to vomiting Operations\Procedures: None Consultants: None Complications: None Condition on DC: Stable New Medications: Hydrocodone Bit/Acetaminophen 5/325 MG ([place] 5/325 MG) 5 Mg/325 Mg Tablet 1 TAB PO Q6H PRN for pain, #14 TAB Lorazepam (Ativan) 1 Mg Tablet 1 TAB PO Q12H PRN PRN for anxiety, #10 TAB 0 Refills Continued Medications: Amlodipine Besylate (Amlodipine Besylate) 5 Mg Tablet 1 TABLET PO DAILY, 5 Refills Folic Acid (FOLIC ACID tablet) 0.4 Mg Tablet 1 TAB PO DAILY for 30 Days, #30 TAB 0 Refills Lipase/Protease/Amylase (Omer Hutton 6,000 Units Capsule) 1 Each Capsule. 1 CAP PO TID for digestion, 0 Refills Multivitamin with Folic Acid (One Daily Essential Tablet) 400 Mcg Tablet 1 TAB PO DAILY for 30 Days, #30 TAB 0 Refills Ondansetron 8mg ODT (Ondansetron Odt) 8 Mg Tab.rapdis 1 TAB SL Q8H PRN for nausea/vomiting, #60 TAB Pantoprazole Sodium (Pantoprazole Sodium) 40 Mg Tablet. 40 MG PO DAILY, #30 TAB.SR Quetiapine Fumarate* (Seroquel*) 100 Mg Tablet 1 TAB PO HS PRN for agitation Sertraline HCl (Sertraline HCl) 100 Mg Tablet 2 TAB PO DAILY, 0 Refills Sucralfate (Sucralfate) 1 Gram Tablet 1 TAB PO Q8H for 30 Days, #90 TAB 0 Refills Thiamine HCl (Vitamin B-1) 50 Mg Tablet 2 TAB PO DAILY for 30 Days, #60 TAB 0 Refills Discharge Summary: HPI This is a 63-year-old male with history of alcohol abuse, chronic pancreatitis, hypertension, left BKA came to the ER with a chief complaint of epigastric pain. The pain started last night, burning type, radiating to back, graded 9/10. He also reported nausea and vomitings, had about multiple episodes throughout the night. Denied any blood in the vomitings. Denied any black-colored stools or blood in the stools. He has a history of chronic alcohol abuse, drinks about half a 5th of vodka daily. He has withdrawal symptoms but denied any history of withdrawal seizures. His last colonoscopy was 5-8 years ago. He was previously admitted in June with similar complaints, had an EGD at that time which showed duodenitis. Hospital course The patient was admitted for alcohol-induced gastritis. Lipase was negative. Patient had an abdominal CT in which showed findings suggestive of chronic pancreatitis. He also has a history of cholelithiasis, Ware sign negative. He was placed on LR@ 100 mL/hour. Pain was managed with morphine, C[place]line p.r.n.. Was on Protonix 40 mg b.i.d., was started on clear liquid diet, advanced to regular diet. Patient had an abdominal MRI in 03/12 which showed a mass in the head of pancreas, he had a follow up outpatient, biopsy was done which was apparently negative for malignancy. Repeated MRI was done here to monitor the size of pancreatic mass, MRI showed no significant interval change compared to prior examination. Patient has improved symptomatically and is able to tolerate regular diet. Was also placed on alcohol withdrawal protocol, thiamine, folic acid, multivitamin were initiated. He also had MARKO secondary to renal tubular stasis at the time of admission, improved with IV fluids. Patient is currently stable enough to be discharged home At the time of discharge he had the following physical examination findings General: Alert, awake, oriented, not in acute distress HEENT: Conjunctiva pallor, Sclera clear, dry mucous membranes. Neck: Supple without masses and tenderness. Resp: Unlabored. Lungs clear to auscultation bilaterally. Heart: Regular Rate and rhythm, normal S1 and S2 without murmur, rub or gallop. Abdomen: Soft, tenderness noted in the epigastric region, no guarding, no rigidity no organomegaly, normal bowel sounds Extremities: No cyanosis,clubbing or edema, prosthesis on the left leg Skin: Warm and Dry. Neurology: No focal neurological deficits Discharge medications [place]line five q.6 p.r.n. Ativan one q.12 p.r.n. Continued home medications Folic acid Thiamine Multivitamin Amlodipine 5 mg Lipase/protease/amylase Pantoprazole 40 mg daily Sucralfate 1 g Q eight Discharge instructions Follow up with PCP in 2 weeks. Please try nd quit ndrinking alcohol. Follow up regarding the pancreatic mass. Continue to take pantop 40 mg daily. Continue to take thiamine, folic acid and multivitamin. Take ativan as needed for increased shakiness, nausea. Call 911 or return to ER in case of abd pain, vomiting, blooby vomitings, black stools or blood in stools. Sertraline *Problems/Diagnosis: (1) Gastroenteritis Status: Acute (2) Alcoholic gastritis Status: Acute (3) History of pancreatitis Status: Acute (4) Alcohol withdrawal syndrome Status: Acute (5) Alcohol dependence Status: Acute (6) Hypokalemia Status: Acute Total Time Spent on D/C: > 30 Minutes Date of Service: Aug 29, 2024 Billing Provider: KVNG AVILA MD Common Visit Codes: 11788-FAY/OBS DISCH DAY >30min ABHAY FISHER, RES Aug 29, 2024 16:15 KVNG AVILA MD Aug 30, 2024 07:58
== END 2024-08-29 14:42 | disposition home or self-care (01) | DRG 391 ==
LOC: ER 12:48 → ED HOLD 16:59 → ORTHO 4S 22:34
PROVIDERS: ADMIT Internal Medicine; ATTEND Internal Medicine
DX: K29.20 Alcoholic gastritis without bleeding (principal); N17.0 Acute kidney failure with tubular necrosis; K86.0 Alcohol-induced chronic pancreatitis; F10.130 Alcohol abuse with withdrawal, uncomplicated; K86.9 Disease of pancreas, unspecified; E87.6 Hypokalemia; K80.20 Calculus of gallbladder without cholecystitis without obstruction; I10 Essential (primary) hypertension; F32.A Depression, unspecified
CPT/HCPCS: 36415; 74183; 80053; 81001; 83690; 83735; 83880; 85025; 85610; 87081; 93005; 97161; 97530; 99285; A6213; A6258; G0378; J1644; J2060; J2270; J2405; J2470; J2765; J3411; J3480; J3490; J7030; J7120

== ENCOUNTER 2024-08-31 03:10 | Emergency (ER) | payer OTHER ==
[~2024-08-31] VITALS: Ht 172.7 cm; Wt 58.0 kg
[~2024-08-31 03:10] MED LIST changes: +HYDR-3965 PO; +LORA-269 PO
--- NOTE | 2024-08-31 03:41 | Physician Documentation ---
History of Present Illness ~ Chief Complaint: Abdominal Pain Stated Complaint: ABDOMINAL PAIN Time Seen by MD: 03:35 Primary Medical Doctor: [facility] HPI Patient presents to the emergency room with abdominal pain and vomiting. He was just admitted here recently for pancreatitis and alcohol related gastritis. Upon discharge he went to a birthday departing drank excessively in his now back with significant abdominal pain and vomiting. Medication Reconciliation Allergies: Coded Allergies: No Known Allergies (Unverified , 08/31/24) Scheduled Amlodipine Besylate (Amlodipine Besylate), 1 TABLET PO DAILY, (Reported) Folic Acid (FOLIC ACID tablet), 1 TAB PO DAILY Lipase/Protease/Amylase (Creon Dr 6,000 Units Capsule), 1 CAP PO TID, (Reported) Multivitamin with Folic Acid (One Daily Essential Tablet), 1 TAB PO DAILY Pantoprazole Sodium (Pantoprazole Sodium), 40 MG PO DAILY Sertraline HCl (Sertraline HCl), 2 TAB PO DAILY, (Reported) Sucralfate (Sucralfate), 1 TAB PO Q8H Thiamine HCl (Vitamin B-1), 2 TAB PO DAILY Scheduled PRN Hydrocodone Bit/Acetaminophen 5/325 MG ([place] 5/325 MG), 1 TAB PO Q6H PRN for pain Lorazepam (Ativan), 1 TAB PO Q12H PRN PRN for anxiety Ondansetron 8mg ODT (Ondansetron Odt), 1 TAB SL Q8H PRN for nausea/vomiting Quetiapine Fumarate* (Seroquel*), 1 TAB PO HS PRN for agitation, (Reported) Discontinued Medications Pantoprazole Sodium (Pantoprazole Sodium), 1 TAB PO DAILY Discontinued Reason: Other Past Medical History Past Medical History: Hypertension, Gastritis, Pancreatitis, Chronic Back Pain, *PSYCH*, Depression Past Surgical History: orthopedic surgeries Alcohol Use: Alcoholic Drug Use: marijuana Lives with: Alone Lives In: Home Review of Systems ROS All review of systems negative except as per HPI Physical Exam Vital Signs: Temperature: 98.4, Source: Oral, Heart Rate: 99, Respiratory Rate: 16, BP: 168/92, Pulse Oximetry: 98, Weight: 58.000 Oxygen Flow Rate: 0 Physical Exam General: Patient is awake, alert, oriented x4 in mild distress Head: Normocephalic and atraumatic. Eyes: Conjunctival normal. EOMI. PERRL. ENT: Mucous membranes moist. Neck: Supple, trachea is midline. Chest: Clear to auscultation bilaterally without rales, rhonchi, or wheezes. There is no accessory muscle use or retractions. Cardiac: RRR without murmurs, gallops, or rubs. Abd: Soft, nondistended, positive tenderness to palpation without rebound tenderness Progress Results/Orders Results/Orders Orders - OSMAR CLARK MD Straight Cath For Urine Sample (08/31/24 03:17) Normal Saline 1000ml (0.9% Sodium Chlori (08/31/24 03:45) Completed Orders - OSMAR CLARK MD Urinalysis, Cult If Indicated (08/31/24 03:17) Cbc/Diff (08/31/24 03:17) BMP (08/31/24 03:17) Lipase (08/31/24 03:17) CMP (08/31/24 03:17) Ondansetron Inj. (Zofran 4mg/2ml Vial) (08/31/24 03:45) Mag & Alum Hydrox/Simeth Susp (Maalox Or (08/31/24 03:45) Lidocaine 2% Viscous (Xylocaine 2% Visco (08/31/24 03:45) Pantoprazole 40mg Iv (Protonix 40mg Iv) (08/31/24 03:45) Ethanol (08/31/24 03:43) Medications Received in ER Medications (Trade) Dose Ordered Sig/Dominic Route PRN Reason Start Time Stop Time Status Last Admin Dose Admin (Zofran 4mg/2ml vial) 8 mg ONCE ONCE IV 08/31/24 03:45 08/31/24 03:46 DC 08/31/24 04:05 8 MG Sodium Chloride 1,000 ml @ 1,000 mls/hr ONCE ONCE IV 08/31/24 03:45 08/31/24 04:44 08/31/24 04:01 1,000 MLS/HR (Maalox oral suspension) 30 ml ONCE ONCE PO 08/31/24 03:45 08/31/24 03:46 DC 08/31/24 04:00 30 ML (Xylocaine 2% Viscous 15mL cup) 15 ml ONCE ONCE MM 08/31/24 03:45 08/31/24 03:46 DC 08/31/24 04:01 15 ML (Protonix 40mg IV) 80 mg ONCE ONCE IV 08/31/24 03:45 08/31/24 03:46 DC 08/31/24 04:03 80 MG Vital Signs 08/31/24 03:18 Temp 98.4 Pulse 99 Resp 16 B/P (MAP) 168/92 Pulse Ox 98 O2 Flow Rate 0 Laboratory Tests Test 08/31/24 03:53 08/31/24 04:06 White Blood Count 7.2 Red Blood Count 3.70 L Hemoglobin 12.2 L Hematocrit 36.4 L Mean Corpuscular Volume 98.4 H Mean Corpuscular Hemoglobin 33.0 H Mean Corpuscular Hemoglobin Concent 33.5 Red Cell Distribution Width 13.2 Platelet Count 115 L Mean Platelet Volume 7.8 Neutrophils (%) (Auto) 70.9 Lymphocytes (%) (Auto) 16.3 L Monocytes (%) (Auto) 10.4 Eosinophils (%) (Auto) 2.2 Basophils (%) (Auto) 0.2 Neutrophils # (Auto) 5.1 Lymphocytes # (Auto) 1.2 Monocytes # (Auto) 0.7 Eosinophils # (Auto) 0.2 Basophils # (Auto) 0.0 CBC Comment Sodium Level 138 Potassium Level 4.2 Chloride Level 102 Carbon Dioxide Level 28.1 Anion Gap 8 Blood Urea Nitrogen 18 Creatinine 1.15 H Estimated GFR/1.73 m2 65 BUN/Creatinine Ratio 15.7 Glucose Level 163 H Calcium Level 8.5 Total Bilirubin 0.4 Aspartate Amino Transf (AST/SGOT) 31 Alanine Aminotransferase (ALT/SGPT) 22 Alkaline Phosphatase 114 Total Protein 7.3 Albumin 3.4 Globulin 3.9 Albumin/Globulin Ratio 0.9 L Lipase 46 Chemistry Comments Ethyl Alcohol Level < 10 Urine Specimen Description Non-specified Urine Color Yellow Urine Clarity Clear Urine pH 7.0 Urine Specific [place] 1.015 Urine Protein Negative Urine Glucose (UA) Negative Urine Ketones Negative Urine Occult Blood Negative Urine Nitrite Negative Urine Bilirubin Negative Urine Urobilinogen 0.2 Urine Leukocyte Esterase Negative Urine Culture Indicated Not ind Volume Urine Centrifuged 10 ml Urine Comment Medical Decision Making Findings Patient presents to the emergency room with abdominal pain as per HPI. Differentials include but are not limited to alcoholic gastritis pancreatitis diverticulitis cholecystitis small-bowel obstruction therefore emergent labs ordered which were reassuring. Given patient's history in stable vitals h I do not feel he requires a CT scan. He has been instructed that he needs to abstain. Departure Disposition: HOME / SELF CARE / HOMELESS Impression: Primary Impression: Acute gastritis Condition: Improved Discharge Instructions: Gastritis, Adult Referrals: NO PRIMARY CARE PROVIDER (PCP) Prescriptions Ondansetron 8mg ODT (Ondansetron Odt) 8 Mg Tab.rapdis 1 TAB PO Q6H for nausea/vomiting for 3 Days, #12 TAB 0 Refills Prov: OSMAR CLARK MD 08/31/24 Signature Scribe Signature: No scribe Attestation: The note accurately reflects work and decisions made by me.Osmar Clark MD 08/31/24 04:40 OSMAR CLARK MD Aug 31, 2024 03:41
[2024-08-31] MEDS: mag hydrox/Alum hydrox/simeth 30ml oral suspension PO ONE (04:00)
[2024-08-31] MEDS: LIDOcaine 2% Viscous 15ml cup MM ONE (04:01)
[2024-08-31] MEDS: normal saline 1000ml 1,000 ML IV ONE (04:01)
[2024-08-31 04:04] LABS: MEAN PLATELET VOLUME 7.8 FL (7.4-10.4); RED CELL DISTRIBUTION WIDTH 13.2 % (11.5-14.5)
[2024-08-31] MEDS: ondansetron/PF 4mg/2ml inj IV ONE (04:05)
[2024-08-31 04:13] LABS: LEUKOCYTE ESTERASE ,URINE NEGATIVE (Neg); NITRITES, URINE NEGATIVE (Neg); OCCULT BLOOD,URINE NEGATIVE (Neg); UA COLLECTION TYPE NON-SPECIFIED
[2024-08-31 04:16] LABS: CREATININE 1.15 MG/DL (0.60-1.10); TOTAL CARBON DIOXIDE 28.1 MMOL/L (24-32); eCRCL 55 ML/MIN; eGFR 65 ML/MIN
[2024-08-31 04:24] LABS: ETHANOL < 10 MG/DL (<10)
[2024-08-31] MEDS ORDERED: ONDA-245 PO (04:40)
[2024-08-31] MEDS: HYDROcodone/acetaminophen 5mg/325mg tablet PO ONE (04:45)
[2024-08-31] MEDS: ketorolac trometh 15mg/ml vial 15 MG/ML ML IV ONE (04:47)
[2024-08-31 04:57] VITALS: BP 121/68; PULSE 62; RESP 12; TEMP 98.4; O2SAT 96
== END 2024-08-31 04:58 | disposition home or self-care (01) ==
LOC: ER 03:11
DX: K29.00 Acute gastritis without bleeding (principal); I10 Essential (primary) hypertension; F32.A Depression, unspecified; F12.90 Cannabis use, unspecified, uncomplicated
CPT/HCPCS: 36415; 80053; 80320; 81003; 83690; 85025; 96361; 96374; 96375; 99284; J1885; J2405; J2470; J7030

== ENCOUNTER 2024-10-02 20:43 | Emergency (ER) | payer OTHER ==
[~2024-10-02] VITALS: Ht 172.7 cm; Wt 98.2 kg
[~2024-10-02 20:43] MED LIST changes: -FOLI0.4T14 PO; +FOLI0.4T3 PO; -HYDR-3965 PO; +ONDA-245 PO
[2024-10-02] MEDS ORDERED: SERT-434 PO (21:02)
[2024-10-02] MEDS ORDERED: QUET-1 PO (21:02)
--- NOTE | 2024-10-02 21:05 | Physician Documentation ---
History of Present Illness ~ Chief Complaint: Anxiety Stated Complaint: ANXIETY ATTACK Time Seen by MD: 21:00 Primary Medical Doctor: [facility] HPI Anxiety, has run out of sertraline and seroquel. Drank alcohol to cope, has not helped. Denies medical complaints. Medication Reconciliation Allergies: Coded Allergies: No Known Allergies (Unverified , 10/02/24) Scheduled Amlodipine Besylate (Amlodipine Besylate), 1 TABLET PO DAILY, (Reported) Folic Acid (FOLIC ACID tablet), 1 TAB PO DAILY Lipase/Protease/Amylase (Creon Dr 6,000 Units Capsule), 1 CAP PO TID, (Reported) Multivitamin with Folic Acid (One Daily Essential Tablet), 1 TAB PO DAILY Ondansetron 8mg ODT (Ondansetron Odt), 1 TAB PO Q6H Pantoprazole Sodium (Pantoprazole Sodium), 40 MG PO DAILY Sertraline HCl (Sertraline HCl), 2 TAB PO DAILY Sucralfate (Sucralfate), 1 TAB PO Q8H Thiamine HCl (Vitamin B-1), 2 TAB PO DAILY Scheduled PRN Lorazepam (Ativan), 1 TAB PO Q12H PRN PRN for anxiety Ondansetron 8mg ODT (Ondansetron Odt), 1 TAB SL Q8H PRN for nausea/vomiting Quetiapine Fumarate* (Seroquel*), 1 TAB PO HS PRN for agitation Discontinued Medications Hydrocodone Bit/Acetaminophen 5/325 MG ([place] 5/325 MG), 1 TAB PO Q6H PRN for pain Discontinued Reason: Auto Discontinued Past Medical History Past Medical History: Hypertension, Gastritis, Pancreatitis, Chronic Back Pain, *PSYCH*, Depression Past Surgical History: orthopedic surgeries Alcohol Use: Alcoholic Drug Use: marijuana Lives with: Alone Lives In: Home Review of Systems All Other Systems at this time: Reviewed and Negative Physical Exam Vital Signs: RN Vital Signs have been reviewed: Yes, Temperature: 99.1, Source: Oral, Heart Rate: 107, Respiratory Rate: 18, BP: 139/95, Pulse Oximetry: 97, Weight: 98.200 Oxygen Flow Rate: 0 Physical Exam HEENT: PERRL, moist oral mucosa, EOMI Pulmonary: No respiratory distress MSK: no deformity Skin: w/d/i, no rash Neuro: alert, nonfocal Psych: normal affect Progress Results/Orders Results/Orders Orders - KAREN STREET MD Diazepam Tablet (Valium Tablet) (10/02/24 21:05) Vital Signs 10/02/24 20:47 Temp 99.1 Pulse 107 Resp 18 B/P (MAP) 139/95 Pulse Ox 97 O2 Flow Rate 0 Medical Decision Making Findings 63 year old male here with anxiety and in need of med refill. Valium PO, refills sent, will dispo with return precautions. Differential Dx:Considerations: Include: Alcohol abuse, Anxiety, Depression, Encephaloathy, Panic disorder, Schizophrenia, Substance abuse, Suicidal Departure Disposition: HOME / SELF CARE / HOMELESS Impression: Primary Impression: Anxiety Condition: Stable Discharge Instructions: Managing Anxiety, Adult Referrals: NO PRIMARY CARE PROVIDER (PCP) Prescriptions Sertraline HCl (Sertraline HCl) 100 Mg Tablet 2 TAB PO DAILY for 30 Days, #30 TAB 0 Refills Prov: KAREN STREET MD 10/02/24 Quetiapine Fumarate* (Seroquel*) 100 Mg Tablet 1 TAB PO HS PRN for agitation for 30 Days, #30 TAB Prov: KAREN STREET MD 10/02/24 Education Educated: Patient Educated regarding: diagnosis, treatment, prognosis, need for follow up Signature Scribe Signature: . Attestation: . KAREN STREET MD Oct 02, 2024 21:05
[2024-10-02 21:55] VITALS: BP 144/86; PULSE 101; RESP 18; TEMP 99.1; O2SAT 94
== END 2024-10-02 22:00 | disposition home or self-care (01) ==
LOC: ER 20:43
DX: F41.9 Anxiety disorder, unspecified (principal); F32.A Depression, unspecified; I10 Essential (primary) hypertension; F12.90 Cannabis use, unspecified, uncomplicated; F10.90 Alcohol use, unspecified, uncomplicated; Y90.9 Presence of alcohol in blood, level not specified
CPT/HCPCS: 99284

== ENCOUNTER 2024-10-05 20:46 | Emergency (ER) | payer OTHER ==
[~2024-10-05] VITALS: Ht 172.7 cm; Wt 98.2 kg
[2024-10-05 21:23] VITALS: BP 130/82; PULSE 99; RESP 15; TEMP 96.3; O2SAT 97
== END 2024-10-06 00:36 | disposition left against medical advice (07) ==
LOC: ER 20:47
DX: F41.9 Anxiety disorder, unspecified (principal); Z53.21 Procedure and treatment not carried out due to patient leaving prior to being seen by health care provider

== ENCOUNTER 2024-10-07 00:25 | Emergency (ER) | payer OTHER ==
[~2024-10-07] VITALS: Ht 172.7 cm; Wt 98.2 kg
[2024-10-07 00:32] VITALS: BP 150/96; PULSE 110; RESP 15; TEMP 96.3; O2SAT 98
== END 2024-10-07 03:06 | disposition left against medical advice (07) ==
LOC: ER 00:26
DX: F41.9 Anxiety disorder, unspecified (principal); Z53.21 Procedure and treatment not carried out due to patient leaving prior to being seen by health care provider
CPT/HCPCS: J7030

== ENCOUNTER 2024-10-07 03:20 | Emergency (ER) | payer OTHER ==
[~2024-10-07] VITALS: Ht 172.7 cm; Wt 98.2 kg
[2024-10-07 03:24] VITALS: TEMP 93.6
--- NOTE | 2024-10-07 05:22 | Physician Documentation ---
History of Present Illness ~ Chief Complaint: Anxiety Stated Complaint: ANXIETY M BLS Time Seen by MD: 05:19 Primary Medical Doctor: [facility] HPI Patient presents to the emergency room for evaluation of anxiety. He states he has posttraumatic stress disorder and he is dealing with a lot. He is here earlier this evening but left without being seen but returned an ambulance so he could be seen sooner. He is seen within this past week at our facility and received Valium for anxiety. Patient endorses alcohol. Medication Reconciliation Allergies: Coded Allergies: No Known Allergies (Unverified , 10/07/24) Scheduled Amlodipine Besylate (Amlodipine Besylate), 1 TABLET PO DAILY, (Reported) Folic Acid (FOLIC ACID tablet), 1 TAB PO DAILY Lipase/Protease/Amylase (Creon Dr 6,000 Units Capsule), 1 CAP PO TID, (Reported) Multivitamin with Folic Acid (One Daily Essential Tablet), 1 TAB PO DAILY Ondansetron 8mg ODT (Ondansetron Odt), 1 TAB PO Q6H Pantoprazole Sodium (Pantoprazole Sodium), 40 MG PO DAILY Sertraline HCl (Sertraline HCl), 2 TAB PO DAILY Sucralfate (Sucralfate), 1 TAB PO Q8H Thiamine HCl (Vitamin B-1), 2 TAB PO DAILY Scheduled PRN Lorazepam (Ativan), 1 TAB PO Q12H PRN PRN for anxiety Ondansetron 8mg ODT (Ondansetron Odt), 1 TAB SL Q8H PRN for nausea/vomiting Quetiapine Fumarate* (Seroquel*), 1 TAB PO HS PRN for agitation Discontinued Medications Hydrocodone Bit/Acetaminophen 5/325 MG ([place] 5/325 MG), 1 TAB PO Q6H PRN for pain Discontinued Reason: Auto Discontinued Past Medical History Past Medical History: Hypertension, Gastritis, Pancreatitis, Chronic Back Pain, *PSYCH*, Depression Past Surgical History: orthopedic surgeries Alcohol Use: Alcoholic Drug Use: marijuana Lives with: Alone Lives In: Home Review of Systems ROS All review of systems negative except as per HPI Physical Exam Vital Signs: Temperature: 93.6, Source: Temporal, Heart Rate: 110, Respiratory Rate: 20, BP: 157/92, Pulse Oximetry: 99, Weight: 98.200 Physical Exam General: Patient is awake, alert, oriented x4 in no acute distress Head: Normocephalic and atraumatic. Eyes: Conjunctival normal. EOMI. PERRL. ENT: Mucous membranes moist. Neck: Supple, trachea is midline. Chest: Clear to auscultation bilaterally without rales, rhonchi, or wheezes. There is no accessory muscle use or retractions. Cardiac: Tachycardic and regular without murmurs, gallops, or rubs. Psych: Cooperative, good eye contact, tense speech Progress Results/Orders Results/Orders Vital Signs 10/07/24 03:24 Temp 93.6 Pulse 110 Resp 20 B/P (MAP) 157/92 Pulse Ox 99 Medical Decision Making Findings Patient presents to the emergency room requesting anxiety medications. Patient that has not suffering from alcohol withdrawals in his trying to manipulate the system to cut the line and I do not feel benzodiazepines is in his best interest. We will treat with Atarax. Poor prognosis. Patient has been advised to follow up with his doctor. No SI/HI. Departure Disposition: HOME / SELF CARE / HOMELESS Impression: Primary Impression: Anxiety Condition: Stable Discharge Instructions: Managing Anxiety, Adult Additional Instructions: Follow up with your doctor for additional anxiety medications. Referrals: NO PRIMARY CARE PROVIDER (PCP) Education Educated: Patient Educated regarding: diagnosis, treatment, need for follow up Signature Scribe Signature: No scribe Attestation: The note accurately reflects work and decisions made by me.Osmar Clark MD 10/07/24 05:28 OSMAR CLARK MD Oct 07, 2024 05:22
[2024-10-07 05:43] VITALS: BP 148/64; PULSE 88; RESP 16; O2SAT 98
== END 2024-10-07 05:45 | disposition home or self-care (01) ==
LOC: ER 03:20
DX: F41.9 Anxiety disorder, unspecified (principal); I10 Essential (primary) hypertension; F32.A Depression, unspecified; F12.90 Cannabis use, unspecified, uncomplicated; F10.90 Alcohol use, unspecified, uncomplicated; Y90.9 Presence of alcohol in blood, level not specified
CPT/HCPCS: 99283; J7030; Q0177

== ENCOUNTER 2024-11-14 15:51 | Inpatient (IN) | payer OTHER ==
[~2024-11-14] VITALS: Ht 172.7 cm; Wt 59.1 kg
--- NOTE | 2024-11-14 16:08 | Physician Documentation ---
History of Present Illness ~ Chief Complaint: Dizziness Stated Complaint: DIZZINESS Time Seen by MD: 18:42 Primary Medical Doctor: [facility] HPI MSE: This is a 63-year-old male with history of hypertension who presents with 10 days of feeling of imbalance will ambulating since an increase in his dose of hypertension medication. HPI: The patient tells me that for the past 10 or 12 days he has been having trouble with his balance. He tells me that he had a fall around that time and broke a rib on the left side. He did not hit his head. However his blood pressure is elevated because he was in pain and so they doubled his amlodipine dose from 5 mg to 10 mg. Since that time he reports having trouble with balance, states he can not really walk well. He reports some nausea. He has had a tightness in his head and some increased blurry vision. He reports generalized weakness. He does have a history of alcohol abuse. Last drink was yesterday. No new falls or injuries. No vomiting. No tingling or numbness to his extremities Medication Reconciliation Allergies: Coded Allergies: No Known Allergies (Unverified , 10/07/24) Scheduled Amlodipine Besylate (Amlodipine Besylate), 1 TABLET PO DAILY, (Reported) Folic Acid (FOLIC ACID tablet), 1 TAB PO DAILY Lipase/Protease/Amylase (Creon Dr 6,000 Units Capsule), 1 CAP PO TID, (Reported) Melatonin (Melatonin), 1 TAB PO HS, (Reported) Multivitamin with Folic Acid (One Daily Essential Tablet), 1 TAB PO DAILY Ondansetron 8mg ODT (Ondansetron Odt), 1 TAB PO Q6H Pantoprazole Sodium (Pantoprazole Sodium), 40 MG PO DAILY Quetiapine Fumarate (Seroquel), 1 TAB PO HS, (Reported) Sertraline HCl (Sertraline HCl), 2 TAB PO DAILY Sucralfate (Sucralfate), 1 TAB PO Q8H Thiamine HCl (Vitamin B-1), 2 TAB PO DAILY Scheduled PRN Lorazepam (Ativan), 1 TAB PO Q12H PRN PRN for anxiety Ondansetron 8mg ODT (Ondansetron Odt), 1 TAB SL Q8H PRN for nausea/vomiting Discontinued Medications Quetiapine Fumarate* (Seroquel*), 1 TAB PO HS PRN for agitation Discontinued Reason: Other Past Medical History Past Medical History: Hypertension, Gastritis, Pancreatitis, Chronic Back Pain, *PSYCH*, Depression Past Surgical History: orthopedic surgeries Alcohol Use: Alcoholic Drug Use: marijuana Lives with: Alone Lives In: Home Review of Systems Constitutional: Reports: weakness Neurological: Reports: headache, dizziness, problems walking Physical Exam Vital Signs: Temperature: 97.6, Source: Temporal, Heart Rate: 84, Respiratory Rate: 18, BP: 120/79, Pulse Oximetry: 98, Weight: 59.090 Physical Exam General: This is a thin middle-aged man, appears older than stated age HEENT: Atraumatic, oropharynx appears dry Heart: Regular rate and rhythm, normal-appearing peripheral perfusion Lungs: normal work of breathing, normal oxygen saturation on room air Extremities: Warm and well-perfused Neuro: Alert and oriented. Has a resting tremor in his extremities. Normal cerebellar testing with [id number]. No nystagmus. When I stand him up, he is not able to stand straight and has truncal instability Psychiatric: Calm and cooperative with exam Progress Results/Orders Results/Orders Orders - LUCRECIA HESS MD Vitamin B12 (11/14/24 18:55) Ct Head (11/14/24 18:55) Page Hospitalist (11/14/24 22:01) Completed Orders - LUCRECIA HESS MD Cbc/Diff (11/14/24 18:44) CMP (11/14/24 18:44) MG (11/14/24 18:44) Ct Head (11/14/24 18:55) Ethanol (11/14/24 18:59) TSH (11/14/24 18:59) Ua W/Microscopic, Cult If Ind (11/14/24 20:04) Normal Saline 1000ml (0.9% Sodium Chlori (11/14/24 22:05) Ibuprofen Tablet (Motrin Tablet) (11/14/24 22:05) Acetaminophen 325mg Tablet (Tylenol Tabl (11/14/24 22:05) Lidocaine 5% Patch (Lidoderm 5% Patch) (11/14/24 22:05) Gabapentin Capsule (Neurontin Capsule) (11/14/24 22:25) Medications Received in ER Medications (Trade) Dose Ordered Sig/Dominic Route PRN Reason Start Time Stop Time Status Last Admin Dose Admin Sodium Chloride 1,000 ml @ 1,000 mls/hr ONCE ONCE IV 11/14/24 22:05 11/14/24 23:04 DC 11/14/24 22:37 1,000 MLS/HR (Motrin tablet) 600 mg ONCE ONCE PO 11/14/24 22:05 11/14/24 22:06 DC 11/14/24 23:21 600 MG (Tylenol tablet) 975 mg ONCE ONCE PO 11/14/24 22:05 11/14/24 22:06 DC 11/14/24 23:21 975 MG (Lidoderm 5% Patch) 1 patch ONCE ONCE TP 11/14/24 22:05 11/14/24 22:06 DC 11/14/24 23:22 1 PATCH (Neurontin capsule) 400 mg ONCE ONCE PO 11/14/24 22:25 11/14/24 22:26 DC 11/14/24 23:19 400 MG Vital Signs 11/14/24 11/14/24 11/14/24 11/14/24 15:58 19:49 20:30 21:30 Temp 97.6 Pulse 84 70 75 80 Resp 18 15 17 16 B/P (MAP) 120/79 156/89 (111) 153/96 (115) 139/78 (98) Pulse Ox 98 98 97 98 O2 Flow Rate 0 0 0 Laboratory Tests Test 11/14/24 19:01 11/14/24 19:04 11/14/24 20:04 White Blood Count 4.9 Red Blood Count 3.65 L Hemoglobin 12.4 L Hematocrit 36.4 L Mean Corpuscular Volume 99.8 H Mean Corpuscular Hemoglobin 34.0 H Mean Corpuscular Hemoglobin Concent 34.0 Red Cell Distribution Width 16.3 H Platelet Count 103 L Mean Platelet Volume 8.1 Neutrophils (%) (Auto) 72.1 Lymphocytes (%) (Auto) 19.3 L Monocytes (%) (Auto) 5.6 Eosinophils (%) (Auto) 2.5 Basophils (%) (Auto) 0.5 Neutrophils # (Auto) 3.5 Lymphocytes # (Auto) 0.9 L Monocytes # (Auto) 0.3 Eosinophils # (Auto) 0.1 Basophils # (Auto) 0.0 CBC Comment Sodium Level 136 Potassium Level 4.1 Chloride Level 97 L Carbon Dioxide Level 30.2 Anion Gap 9 Blood Urea Nitrogen 17 Creatinine 1.41 H Estimated GFR/1.73 m2 51 BUN/Creatinine Ratio 12.1 Glucose Level 83 Calcium Level 8.6 Magnesium Level 1.2 L Total Bilirubin 0.8 Aspartate Amino Transf (AST/SGOT) 118 H Alanine Aminotransferase (ALT/SGPT) 43 Alkaline Phosphatase 107 Total Protein 7.0 Albumin 3.1 L Globulin 3.9 Albumin/Globulin Ratio 0.8 L Thyroid Stimulating Hormone (TSH) 1.45 Chemistry Comments Ethyl Alcohol Level < 10 Urine Specimen Description Voided Urine Color Yellow Urine Clarity Clear Urine pH 6.0 Urine Specific [place] 1.015 Urine Protein 30 H Urine Glucose (UA) Negative Urine Ketones Trace H Urine Occult Blood Negative Urine Nitrite Negative Urine Bilirubin Small Urine Urobilinogen 1.0 Urine Leukocyte Esterase Negative Urine RBC 0-2 Urine WBC 0-4 Urine Squamous Epithelial Cells None seen Urine Amorphous Phosphates 1+ Urine Bacteria Few Urine Hyaline Casts 0-3 Urine Mucus Few Urine Culture Indicated Not ind Volume Urine Centrifuged 10 ml Urine Comment EKG/XRAY/CT/US/VASC/MRI CT : Impression I personally interpreted the CT scan, and this shows no mass or intracranial hemorrhage Consults/PCP Consults/PCP : Additional Comment Consult: I spoke to the internal medicine service, for admission in the hospit al Medical Decision Making Differential Dx:Considerations: Include: CVA, dehydration, dysrhythmia, electrolyte imbalance, encephalopathy, hypotension, myocardial infarction, renal failure, vertigo central Additional Information The patient presents with difficulty with balance. On exam he is very off balance and is unable to stand up straight. His workup was unremarkable including normal electrolytes. Head CT without acute hemorrhage or mass. Did a ppear dehydrated and had dark urine and so he was given IV fluids. Overall, I suspect that he has a vitamin deficiency like B12, or less likely a stroke. Regardless, given his significant symptoms he will require admission for further workup and treatment. Departure Impression: Primary Impression: Alcohol dependence Additional Impression: Ataxia Referrals: NO PRIMARY CARE PROVIDER (PCP) Signature Scribe Signature: [email or web address] Attestation: MAHNAZ Garcia Nov 14, 2024 16:08 LUCRECIA EHSS MD Nov 14, 2024 18:59
--- NOTE | 2024-11-14 17:04 | ELECTROCARDIOGRAPH REPORT ---
[facility] Test Date: 2024-11-14 Test Time: 16:04:47 Pat Name: DENISE OLVERA Department: EMERGENCY ROOM Room: [facility]TH[facility] [place] Gender: M Shipping And Receiving: : 1960 Requested By: DEPARTMENT EMERGENCY Order Number: [id number] Reading MD: Dr. Lamonte Wilson Measurements Intervals [place] Rate: 84 P: 67 [place]: 157 QRS: 50 QRSD: 90 T: 11 QT: 367 QTc: 434 Interpretive Statements Sinus rhythm Electronically Signed On 11-17-2024 21:45:[address] Lamonte Wilson Please click the below link to view image of tracing.
[2024-11-14 19:15] LABS: MEAN PLATELET VOLUME 8.1 FL (7.4-10.4); RED CELL DISTRIBUTION WIDTH 16.3 % (11.5-14.5)
[2024-11-14 19:23] LABS: CREATININE 1.41 MG/DL (0.60-1.10); TOTAL CARBON DIOXIDE 30.2 MMOL/L (24-32); eCRCL 46 ML/MIN; eGFR 51 ML/MIN
[2024-11-14 19:32] LABS: ETHANOL < 10 MG/DL (<10)
[2024-11-14 20:17] LABS: LEUKOCYTE ESTERASE ,URINE NEGATIVE (Neg); NITRITES, URINE NEGATIVE (Neg); OCCULT BLOOD,URINE NEGATIVE (Neg)
[2024-11-14 20:21] LABS: UA COLLECTION TYPE VOIDED
[2024-11-14 20:31] LABS: AMORPHOUS PHOSPHATES 1+; HYALINE CASTS 0-3 /LPF (NEGATIVE); MUCUS STRANDS FEW /LPF (Neg); SQUAMOUS EPITHELIAL CELL,UR NONE SEEN /LPF (FEW)
[2024-11-14] MEDS: normal saline 1000ml 1,000 ML IV ONE (22:37)
[2024-11-14] MEDS: ibuprofen tablet 400 MG TABLET PO ONE (23:21)
[2024-11-14] MEDS ORDERED: potassium Cl 20 mEq SR tablet PO PRN ×2 (23:30)
[2024-11-14] MEDS ORDERED: potassium Cl 40MEQ/1/2NS 520ml 520 ML IV PRN (23:30)
[2024-11-14] MEDS ORDERED: magnesium sulf-water 4G/100mL 100 ML IV PRN (23:30)
[2024-11-14] MEDS ORDERED: magnesium sulf-water 2g/50mL 50 ML IV PRN (23:30)
--- NOTE | 2024-11-14 23:43 | HISTORY AND PHYSICAL-Residence ---
History & Physical Providers to CC Resident Creating Document: JOSÉ CROUCHMARY ~ History of Present Illness Primary Medical Doctor: [facility] Reason for Admit\Complaint: Ataxia History of Present Illness 63 years old male with history of pancreatitis, long time alcohol drinker, PTSD insomnia presented to the ED due to loss of balance. Patient reported his symptoms started about two weeks ago, he had a mechanical fall which lead to a broken rib. He denied any head trauma or loss of consciousness at that time. Patient was in a lot of pain and visited [facility], due to elevated blood pressure the amlodipine dose from 5 mg increased to 10 mg. He reported imbalance afterward,had nausea but not vomiting. He is not for about blurry vision and double vision, because he said he had a plan to change his prescription glasses but he have not done it yet. He also reported insomnia, during last 10 days he only sleep for 4 hours daily. Denied any focal extremity weaknesses, facial weaknesses slurred speech, dizziness. Patient is long-time alcohol drinker and reported last drink was 10 days ago for a couple days he had tremor but all of them improved. Allergies: Coded Allergies: No Known Allergies (Unverified , 10/07/24) Home Medications Home Medications Active Sertraline HCl 100 Mg Tablet 2 Tab PO DAILY 30 Days Seroquel* (Quetiapine Fumarate) 100 Mg Tablet 1 Tab PO HS PRN 30 Days Ondansetron Odt (Ondansetron HCl) 8 Mg Tab.rapdis 1 Tab PO Q6H 3 Days Ativan (Lorazepam) 1 Mg Tablet 1 Tab PO Q12H PRN PRN Sucralfate 1 Gram Tablet 1 Tab PO Q8H 30 Days FOLIC ACID tablet (Folic Acid) 0.4 Mg Tablet 1 Tab PO DAILY 30 Days Vitamin B-1 (Thiamine HCl) 50 Mg Tablet 2 Tab PO DAILY 30 Days Pantoprazole Sodium 40 Mg Tablet. 40 Mg PO DAILY Ondansetron Odt (Ondansetron HCl) 8 Mg Tab.rapdis 1 Tab SL Q8H PRN One Daily Essential Tablet (Multivitamin with Folic Acid) 400 Mcg Tablet 1 Tab PO DAILY 30 Days Reported Cherion 6,000 Units Capsule (Lipase/Protease/Amylase) 1 Each Capsule. 1 Cap PO TID Amlodipine Besylate 5 Mg Tablet 1 Tablet PO DAILY Past Medical History Past Medical History PTSD Insomnia Pancreatitis (mass in the pancreas as patient report) Chronic back pain hypertension Gastritis Past Surgical History Surgical History Comment Foot amputation Jaw surgery Past Social History Smoking: Cigarettes (Smoked cigarettes on and off), Other Alcohol Use: Alcoholic Drug Use: Marijuana Lives with: Alone Lives In: Home ROS ROS Constitutional: No fever, dizziness, weakness. no change in appetite/weight HEENT: Positive for blurring of the vision, No sore throat, epistaxis, tinnitus Cardiovascular: no chest pain/discomfort, palpitations, no syncope. No pedal edema Respiratory: No sob, cough,, hemoptysis Gastrointestinal: no abdominal pain, no nausea, vomiting. no diarrhea, no constipation, melena. Genitourinary: No frquency, urgency, incontinence, nocturia. No dysuria, hematuria Musculoskeletal: No arthralgia, myalgia Endocrine: No polydipsia, polyuria. No heat or cold intolerance Neurologic: No headache, vertigo. No weakness, no numbness or tingling of extremities Psychiatric: No hallucinations/delusions, no anhedonia, no suicidal ideation\ Hematologic: No bleeding or bruises Constitutional: Reports: weakness Neurological: Reports: headache, dizziness, problems walking Exam Vitals: Vital Signs Date Time Temp Pulse Resp B/P (MAP) Pulse Ox O2 Delivery O2 Flow Rate FiO2 11/14/24 21:30 80 16 139/78 (98) 98 0 11/14/24 15:58 97.6 General: General: Awake and Alert, no acute distress. HEENT: Conjunctiva pink, Sclera clear, Mucus Membranes moist. Very poor hygiene Neck: Supple without masses and tenderness. Resp: Lungs clear to auscultation bilaterally. Heart: Regular Rate and rhythm, normal S1 and S2 without murmur, rub or gallop. Abdomen: Soft and non tender no organomegaly Extremities: No cyanosis,clubbing or edema. Skin: Warm and Dry. Neurological: Speech is clear, alert, and oriented x 4 Extraocular movement intact no nystagmus truncal ataxia, number can not be performed partially can do finger to nose coordination Diagnostic Data Last Recorded Lab Results: 11/14/24190011/14/241900 Advance Care Planning Advanced Care plannin - 30 Minutes Additional Plan 63 years old male with history of pancreatitis, long-time alcohol drinker presented to the ED due to imbalance Ataxia Patient had truncal ataxia, no dysarthria, no headache Prolonged alcohol drinker, last drink was about 10 days ago On physical exam: No nystagmus, no dysarthria, no tremor EKG normal sinus rhythm Normal TSH, sodium and potassium Urine tox is pending, alcohol is less than [address] scan 1. No acute intracranial abnormality. 2. Chronic sequelae of microangiopathy and atrophic cortical volume loss. Could be due to alcohol, vitamin-B1, B12 deficiency, cerebellar stroke, ordered MRI Follow up urine tox Thiamine and acid folic IV started, MRI is pending Hypomagnesemia We will Replace as protocol History of pancreatitis due to alcohol hx of long time alcohol drinker Macrocytic anemia Last drink was about two weeks ago patient does not have any withdrawal symptoms here Elevated AST 118, ALT 43 Normal bilirubin Thiamine and acid folic started Acute on chronic kidney failure IV fluids started History of hypertension Recently the dose of amlodipine increased to 10 mg, however patient believes his symptoms also related to medication Blood pressure is 140/80, we will monitoring patient PTSD, insomnia Continue home medication after reconciliation Code Status: Full DVT prophylaxis: SCDs Analgesia/sedation: none Line/tube: peripheral GI prophylaxis: protonix Nutrition: regular PT: Y Prognosis: Guarded Disposition: Continue monitoring patient in ortho floor with telemetry José Crouch MD Internal Medicine Resident Date of Service: Nov 14, 2024 Billing Provider: SERENA MEDRANO MD Common Visit Codes: 42602-[id number] INP/OBS CARE (HIGH) Assessment/Plan Assessment Evaluated the patient with the help of residents. Discussed the case with them. Reviewed notes by resident. Agree with her assessments and plans. I also reviewed the patient's records. Agree with the current plan. Being worked up for imbalance. Patient with alcoholic issues. Concern may be for cerebellar degeneration/other nutritional impairments causing neurological issues. Workup as planned. JOSÉ CROUCH, RES Nov 14, 2024 23:43 SERENA MEDRANO MD Nov 15, 2024 04:28
[2024-11-14 23:58] LABS: PHOSPHORUS 2.9 MG/DL (2.3-4.5)
--- NOTE | 2024-11-14 23:59 | RADIOLOGY REPORT ---
EXAM: CT CT HEAD INDICATION: dizzy, off balance TECHNIQUE: CT of the head without intravenous contrast. Radiation Dose : 1. Head: CT Dose: CTDI volume is 54.2 mGy. Dose-length product is 968.60 mGy*cm The dose indicators for CT are the volume Computed Tomography (CT) Dose Index (CTDIvol) and the Dose Length Product (DLP), and are measured in units of mGy and mGy-cm, respectively. These indicators are not patient dose, but values generated from the CT scanner acquisition factors. The report includes radiation exposure data for exposures received during this examination. COMPARISON: CT CT HEAD on DOS: 07/05/24, CT CT HEAD on DOS: 03/01/24, CT CT NECK SOFT TISSUES on DOS: 05/20/23, CT CT CERVICAL SPINE on DOS: 03/20/23, CT CT HEAD on DOS: 03/20/23 FINDINGS: There is no evidence of acute intracranial hemorrhage, extra-axial collection, mass effect, midline shift, herniation or hydrocephalus. Increased prominence of the ventricles, sulci and cisterns consistent with sequelae of atrophic cortical volume loss. The ku-white differentiation is intact. Moderate diffuse confluent periventricular and subcortical white matter hypoattenuation is nonspecific but may be related to small vessel ischemic disease. The visualized paranasal sinuses and mastoid air cells are clear. The surrounding soft tissues and osseous structures are unremarkable. IMPRESSION: 1. No acute intracranial abnormality. 2. Chronic sequelae of microangiopathy and atrophic cortical volume loss. Radiation optimization: All CT scans at this facility use at least one of these dose optimization techniques: automated exposure control mA and/or kV adjustment per patient size (includes targeted exams where dose is matched to clinical indication) or iterative reconstruction.
[2024-11-15] MEDS ORDERED: QUET-1 PO (00:35)
[2024-11-15] MEDS ORDERED: MELA5TAB12 PO (00:35)
[2024-11-15] MEDS: thiamine 100mg/ml 2ml inj. IV SCH (00:37)
[2024-11-15 01:08] VITALS: BP 137/88; PULSE 76; RESP 18; TEMP 98.9; O2SAT 99
[2024-11-15] MEDS: normal saline 1000ml 1,000 ML IV SCH (01:35)
[2024-11-15] MEDS: folic acid 1mg/0.2ml inj IV ONE (03:46)
[2024-11-15] MEDS: folic acid 1mg/0.2ml inj IV SCH (03:46)
[2024-11-15] MEDS: ondansetron/PF 4mg/2ml inj IV PRN (03:51)
[2024-11-15 05:28] LABS: MEAN PLATELET VOLUME 8.6 FL (7.4-10.4); RED CELL DISTRIBUTION WIDTH 16.6 % (11.5-14.5)
[2024-11-15 05:51] LABS: APTT 27 SECONDS (22-32); INR 1.2 INR
[2024-11-15 06:00] VITALS: BP 140/83; PULSE 75; RESP 16; TEMP 97.2; O2SAT 99
[2024-11-15 06:02] LABS: CREATININE 1.34 MG/DL (0.60-1.10); TOTAL CARBON DIOXIDE 27.2 MMOL/L (24-32); eCRCL 48 ML/MIN; eGFR 54 ML/MIN
[2024-11-15] MEDS: LIPASE PO SCH (08:00)
[2024-11-15] MEDS: AMYLASE PO SCH (08:00)
[2024-11-15] MEDS: K and/or MAG REPLACEMENT MC SCH (08:00)
[2024-11-15] MEDS: multivitamins, therapeutics tablet PO SCH ×2 (08:00→08:11)
[2024-11-15] MEDS: PROTEASE PO SCH (08:00)
--- NOTE | 2024-11-15 08:07 | RADIOLOGY REPORT ---
CLINICAL INDICATION: Ataxia COMPARISON: CT CT HEAD on DOS: 11/14/24, CT CT HEAD on DOS: 07/05/24, CT CT HEAD on DOS: 03/01/24 TECHNIQUE: Multisequence multiplanar MRI images of the brain were obtained without contrast. FINDINGS: No acute infarct or hemorrhage. No mass or midline shift. Ventricles and sulci are within normal limits. Small chronic lacunar infarct in the left thalamus. Basal cisterns are patent. Cerebellum, brainstem, and midline structures are within normal limits. Scattered areas of mild mucosal thickening in the paranasal sinuses. Orbits are grossly unremarkable. IMPRESSION: 1. No evidence of acute intracranial abnormality. 2. Nonacute findings as described above.
[2024-11-15] MEDS: pantoprazole 40mg Tablet.DR PO SCH (08:09)
[2024-11-15] MEDS: docusate sod 100mg capsule PO SCH (08:10)
[2024-11-15] MEDS: magnesium Cl slow-release 64mg tablet PO PRN (09:49)
[2024-11-15 10:00] VITALS: BP 148/79; PULSE 79; RESP 16; TEMP 97.8; O2SAT 99
[2024-11-15 10:28] VITALS: RESP 15
[2024-11-15] MEDS: morphine 4 MG/ML inj SYRINge IV PRN (10:28)
--- NOTE | 2024-11-15 15:28 | DISCHARGE SUMMARY-Residence ---
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 Macrocytic anemia hypertension PTSD insomnia Operations\Procedures: None Consultants: None Complications: None Condition on DC: Stable Continued Medications: Amlodipine Besylate (Amlodipine Besylate) 5 Mg Tablet 1 TABLET PO DAILY, 5 Refills Folic Acid (FOLIC ACID tablet) 0.4 Mg Tablet 1 TAB PO DAILY for 30 Days, #30 TAB 0 Refills Lipase/Protease/Amylase (Creon Dr 6,000 Units Capsule) 1 Each Capsule.dr 1 CAP PO TID for digestion, 0 Refills Melatonin (Melatonin) 5 Mg Tab.rapdis 1 TAB PO HS for sleep, TAB 0 Refills Multivitamin with Folic Acid (One Daily Essential Tablet) 400 Mcg Tablet 1 TAB PO DAILY for 30 Days, #30 TAB 0 Refills Ondansetron 8mg ODT (Ondansetron Odt) 8 Mg Tab.rapdis 1 TAB SL Q8H PRN for nausea/vomiting, #60 TAB Pantoprazole Sodium (Pantoprazole Sodium) 40 Mg Tablet.dr 40 MG PO DAILY, #30 TAB.SR Quetiapine Fumarate (Seroquel) 100 Mg Tablet 1 TAB PO HS, 0 Refills Sertraline HCl (Sertraline HCl) 100 Mg Tablet 2 TAB PO DAILY for 30 Days, #30 TAB 0 Refills Sucralfate (Sucralfate) 1 Gram Tablet 1 TAB PO Q8H for 30 Days, #90 TAB 0 Refills Thiamine HCl (Vitamin B-1) 50 Mg Tablet 2 TAB PO DAILY for 30 Days, #60 TAB 0 Refills Discharge Summary: History of present illness: A 63 years old male with history of pancreatitis, long time alcohol drinker, P TSD insomnia presented to the ED due to loss of balance.Patient reported his symptoms started about two weeks ago, he had a mechanical fall which lead to a broken rib. He denied any head trauma or loss of consciousness at that time. Patient was in a lot of pain and visited [facility], due to elevated blood pressure the amlodipine dose from 5 mg increased to 10 mg. He reported imba reyna afterward,had nausea but not vomiting. He is not for about blurry vision and double vision, because he said he had a plan to change his prescription glasses but he have not done it yet.He also reported insomnia, during last 10 days he only sleep for 4 hours daily.enied any focal extremity weaknesses, facial weaknesses slurred speech, dizziness. Patient is long-time alcohol drinker and reported last drink was 10 days ago for a couple days he had tremor but all of them improved. Course in the hospital: Patient was admitted in the hospital the evaluation of imbalance. Initial labs ( CBC, electrolytes, CMP, HbA1c, lipid profile, TSH, calcium and phosphorus ) were normal. Patient was negative for orthostatic vitals. Urinalysis negative for infection. Ethyl alcohol concentartion patient is less than 10. No evidence of acute intracranial abnormality on CT head and MRI head. Removed CVA, encephalopathy, ataxia, cerebellar stroke.During hospital stay, patient had not experienced any episode of imbalance, vertigo. Patient recovery occurred sooner than expected. Keep him for 1 more night , however, patient wanted to go home. Patient was stable at the time of discharge. Imaging: CT head: 1. No acute intracranial abnormality. 2. Chronic sequelae of microangiopathy and atrophic cortical volume loss. MRI head: No evidence of acute intracranial abnormality. Discharge instructions: Advised to follow up with PCP in 1 week Advised to check B12, B1 outpatient. Advised to quit drinking alcohol In Case of any worsening symptoms, Call 911 or go to the ER immediately. Vital Signs Date Time Temp Pulse Resp B/P (MAP) Pulse Ox O2 Delivery O2 Flow Rate FiO2 11/15/24 10:28 15 11/15/24 10:00 97.8 79 148/79 (102) 99 Room Air 11/14/24 21:30 0 Laboratory Tests Test 11/14/24 19:01 11/14/24 19:04 11/14/24 20:04 11/14/24 23:40 White Blood Count 4.9 X10'3 Red Blood Count 3.65 X10'6 Hemoglobin 12.4 g/dl Hematocrit 36.4 % Mean Corpuscular Volume 99.8 FL Mean Corpuscular Hemoglobin 34.0 PG Mean Corpuscular Hemoglobin Concent 34.0 g/dL Red Cell Distribution Width 16.3 % Platelet Count 103 X10'3 Mean Platelet Volume 8.1 FL Neutrophils (%) (Auto) 72.1 % Lymphocytes (%) (Auto) 19.3 % Monocytes (%) (Auto) 5.6 % Eosinophils (%) (Auto) 2.5 % Basophils (%) (Auto) 0.5 % Neutrophils # (Auto) 3.5 X10'3 Lymphocytes # (Auto) 0.9 X10'3 Monocytes # (Auto) 0.3 X10'3 Eosinophils # (Auto) 0.1 X10'3 Basophils # (Auto) 0.0 X10'3 CBC Comment Sodium Level 136 MMOL/L Potassium Level 4.1 MMOL/L Chloride Level 97 MMOL/L Carbon Dioxide Level 30.2 MMOL/L Anion Gap 9 Blood Urea Nitrogen 17 MG/DL Creatinine 1.41 MG/DL Estimated GFR/1.73 m2 51 ML/MIN BUN/Creatinine Ratio 12.1 Glucose Level 83 MG/DL Calcium Level 8.6 MG/DL Magnesium Level 1.2 MG/DL 1.1 MG/DL Total Bilirubin 0.8 MG/DL Aspartate Amino Transf (AST/SGOT) 118 U/L Alanine Aminotransferase (ALT/SGPT) 43 U/L Alkaline Phosphatase 107 IU/L Total Protein 7.0 G/DL Albumin 3.1 G/DL Globulin 3.9 G/DL Albumin/Globulin Ratio 0.8 Thyroid Stimulating Hormone (TSH) 1.45 ulU/ml Chemistry Comments Ethyl Alcohol Level < 10 MG/DL Urine Specimen Description Voided Urine Color Yellow Urine Clarity Clear Urine pH 6.0 Urine Specific [place] 1.015 Urine Protein 30 mg/dl Urine Glucose (UA) Negative mg/dl Urine Ketones Trace mg/dl Urine Occult Blood Negative Urine Nitrite Negative Urine Bilirubin Small Urine Urobilinogen 1.0 E.U/dL Urine Leukocyte Esterase Negative Urine RBC 0-2 /HPF Urine WBC 0-4 /HPF Urine Squamous Epithelial Cells None seen /LPF Urine Amorphous Phosphates 1+ Urine Bacteria Few /HPF Urine Hyaline Casts 0-3 /LPF Urine Mucus Few /LPF Urine Culture Indicated Not ind Volume Urine Centrifuged 10 ml Urine Comment Hemoglobin A1c 5.5 % Phosphorus Level 2.9 MG/DL Lipase 18 U/L Test 11/15/24 05:01 White Blood Count 3.7 X10'3 Red Blood Count 3.39 X10'6 Hemoglobin 11.6 g/dl Hematocrit 34.2 % Mean Corpuscular Volume 101.0 FL Mean Corpuscular Hemoglobin 34.2 PG Mean Corpuscular Hemoglobin Concent 33.8 g/dL Red Cell Distribution Width 16.6 % Platelet Count 96 X10'3 Mean Platelet Volume 8.6 FL Neutrophils (%) (Auto) 57.2 % Lymphocytes (%) (Auto) 30.4 % Monocytes (%) (Auto) 7.7 % Eosinophils (%) (Auto) 4.0 % Basophils (%) (Auto) 0.7 % Neutrophils # (Auto) 2.1 X10'3 Lymphocytes # (Auto) 1.1 X10'3 Monocytes # (Auto) 0.3 X10'3 Eosinophils # (Auto) 0.1 X10'3 Basophils # (Auto) 0.0 X10'3 CBC Comment Prothrombin Time 11.9 SECONDS INR International Normalized Ratio 1.2 INR Activated Partial Thromboplast Time 27 SECONDS Coagulation Comments Sodium Level 135 MMOL/L Potassium Level 3.7 MMOL/L Chloride Level 95 MMOL/L Carbon Dioxide Level 27.2 MMOL/L Anion Gap 13 Blood Urea Nitrogen 18 MG/DL Creatinine 1.34 MG/DL Estimated GFR/1.73 m2 54 ML/MIN BUN/Creatinine Ratio 13.4 Glucose Level 246 MG/DL Calcium Level 7.8 MG/DL Magnesium Level 1.1 MG/DL Total Bilirubin 0.7 MG/DL Aspartate Amino Transf (AST/SGOT) 104 U/L Alanine Aminotransferase (ALT/SGPT) 43 U/L Alkaline Phosphatase 100 IU/L Total Protein 6.4 G/DL Albumin 2.7 G/DL Globulin 3.7 G/DL Albumin/Globulin Ratio 0.7 Chemistry Comments Physical examined discharge: Awake , alert and oriented to time,place, person,not in distress HEENT: Atraumatic, normocephalic, PERRLA, EOMI, anicteric sclera ; pink conjunct joel, moist mucos membranes Neck: Trachea midline. Supple, normal range of motion, no JVD, no lymphadenopathy Chest and Respiratory: Equal breath sounds bilaterally, no tachypnea, wheezing, ronchi,rubs .Chest wall is symmetric and without deformity. Cardiac: S1, S2 heard,Regular rate and rhythm, no murmurs heard. Abdomen: Soft, No tenderness, No guarding or rigidity, Ware's sign negative. normal bowel sounds x4 quadrant, no hepatosplenomegaly MSK: Range of motion of all extremities are normal. There is no joint pain or joint swelling or joint erythema. There is no muscle pain or tenderness or swelling. Extremities: warm, well-perfused, No cyanosis, clubbing, 2+ pulses felt Neurological: Speech is clear, alert, and oriented x 4. No sensory or motor deficits. Cranial nerves II-XII intact. Skin: Warm and dry Psychiatry: Affect and mood are normal *Problems/Diagnosis: (1) Acute kidney injury (2) Hypertension (3) Hypomagnesemia (4) Benign paroxysmal positional vertigo, bilateral Total Time Spent on D/C: > 30 Minutes Date of Service: Nov 15, 2024 Billing Provider: KVNG AVILA MD Common Visit Codes: 87540-RAL/OBS DISCH DAY >30min MAUREEN NICHOLAS, RES Nov 15, 2024 15:27 KVNG AVILA MD Nov 16, 2024 06:49
== END 2024-11-15 11:46 | disposition home or self-care (01) | DRG 149 ==
LOC: ER 15:51 → ED HOLD 23:17 → EDBEDREQ 11-15 00:11 → ORTHO 4S 11-15 00:45
PROVIDERS: ADMIT Internal Medicine Critical Care Medicine; ATTEND Internal Medicine
DX: H81.13 Benign paroxysmal vertigo, bilateral (principal); N17.0 Acute kidney failure with tubular necrosis; F10.20 Alcohol dependence, uncomplicated; E83.42 Hypomagnesemia; F32.A Depression, unspecified; R27.0 Ataxia, unspecified; G89.29 Other chronic pain; I12.9 Hypertensive chronic kidney disease with stage 1 through stage 4 chronic kidney disease, or unspecified chronic kidney disease; F17.210 Nicotine dependence, cigarettes, uncomplicated; D53.9 Nutritional anemia, unspecified; F43.10 Post-traumatic stress disorder, unspecified; G47.00 Insomnia, unspecified; Z79.899 Other long term (current) drug therapy
CPT/HCPCS: 36415; 70450; 70551; 80053; 80320; 81001; 82607; 83036; 83690; 83735; 84100; 84443; 85025; 85610; 85730; 87081; 93005; 99285; G0378; J2270; J2405; J3411; J3490; J7030